=== PATIENT | female | born 1940 | race Caucasian/White ===

== ENCOUNTER 2017-02-22 09:14 | Emergency (ER) | payer BC ==
[~2017-02-22] VITALS: Ht 165.1 cm; Wt 79.2 kg
[~2017-02-22 09:14] MED LIST: CALC600T9 PO; DOXY40CA PO; METO25TA3 PO; NPR500 PO
[2017-02-22 09:16] VITALS: BP 153/75; PULSE 79; TEMP 36.8; O2SAT 96; Ht 165.1 cm; Wt 79.2 kg
[2017-02-22] MEDS ORDERED: DIPHTHERIA/TETANUS/PERTUSSIS 0.5 ML SYR/VIAL IM. ONE (09:45)
[2017-02-22] MEDS ORDERED: FURO-85 PO (09:49)
[2017-02-22] MEDS ORDERED: ASPI81TA28 PO (09:49)
[2017-02-22] MEDS ORDERED: HYDR1AER23 PR (09:49)
[2017-02-22] MEDS ORDERED: ACET-1256 PO (09:49)
[2017-02-22] MEDS ORDERED: DOCU-94 PO (09:49)
[2017-02-22] MEDS ORDERED: LISI40TA PO (09:49)
[2017-02-22] MEDS ORDERED: SPIR25TA PO (09:49)
[2017-02-22] MEDS ORDERED: ATOR-24 PO (09:49)
[2017-02-22] MEDS ORDERED: NTRGSL/4 UT (09:49)
--- NOTE | 2017-02-22 10:19 | DIAGNOSTIC IMAGING REPORT ---
CT HEAD WITHOUT CONTRAST (CT) CLINICAL HISTORY: Head trauma. Head pain. COMPARISON STUDY: No previous studies for comparison. TECHNIQUE: Axial CT of the brain is performed from the vertex to the skull base. IV contrast was not administered for this examination. CT DOSE: 537.48 mGy.cm FINDINGS: No intra or extra-axial mass lesions are visualized. There is no CT evidence of acute cortical infarction. There is no evidence of midline shift. There is no acute hemorrhage. No calvarial fractures are visualized. There are patchy white matter hypodensities likely on a small vessel basis. There is no evidence of pathologic ventricular dilatation. There is no evidence of acute sinusitis IMPRESSION: No acute intracranial findings Electronically signed by: Manuel Conn M.D. 02/22/2017 10:18 AM Dictated Date/Time: 02/22/2017 10:17 AM
--- NOTE | 2017-02-22 17:11 | EMERGENCY ROOM VISIT NOTE ---
History Report prepared by Vadim: Fransisco Thakkar Under the Supervision of: Dr. Cuong Baron M.D. First contact with patient: 09:28 Chief Complaint: FALL Stated Complaint: FELL AND HIT HER HEAD History of Present Illness The patient is a 76 year old female who presents to the Emergency Room with complaints of constant forehead pain s/p fall occurring 30 minutes ago. She states that she fell down a step while at [employer], and hit her forehead on the ground. She denies any headache-like pain, or loss of consciousness. She states that her pain is fairly mild, but that she feels "very nervous". The patient notes that she felt a little dizzy following the fall, but did not feel dizzy prior to the fall. She currently denies any numbness, weakness, nausea, chest pain, neck pain, or abdominal pain. She notes that she has a small cut from her glasses on her face and some minor "soreness" in her knees. The patient has a history of CAD, and has a cardiac stent in place. She denies any fevers, cough, or cold-like symptoms. She cannot remember when her most recent tetanus shot was. Source of History: patient Onset: 30 minutes ago Position: head (forehead) Symptom Intensity: minimal Quality: other (sore) Timing: constant Associated Symptoms: No LOC, No abdominal pain, No chest pain, No cough, No fevers, No headache (headache-like pain), No nausea, No neck pain, No numbness, No weakness Note: The patient also complains of slight dizziness following her fall. Review of Systems See HPI for pertinent positives & negatives. A total of 10 systems reviewed and were otherwise negative. Past Medical & Surgical Medical Problems: (1) Coronary artery disease Surgical Problems: (1) H/O heart artery stent Family History No pertinent family history stated. Social History Smoking Status: Never Smoker Marital Status: Current/Historical Medications Scheduled Aspirin (Aspirin Ec), 81 MG PO DAILY Atorvastatin (Lipitor), 40 MG PO DAILY Calcium Carbonate-Vitamin D (Calcium + D), 1 TAB PO QAM Docusate Sodium (Colace), 1 CAP PO BID Doxycycline (Rosacea) (Oracea), 40 MG PO QAM Hydrocortisone/Pramoxine (Proctofoam Hc), 1 APPL [place] TID Lisinopril (Zestril), 40 MG PO QAM Metoprolol Succinate (Toprol Xl), 25 MG PO HS Nitroglycerin (Nitrostat), 0.4 MG UT PRN Spironolactone (Aldactone), 25 MG PO BID Scheduled PRN Acetaminophen (Tylenol), 500 MG PO Q4 PRN for Headache Furosemide (Lasix), 20 MG PO DAILY PRN for SWELLING/WT GAIN Allergies Coded Allergies: Penicillins (Verified Allergy, Unknown, ., 02/22/17) Sulfa Antibiotics (Verified Adverse Reaction, Unknown, GI SYMPTOMS, 02/22/17 ) Physical Exam Vital Signs Date Time Temp Pulse Resp B/P Pulse Ox O2 Delivery O2 Flow Rate FiO2 02/22/17 09:16 36.8 79 16 153/75 96 Room Air Physical Exam Constitutional: Vital signs reviewed. Eyes: Pupils are equal round reactive to light. Conjunctiva are noninjected. ENT: Pharynx is clear without erythema or exudate. Mucous membranes are moist. Neck supple without meningeal signs. No midline tenderness to the cervical spine. No mid facial tenderness. Skin avulsion and abrasion to the upper bridge of the nose. Soft tissue swelling to the forehead with tenderness. Respiratory: Clear to auscultation bilaterally. Breath sounds are equal bilaterally. Cardiovascular: Regular rate and rhythm. No rubs or gallops. GI: Soft, nondistended and nontender. Bowel sounds are present. Musculoskeletal: No peripheral edema. No significant bony tenderness to the extremities. No midline tenderness to the thoracic or lumbosacral spine. Integumentary: As above. Neurological: The patient is awake and alert. Cranial nerves II-XII are intact. Motor is 5 out of 5 all extremities. Sensation is intact to light touch all extremities. Normal speech. No pronator drift. GCS 15 Psychiatric: Slightly anxious. Medical Decision & Procedures ER Provider Diagnostic Interpretation: CT results as stated below per my review and radiologist interpretation. CT HEAD WITHOUT CONTRAST (CT) FINDINGS: No intra or extra-axial mass lesions are visualized. There is no CT evidence of acute cortical infarction. There is no evidence of midline shift. There is no acute hemorrhage. No calvarial fractures are visualized. There are patchy white matter hypodensities likely on a small vessel basis. There is no evidence of pathologic ventricular dilatation. There is no evidence of acute sinusitis IMPRESSION: No acute intracranial findings Electronically signed by: Manuel Conn M.D. Medications Administered Medications (Trade) Dose Ordered Sig/Cydney Route Start Time Stop Time Status Last Admin Dose Admin Diphtheria/ Pertussis/Tetanus Vacc (Adacel Inj) 0.5 ml ONCE ONCE IM. 02/22/17 09:45 02/22/17 09:46 DC 02/22/17 10:06 0.5 ML ED Course 0930: The patient was evaluated in room B9. A complete history and physical exam was performed. 0945: Ordered Adacel Inj 0.5 ml IM. 1025: Upon reevaluation, the patient appeared to have improvement of her symptoms. I discussed tonight's findings with the patient. She verbalized agreement of the treatment plan. She was discharged home. Medical Decision This is a 76-year-old female presents status post head injury. Differential diagnosis includes contusion, concussion, skull fracture, facial fracture, intracranial hemorrhage. I did perform a limited focused review of portions of the patient's old chart on the electronic medical record. The patient has had no recent pertinent visits to this hospital. I did evaluate the patient as noted above. The patient is presenting after a mechanical fall with a head injury. She is neurologically intact. GCS is 15. I did order a CT of the head . I did review the images myself as well as the radiology report as described above. There is no evidence of intracranial hemorrhage. I did give the patient an Adacel IM injection and she does not know when her last tetanus shot was. She preferred to get the injection rather than to call her doctor tomorrow. I did discuss the test results with the patient and her . She was given head injury precautions and discharged in good condition. Impression Primary Impression: Acute head injury Additional Impression: Fall Scribe Attestation The scribe's documentation has been prepared under my direct and personally reviewed by me in its entirety. I confirm that the note above accurately reflects all work, treatment, procedures, and medical decision making performed by me. Departure Information Dispostion Home / Self-Care Referrals Kevon Cloby M.D. (PCP) Forms HOME CARE DOCUMENTATION FORM, IMPORTANT VISIT INFORMATION Patient Instructions ED Head Injury Closed, My [facility] Additional Instructions You have been examined and treated today on an emergency basis only. This is not a substitute for, or an effort to provide, complete comprehensive medical care. It is impossible to recognize and treat all injuries or illnesses in a single emergency department visit. It is therefore important that you follow up closely with your physician. Call as soon as possible for an appointment. Return for worsening symptoms or if you develop headache, numbness or weakness on one side of your body, difficulties with your speech or walking, or any other concerning symptoms. Problem Qualifiers Primary Impression: Acute head injury Encounter type: initial encounter Qualified Codes: S09.90XA - Unspecified injury of head, initial encounter Additional Impression: Fall Encounter type: initial encounter Qualified Codes: W19.XXXA - Unspecified fall, initial encounter
[2017-03-26] MEDS ORDERED: HYDR-4716 PO (08:43)
== END 2017-02-22 10:43 | disposition home or self-care (01) ==
LOC: C.EDB 09:15
DX: S09.90XA Unspecified injury of head, initial encounter (principal); W10.9XXA Fall (on) (from) unspecified stairs and steps, initial encounter; Y92.22 Religious institution as the place of occurrence of the external cause; S00.31XA Abrasion of nose, initial encounter; I25.10 Atherosclerotic heart disease of native coronary artery without angina pectoris; Z95.5 Presence of coronary angioplasty implant and graft; Z79.82 Long term (current) use of aspirin; Z23 Encounter for immunization

== ENCOUNTER → 2017-04-08 | Day surgery (SDC) | payer BC ==
[2017-03-26 08:43] VITALS: Ht 165.1 cm; Wt 77.3 kg
[~2017-04-08] VITALS: Ht 165.1 cm; Wt 77.3 kg
[~2017-04-08] MED LIST changes: +500ML BSS 0.3ML EPI 1:1000PF IRRIG ONE; +ACETAMINOPHEN 325 MG TAB PO PRN; +AMVISC PLUS 0.8ML SYRINGE INT OCU ONE; +ASPI81TA28 PO; +ATOR-24 PO; +ATROPINE SULFATE 0.1 MG/ML 5ML SYR IV PRN; +AcetaZOLAMIDE 250 MG TAB PO SCH; +BETAXOLOL HCL 0.25% OP SUSP PER DROP CHARGE OPL SCH; +BRIMONIDINE TART 0.2% OP SOLN PER DROP CHARGE ONE; +BSS FLUSH ONE; +ENDOCOAT 0.85ML SYRINGE INT OCU ONE; +EpHEDrine SULFATE INJ 50 MG/ML AMP IV PRN; +EpINEphrine INJ 1MG/ML AMP 1 MG/ML AMP ONE; +FURO-85 PO; +HYDR-4716 PO; +LACTATED RINGER'S 1000ML 500 ML IV SCH; +LIDOCAINE 4% OP SOLN DROP CHARGE ONE; +LIDOCAINE 4% OP SOLN DROP CHARGE OPL SCH; +LIDOCAINE HCL 1% MPF 2 ML VIAL ONE; +LISI40TA PO; +MIDAZOLAM HCL 1 MG/ML 2ML VIAL ONE; +MIX: 4ML BSS 1ML EPI 1:1000 PF INSTIL ONE; +MOXIFLOXACIN OPH SOLN PER DROP CHARGE ONE; -NPR500 PO; +NTRGSL/4 UT; +OCUCOAT 1 ML SOLN IO ONE; +POVIDONE-IODINE OP SOLN 30 ML BTL ONE; +PROPARACAINE 0.5% OP SOLN PER DROP CHARGE OPL SCH; +SPIR25TA PO; +TOBRAMYCIN/DEXAMETHASONE OPH OINT PER APPLN CHARGE ONE
[2017-04-08] MEDS: PHENYLEPHRINE HCL 2.5% OP SOLN PER DROP CHARGE OPL SCH ×2 (06:38→06:43)
[2017-04-08] MEDS: TROPICAMIDE 1% OP SOLN PER DROP CHARGE OPL SCH ×2 (06:39→06:44)
[2017-04-08] MEDS: CYCLOPENTOLATE HCL 1% OP SOLN PER DROP CHARGE OPL SCH ×2 (06:40→06:45)
[2017-04-08] MEDS: MOXIFLOXACIN OPH SOLN PER DROP CHARGE OPL SCH ×2 (06:41→06:56)
--- NOTE | 2017-04-08 06:41 | History & Physical Bridge - SC ---
H&P Re-Evaluation Bridge Note: I have examined the patient, reviewed the History & Physical and in the interval since the performance of the History & Physical I have noted the following changes of clinical significance: No changes noted
--- NOTE | 2017-04-08 07:36 | Discharge Instructions-SurgCtr ---
Discharge Instructions Date of Service Apr 08, 2017. Visit Reason for Visit: Cataract Left Eye Discharge Discharge Diagnosis / Problem: lens implant left eye Discharge Goals Goal(s): Improve function Activity Recommendations Activity Limitations: resume your previous activity Lifting Limitations: no more than 10 pounds Exercise/Sports Limitations: gradually increase as tolerated May Resume Sexual Activity: when tolerated Shower/Bathe: tomorrow Driving or Machine Use: resume 1 day after discharge Anesthesia . Post Anesthesia Instructions: If you have had General Anesthesia or IV Sedation: * Do not drive today. * Resume driving when surgeon permits. * Do not make important decisions or sign legal documents today. * Call surgeon for: 1. Temperature elevations greater than 101 degrees F. 2. Uncontrollable pain. 3. Excessive bleeding. 4. Persistent nausea and vomiting. 5. Medication intolerance (nausea, vomiting or rash). * For nausea and vomiting use only clear liquids such as: tea, soda, bouillon until nausea subsides, then gradually increase diet as tolerated. * If you have any concerns or questions, call your surgeon's office. If physician is unavailable and it is an emergency, call 911 or go to the nearest emergency room. . Instructions / Follow-Up Instructions / Follow-Up ACTIVITY RECOMMENDATIONS: * Light activities. * Mild irritation and blurred vision are common for the first few days. * You may walk outside, read, watch television. * Redness around the white part of the eye is common. MEDICATIONS: Resume previous medications unless instructed otherwise by your surgeon. * Take white Diamox (Acetazolamide) tablet at 1 pm today. Start all eye drops at 1 pm today: * Eye drops (today and tomorrow): Prednisone - one drop in operative eye every 3 hours while awake Ofloxacin - one drop in operative eye every 3 hours while awake SPECIAL CARE INSTRUCTIONS: * Tape plastic shield over eye to sleep at night. Call your doctor at with any concerns or problems. FOLLOW UP VISIT: Follow-up with Dr Mixon at [place] office as scheduled. Diet Recommendations Home Diet: no limitations Procedures Procedures Performed: cataract extraction with lens implant Pending Studies Studies pending at discharge: no Medical Emergencies . Who to Call and When: Medical Emergencies: If at any time you feel your situation is an emergency, please call 911 immediately. . Non-Emergent Contact Non-Emergency issues call your: Deputy Director Of Nursing Call Non-Emergent contact if: your pain is not controlled [phone] . . "Provider Documentation" section prepared by Kevon Mixon. .
--- NOTE | 2017-04-08 07:38 | [facility] Operative Report ---
Operative Report Date of Service Apr 08, 2017. Operative Report 1. PREOPERATIVE DIAGNOSIS: Senile nuclear cataract, left eye. 2. POSTOPERATIVE DIAGNOSIS: Senile nuclear cataract, left eye. 3. PROCEDURE: Phacoemulsification of left cataract with posterior chamber lens implant, type [employer]ch [employer], model MI60L, power +20.5 diopters. ANESTHESIA: Local standby. SURGEON: Dr. Mixon. COMPLICATIONS: None. OPERATING TIME: 10 minutes. 4. OPERATION AND FINDINGS: DESCRIPTION OF PROCEDURE: The left pupil was dilated. The anesthetic was administered using a topical technique. The left eye was prepped and draped. A speculum was placed. A clear corneal incision was formed. The chamber was filled with Amvisc Plus and Endocoat. Epinephrine solution was used. A paracentesis was placed. A capsulorrhexis was performed. The nucleus was hydrodissected. The lens was removed with phacoemulsification. Time was 4.58 seconds. The aspiration unit was used to remove the cortex. The capsule was filled with Amvisc Plus. The lens implant was folded and placed into the capsule. The incision was hydrated. The Amvisc was aspirated. The wound was secure. The chamber was deep. The pupil was round. Brimonidine, TobraDex ointment and Vigamox solution were placed. The speculum was removed. The patient was returned to the Recovery Room in stable condition. I attest to the content of the Intraoperative Record and any orders documented therein. Any exceptions are noted below. The scribe's documentation has been prepared in my presence, under my direction and personally reviewed by me in its entirety. I confirm that the note above accurately reflects all work, treatment, procedures, and medical decision making performed by me. I personally scribed for Kevon Mixon M.D. ([email or web address]) on 04/08/17 at 07:38. Electronically submitted by Nuria Squires ([email or web address]).
[2017-04-08 07:41] VITALS: TEMP 36.4
[2017-04-08 08:05] VITALS: BP 114/57; PULSE 59; O2SAT 100
--- NOTE | 2017-04-08 08:18 | Anesthesia Progress Nt - [facility] ---
Anesthesia Post Op Note Date & Time Apr 08, 2017 at 08:18 Vital Signs Pain Intensity: 0 Vital Signs Past 12 Hours Date Time Temp Pulse Resp B/P (MAP) Pulse Ox O2 Delivery O2 Flow Rate FiO2 04/08/17 08:05 59 18 114/57 (76) 100 Room Air 04/08/17 07:41 36.4 56 20 107/68 (81) 99 Room Air 04/08/17 06:27 36.7 63 20 152/76 (101) 98 Room Air Notes Mental Status: alert / awake / arousable, participated in evaluation Pt Amnestic to Procedure: Yes Nausea / Vomiting: adequately controlled Pain: adequately controlled Airway Patency, RR, SpO2: stable & adequate BP & HR: stable & adequate Hydration State: stable & adequate Anesthetic Complications: no major complications apparent
== END | disposition home or self-care (01) ==
LOC: X.SURG 06:06
PROVIDERS: ATTEND Specialist
DX: H25.12 Age-related nuclear cataract, left eye (principal)

== ENCOUNTER → 2017-04-16 | Outpatient (CLI) | payer BC ==
[~2017-04-16] MED LIST changes: -500ML BSS 0.3ML EPI 1:1000PF IRRIG ONE; -ACETAMINOPHEN 325 MG TAB PO PRN; -AMVISC PLUS 0.8ML SYRINGE INT OCU ONE; +APR/25 PO; -ATROPINE SULFATE 0.1 MG/ML 5ML SYR IV PRN; -AcetaZOLAMIDE 250 MG TAB PO SCH; -BETAXOLOL HCL 0.25% OP SUSP PER DROP CHARGE OPL SCH; -BRIMONIDINE TART 0.2% OP SOLN PER DROP CHARGE ONE; -BSS FLUSH ONE; -ENDOCOAT 0.85ML SYRINGE INT OCU ONE; -EpHEDrine SULFATE INJ 50 MG/ML AMP IV PRN; -EpINEphrine INJ 1MG/ML AMP 1 MG/ML AMP ONE; -HYDR-4716 PO; -LACTATED RINGER'S 1000ML 500 ML IV SCH; -LIDOCAINE 4% OP SOLN DROP CHARGE ONE; -LIDOCAINE 4% OP SOLN DROP CHARGE OPL SCH; -LIDOCAINE HCL 1% MPF 2 ML VIAL ONE; -MIDAZOLAM HCL 1 MG/ML 2ML VIAL ONE; -MIX: 4ML BSS 1ML EPI 1:1000 PF INSTIL ONE; -MOXIFLOXACIN OPH SOLN PER DROP CHARGE ONE; -OCUCOAT 1 ML SOLN IO ONE; -POVIDONE-IODINE OP SOLN 30 ML BTL ONE; -PROPARACAINE 0.5% OP SOLN PER DROP CHARGE OPL SCH; -TOBRAMYCIN/DEXAMETHASONE OPH OINT PER APPLN CHARGE ONE
--- NOTE | 2017-04-16 14:35 | MAMMOGRAPHY REPORT ---
BILATERAL DIGITAL SCREENING MAMMOGRAM WITH CAD: 04/16/2017 CLINICAL HISTORY: Routine screening. Patient has no complaints. TECHNIQUE: Current study was also evaluated with a Computer Aided Detection (CAD) system. Bilateral CC and MLO views were obtained. COMPARISON: Comparison is made to exams dated: 04/15/2016 mammogram, 04/04/2015 mammogram, 03/29/2014 m ammogram, 03/24/2013 mammogram, 03/19/2012 mammogram, and 03/18/2011 mammogram - [facility] ter. BREAST COMPOSITION: The tissue of both breasts is heterogeneously dense, which may obscure small mas ses. FINDINGS: No suspicious masses, calcifications, or areas of architectural distortion are noted in ei ther breast. There has been no significant interval change compared to prior exams. Scattered bilater al benign-appearing calcifications are not significantly changed. IMPRESSION: ACR BI-RADS CATEGORY 2: BENIGN There is no mammographic evidence of malignancy. A 1 year screening mammogram is recommended. The pa tient will receive written notification of the results. Approximately 10% of breast cancers are not detected with mammography. A negative mammographic report should not delay biopsy if a clinically suggestive mass is present. Salma Rhodes M.D. /:04/16/2017 07:54:17 Director [employer]actor Projects: Latasha ARGUETA(Veronica)(M), [facility] letter sent: Normal 1/2 BI-RADS Code: ACR BI-RADS Category 2: Benign
== END | disposition home or self-care (01) ==
LOC: C.MAMM 07:24
PROVIDERS: ATTEND Obstetrics & Gynecology
DX: Z12.31 Encounter for screening mammogram for malignant neoplasm of breast (principal)

== ENCOUNTER → 2018-05-10 | Outpatient (CLI) | payer BC ==
[~2018-05-10] MED LIST changes: -APR/25 PO; +HYDR-4716 PO; -METO25TA3 PO; +METO25TA4 PO
== END | disposition home or self-care (01) ==
LOC: C.MAMM 07:55
PROVIDERS: ATTEND Obstetrics & Gynecology
DX: M85.88 Other specified disorders of bone density and structure, other site (principal); M85.851 Other specified disorders of bone density and structure, right thigh; M85.852 Other specified disorders of bone density and structure, left thigh

== ENCOUNTER 2023-01-05 16:12 | Inpatient (IN) ==
--- NOTE | 2023-01-05 16:22 | ED Triage Note ---
Date of Service January 05, 2023 History of Present Illness This patient was briefly evaluated while in triage. An abbreviated physical exam was performed. This patient is a 82-year-old Female who presents to the ED for evaluation of dizziness over the past few weeks. She was referred to the ED by cardiology for new onset atrial fibrillation. She feels short of breath at times, denies any chest pain. No leg pain or leg swelling, fevers, or chills. No bleeding or clotting disorder. No history of cancer. Physical Exam CONSTITUTIONAL: in no acute pain or distress, resting comfortably SKIN: pink, warm, dry CARDIAC: tachycardic rate and regular rhythm RESPIRATORY: in no respiratory distress, lungs clear to auscultation Initial orders for labs and / or imaging were placed and patient was placed in the waiting area until a bed is available. Please see further documentation for the full ED course.
--- NOTE | 2023-01-05 16:57 | XRay Report ---
XR chest 1V portable HISTORY: 82 years-old Female Dysrhythmia COMPARISON: None TECHNIQUE: AP view of the chest FINDINGS: Cardiac mediastinal and hilar silhouettes are within normal limits. Punctate calcified granuloma of t he left upper lung. No pneumothorax, pleural effusion, airspace consolidation or pulmonary edema. Bon es appear grossly intact. IMPRESSION: No acute process. ACT 112: Negative or not required by law. The above report was generated using voice recognition software. It may contain grammatical, syntax o r spelling errors. Electronically signed by: Carlos Hernandes M.D. 01/05/2023 4:55 PM
[2023-01-05 17:07] LABS: Albumin Globulin Ratio 1.4 (0.9-2); Albumin Level 4.3 gm/dl (3.4-5.0); BUN Creatinine Ratio 25.6 (10-20); Basophils # (auto) 0.05 K/uL (0-0.2); Basophils % (auto) 0.6 %; Bilirubin,Total 0.9 mg/dl (0.2-1.0); Calcium 10.2 mg/dl (8.5-10.1); Creatinine Clr Calc Pharmacy 21.4 ml/min; Eosinophils % (auto) 2.4 %; Est GFR (African American) 30.2 ml/min; Est GFR (Non-African American) 26.1 ml/min; Hematocrit (blood only) 35.3 % (37.0-47.0); Hemoglobin 11.8 g/dl (12.0-16.0); Immature Granulocytes # (auto) 0.04 K/uL (0.01-0.20); Immature Granulocytes % (auto) 0.5 %; Lymphocytes # (auto) 1.83 K/uL (1.2-3.4); Lymphocytes % (auto) 21.9 %; Mean Corpuscular Hemoglobin 29.3 pg (25.0-34.0); Mean Corpuscular Hgb Conc 33.4 g/dL (32.0-36.0); Mean Corpuscular Volume 87.6 fL (80.0-100.0); Mean Platelet Volume 10.3 fL (9.4-12.4); Monocytes # (auto) 0.74 K/uL (0.11-0.59); Monocytes % (auto) 8.9 %; Neutrophils # (auto) 5.49 K/uL (1.40-6.50); Neutrophils % (auto) 65.7 %; Platelet Count 285 K/uL (130-400); Potassium 4.6 mmol/L (3.5-5.1); RDW Coefficient of Variation 13.5 % (11.5-14.5); RDW Standard Deviation 43.8 fL (36.4-46.3); Red Blood Count 4.03 M/uL (4.20-5.40); Total Protein 7.3 gm/dl (6.0-8.3); White Blood Count 8.35 K/ul (4.8-10.8)
[2023-01-05 17:12] LABS: Troponin I High Sensitivity 15.3 pg/ml (0-14)
[2023-01-05] MEDS ORDERED: METOPROLOL TARTRATE 1 MG/ML VIAL IV STA (17:36)
--- NOTE | 2023-01-05 17:49 | History & Physical Report ---
Date of Service January 05, 2023 Assessment & Plan (1) Atrial flutter: Plan: Benita is an 82-year-old female with a past medical history of CAD with history of PCI who presented to the ER after she was seen by cardiology and was found to be in new onset A-f,utter with shortness of breath but no chest pain. New onset atrial flutter EKG: Atrial flutter versus atrial fibrillation, rate 130. 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 N.p.o. pending KELLY and cardioversion in the morning per cardiology Cardiology consulted Heparinized Lopressor 2.5 mg every 5 minutes x3 doses on-call as needed, electrical cardioversion if hemodynamically unstable; atrial thrombus has not yet been ruled out. Patient aware of the risk of stroke of emergency cardioversion if required Patient is clinically euvolemic on admission, and reports no recent infectious symptoms/cold/illnesses (2) Coronary artery disease: Plan: CAD with PCI following abnormal stress test in 2014 Continue aspirin 81 mg daily Continue statin Continue isosorbide Continue lisinopril Continue metoprolol daily Continue spironolactone 12.5 mg daily Lasix 20 mg daily Clinically euvolemic on assessing exam (3) H/O heart artery stent: Plan Diet: N.p.o. Disposition: PCU CODE STATUS: Full code DVT prophylaxis: Anticoagulated History of Present Illness Primary Care Provider: Latasha Indio Joy is an 82-year-old female with a past medical history of CAD with history of PCI who presented to the ER after she was seen by cardiology and was found to be in new onset A-f,utter with shortness of breath but no chest pain. Mrs. Saunders is seen at the bedside with her present. She reports that she is felt weak for the last week, and recently got a smart watch which did not detect heart rate which noted her heart rate was sometimes as high as the 130s. She presented to her trademark affixer Dr. Singh for evaluation. She was found to be in atrial flutter and was referred to the ER for KELLY and cardioversion. She reports that she is generally felt well until last week when she was weak, with minimal lightheadedness. She has not had any chest pain at any point. She does not sense palpitations or heart racing. She has had some exertional shortness of breath, no diaphoresis. She has had no nausea or vomiting. Does have some constipation at baseline, no abdominal pain. She has not had any focal weakness or strokelike symptoms. No history of strokes. She does have a history of PCI in 2014, she had some exertional shortness of breath for which a stress test was performed showing ischemic change and underwent successful PCI at [facility] [place]. She reports she has had no problems, no chest pain, no angina since that time. She does take aspirin daily, is not on anticoagulants or DAPT currently. No history of blood clots. She does not use tobacco products, and has rare social alcohol use. At bedside assessment she reports she feels well, she notes that when her heart was racing she did drop into the 80s and felt lightheaded, but since her blood pressure is improved she feels well. Medical History: Reviewed Medications: Reviewed Surgical History: Reviewed Family history: Reviewed Allergies: Reviewed Social History: Reviewed, no tobacco use Code Status: Full code Allergies Allergy/AdvReac Type Severity Reaction Status Date / Time Penicillins Allergy Unknown HIVES Verified 01/05/23 18:08 Sulfa (Sulfonamide AdvReac Unknown GI SYMPTOMS Verified 01/05/23 18:08 Antibiotics) Home Medications Medication Instructions Recorded Confirmed Type atorvastatin 40 mg tablet 40 mg PO HS 07/29/19 01/05/23 History furosemide 20 mg tablet 20 mg PO 3XWK #90 tabs 07/29/19 01/05/23 History lisinopril 40 mg tablet 40 mg PO DAILY 07/29/19 01/05/23 History metoprolol succinate 25 mg 25 mg PO DAILY 07/29/19 01/05/23 History tablet,extended release 24 hr nitroglycerin 0.4 mg sublingual 0.4 mg sublingual UD PRN chest 07/29/19 01/05/23 History tablet pain isosorbide mononitrate 30 mg 30 mg PO DAILY 07/09/20 01/05/23 History tablet,extended release 24 hr aspirin 81 mg tablet,delayed 81 mg PO DAILY 01/05/23 01/05/23 History release hydralazine 25 mg tablet 25 mg PO TID 01/05/23 01/05/23 History oxybutynin chloride 10 mg 10 mg PO DAILY 01/05/23 01/05/23 History tablet,extended release 24 hr spironolactone 25 mg tablet 12.5 mg PO DAILY 01/05/23 01/05/23 History Past Med/Surg History Medical History Hx of hemorrhoids Surgical History S/P appendectomy Family History Aunt Breast cancer Father Coronary heart disease Parkinson disease Mother Heart disease Social History Smoking Status: Never smoker Hx Alcohol Use: Yes marital status: Feels Safe at Home: Yes Review of Systems Review of Systems: All systems reviewed & are unremarkable except as noted in HPI & below Physical Exam Physical Exam: General: A&Ox3. NAD. Cooperative. HEENT: Atraumatic, normocephalic. Vision/hearing intact. Pulm: CTAB A&P. -wheezes, -rales, -rhonchi. Symmetrical chest rise. No increased work of breathing. No respiratory distress. Cardiac: Irregular, tachycardic, -mrg. Radial pulses intact and symmetrical. Abdominal: Nontender, nondistended, soft. BS present. Extremities: Warm, dry. Sensation intact to soft touch in hands and feet bilaterally without asymmetry. Moves all extremities equally Results & Data Results & Data Vital Signs (Past 12 Hours) Vital Signs Temp Pulse Resp BP Pulse Ox O2 Del Method 01/05/23 16:55 117 H 01/05/23 16:12 37.1 C 126 H 20 134/79 96 Room Air PG Care Time/CCT Total # of Minutes Spent Total Time Spent with Patient: Total time spent is greater than 50% in coordination of care (as documented) at patient's floor/unit and/or counseling patient: Coding Level of Care Code 19787 INT INP/OBS CARE 3/75MIN Diagnoses Atrial flutter I48.92 Coronary artery disease I25.10 H/O heart artery stent Z95.5
[2023-01-05] MEDS ORDERED: METOPROLOL TARTRATE 1 MG/ML VIAL IV PRN (18:17)
[2023-01-05] MEDS ORDERED: Heparin IV Adult Wt-Based Low-Dose WITH Bolus Protocol IV STA (18:17)
[2023-01-05] MEDS ORDERED: HEPARIN SOD (PORCINE) 1000 UNIT/ML IV ONE (18:45)
[2023-01-05] MEDS: HEPARIN SODIUM/DEXTROSE 25,000 UNITS/500 ML BAG IV SCH (19:33)
--- NOTE | 2023-01-05 19:47 | Emergency Department Note ---
Impression & Plan New onset atrial flutter, Elevated troponin ED Provider Note INFORMANT: Patient ED PROVIDER(S): Jacky Carrillo MD CHIEF COMPLAINT: Tachycardia PLAN: Disposition: Admitted Condition: Good Outpatient prescription management: none Referral: None MEDICAL DECISION MAKING: Patient presented because of tachycardia. Cardiology was concerned about new onset a flutter. ECG here did reveal atrial flutter at [address] changes. Patient was asymptomatic on evaluation. Blood work revealed an unremarkable CBC and chemistry panel. The patient's cardiac troponin was borderline elevated. She was given IV Lopressor for rate control. Patient will need further management in the hospital. Consultation was made with the [facility] service. Discussed the case with Dr. Chacon. We did discuss possible anticoagulation and no initial recommendations were given from cardiology. He did ask for cardiology to be notified. I did discuss the case with Dr. Gimenez cardiology. He recommended anticoagulation. This recommendation was given to the admitting team and they did order heparin. After review of the information above and other included data, I feel the patient requires admission. Triage Nursing notes reviewed and agree them. Vital Signs: reviewed and remarkable for tachycardia Prior /Outside records reviewed: none Differential diagnosis: Premature contractions, electrolyte abnormality, cardiac dysrhythmia, thyroid dysfunction, pulmonary embolism, infection, gastrointestinal, as well as other pathologies. Diagnostics, as interpreted by me: ECG: Twelve-lead ECG reveals a atrial flutter at [address] elevation. Cardiac Monitoring: Cardiac monitoring ordered by me: The patient was placed on continuous cardiac monitoring and observed. It revealed a a flutter/fib at 123 beats per minute without ectopy or evidence of dysrhythmia. Medical decision rules: None Imaging studies: Chest x-ray. Findings: A chest x-ray was performed and revealed no pneumothorax, effusion, infiltrate, pulmonary edema, free air under the diaphragm, or wide mediastinum. Impression: No acute disease. HPI: The patient is a 82year old female who presents to the Emergency Room with complaints of tachycardia. Patient was seen by Dr. Singh and diagnosed with new onset a flutter. This this was found today however the patient is noted some tachycardia issues for a month. Cardiology wanted her to be admitted to the hospital, have a KELLY, and possible cardioversion. The patient also notes the following associated symptoms, palpitations.. The patient has taken no medication for relieving factors. Current pain is rated as 0/10. Pt denies LOC, headache, fevers, chills, diaphoresis, visual changes, neck pain, chest pain, breathing difficulties, nausea, vomiting, abdominal pain, back pain, melena, hematochezia, urinary symptoms, numbness, weakness, lymphadenopathy, rash, or other complaints. PAST MEDICAL HISTORY: See Below, CAD PAST SURGICAL HISTORY: See Below, stented coronary artery SOCIAL HISTORY: See Below, HOME MEDICATIONS: See Below ALLERGIES: See Below VITALS: See Below PHYSICAL EXAMINATION: GENERAL: Awake, alert, well-appearing, in no distress HENT: Normocephalic, atraumatic. Oropharynx unremarkable. EYES: Normal conjunctiva. Sclera non-icteric. NECK: Inspection normal. Non-tender. Supple. No nuchal rigidity. FROM. No masses. RESPIRATORY: Clear to auscultation. No wheezes. No rales. Normal respiratory effort. CARDIAC: Tachycardic rate. Irregular rhythm. No murmurs. No rubs. Extremities warm and well perfused. Pulses equal. No JVD. GI: Soft, non-distended. No tenderness to palpation. No rebound or guarding. No masses. RECTAL: Deferred. MUSCULOSKELETAL: Atraumatic. Chest examination reveals no tenderness. The back is symmetrical on inspection without obvious abnormality. There is no CVA tenderness to palpation. No joint edema. LOWER EXTREMITIES: Calves are equal size bilaterally and non-tender. No edema. No discoloration. NEURO: Normal sensorium. No sensory or motor deficits noted. SKIN: No rash or jaundice noted. Past Med/Surg History Medical History Hx of hemorrhoids Surgical History S/P appendectomy Family History Aunt Breast cancer Father Coronary heart disease Parkinson disease Mother Heart disease Social History Smoking Status: Never smoker Hx Alcohol Use: Yes marital status: Feels Safe at Home: Yes Allergies Allergies Allergy/AdvReac Type Severity Reaction Status Date / Time Penicillins Allergy Unknown HIVES Verified 01/05/23 18:08 Sulfa (Sulfonamide AdvReac Unknown GI SYMPTOMS Verified 01/05/23 18:08 Antibiotics) Home Meds Home Medications Medication Instructions Recorded Confirmed atorvastatin 40 mg tablet 40 mg PO HS 07/29/19 01/05/23 furosemide 20 mg tablet 20 mg PO 3XWK #90 tabs 07/29/19 01/05/23 lisinopril 40 mg tablet 40 mg PO DAILY 07/29/19 01/05/23 metoprolol succinate 25 mg 25 mg PO DAILY 07/29/19 01/05/23 tablet,extended release 24 hr nitroglycerin 0.4 mg sublingual 0.4 mg sublingual UD PRN chest 07/29/19 01/05/23 tablet pain isosorbide mononitrate 30 mg 30 mg PO DAILY 07/09/20 01/05/23 tablet,extended release 24 hr aspirin 81 mg tablet,delayed 81 mg PO DAILY 01/05/23 01/05/23 release hydralazine 25 mg tablet 25 mg PO TID 01/05/23 01/05/23 oxybutynin chloride 10 mg 10 mg PO DAILY 01/05/23 01/05/23 tablet,extended release 24 hr spironolactone 25 mg tablet 12.5 mg PO DAILY 01/05/23 01/05/23 Results & Data (ED) Vital Signs Vital Signs - 24 hr 01/05/23 16:12 01/05/23 16:55 01/05/23 18:06 Temperature 37.1 C Temperature Source Temporal Artery Scan Pulse Rate 126 H 117 H Pulse Rate [Apical] 109 H Pulse Rate from SpO2 Sensor Pulse Rhythm [Apical] Regular Pulse Strength [Apical] Normal Respiratory Rate 20 20 Respiratory Effort / Characteristics Non-Labored Spontaneous Non-Labored Spontaneous Respiratory Depth Normal Normal Respiratory Pattern Regular Blood Pressure 134/79 Blood Pressure [Right Arm] 143/90 H Blood Pressure Mean 97 Blood Pressure Mean [Right Arm] 107 Blood Pressure Position [Right Arm] Sitting Pulse Oximetry 96 98 Oxygen Delivery Method Room Air Room Air Sepsis Recent Fever Within 48 Hours No Sepsis New/Unexplained Change in Mental Status No Sepsis Action Taken by Nursing No Action Required 01/05/23 17:58 01/05/23 16:53 01/05/23 17:00 Temperature Temperature Source Pulse Rate 115 H 110 H 110 H Pulse Rate [Apical] Pulse Rate from SpO2 Sensor 111 H 110 H Pulse Rhythm [Apical] Pulse Strength [Apical] Respiratory Rate 15 18 Respiratory Effort / Characteristics Respiratory Depth Respiratory Pattern Blood Pressure 121/77 Blood Pressure [Right Arm] Blood Pressure Mean Blood Pressure Mean [Right Arm] Blood Pressure Position [Right Arm] Pulse Oximetry 98 98 Oxygen Delivery Method Sepsis Recent Fever Within 48 Hours Sepsis New/Unexplained Change in Mental Status Sepsis Action Taken by Nursing 01/05/23 17:04 01/05/23 17:04 01/05/23 17:10 Temperature Temperature Source Pulse Rate 109 H 109 H Pulse Rate [Apical] Pulse Rate from SpO2 Sensor 110 H Pulse Rhythm [Apical] Pulse Strength [Apical] Respiratory Rate 14 16 Respiratory Effort / Characteristics Respiratory Depth Respiratory Pattern Blood Pressure 129/85 Blood Pressure [Right Arm] Blood Pressure Mean 99 Blood Pressure Mean [Right Arm] Blood Pressure Position [Right Arm] Pulse Oximetry 99 Oxygen Delivery Method Sepsis Recent Fever Within 48 Hours Sepsis New/Unexplained Change in Mental Status Sepsis Action Taken by Nursing 01/05/23 17:20 01/05/23 17:30 01/05/23 17:30 Temperature Temperature Source Pulse Rate 113 H 114 H Pulse Rate [Apical] Pulse Rate from SpO2 Sensor Pulse Rhythm [Apical] Pulse Strength [Apical] Respiratory Rate 19 10 L Respiratory Effort / Characteristics Respiratory Depth Respiratory Pattern Blood Pressure 121/77 Blood Pressure [Right Arm] Blood Pressure Mean 91 Blood Pressure Mean [Right Arm] Blood Pressure Position [Right Arm] Pulse Oximetry Oxygen Delivery Method Sepsis Recent Fever Within 48 Hours Sepsis New/Unexplained Change in Mental Status Sepsis Action Taken by Nursing 01/05/23 17:40 01/05/23 17:50 01/05/23 18:00 Temperature Temperature Source Pulse Rate 108 H 115 H Pulse Rate [Apical] Pulse Rate from SpO2 Sensor Pulse Rhythm [Apical] Pulse Strength [Apical] Respiratory Rate 7 L 7 L Respiratory Effort / Characteristics Respiratory Depth Respiratory Pattern Blood Pressure 143/90 H Blood Pressure [Right Arm] Blood Pressure Mean 107 Blood Pressure Mean [Right Arm] Blood Pressure Position [Right Arm] Pulse Oximetry Oxygen Delivery Method Sepsis Recent Fever Within 48 Hours Sepsis New/Unexplained Change in Mental Status Sepsis Action Taken by Nursing 01/05/23 18:00 01/05/23 18:10 01/05/23 19:24 Temperature Temperature Source Pulse Rate 108 H 110 H Pulse Rate [Apical] 114 H Pulse Rate from SpO2 Sensor Pulse Rhythm [Apical] Regular Pulse Strength [Apical] Normal Respiratory Rate 17 10 L 20 Respiratory Effort / Characteristics Non-Labored Respiratory Depth Normal Respiratory Pattern Regular Blood Pressure Blood Pressure [Right Arm] 133/80 Blood Pressure Mean Blood Pressure Mean [Right Arm] 97 Blood Pressure Position [Right Arm] Pulse Oximetry 97 Oxygen Delivery Method Room Air Sepsis Recent Fever Within 48 Hours Sepsis New/Unexplained Change in Mental Status Sepsis Action Taken by Nursing Laboratory Data 01/05/23 16:25 01/05/23 16:25 Lab Results 01/05/23 01/05/23 01/05/23 Range/Units 16:25 16:25 16:25 WBC 8.35 (4.8-10.8) K/ul RBC 4.03 L (4.20-5.40) M/uL Hgb 11.8 L (12.0-16.0) g/dl Hct 35.3 L (37.0-47.0) % MCV 87.6 (80.0-100.0) fL MCH 29.3 (25.0-34.0) pg MCHC 33.4 (32.0-36.0) g/dL RDW Std Deviation 43.8 (36.4-46.3) fL RDW Coeff of Erik 13.5 (11.5-14.5) % Plt Count 285 (130-400) K/uL MPV 10.3 (9.4-12.4) fL Immature Gran % (Auto) 0.5 % Neut % (Auto) 65.7 % Lymph % (Auto) 21.9 % [place] % (Auto) 8.9 % Eos % (Auto) 2.4 % Baso % (Auto) 0.6 % Neut # (Auto) 5.49 (1.40-6.50) K/uL Lymph # (Auto) 1.83 (1.2-3.4) K/uL [place] # (Auto) 0.74 H (0.11-0.59) K/uL Eos # (Auto) 0.20 (0-0.50) K/uL Baso # (Auto) 0.05 (0-0.2) K/uL Immature Gran # (Auto) 0.04 (0.01-0.20) K/uL Sodium 137 (136-145) mmol/L Potassium 4.6 (3.5-5.1) mmol/L Chloride 104 (98-107) mmol/L Carbon Dioxide 23 (21-32) mmol/L Anion Gap 10 (3-11) BUN 45 H (6-23) mg/dl Creatinine 1.76 H (0.6-1.2) mg/dl Est Cr Clr Drug Dosing 21.4 ml/min Est GFR ( Amer) 30.2 ml/min Est GFR (Non-Af Amer) 26.1 ml/min BUN/Creatinine Ratio 25.6 H (10-20) Glucose 90 (70-99(Fasting)) mg/dl Calcium 10.2 H (8.5-10.1) mg/dl Magnesium 2.0 (1.7-2.4) mg/dl Total Bilirubin 0.9 (0.2-1.0) mg/dl AST 22 (13-39) U/L ALT 15 (7-52) U/L Alkaline Phosphatase 66 (34-104) U/L Troponin I High Sens 15.3 H (0-14) pg/ml Total Protein 7.3 (6.0-8.3) gm/dl Albumin 4.3 (3.4-5.0) gm/dl Globulin 3.0 (2.5-4.0) gm/dl Albumin/Globulin Ratio 1.4 (0.9-2) TSH 1.136 (0.300-4.500) uIu/ml Administered Medications Heparin Sodium/Dextrose (Heparin Sodium/Dextrose) 25,000 units in 500 mls @ 14 mls/hr IV .Q24H [facility]; Protocol Stop: 02/04/23 18:44 Last Admin: 01/05/23 19:33 Dose: 700 units/hr, 14 mls/hr Documented By: VINICIUS Co-signed By: KERLINE Discontinued Medications Heparin Sodium (Porcine) (Heparin Sod (Porcine) 1000 Unit/Ml) 3,000 units IV NOW ONE Stop: 01/05/23 18:46 Last Admin: 01/05/23 19:30 Dose: 3,000 units Documented By: VINICIUS Co-signed By: KERLINE Metoprolol Tartrate (Metoprolol Tartrate 1 Mg/Ml Vial) 2.5 mg IV NOW STA Stop: 01/05/23 17:37 Last Admin: 01/05/23 17:58 Dose: 2.5 mg Documented By: JOSE Imaging Data Radiologist's Impression: Chest X-Ray 01/05/23 16:16 XR chest 1V portable HISTORY: 82 years-old Female Dysrhythmia COMPARISON: None TECHNIQUE: AP view of the chest FINDINGS: Cardiac mediastinal and hilar silhouettes are within normal limits. Punctate calcified granuloma of the left upper lung. No pneumothorax, pleural effusion, airspace consolidation or pulmonary edema. Bones appear grossly intact. IMPRESSION: No acute process. ACT 112: Negative or not required by law. The above report was generated using voice recognition software. It may contain grammatical, syntax or spelling errors. Electronically signed by: Carlos Hernandes M.D. 01/05/2023 4:55 PM Discharge Plan Visit Data Chief Complaint: Cardiac Assessment Stated Complaint: REF BY DOC, Latricia FIB,DIZZY, ED Provider: Jacky Carrillo Discharge Problem: New onset atrial flutter, Elevated troponin Forms Stand Alone Forms: My [facility] [employer] Prescriptions Prescriptions: No Action atorvastatin 40 mg tablet 40 mg PO HS furosemide 20 mg tablet 20 mg PO 3XWK Qty: 90 Rx Instructions: daily on thursday,thursday,thursday nitroglycerin 0.4 mg tablet, sublingual 0.4 mg SL UD PRN (Reason: chest pain) lisinopril 40 mg tablet 40 mg PO DAILY metoprolol succinate 25 mg tablet extended release 24 hr 25 mg PO DAILY isosorbide mononitrate 30 mg tablet extended release 24 hr 30 mg PO DAILY oxybutynin chloride 10 mg tablet extended release 24hr 10 mg PO DAILY hydralazine 25 mg tablet 25 mg PO TID spironolactone 25 mg tablet 12.5 mg PO DAILY aspirin [Aspirin Low-Strength] 81 mg Tablet,Delayed Release (Dr/Ec) 81 mg PO DAILY Referrals Referrals: Latasha Borjas CRNP [Primary Care Provider] -
[2023-01-05] MEDS ORDERED: ACETAMINOPHEN 325 MG TAB PO PRN (22:28)
[2023-01-05] MEDS ORDERED: NITROGLYCERIN SL 0.4 MG/TAB TAB SL PRN (22:28)
[2023-01-05] MEDS: LACTATED RINGER'S 1,000 ML IV SCH (23:52)
[2023-01-05] MEDS: ATORVASTATIN 40 MG TAB PO SCH (23:52)
[2023-01-05] MEDS: hydrALAZINE HCL 25 MG TAB PO SCH (23:52)
[2023-01-06 01:51] LABS: Basophils # (auto) 0.05 K/uL (0-0.2); Basophils % (auto) 0.9 %; Eosinophils # (auto) 0.24 K/uL (0-0.50); Eosinophils % (auto) 4.3 %; Hematocrit (blood only) 34.1 % (37.0-47.0); Hemoglobin 11.3 g/dl (12.0-16.0); Immature Granulocytes # (auto) 0.01 K/uL (0.01-0.20); Immature Granulocytes % (auto) 0.2 %; Lymphocytes # (auto) 1.72 K/uL (1.2-3.4); Lymphocytes % (auto) 30.9 %; Mean Corpuscular Hemoglobin 29.9 pg (25.0-34.0); Mean Corpuscular Hgb Conc 33.1 g/dL (32.0-36.0); Mean Corpuscular Volume 90.2 fL (80.0-100.0); Mean Platelet Volume 9.9 fL (9.4-12.4); Monocytes # (auto) 0.59 K/uL (0.11-0.59); Monocytes % (auto) 10.6 %; Neutrophils # (auto) 2.95 K/uL (1.40-6.50); Neutrophils % (auto) 53.1 %; Platelet Count 236 K/uL (130-400); RDW Coefficient of Variation 13.3 % (11.5-14.5); RDW Standard Deviation 43.8 fL (36.4-46.3); Red Blood Count 3.78 M/uL (4.20-5.40); White Blood Count 5.56 K/ul (4.8-10.8)
[2023-01-06 02:01] LABS: BUN Creatinine Ratio 26.9 (10-20); Calcium 9.4 mg/dl (8.5-10.1); Creatinine Clr Calc Pharmacy 23.6 ml/min; Est GFR (African American) 33.9 ml/min; Est GFR (Non-African American) 29.3 ml/min; Potassium 4.3 mmol/L (3.5-5.1)
[2023-01-06 02:41] LABS: Partial Thromboplastin Ratio 2.1
[2023-01-06 02:46] LABS: Partial Thromboplastin Time 57.7 Seconds (21.0-31.0)
--- NOTE | 2023-01-06 07:23 | Anesthesiology Consultation ---
Date of Service January 06, 2023 Assessment & Plan Chart Review Chart Review: Acceptable Risk for Surgery and Patient NOT seen in Pre Admission Testing Consults Requested none ASA ASA4 Proposed Anesthesia Anesthesia Type: MAC History Surgery Operation Date: 01/06/23 07:30 Proposed Procedures p Transesophageal Echo w/Anesthesia - Giorgi Becerra MD Height/Weight Height: 5 ft 5 in Weight: 56.7 kg Allergies Allergy/AdvReac Type Severity Reaction Status Date / Time Penicillins Allergy Unknown HIVES Verified 01/05/23 18:08 Sulfa (Sulfonamide AdvReac Unknown GI SYMPTOMS Verified 01/05/23 18:08 Antibiotics) Medications Home Medications Medication Instructions Recorded Confirmed Last Taken atorvastatin 40 mg tablet 40 mg PO HS 07/29/19 01/05/23 01/04/23 furosemide 20 mg tablet 20 mg PO 3XWK #90 tabs 07/29/19 01/05/23 01/05/23 lisinopril 40 mg tablet 40 mg PO DAILY 07/29/19 01/05/23 01/05/23 metoprolol succinate 25 mg 25 mg PO DAILY 07/29/19 01/05/23 01/05/23 tablet,extended release 24 hr nitroglycerin 0.4 mg sublingual 0.4 mg sublingual UD PRN chest 07/29/19 01/05/23 Unknown tablet pain isosorbide mononitrate 30 mg 30 mg PO DAILY 07/09/20 01/05/23 01/05/23 tablet,extended release 24 hr aspirin 81 mg tablet,delayed 81 mg PO DAILY 01/05/23 01/05/23 01/05/23 release hydralazine 25 mg tablet 25 mg PO TID 01/05/23 01/05/23 01/05/23 oxybutynin chloride 10 mg 10 mg PO DAILY 01/05/23 01/05/23 01/05/23 tablet,extended release 24 hr spironolactone 25 mg tablet 12.5 mg PO DAILY 01/05/23 01/05/23 01/05/23 Active Medications Generic Name Dose Route Start Last Admin Trade Name Freq PRN Reason Stop Dose Admin Atorvastatin Calcium 40 mg 01/05/23 22:28 01/05/23 23:52 Atorvastatin 40 Mg Tab PO 02/04/23 22:27 40 mg HS KEKE Administration Hydralazine HCl 25 mg 01/05/23 22:28 01/05/23 23:52 Hydralazine Hcl 25 Mg Tab PO 02/04/23 22:27 25 mg TID KEKE Administration Heparin Sodium/Dextrose 25,000 units in 500 mls @ 14 mls/hr 01/05/23 18:45 01/05/23 19:33 Heparin Sodium/Dextrose IV 02/04/23 18:44 700 units/hr .Q24H KEKE 14 mls/hr Administration Protocol 700 UNITS/HR Lactated Ringer's 1,000 mls @ 80 mls/hr 01/05/23 18:30 01/05/23 23:52 Lr IV 01/06/23 19:29 80 mls/hr .[id number] KEKE Administration Past Medical History Medical History Hx of hemorrhoids Exercise / Class Metabolic Activity III < 4 Walking/Shop/Light housework Past Family History Family History Aunt Breast cancer Father Coronary heart disease Parkinson disease Mother Heart disease Past Surgical History Surgical History S/P appendectomy Past Anesthesia History No Hx of Anesthesia Complications and No Family Hx of Anesthesia Complications History of PONV No Hx of PONV and No Hx of Motion Sickness Social History Smoking Status: Never smoker Hx Alcohol Use: No Hx Substance Use: No substance use type: does not use Physical Exam Vital Signs Last Vital Signs Temp 36.5 C 01/05/23 22:15 Pulse 113 H 01/06/23 07:20 Resp 16 01/06/23 07:20 BP 126/87 01/06/23 07:20 Pulse Ox 99 01/06/23 07:20 O2 Del Method Room Air 01/06/23 03:37 Testing Laboratory Results 01/06/23 01:28 01/06/23 01:28 APTT 57.7 Seconds (21.0-31.0) H* 01/06/23 01:28 Electrocardiogram Date: 01/05/23 Findings: + NSST changes and + pertinent finding (A Flutter @ 130) Chest X-Ray Date: 01/05/23 Findings: + NAD
[2023-01-06] MEDS ORDERED: BENZOCAINE/TETRACAIN/BUTAM 50 APPLN/5 GM CAN EXT ONE (07:24)
[2023-01-06] MEDS: OXYBUTYNIN CHLORIDE XL 5 MG TABCR PO SCH (08:41)
[2023-01-06] MEDS: LACTATED RINGER'S 1,000 ML IV SCH (08:41)
[2023-01-06] MEDS: hydrALAZINE HCL 25 MG TAB PO SCH ×2 (08:42→14:02)
[2023-01-06] MEDS: METOPROLOL SUCC 25MG EXT REL TAB PO SCH (08:42)
[2023-01-06] MEDS: ASPIRIN 81 MG ECTAB PO SCH (08:42)
[2023-01-06] MEDS ORDERED: lisinopril 40 MG TAB PO SCH (09:00)
[2023-01-06] MEDS ORDERED: SPIRONOLACTONE 12.5 MG TAB PO SCH (09:00)
[2023-01-06] MEDS ORDERED: ISOSORBIDE MONO EXTENDED REL 30 MG TABCR PO SCH (09:00)
--- NOTE | 2023-01-06 10:50 | Electrocardiogram Report ---
Test Reason : Blood Pressure : / mmHG Vent. Rate : 130 BPM Atrial Rate : 047 BPM P-R Int : 000 ms QRS Dur : 074 ms QT Int : 308 ms P-R-T Axes : 000 044 -13 degrees QTc Int : 453 ms Poor data quality, interpretation may be adversely affected atrial flutter Nonspecific ST and T wave abnormality Abnormal ECG No previous ECGs available Confirmed by Giorgi Becerra ([id number]) on 01/06/2023 10:50:31 AM Referred By: REFERRED SELF Confirmed By:Pablito Becerra
--- NOTE | 2023-01-06 11:53 | Cardiology Progress Note ---
Date of Service January 06, 2023 Assessment & Plan (1) New onset atrial flutter: Plan: Impression: 1. 2:1 atrial flutter 2. Hypotension 3. Coronary disease status post angioplasty and stenting of a 75% mid right coronary artery lesion (02/2015). 4 Cardiac catheterization 02/05/21 with mild elevation in her PVR and LVEDP without significant epicardial coronary artery disease.5 5. Residual 30% distal left main into the proximal circumflex with a 40% lesion in the ostial circ negative by FFR 02/2015. 6. Transesophageal echocardiogram 01/2021 with an EF of 65% and normal RV size and function with mild mitral regurgitation and moderate tricuspid regurgitation. 7. Hypertension with a markedly hypertensive response to exercise. Ms. Saunders had an KELLY showing normal LVF with EF of 65%, enlarged bilateral atria, no thrombus. She was cardioverted successfully. Unfortunately, she is having quite a bit of ectopy post cardioversion per Dr. Becerra. Will start her on amiodarone bolus and drip as which should overlap with po amiodarone for 24 hours. Hopefully, we can keep her from converting back into flutter but she is high risk to do so. Her troponin was marginally elevated likely due to demand ischemia form her RVR. Her blood pressure is a little lower post cardioversion, likely due to anesthesia, hopefully will resolve back to normal when it wears off and now that she is in a normal rhythm. Antihypertensives held for now. She is maintained on a heparin drip. She can be converted to po Eliquis this afternoon. I discussed that bleeding is a risk with Eliquis and that she should let us know if she is having tarry stools or big bruises. She would need to be seen in the ED if she hit her head. She should use Tylenol for pain control and avoid NSAIDs and aspirin. She should maintain her daily 81 mg ASA given her history of CAD. Plan This visit was conducted over the phone as patient was not in her room this morning. She was in her hospital room, I was in my office with my door closed. Her name and date of were confirmed and she consented to a phone visit. Visit lasted 14 minutes Admission and Anticipated Discharge Date Admission Date: January 05, 2023 Subjective Ms. Saunders was seen in the office yesterday afternoon for complaints of tachycardia and lightheadedness going on for 2 weeks or more. Her lightheadedness was orthostatic in nature. She had an EKG performed in the office which showed 2:1 atrial flutter. Her systolic blood pressures had been running in the 80s and 90s. She was given fluids since admission and it improved her blood pressure and dizziness. She has no complaints today. Review of Systems Review of Systems: All systems reviewed & are unremarkable except as noted in HPI & below Physical Exam 2 Physical Exam: defferred for phone visit Results & Data Vital Signs (Past 12 Hours) Vital Signs Temp Pulse Pulse Resp BP BP Pulse Ox 01/06/23 11:21 36.6 C 113 H 18 111/74 98 01/06/23 08:38 36.6 C 111 H 16 126/83 99 01/06/23 07:22 113 H 01/06/23 07:20 113 H 16 126/87 99 01/06/23 05:45 108 H 01/06/23 03:37 132 H 19 120/76 97 O2 Del Method 01/06/23 11:21 Room Air 01/06/23 08:38 Room Air 01/06/23 07:22 01/06/23 07:20 01/06/23 05:45 01/06/23 03:37 Room Air
[2023-01-06] MEDS ORDERED: PROPOFOL IV EMULSION 10 MG/ML 20 ML VIAL IV ONE ×2 (12:48→13:30)
[2023-01-06] MEDS ORDERED: KETAMINE 50 MG/5 ML SYRINGE ONE (12:48)
--- NOTE | 2023-01-06 13:17 | Cardioversion ---
Date of Service January 06, 2023 PG Electrical Cardioversion Rp Electrical Cardioversion Report Procedure performed: Cardioversion Indication: Atrial flutter Staff brick kiln worker: Giorgi Becerra MD Procedure in detail: The patient was informed of the risks benefits and alternatives to the intended procedure. He understood such which proceed. He was taken to the cardiac catheterization suite holding area. A general anesthetic was administered by the Anesthesiology Service. Once appropriately anesthetized, the patient was cardioverted using 30 joules delivered in a biphasic fashion. This returned the patient to sinus rhythm. The patient tolerated procedure well, there were no immediate complications. Patient was neurologically intact subsequent to the procedure. Impression: Successful cardioversion from atrial flutter to normal sinus rhythm Coding Level of Care Code 76040 CARDIOVERSION, ELECTIVE Additional Codes Electrical Cardioversion Report ([id number])
[2023-01-06] MEDS ORDERED: ePHEDrine sulfate 50 MG/ML SYR ONE (13:29)
[2023-01-06] MEDS ORDERED: PHENYLEPHRINE HCL 10 MG/ML VIAL ONE (13:29)
--- NOTE | 2023-01-06 13:48 | Hospitalist Progress Note ---
Date of Service January 06, 2023 Assessment & Plan (1) Atrial flutter: Plan: New onset Patient is not anticoagulated Admitted to PCU. N.p.o. pending KELLY and cardioversion in the morning per cardiology Cardiology consulted Heparin gtt initiated per protocol Lopressor 2.5 mg every 5 minutes x3 doses on-call as needed, electrical cardioversion if hemodynamically unstable; atrial thrombus has not yet been ruled out. Patient aware of the risk of stroke of emergency cardioversion if required (2) Elevated troponin: Plan: - Mildly elevated hs troponin 15.7, peaked at 18.8, and back down to 15.4 - Suspect minimal elevation is secondary to myocardial demand ischemia in setting of new onset aflutter/fib - Already on Heparin gtt - No need to trend further (3) Coronary artery disease: Plan: CAD with PCI following abnormal stress test in 2014 Continue aspirin 81 mg daily, Atorvastatin, isosorbide Continue lisinopril, metoprolol, spironolactone 12.5 mg and Lasix Clinically euvolemic on assessing exam (4) Renal insufficiency: Plan: - BMP reviewed, creatinine 1.60 this AM (1.76 on labs) - Uncertain her baseline and if this is acute or chronic, suspect the latter Plan For cardioversion today with Dr. Becerra. Anticipate likely home tomorrow. Will d/w Dr. Akers. Admission and Anticipated Discharge Date Admission Date: January 05, 2023 Subjective Patient seen on daily rounds this morning. She reports no complaints, denies cp, dyspnea, palpitations/fluttering. No n/v. She is for KELLY and cardioversion today with Dr. Becerra. Physical Exam Physical Exam: GENERAL: 82 yo Well-developed, well-nourished WF. NAD. LUNGS: Clear to auscultation bilaterally. No W/R/R. CARDIOVASCULAR: Irregular rate and rhythm Results & Data Results & Data Vital Signs (Past 12 Hours) Vital Signs Temp Pulse Pulse Resp BP BP Pulse Ox 01/06/23 13:27 60 16 96/53 L 98 01/06/23 12:30 115 H 16 127/82 99 01/06/23 11:21 36.6 C 113 H 18 111/74 98 01/06/23 08:38 36.6 C 111 H 16 126/83 99 01/06/23 07:22 113 H 01/06/23 07:20 113 H 16 126/87 99 01/06/23 05:45 108 H 01/06/23 03:37 132 H 19 120/76 97 O2 Del Method 01/06/23 13:27 Room Air 01/06/23 12:30 Room Air 01/06/23 11:21 Room Air 01/06/23 08:38 Room Air 01/06/23 07:22 01/06/23 07:20 01/06/23 05:45 01/06/23 03:37 Room Air Laboratory Results 01/06/23 01:28 01/06/23 01:28 PG Care Time/CCT Total # of Minutes Spent Total Time Spent with Patient: Total time spent is greater than 50% in coordination of care (as documented) at patient's floor/unit and/or counseling patient: Coding Level of Care Code 84056 SUB INP/OBS CARE 2/35MIN Diagnoses Atrial flutter I48.92 Elevated troponin R77.8 Coronary artery disease I25.10 Renal insufficiency N28.9
--- NOTE | 2023-01-06 14:12 | XCELERA ---
[id number] \\[id number]
[2023-01-06] MEDS ORDERED: STAT IV Infusion **Titration per Protocol STA (14:38)
[2023-01-06] MEDS ORDERED: AMIODARONE IV BOLUS & DRIP IV STA (14:38)
[2023-01-06] MEDS ORDERED: AMIODARONE / D5W 150 MG/100 ML BAG IV STA (14:38)
[2023-01-06] MEDS ORDERED: 0.2 MICRON FILTER SET 1 EACH IV STA (14:38)
[2023-01-06] MEDS ORDERED: AMIODARONE / D5W 360 MG/200 ML BAG IV ONE (14:49)
[2023-01-06] MEDS: AMIODARONE 200 MG TAB PO SCH (17:48)
[2023-01-06] MEDS: HEPARIN SODIUM/DEXTROSE 25,000 UNITS/500 ML BAG IV SCH (20:33)
[2023-01-06] MEDS: ATORVASTATIN 40 MG TAB PO SCH (20:36)
[2023-01-06] MEDS: APIXABAN 2.5 MG TAB PO SCH (20:36)
[2023-01-06] MEDS ORDERED: COUGH DROP (SUGAR FREE) LOZ 24 LOZ/1 BOX BUCCAL PRN (20:37)
[2023-01-06] MEDS: AMIODARONE / D5W 360 MG/200 ML BAG IV SCH (21:44)
[2023-01-07 07:16] LABS: Partial Thromboplastin Ratio 1.2; Partial Thromboplastin Time 32.5 Seconds (21.0-31.0)
--- NOTE | 2023-01-07 07:35 | Cardioversion ---
Date of Service January 07, 2023 Electrical Cardioversion Rpt Electrical Cardioversion Report Patient has been brought to the cardiac catheterization laboratory. He has been compliant with his anticoagulation since his last attempted cardioversion and has been loaded with Multaq. Anesthesia was provided by the anesthesia department with propofol. Once he was adequately sedated he was cardioverted initially with 200 J in a biphasic, sync mode with brief mu-ism of sinus rhythm for about 30 seconds. He then returned to what appeared to be a 2-1 atrial flutter at a rate of 100 bpm. He was further sedated and shocked again with 200 J with mu-ism of sinus rhythm for about 3 minutes with again recurrence of a 2-1 atrial flutter at 100 bpm. The decision was made to not perform a third cardioversion but rather consider ablation therapy which has been discussed with the EP service given his prior ablation. At the end of the procedure he was answering questions and moving all extremities appropriately his medications will remain unchanged.
--- NOTE | 2023-01-07 08:17 | Cardiology Progress Note ---
Date of Service January 07, 2023 Assessment & Plan Admission and Anticipated Discharge Date Admission Date: January 05, 2023 Results & Data Vital Signs (Past 12 Hours) Vital Signs Temp Pulse Pulse Resp BP Pulse Ox O2 Del Method 01/07/23 07:51 36.6 C 76 20 118/68 98 Room Air 01/07/23 07:56 53 L 01/07/23 03:35 36.7 C 75 19 101/60 99 Room Air 01/06/23 22:02 65 01/07/23 00:32 96/54 L 01/06/23 23:00 36.5 C 65 19 91/51 L 99 Room Air She is awake alert and oriented x3. She notes she feels better this morning. The scratchiness in her throat has improved. He denies any chest pain or chest pressure. She is unaware of any palpitations or fluttering. She is aware her blood pressures are better and wonders if this is why she is feeling better. Exam: HEENT 2+ carotid upstrokes nodes or carotid bruits Lungs: Clear to auscultation bilaterally no rales rhonchi or wheezing Heart: Regular rate and rhythm no appreciable murmurs rubs or gallops Abdomen: Soft nontender nondistended positive bowel sounds Extremities: No clubbing cyanosis or edema Psychiatric: Affect appeared appropriate Neuro: She is awake alert and oriented x3 Impression: 1. 2:1 atrial flutter 2. Hypotension 3. Coronary disease status post angioplasty and stenting of a 75% mid right coronary artery lesion (02/2015). 4 Cardiac catheterization 02/05/21 with mild elevation in her PVR and LVEDP without significant epicardial coronary artery disease.5 5. Residual 30% distal left main into the proximal circumflex with a 40% lesion in the ostial circ negative by FFR 02/2015. 6. Transesophageal echocardiogram 01/2021 with an EF of 65% and normal RV size and function with mild mitral regurgitation and moderate tricuspid regurgitation. 7. Hypertension with a markedly hypertensive response to exercise. Maintaining sinus rhythm overnight. With that her blood pressures have improved. it is strange for a woman that required significant antihypertensive therapy that her blood pressure remains low. This may just be related to the loss of her atrial kick From her atrial flutter which has been ongoing at least since October based on outpatient vitals. I would continue her IV amiodarone until 3:00 this afternoon which will give her 24 hours of IV amiodarone. She can be discharged on 400 mg of amiodarone twice daily for 4 more days and then drop to 200 mg twice daily for a month then 200 mg daily. I would ambulate her in the hallway and make sure she is not lightheaded or dizzy or feeling weak prior to discharge. We discussed the reasoning behind Eliquis to reduce her risk of cardioembolic events. I also discussed with her she noticed any bleeding or bruising dark stools or black stools she needs to let us know. additionally we discussed the need to be careful in avoiding falls while on anticoagulation. As far as her blood pressure medicines I would hold them all for now and we can see her in the office early next week and depending on her blood pressures we can reinitiate her antihypertensive therapy. There is no evidence of heart failure on her chest x-ray. She has chronic kidney disease. I will check a TSH and a cortisol level just given her low pressures. She did have COVID late fall 2021 which may have been a trigger for her atrial arrhythmias. As I discussed with her her atria are severely dilated with normal biventricular function. This puts her at high risk for recurrent atrial arrhythmias and the need to remain on amiodarone and anticoagulation long-term.
[2023-01-07] MEDS: AMIODARONE / D5W 360 MG/200 ML BAG IV SCH (08:52)
[2023-01-07] MEDS: ASPIRIN 81 MG ECTAB PO SCH (08:54)
[2023-01-07] MEDS: OXYBUTYNIN CHLORIDE XL 5 MG TABCR PO SCH (08:54)
[2023-01-07] MEDS: METOPROLOL SUCC 25MG EXT REL TAB PO SCH (08:55)
[2023-01-07] MEDS: AMIODARONE 200 MG TAB PO SCH (08:56)
[2023-01-07] MEDS ORDERED: FUROSEMIDE 20 MG TAB PO SCH (09:00)
[2023-01-07] MEDS: APIXABAN 2.5 MG TAB PO SCH (09:53)
--- NOTE | 2023-01-07 11:30 | Discharge Summary ---
Date of Service January 07, 2023 Admission HPI Per Admitting Provider Benita is an 82-year-old female with a past medical history of CAD with history of PCI who presented to the ER after she was seen by cardiology and was found to be in new onset A-f,utter with shortness of breath but no chest pain. Mrs. Saunders is seen at the bedside with her present. She reports that she is felt weak for the last week, and recently got a smart watch which did not detect heart rate which noted her heart rate was sometimes as high as the 130s. 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 Singh for evaluation. She was found to be in atrial flutter and was referred to the ER for KELLY and cardioversion. She reports that she is generally felt well until last week when she was weak, with minimal lightheadedness. She has not had any chest pain at any point. She does not sense palpitations or heart racing. She has had some exertional shortness of breath, no diaphoresis. She has had no nausea or vomiting. Does have some constipation at baseline, no abdominal pain. She has not had any focal weakness or strokelike symptoms. No history of strokes. She does have a history of PCI in 2015, she had some exertional shortness of breath for which a stress test was performed showing ischemic change and underwent successful PCI at [facility] [place]. She reports she has had no problems, no chest pain, no angina since that time. She does take aspirin daily, is not on anticoagulants or DAPT currently. No history of blood clots. She does not use tobacco products, and has rare social alcohol use. At bedside assessment she reports she feels well, she notes that when her heart was racing she did drop into the 80s and felt lightheaded, but since her blood pressure is improved she feels well. Medical History: Reviewed Medications: Reviewed Surgical History: Reviewed Family history: Reviewed Allergies: Reviewed Social History: Reviewed, no tobacco use Code Status: Full code Principal Diagnosis New onset aflutter s/p cardioversion Discharge Exam GENERAL: 82 yo Well-developed, well-nourished WF. NAD. LUNGS: Clear to auscultation bilaterally. No W/R/R. CARDIOVASCULAR: RRR w/o m/g/r EXT: No edema/cyanosis/clubbing Discharge Data Allergies Allergy/AdvReac Type Severity Reaction Status Date / Time Penicillins Allergy Unknown HIVES Verified 01/05/23 18:08 Sulfa (Sulfonamide AdvReac Unknown GI SYMPTOMS Verified 01/05/23 18:08 Antibiotics) Consultations 01/05/23 18:17 Consult Cardiology Routine 01/06/23 05:21 Consult Anesthesiology Routine Consult Anesthesiology Routine Procedures Performed Operation Date: 01/06/23 07:30 Actual Procedures p Echo Transesophageal - Giorgi Becerra MD s Cardioversion - Giorgi Becerra MD s Echo Color Flow - Giorgi Becerra MD s Echo Doppler Complete - Giorgi Becerra MD Ordered Studies Chest X-Ray 01/05/23 16:16 XR chest 1V portable HISTORY: 82 years-old Female Dysrhythmia COMPARISON: None TECHNIQUE: AP view of the chest FINDINGS: Cardiac mediastinal and hilar silhouettes are within normal limits. Punctate calcified granuloma of the left upper lung. No pneumothorax, pleural effusion, airspace consolidation or pulmonary edema. Bones appear grossly intact. IMPRESSION: No acute process. ACT 112: Negative or not required by law. The above report was generated using voice recognition software. It may contain grammatical, syntax or spelling errors. Electronically signed by: Carlos Hernandes M.D. 01/05/2023 4:55 PM Hospital Course (1) Atrial flutter: New onset 2:1 Admitted to PCU. - Kep NPO for planned KELLY/cardioversion Cardiology consulted Heparin gtt initiated per protocol Patient underwent successful cardioversion on 01/[address] Becerra - Is on IV Amiodarone and started on oral this morning - Continue IV Amiodarone until 1500 per cardiology for total of 24 hours - Remains in NSR this AM - Started on Eliquis 2.5mg BID which she will need to remain on indefinitely - Was given Toprol XL 25mg this AM and HR now in the 40s while in bed - will stop BB therapy upon d/c - Pt will be discharged home on Amiodarone 400mg BID x 4 more days and then reduce to 200mg BID - Cardiology will follow up with patient in the office in 1 week (2) Elevated troponin: - Mildly elevated hs troponin 15.7, peaked at 18.8, and back down to 15.4 - Suspect minimal elevation is secondary to myocardial demand ischemia in setting of new onset aflutter - Treated with heparin gtt as outlined above (3) Coronary artery disease: CAD with PCI following abnormal stress test in 2015 Continue aspirin 81 mg daily, Atorvastatin, isosorbide Continue lisinopril, metoprolol, spironolactone 12.5 mg and Lasix (4) Renal insufficiency: - BMP from 01/06 reviewed, creatinine 1.60 (1.76 on 01/05 labs) - Uncertain her baseline and if this is acute or chronic, suspect the latter Plan Patient is medically and hemodynamically stable for discharge home this afternoon after she completes the full 24 hours of IV Amiodarone. She will have close follow up with cardiology. Advised pcp follow up within 1 week or sooner if needed. Above plan of care has been d/w Dr. Akers. Total Time Total Time Spent Total Time Spent (In Minutes): >30 minutes Discharge Plan Discharge Items Patient Disposition: Home - Self-Care Reason For Visit: NEW AFLUTTER RVR Discharge Diagnosis: Atrial flutter Activity: Resume your previous activity Driving/Machine Use: Resume 1 day after discharge Non-emergency contact: Primary Care Provider and Director Of Safety And Security Call non-emergency contact if: you have any medication questions and your symptoms worsen Follow-up/Referrals: Latasha Borjas CRNP [Primary Care Provider] - Diet: Regular Addtl Attending Provider Instructions: You were hospitalized due to an irregular rhythm and required a procedure to reset your heart into a normal rhythm. You are now being prescribed a medication to help keep you in that normal rhythm called Amiodarone. You will take Amiodarone 400mg twice a day (once in the morning and once in the evening with meals) for the next 4 days. After that, you will begin taking Amiodarone 200mg, one tablet twice a day with meals. This medication has been faxed to [facility] per your request. You are also being prescribed a blood thinner to help reduce the risk of a stroke that COULD occur if you should go back into that irregular heart rhythm. The blood thinner (Eliquis) has been sent to the [facility] pharmacy as requested. Dr. Singh's office will contact you to schedule a follow up appointment. If you do not hear from them in the next 24 hours, please call the office. You should follow up with your family doctor within 1 week of discharge from the hospital. We asked that you do not drive for 24 hours nor make important decisions nor use power tools. If you have any questions or concerns after you leave the hospital, please call the nonemergency number listed on your discharge paperwork. In the event of a medical emergency, call 911. Pending Studies at Discharge: No Stand-Alone Forms: My [facility], Smoking Cessation Medications and DC Order Prescriptions: New Eliquis 2.5 mg Tablet 2.5 mg PO BID Qty: 60 0RF amiodarone 200 mg tablet 200 mg PO BID Qty: 70 0RF Rx Instructions: Take 2 tabs (400mg) by mouth BID x 4 more days and then reduce to 200mg PO BID thereafter Continued atorvastatin 40 mg tablet 40 mg PO HS furosemide 20 mg tablet 20 mg PO 3XWK Qty: 90 Rx Instructions: daily on thursday,thursday,thursday nitroglycerin 0.4 mg tablet, sublingual 0.4 mg SL UD PRN (Reason: chest pain) lisinopril 40 mg tablet 40 mg PO DAILY isosorbide mononitrate 30 mg tablet extended release 24 hr 30 mg PO DAILY oxybutynin chloride 10 mg tablet extended release 24hr 10 mg PO DAILY hydralazine 25 mg tablet 25 mg PO TID spironolactone 25 mg tablet 12.5 mg PO DAILY aspirin 81 mg Tablet,Delayed Release (Dr/Ec) 81 mg PO DAILY Discontinued metoprolol succinate 25 mg tablet extended release 24 hr 25 mg PO DAILY Discharge Orders: Discharge Order (Routine); Ordered 01/07/23 Ordered By: Asa Singh Admission Data Admit Date/Time: 01/05/23 18:16 Attending Provider: Cuong Akers Admit Provider: Scout Chacon Primary Care Provider: Latasha Borjas Other Providers: Asa Singh ; Ismael Raphael Coding Level of Care Code 58712 INP/OBS DISCH >30 MIN Diagnoses Atrial flutter I48.92 Elevated troponin R77.8 Coronary artery disease I25.10 Renal insufficiency N28.9
--- NOTE | 2023-01-07 11:54 | Electrocardiogram Report ---
Test Reason : Blood Pressure : / mmHG Vent. Rate : 116 BPM Atrial Rate : 116 BPM P-R Int : 152 ms QRS Dur : 080 ms QT Int : 336 ms P-R-T Axes : 000 052 017 degrees QTc Int : 467 ms Atrial flutter Low voltage QRS Borderline ECG Confirmed by Giorgi Becerra ([id number]) on 01/07/2023 11:53:31 AM Referred By: REFERRED SELF Confirmed By:Pablito Becerra
--- NOTE | 2023-01-07 11:58 | Electrocardiogram Report ---
Test Reason : Blood Pressure : / mmHG Vent. Rate : 078 BPM Atrial Rate : 078 BPM P-R Int : 136 ms QRS Dur : 080 ms QT Int : 392 ms P-R-T Axes : 110 061 074 degrees QTc Int : 446 ms Sinus rhythm with Premature atrial complexes with Aberrant conduction Low voltage QRS Borderline ECG When compared with ECG of 06-JAN-2023 11:24, (unconfirmed) Fusion complexes are no longer Present Sinus rhythm has replaced atrial flutter Premature ventricular complexes are no longer Present Vent. rate has decreased BY 38 BPM Confirmed by Giorgi Becerra ([id number]) on 01/07/2023 11:58:26 AM Referred By: REFERRED SELF Confirmed By:Pablito Becerra
--- NOTE | 2023-01-08 20:53 | Anesthesiology Progress Note ---
Date of Service January 08, 2023 Anesthesia Post Procedure Transfer of Care Handoff Completed per policy Notes Mental Status: alert / awake / arousable Patient Amnestic to Procedure: Yes Nausea / Vomiting: adequately controlled Pain: adequately controlled Airway Patency, RR, SpO2: stable & adequate BP & HR: stable & adequate Hydration State: stable & adequate Anesthetic Complications: no major complications apparent
== END 2023-01-07 15:42 | disposition home or self-care (01) | DRG 309 ==
LOC: ED 16:12 → 2S 18:16 → SUATTDRO 18:16 → 2S 21:33

== ENCOUNTER 2023-01-17 00:56 | Inpatient (IN) ==
[2023-01-17 01:33] LABS: Basophils # (auto) 0.04 K/uL (0-0.2); Basophils % (auto) 0.3 %; Eosinophils # (auto) 0.05 K/uL (0-0.50); Eosinophils % (auto) 0.3 %; Hematocrit (blood only) 29.1 % (37.0-47.0); Immature Granulocytes # (auto) 0.17 K/uL (0.01-0.20); Immature Granulocytes % (auto) 1.1 %; Lymphocytes % (auto) 7.4 %; Mean Corpuscular Hemoglobin 30.1 pg (25.0-34.0); Mean Corpuscular Hgb Conc 34.4 g/dL (32.0-36.0); Mean Corpuscular Volume 87.7 fL (80.0-100.0); Mean Platelet Volume 10.5 fL (9.4-12.4); Monocytes # (auto) 0.76 K/uL (0.11-0.59); Monocytes % (auto) 5.1 %; Neutrophils # (auto) 12.76 K/uL (1.40-6.50); Neutrophils % (auto) 85.8 %; Platelet Count 268 K/uL (130-400); RDW Coefficient of Variation 13.5 % (11.5-14.5); RDW Standard Deviation 43.3 fL (36.4-46.3); Red Blood Count 3.32 M/uL (4.20-5.40); White Blood Count 14.88 K/ul (4.8-10.8)
[2023-01-17 01:45] LABS: Albumin Globulin Ratio 1.4 (0.9-2); Albumin Level 3.9 gm/dl (3.4-5.0); BUN Creatinine Ratio 20.2 (10-20); Bilirubin,Total 1.1 mg/dl (0.2-1.0); Calcium 8.8 mg/dl (8.6-10.3); Creatinine Clr Calc Pharmacy 24.3 ml/min; Est GFR (African American) 30.9 ml/min; Est GFR (Non-African American) 26.6 ml/min; Globulin 2.8 gm/dl (2.5-4.0); Potassium 5.3 mmol/L (3.5-5.1); Total Protein 6.7 gm/dl (6.0-8.3)
--- NOTE | 2023-01-17 02:04 | Emergency Department Note ---
History of Present Illness General Chief complaint: Fall Stated complaint: fall, left hip pain Time Seen by Provider: 01/17/23 01:05 History of Present Illness Maximum Pain Intensity: 7 82-year-old female presents emergency department reportedly was coming back from a trip from the [facility] this weekend and she was going to step into her house and had a syncopal episode landing on her left hip. Patient may have hit her head. Patient recently was diagnosed last week with atrial fibrillation is currently on Eliquis. Patient was also taking amiodarone and metoprolol. Patient's had a low heart rate since taking amiodarone and was also told to restart her metoprolol this week until she felt that her heart rate was low and was told again to stop. Patient denies any loss of consciousness. Patient denies chest pain abdominal pain nausea vomiting. Patient complains of left hip and left groin pain. There are no other mitigating or alleviating factors Home Medications Medication Instructions Recorded Confirmed Type atorvastatin 40 mg tablet 40 mg PO HS 07/29/19 01/17/23 History furosemide 20 mg tablet 20 mg PO 3XWK #90 tabs 07/29/19 01/17/23 History lisinopril 40 mg tablet 40 mg PO DAILY 07/29/19 01/17/23 History nitroglycerin 0.4 mg sublingual 0.4 mg sublingual UD PRN chest 07/29/19 01/17/23 History tablet pain isosorbide mononitrate 30 mg 30 mg PO DAILY 07/09/20 01/17/23 History tablet,extended release 24 hr aspirin 81 mg tablet,delayed 81 mg PO DAILY 01/05/23 01/17/23 History release hydralazine 25 mg tablet 25 mg PO TID 01/05/23 01/17/23 History oxybutynin chloride 10 mg 10 mg PO DAILY 01/05/23 01/17/23 History tablet,extended release 24 hr spironolactone 25 mg tablet 12.5 mg PO DAILY 01/05/23 01/17/23 History amiodarone 200 mg tablet 200 mg PO BID #70 tabs 01/07/23 01/17/23 Rx apixaban 2.5 mg tablet (Eliquis) 2.5 mg PO BID #60 tabs 01/07/23 01/17/23 Rx calcium carbonate 600 mg-vitamin 1 tab PO DAILY 01/17/23 01/17/23 History D3 5 mcg (200 unit) tablet Allergies Allergy/AdvReac Type Severity Reaction Status Date / Time Penicillins Allergy Unknown HIVES Verified 01/17/23 02:44 Sulfa (Sulfonamide AdvReac Unknown GI SYMPTOMS Verified 01/17/23 02:44 Antibiotics) Past Med/Surg History Medical History Hx of hemorrhoids Surgical History S/P appendectomy Family History Aunt Breast cancer Father Coronary heart disease Parkinson disease Mother Heart disease Social History Smoking Status: Never smoker Second Hand Exposure: No; Hx Alcohol Use: No Hx Substance Use: No Preferred Language: Malawian Communication Ability: Effective Cartographic Aide Required: No Beliefs That Will Affect Care: None marital status: Current Living Situation: Spouse Feels Safe at Home: Yes Assistive Devices: None Immunizations: PMH - Atrial fibrillation Review of Systems A total of 10 systems reviewed and were otherwise negative Musculoskeletal: + joint pain Physical Exam Vital Signs Vital Signs - 24 hr 01/17/23 01:02 01/17/23 01:13 01/17/23 01:10 Temperature 36.5 C Temperature Source Oral Pulse Rate 54 L 50 L Pulse Rate [Apical] 49 L Pulse Rate from SpO2 Sensor Respiratory Rate 18 20 Respiratory Effort / Characteristics Non-Labored Spontaneous Respiratory Depth Normal Blood Pressure 149/54 H Blood Pressure [Left Arm] 151/66 H Blood Pressure Mean 85 Blood Pressure Mean [Left Arm] 94 Pulse Oximetry 92 94 Oxygen Delivery Method Room Air Room Air Sepsis Recent Fever Within 48 Hours No Sepsis New/Unexplained Change in Mental Status No Sepsis Action Taken by Nursing No Action Required 01/17/23 03:00 Temperature Temperature Source Pulse Rate 55 L Pulse Rate [Apical] Pulse Rate from SpO2 Sensor 55 L Respiratory Rate 12 Respiratory Effort / Characteristics Respiratory Depth Blood Pressure 136/51 L Blood Pressure [Left Arm] Blood Pressure Mean 79 Blood Pressure Mean [Left Arm] Pulse Oximetry 93 Oxygen Delivery Method Room Air Sepsis Recent Fever Within 48 Hours Sepsis New/Unexplained Change in Mental Status Sepsis Action Taken by Nursing GENERAL: Patient is awake alert in no acute distress patient is resting comfortably and showing no signs of anxiety EYES: The conjunctivae are clear. The pupils are round and reactive. EARS, NOSE, MOUTH AND THROAT: The nose is without any evidence of any deformity. Mucous membranes are moist. Tongue is midline. Head exam normocephalic atraumatic NECK: The neck is nontender and supple. Full range of motion nontender midline RESPIRATORY: Normal respiratory effort is noted there is no evidence of wheezing rhonchi or rales CARDIOVASCULAR: Bradycardic rate and rhythm noted there no murmurs rubs or gallops normal S1 normal S2. GASTROINTESTINAL: The abdomen is soft. Abdomen is nontender. PELVIS: The Pelvis is stable. Patient has tenderness to the left groin no tenderness laterally she has full range of motion of both hips she is neurovascularly intact distally BACK: No midline tenderness or or step-off noted range of motion in flexion extension as well as rotation no signs of muscle spasm noted MUSCULOSKELETAL/EXTREMITIES: There is no evidence of gross deformity full range of motion is noted in the hips and shoulders. Tenderness to the left hip and left groin SKIN: There is no obvious evidence of any rash. There are no petechiae, pallor or cyanosis noted. NEUROLOGIC: Patient is awake alert and oriented x3 strength is symmetric ; GCS 15 Course Reevaluation(s) Reevaluation #1: Repeat examination patient states some left hip pain. I discussed the evaluation with the patient. The patient is currently being admitted by the hospitalist team. Time: 03:49 Consultations Consultation #1: Case was discussed with the [facility] Time: 02:30 Critical Care Time Critical Care Time: Yes Total Critical Care Time: 45 I have personally spent greater than 45 minutes of critical care time in the direct management of this patient. This includes bedside care, interpretation of diagnostic studies, and testing, discussion with consultants, patient, and family members, and other required patient management activities. These minutes are in excess of all separately billable procedures. Medical Decision Making Medical Records Attestation: I reviewed the patient's medical records. Home Medications Current Medication List: was personally reviewed by me Laboratory Data Attestation: I reviewed the patient's lab results. Patient has hyponatremia, elevated white blood cell count elevated creatinine 01/17/23 01:11 01/17/23 01:11 Lab Results 01/17/23 01/17/23 01/17/23 Range/Units 01:11 01:11 01:11 WBC 14.88 H (4.8-10.8) K/ul RBC 3.32 L (4.20-5.40) M/uL Hgb 10.0 L (12.0-16.0) g/dl Hct 29.1 L (37.0-47.0) % MCV 87.7 (80.0-100.0) fL MCH 30.1 (25.0-34.0) pg MCHC 34.4 (32.0-36.0) g/dL RDW Std Deviation 43.3 (36.4-46.3) fL RDW Coeff of Erik 13.5 (11.5-14.5) % Plt Count 268 (130-400) K/uL MPV 10.5 (9.4-12.4) fL Immature Gran % (Auto) 1.1 % Neut % (Auto) 85.8 % Lymph % (Auto) 7.4 % Montague % (Auto) 5.1 % Eos % (Auto) 0.3 % Baso % (Auto) 0.3 % Neut # (Auto) 12.76 H (1.40-6.50) K/uL Lymph # (Auto) 1.10 L (1.2-3.4) K/uL Montague # (Auto) 0.76 H (0.11-0.59) K/uL Eos # (Auto) 0.05 (0-0.50) K/uL Baso # (Auto) 0.04 (0-0.2) K/uL Immature Gran # (Auto) 0.17 (0.01-0.20) K/uL PT 11.7 (9.0-12.0) Seconds INR 1.1 (0.9-1.1) APTT 30.5 (21.0-31.0) Seconds PTT Ratio 1.1 Sodium 121 L (136-145) mmol/L Potassium 5.3 H (3.5-5.1) mmol/L Chloride 93 L (98-107) mmol/L Carbon Dioxide 18 L (21-32) mmol/L Anion Gap 10 (3-11) BUN 35 H (6-23) mg/dl Creatinine 1.73 H (0.6-1.2) mg/dl Est Cr Clr Drug Dosing 24.3 ml/min Est GFR ( Amer) 30.9 ml/min Est GFR (Non-Af Amer) 26.6 ml/min BUN/Creatinine Ratio 20.2 H (10-20) Glucose 121 H (70-99(Fasting)) mg/dl Osmolality (280-300) mOsm/kg Calcium 8.8 (8.6-10.3) mg/dl Total Bilirubin 1.1 H (0.2-1.0) mg/dl AST 47 H (13-39) U/L ALT 41 (7-52) U/L Alkaline Phosphatase 69 (34-104) U/L Troponin I High Sens 21.6 H (0-14) pg/ml Total Protein 6.7 (6.0-8.3) gm/dl Albumin 3.9 (3.4-5.0) gm/dl Globulin 2.8 (2.5-4.0) gm/dl Albumin/Globulin Ratio 1.4 (0.9-2) Urine Color Urine Appearance (Clear) Urine pH (4.5-7.5) Ur Specific Herrick (1.000-1.030) Urine Protein (Negative) Urine Glucose (UA) (Negative) Urine Ketones (Negative) Urine Blood (Negative) Urine Nitrite (Negative) Urine Bilirubin (Negative) Urine Urobilinogen (Negative) Ur Leukocyte Esterase (Negative) Urine WBC (Auto) (0-5) /hpf Urine RBC (Auto) (0-4) /hpf U Hyaline Cast (Auto) (0-5) /lpf U Epithel Cells (Auto) (0-5) /lpf Urine Bacteria (Auto) (Negative) SARS-CoV-2, RNA, NAAT (NEGATIVE) 01/17/23 01/17/23 01/17/23 Range/Units 01:11 02:15 02:15 WBC (4.8-10.8) K/ul RBC (4.20-5.40) M/uL Hgb (12.0-16.0) g/dl Hct (37.0-47.0) % MCV (80.0-100.0) fL MCH (25.0-34.0) pg MCHC (32.0-36.0) g/dL RDW Std Deviation (36.4-46.3) fL RDW Coeff of Erik (11.5-14.5) % Plt Count (130-400) K/uL MPV (9.4-12.4) fL Immature Gran % (Auto) % Neut % (Auto) % Lymph % (Auto) % Montague % (Auto) % Eos % (Auto) % Baso % (Auto) % Neut # (Auto) (1.40-6.50) K/uL Lymph # (Auto) (1.2-3.4) K/uL Montague # (Auto) (0.11-0.59) K/uL Eos # (Auto) (0-0.50) K/uL Baso # (Auto) (0-0.2) K/uL Immature Gran # (Auto) (0.01-0.20) K/uL PT (9.0-12.0) Seconds INR (0.9-1.1) APTT (21.0-31.0) Seconds PTT Ratio Sodium (136-145) mmol/L Potassium (3.5-5.1) mmol/L Chloride (98-107) mmol/L Carbon Dioxide (21-32) mmol/L Anion Gap (3-11) BUN (6-23) mg/dl Creatinine (0.6-1.2) mg/dl Est Cr Clr Drug Dosing ml/min Est GFR ( Amer) ml/min Est GFR (Non-Af Amer) ml/min BUN/Creatinine Ratio (10-20) Glucose (70-99(Fasting)) mg/dl Osmolality 266 L (280-300) mOsm/kg Calcium (8.6-10.3) mg/dl Total Bilirubin (0.2-1.0) mg/dl AST (13-39) U/L ALT (7-52) U/L Alkaline Phosphatase (34-104) U/L Troponin I High Sens (0-14) pg/ml Total Protein (6.0-8.3) gm/dl Albumin (3.4-5.0) gm/dl Globulin (2.5-4.0) gm/dl Albumin/Globulin Ratio (0.9-2) Urine Color Yellow Urine Appearance Cloudy A (Clear) Urine pH 5.5 (4.5-7.5) Ur Specific Herrick 1.014 (1.000-1.030) Urine Protein Trace H (Negative) Urine Glucose (UA) Negative (Negative) Urine Ketones Trace H (Negative) Urine Blood Negative (Negative) Urine Nitrite Negative (Negative) Urine Bilirubin Negative (Negative) Urine Urobilinogen Negative (Negative) Ur Leukocyte Esterase 1+ H (Negative) Urine WBC (Auto) 10-30 H (0-5) /hpf Urine RBC (Auto) 0-4 (0-4) /hpf U Hyaline Cast (Auto) 1-5 (0-5) /lpf U Epithel Cells (Auto) 5-10 H (0-5) /lpf Urine Bacteria (Auto) 2+ H (Negative) SARS-CoV-2, RNA, NAAT NEGATIVE (NEGATIVE) Imaging Data Attestation: I personally reviewed and interpreted this imaging study as follows: My Impression: Left hip x-rays interpreted by me positive for pubic rami fractures on the left CT of the brain was interpreted by me as negative intracranial hemorrhage, appreciate CAT scan reports by radiology Radiologist's Impression: Cervical Spine CT 01/17/23 01:31 Exam(s): CT C SPINE EXAM: CT Cervical Spine Without Intravenous Contrast CLINICAL HISTORY: Reason for exam: fall. TECHNIQUE: Axial computed tomography images of the cervical spine without intravenous contrast. CTDI is 37.41 mGy and DLP is 1010.98 mGy-cm. Automated exposure control was utilized for the study. A dose lowering technique was utilized adhering to the principles of ALARA. COMPARISON: No relevant prior studies available. FINDINGS: Vertebrae: Unremarkable. No acute fracture. Discs/spinal canal/neural foramina: There are multilevel degenerative changes. No spinal canal stenosis. Soft tissues: Unremarkable. Vasculature: Dense calcification of the right carotid bulb is noted. IMPRESSION: No acute findings in the cervical spine. Electronically signed by: Orestes Kent MD 01/17/23 02:[address] 01/17/23 01:31 Exam(s): CT HEAD Without Contrast EXAM: CT Head Without Intravenous Contrast CLINICAL HISTORY: Reason for exam: fall. TECHNIQUE: Axial computed tomography images of the head/brain without intravenous contrast. CTDI is 37.41 mGy and DLP is 1010.98 mGy-cm. Automated exposure control was utilized for the study. A dose lowering technique was utilized adhering to the principles of ALARA. COMPARISON: No relevant prior studies available. FINDINGS: Brain: Areas of decreased attenuation in the deep cerebral white matter are consistent with small vessel ischemic/degenerative changes. The cerebral and cerebellar sulci are prominent consistent with brain atrophy. No hemorrhage. Ventricles: Unremarkable. No ventriculomegaly. Bones/joints: Unremarkable. No acute fracture. Soft tissues: Unremarkable. Vasculature: Atherosclerotic disease. Sinuses: Unremarkable as visualized. No acute sinusitis. Mastoid air cells: Unremarkable as visualized. No mastoid effusion. IMPRESSION: 1. Small vessel ischemic/degenerative changes. 2. Cerebral and cerebellar atrophy. Electronically signed by: Orestes Kent MD 01/17/23 02:25 AM ECG Data Attestation: I personally reviewed and interpreted this ECG as follows: Additional Comments: EKG interpreted by me junctional rhythm [address] segment elevation or depression normal axis questionable first-degree AV block Telemetry ordered by me, interpreted as bradycardia at 51 MDM Narrative Medical decision making differential diagnosis closed head injury cervical spine sprain, bradycardia, syncope, metabolic derangement, dehydration, hip fracture, pubic rami fracture Plan is to check labs, CT, x-ray External medical records were reviewed by me Patient will be admitted for syncope bradycardia and pubic rami fractures with electrolyte disturbances Case was discussed with the hospitalist for admission Impression & Plan Syncope, Closed fracture of pubic ramus, Acute hyponatremia, Bradycardia, Acute dehydration Discharge Plan Visit Data Chief Complaint: Fall Stated Complaint: fall, left hip pain ED Provider: Alistair Hinson Discharge Problem: Syncope, Closed fracture of pubic ramus, Acute hyponatremia, Bradycardia, Acute dehydration Patient Disposition: Admitted As Inpatient Forms Stand Alone Forms: My [facility] Prescriptions Prescriptions: No Action atorvastatin 40 mg tablet 40 mg PO HS furosemide 20 mg tablet 20 mg PO 3XWK Qty: 90 Rx Instructions: daily on thursday,thursday,thursday nitroglycerin 0.4 mg tablet, sublingual 0.4 mg SL UD PRN (Reason: chest pain) lisinopril 40 mg tablet 40 mg PO DAILY isosorbide mononitrate 30 mg tablet extended release 24 hr 30 mg PO DAILY oxybutynin chloride 10 mg tablet extended release 24hr 10 mg PO DAILY hydralazine 25 mg tablet 25 mg PO TID spironolactone 25 mg tablet 12.5 mg PO DAILY aspirin 81 mg Tablet,Delayed Release (Dr/Ec) 81 mg PO DAILY amiodarone 200 mg tablet 200 mg PO BID Qty: 70 0RF Rx Instructions: Take 2 tabs (400mg) by mouth BID x 4 more days and then reduce to 200mg PO BID thereafter Eliquis 2.5 mg tablet 2.5 mg PO BID Qty: 60 0RF calcium carbonate-vitamin D3 [Calcium + D] 600 mg-5 mcg (200 unit) Tablet 1 tab PO DAILY Referrals Referrals: Latasha Borjas CRNP [Primary Care Provider] -
[2023-01-17 02:05] LABS: INR 1.1 (0.9-1.1); Partial Thromboplastin Ratio 1.1; Partial Thromboplastin Time 30.5 Seconds (21.0-31.0); Prothrombin Time 11.7 Seconds (9.0-12.0)
--- NOTE | 2023-01-17 02:26 | CT Scan Report ---
Exam(s): CT C SPINE EXAM: CT Cervical Spine Without Intravenous Contrast CLINICAL HISTORY: Reason for exam: fall. TECHNIQUE: Axial computed tomography images of the cervical spine without intravenous contrast. CTDI is 37.41 mGy and DLP is 1010.98 mGy-cm. Automated exposure control was utilized for the study. A dose lowering technique was utilized adhering to the principles of ALARA. COMPARISON: No relevant prior studies available. FINDINGS: Vertebrae: Unremarkable. No acute fracture. Discs/spinal canal/neural foramina: There are multilevel degenerative changes. No spinal canal stenosis. Soft tissues: Unremarkable. Vasculature: Dense calcification of the right carotid bulb is noted. IMPRESSION: No acute findings in the cervical spine. Electronically signed by: Orestes Kent MD 01/17/23 02:24 AM
--- NOTE | 2023-01-17 02:26 | CT Scan Report ---
Exam(s): CT HEAD Without Contrast EXAM: CT Head Without Intravenous Contrast CLINICAL HISTORY: Reason for exam: fall. TECHNIQUE: Axial computed tomography images of the head/brain without intravenous contrast. CTDI is 37.41 mGy and DLP is 1010.98 mGy-cm. Automated exposure control was utilized for the study. A dose lowering technique was utilized adhering to the principles of ALARA. COMPARISON: No relevant prior studies available. FINDINGS: Brain: Areas of decreased attenuation in the deep cerebral white matter are consistent with small vessel ischemic/degenerative changes. The cerebral and cerebellar sulci are prominent consistent with brain atrophy. No hemorrhage. Ventricles: Unremarkable. No ventriculomegaly. Bones/joints: Unremarkable. No acute fracture. Soft tissues: Unremarkable. Vasculature: Atherosclerotic disease. Sinuses: Unremarkable as visualized. No acute sinusitis. Mastoid air cells: Unremarkable as visualized. No mastoid effusion. IMPRESSION: 1. Small vessel ischemic/degenerative changes. 2. Cerebral and cerebellar atrophy. Electronically signed by: Orestes Kent MD 01/17/23 02:25 AM
--- NOTE | 2023-01-17 02:40 | History & Physical Report ---
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 twice daily and metoprolol unknown dose as outpatient Continue apixaban 2.5 mg p.o. twice daily, aspirin 81 mg daily, isosorbide mononitrate 30 mg daily and hydralazine 25 mg p.o. 3 times daily Hold lisinopril, furosemide and spironolactone for now due to CHERYL on CKD Troponin 21.6 on admission, may be secondary to heart rate change, type II supply demand mismatch versus ischemia The patient will be admitted to telemetry for serial cardiac enzymes, serial EKG's, cardiac rhythm monitoring Consult cardiology regarding need for adjustment of medications and/or pacer as a backup for bradycardia while controlling atrial flutter with medication CHERYL on CKD- Creatinine 1.73 on admission, with range 1.60-1.76 Hold lisinopril, furosemide and spironolactone for now and recheck laboratories in a.m. Hyponatremia- Sodium 121 upon admission- Serum osmolality added, was 266. Urine osmolality added and still pending Further management as far as fluid balance etc. pending results of urine osmolality Bladder spasm- Continue oxybutynin. Could be considered as a contributing factor to increased heart rate Hyperlipidemia- Continue atorvastatin History of Present Illness Chief Complaint: The patient had a syncopal episode as she was walking into her house today, landing on her left hip, with inability to support weight, after returning from a trip to the [facility] this weekend. Primary Care Provider: Latasha Borjas The patient is a an 82-year-old female with a past medical history including CKD, atrial flutter, atrial fibrillation, rosacea, osteoporosis, CAD, history of coronary artery stent and history of acute head injury. Patient was most recently admitted to [facility] from 01/05-01/07/2023 for treatment of atrial fibrillation/flutter. She has been on amiodarone since that time, and reports that she took a single dose of metoprolol yesterday evening, after calling her outpatient rod mill operator due to an elevated heart rate. He reports that today this afternoon, the heart rate had dropped into the 50s, and he was told that time to no longer take the metoprolol. Due to her fall and significant left hip and pelvis pain, after her fall, she was brought to the ED for further assessment. X-rays of pelvis and hip: Significant for closed left pubic ramus fracture Significant laboratories: WBC 14.88 hemoglobin 10.0 hematocrit 29.1, sodium is 121, potassium 5.3, glucose 121, creatinine 1.73, bicarb 18, troponin 21.6, BUN 35, total bilirubin 1.1 and AST 47. Serum osmolality is 266, urine osmolality is pending Allergies Allergy/AdvReac Type Severity Reaction Status Date / Time Penicillins Allergy Unknown HIVES Verified 01/17/23 02:44 Sulfa (Sulfonamide AdvReac Unknown GI SYMPTOMS Verified 01/17/23 02:44 Antibiotics) Home Medications Medication Instructions Recorded Confirmed Type atorvastatin 40 mg tablet 40 mg PO HS 07/29/19 01/17/23 History furosemide 20 mg tablet 20 mg PO 3XWK #90 tabs 07/29/19 01/17/23 History lisinopril 40 mg tablet 40 mg PO DAILY 07/29/19 01/17/23 History nitroglycerin 0.4 mg sublingual 0.4 mg sublingual UD PRN chest 07/29/19 01/17/23 History tablet pain isosorbide mononitrate 30 mg 30 mg PO DAILY 07/09/20 01/17/23 History tablet,extended release 24 hr aspirin 81 mg tablet,delayed 81 mg PO DAILY 01/05/23 01/17/23 History release hydralazine 25 mg tablet 25 mg PO TID 01/05/23 01/17/23 History oxybutynin chloride 10 mg 10 mg PO DAILY 01/05/23 01/17/23 History tablet,extended release 24 hr spironolactone 25 mg tablet 12.5 mg PO DAILY 01/05/23 01/17/23 History amiodarone 200 mg tablet 200 mg PO BID #70 tabs 01/07/23 01/17/23 Rx apixaban 2.5 mg tablet (Eliquis) 2.5 mg PO BID #60 tabs 01/07/23 01/17/23 Rx calcium carbonate 600 mg-vitamin 1 tab PO DAILY 01/17/23 01/17/23 History D3 5 mcg (200 unit) tablet Past Med/Surg History Medical History Hx of hemorrhoids Surgical History S/P appendectomy Family History Aunt Breast cancer Father Coronary heart disease Parkinson disease Mother Heart disease Social History Smoking Status: Never smoker Second Hand Exposure: No; Hx Alcohol Use: No Hx Substance Use: No Preferred Language: Lao Communication Ability: Effective Manager Front Required: No Beliefs That Will Affect Care: None marital status: Current Living Situation: Spouse Feels Safe at Home: Yes Assistive Devices: None Review of Systems Review of Systems: The patient denies chest pain, palpitations, shortness of breath, dyspnea on exertion, cough, lower extremity swelling, sore throat, fevers, chills, sweats, nausea, vomiting, diarrhea , constipation, abdominal pain, pelvic pain, blood in urine or stool, dysuria, urinary frequency or urgency, lightheadedness, dizziness, headache, memory loss, loss of consciousness, rash, abnormal bruising or bleeding, focal or generalized weakness, numbness or tingling in arms , generalized arthralgias or myalgias, back or neck pain, or night sweats. The review of systems is otherwise negative other than for that already noted above, and at least 10 systems have been reviewed. Physical Exam Physical Exam: The patient is awake, alert and oriented 3, well developed and well nourished, normocephalic and atraumatic, lying in bed and in no acute distress. HEENT--PERRL, EOMI, mucous membranes and oropharynx dry. Neck--supple. No JVD. No bruits. Thyroid normal, trachea midline, no adenopathy. Heart--normal S1 and S2. No murmurs, rubs or gallops. Lungs--clear bilaterally, no respiratory distress, no accessory muscle use. Abdomen--normal bowel sounds and soft. Nontender. Nondistended, no hernias or masses, no organomegaly. Extremities--no cyanosis or clubbing. No edema. Dermatologic--normal skin turgor, normal color, no abnormal lymph nodes, no rash. Neurologic--cranial nerves II through XII grossly intact. Rheumatologic--limited range of motion lower extremities due to pain Psychiatric--normal affect. Results & Data Results & Data Vital Signs (Past 12 Hours) Vital Signs Temp Pulse Pulse Resp BP BP Pulse Ox 01/17/23 01:10 50 L 01/17/23 01:13 49 L 20 151/66 H 94 01/17/23 01:02 36.5 C 54 L 18 149/54 H 92 O2 Del Method 01/17/23 01:10 01/17/23 01:13 Room Air 01/17/23 01:02 Room Air Laboratory Results Laboratory Results WBC 14.88 K/ul (4.8-10.8) H 01/17/23 01:11 RBC 3.32 M/uL (4.20-5.40) L 01/17/23 01:11 Hgb 10.0 g/dl (12.0-16.0) L 01/17/23 01:11 Hct 29.1 % (37.0-47.0) L 01/17/23 01:11 MCV 87.7 fL (80.0-100.0) 01/17/23 01:11 MCH 30.1 pg (25.0-34.0) 01/17/23 01:11 MCHC 34.4 g/dL (32.0-36.0) 01/17/23 01:11 RDW Std Deviation 43.3 fL (36.4-46.3) 01/17/23 01:11 RDW Coeff of Erik 13.5 % (11.5-14.5) 01/17/23 01:11 Plt Count 268 K/uL (130-400) 01/17/23 01:11 MPV 10.5 fL (9.4-12.4) 01/17/23 01:11 Immature Gran % (Auto) 1.1 % 01/17/23 01:11 Neut % (Auto) 85.8 % 01/17/23 01:11 Lymph % (Auto) 7.4 % 01/17/23 01:11 Early % (Auto) 5.1 % 01/17/23 01:11 Eos % (Auto) 0.3 % 01/17/23 01:11 Baso % (Auto) 0.3 % 01/17/23 01:11 Neut # (Auto) 12.76 K/uL (1.40-6.50) H 01/17/23 01:11 Lymph # (Auto) 1.10 K/uL (1.2-3.4) L 01/17/23 01:11 Early # (Auto) 0.76 K/uL (0.11-0.59) H 01/17/23 01:11 Eos # (Auto) 0.05 K/uL (0-0.50) 01/17/23 01:11 Baso # (Auto) 0.04 K/uL (0-0.2) 01/17/23 01:11 Immature Gran # (Auto) 0.17 K/uL (0.01-0.20) 01/17/23 01:11 PT 11.7 Seconds (9.0-12.0) 01/17/23 01:11 INR 1.1 (0.9-1.1) 01/17/23 01:11 APTT 30.5 Seconds (21.0-31.0) 01/17/23 01:11 PTT Ratio 1.1 01/17/23 01:11 Sodium 121 mmol/L (136-145) L 01/17/23 01:11 Potassium 5.3 mmol/L (3.5-5.1) H 01/17/23 01:11 Chloride 93 mmol/L (98-107) L 01/17/23 01:11 Carbon Dioxide 18 mmol/L (21-32) L 01/17/23 01:11 Anion Gap 10 (3-11) 01/17/23 01:11 BUN 35 mg/dl (6-23) H 01/17/23 01:11 Creatinine 1.73 mg/dl (0.6-1.2) H 01/17/23 01:11 Est Cr Clr Drug Dosing 24.3 ml/min 01/17/23 01:11 Est GFR ( Amer) 30.9 ml/min 01/17/23 01:11 Est GFR (Non-Af Amer) 26.6 ml/min 01/17/23 01:11 BUN/Creatinine Ratio 20.2 (10-20) H 01/17/23 01:11 Glucose 121 mg/dl (70-99(Fasting)) H 01/17/23 01:11 Osmolality 266 mOsm/kg (280-300) L 01/17/23 01:11 Calcium 8.8 mg/dl (8.6-10.3) 01/17/23 01:11 Total Bilirubin 1.1 mg/dl (0.2-1.0) H 01/17/23 01:11 AST 47 U/L (13-39) H 01/17/23 01:11 ALT 41 U/L (7-52) 01/17/23 01:11 Alkaline Phosphatase 69 U/L (34-104) 01/17/23 01:11 Troponin I High Sens 21.6 pg/ml (0-14) H 01/17/23 01:11 Total Protein 6.7 gm/dl (6.0-8.3) 01/17/23 01:11 Albumin 3.9 gm/dl (3.4-5.0) 01/17/23 01:11 Globulin 2.8 gm/dl (2.5-4.0) 01/17/23 01:11 Albumin/Globulin Ratio 1.4 (0.9-2) 01/17/23 01:11 Urine Color Yellow 01/17/23 02:15 Urine Appearance Cloudy (Clear) A 01/17/23 02:15 Urine pH 5.5 (4.5-7.5) 01/17/23 02:15 Ur Specific [place] 1.014 (1.000-1.030) 01/17/23 02:15 Urine Protein Trace (Negative) H 01/17/23 02:15 Urine Glucose (UA) Negative (Negative) 01/17/23 02:15 Urine Ketones Trace (Negative) H 01/17/23 02:15 Urine Blood Negative (Negative) 01/17/23 02:15 Urine Nitrite Negative (Negative) 01/17/23 02:15 Urine Bilirubin Negative (Negative) 01/17/23 02:15 Urine Urobilinogen Negative (Negative) 01/17/23 02:15 Ur Leukocyte Esterase 1+ (Negative) H 01/17/23 02:15 Urine WBC (Auto) 10-30 /hpf (0-5) H 01/17/23 02:15 Urine RBC (Auto) 0-4 /hpf (0-4) 01/17/23 02:15 U Hyaline Cast (Auto) 1-5 /lpf (0-5) 01/17/23 02:15 U Epithel Cells (Auto) 5-10 /lpf (0-5) H 01/17/23 02:15 Urine Bacteria (Auto) 2+ (Negative) H 01/17/23 02:15 SARS-CoV-2, RNA, NAAT NEGATIVE (NEGATIVE) 01/17/23 02:[address] 01/17/23 01:31 Exam(s): CT C SPINE EXAM: CT Cervical Spine Without Intravenous Contrast CLINICAL HISTORY: Reason for exam: fall. TECHNIQUE: Axial computed tomography images of the cervical spine without intravenous contrast. CTDI is 37.41 mGy and DLP is 1010.98 mGy-cm. Automated exposure control was utilized for the study. A dose lowering technique was utilized adhering to the principles of ALARA. COMPARISON: No relevant prior studies available. FINDINGS: Vertebrae: Unremarkable. No acute fracture. Discs/spinal canal/neural foramina: There are multilevel degenerative changes. No spinal canal stenosis. Soft tissues: Unremarkable. Vasculature: Dense calcification of the right carotid bulb is noted. IMPRESSION: No acute findings in the cervical spine. Electronically signed by: Orestes Kent MD 01/17/23 02:[address] 01/17/23 01:31 Exam(s): CT HEAD Without Contrast EXAM: CT Head Without Intravenous Contrast CLINICAL HISTORY: Reason for exam: fall. TECHNIQUE: Axial computed tomography images of the head/brain without intravenous contrast. CTDI is 37.41 mGy and DLP is 1010.98 mGy-cm. Automated exposure control was utilized for the study. A dose lowering technique was utilized adhering to the principles of ALARA. COMPARISON: No relevant prior studies available. FINDINGS: Brain: Areas of decreased attenuation in the deep cerebral white matter are consistent with small vessel ischemic/degenerative changes. The cerebral and cerebellar sulci are prominent consistent with brain atrophy. No hemorrhage. Ventricles: Unremarkable. No ventriculomegaly. Bones/joints: Unremarkable. No acute fracture. Soft tissues: Unremarkable. Vasculature: Atherosclerotic disease. Sinuses: Unremarkable as visualized. No acute sinusitis. Mastoid air cells: Unremarkable as visualized. No mastoid effusion. IMPRESSION: 1. Small vessel ischemic/degenerative changes. 2. Cerebral and cerebellar atrophy. Electronically signed by: Orestes Kent MD 01/17/23 02:25 AM Code Status & VTE Plan Code Status Full code VTE Prophylaxis Plan VTE Prophylaxis will be ordered: Yes PG Care Time/CCT Total # of Minutes Spent Total Time Spent with Patient: Total time spent is greater than 50% in coordination of care (as documented) at patient's floor/unit and/or counseling patient: Coding Level of Care Code 59211 INT INP/OBS CARE 3/75MIN Diagnoses Closed fracture of pubic ramus S32.599A Syncope R55 Bradycardia R00.1 Acute dehydration E86.0 Renal insufficiency N28.9 Hypo-osmolality and hyponatremia E87.1 Elevated troponin R77.8 Atrial flutter I48.92 Osteoporosis M81.0 Rosacea L71.9 Coronary artery disease I25.10 H/O heart artery stent Z95.5 Fall W19.XXXA Tachy-georegs syndrome I49.5
[2023-01-17 02:42] LABS: Appearance Urine Cloudy (Clear); Bacteria Urine Automated 2+ (Negative); Bilirubin Urine Negative (Negative); Blood Urine Negative (Negative); Color Urine Yellow; Glucose Urine UA Negative (Negative); Ketones Urine Trace (Negative); Leukocyte Esterase Urine 1+ (Negative); Nitrite Urine Negative (Negative); Protein Urine Trace (Negative); RBC Urine Automated 0-4 /hpf (0-4); Specific Gravity Urine 1.014 (1.000-1.030); Urobilinogen Urine Negative (Negative); pH Urine 5.5 (4.5-7.5)
[2023-01-17 03:01] LABS: Troponin I High Sensitivity 21.6 pg/ml (0-14)
[2023-01-17] MEDS ORDERED: fentaNYL citrate PF 100 MCG/2 ML VIAL IV STA (03:48)
[2023-01-17] MEDS ORDERED: NITROGLYCERIN SL 0.4 MG/TAB TAB SL PRN (05:09)
--- NOTE | 2023-01-17 08:49 | Electrocardiogram Report ---
Test Reason : Blood Pressure : / mmHG Vent. Rate : 051 BPM Atrial Rate : 050 BPM P-R Int : 000 ms QRS Dur : 082 ms QT Int : 464 ms P-R-T Axes : 000 084 063 degrees QTc Int : 427 ms Poor data quality, interpretation may be adversely affected Sinus bradycardia Abnormal ECG When compared with ECG of 06-JAN-2023 15:11, Vent. rate has decreased BY 27 BPM T wave amplitude has increased in Anterior leads Confirmed by Dima Larry ([id number]) on 01/17/2023 8:48:38 AM Referred By: REFERRED SELF Confirmed By:Dima Larry
[2023-01-17] MEDS ORDERED: ASPIRIN 81 MG ECTAB PO SCH (09:00)
[2023-01-17] MEDS ORDERED: APIXABAN 2.5 MG TAB PO SCH (09:00)
[2023-01-17] MEDS ORDERED: hydrALAZINE HCL 25 MG TAB PO SCH (09:00)
--- NOTE | 2023-01-17 09:19 | XRay Report ---
XR hip LT min 2V CLINICAL HISTORY: hip pain TECHNIQUE: 2 views of the left hip and single frontal view of the pelvis were obtained. Comparison: Comparison is made to hip radiograph 09/16/2013 FINDINGS: There is no evidence of an acute fracture. Degenerative changes are seen in the hip joint. No soft ti ssue abnormality is seen. IMPRESSION: No evidence of acute osseous injury. ACT 112: Negative or not required by law. Electronically signed by: Bola Horton M.D. 01/17/2023 9:17 AM
[2023-01-17] MEDS: ACETAMINOPHEN 325 MG TAB PO PRN ×2 (09:20→13:54)
--- NOTE | 2023-01-17 09:23 | XRay Report ---
XR chest 1V portable CLINICAL HISTORY: hip pain TECHNIQUE: Single frontal radiograph of the chest was obtained. Comparison: Comparison is made to chest radiograph 01/05/2023 FINDINGS: No lines and tubes are seen. Cardiomegaly is noted. The lungs are clear. No evidence of pleural effus ion or pneumothorax. IMPRESSION: No acute chest disease. ACT 112: Negative or not required by law. Electronically signed by: Bola Horton M.D. 01/17/2023 9:21 AM
[2023-01-17] MEDS: ISOSORBIDE MONO EXTENDED REL 30 MG TABCR PO SCH (10:21)
[2023-01-17] MEDS: OXYBUTYNIN CHLORIDE XL 5 MG TABCR PO SCH (10:21)
[2023-01-17] MEDS ORDERED: SODIUM CHLORIDE 0.9% 1000ML 1,000 ML IV ONE ×2 (11:59→15:27)
[2023-01-17] MEDS ORDERED: cefTRIAXone SODIUM 1,000 MG in DEXTROSE 5% AD-VAN 50 ML IV STA (12:44)
--- NOTE | 2023-01-17 12:47 | Cardiology Consultation ---
Date of Consultation January 17, 2023 Assessment & Plan (1) Fall: (2) Sinus bradycardia: (3) Hypotension: (4) Closed fracture of pubic ramus: (5) H/O atrial flutter: (6) Coronary artery disease: (7) H/O heart artery stent: Plan 82-year-old woman with CAD (remote PCI), recent onset atrial flutter, admitted after what sounds like a mechanical fall during which she sustained a pubic ramus fracture, now with sinus bradycardia and borderline hypotension. Although she did not have clear syncope, she does have an inappropriate sinus bradycardia which likely contributed to her fatigue and perhaps her nausea (although this could have been due to amiodarone as well, since she was taking this on an empty stomach at times). Given current borderline hypotension, would discontinue hydralazine, hold isosorbide mononitrate for systolic blood pressure less than 95 mmHg. Agree with with holding amiodarone for now, once her bradycardia resolves this could be restarted at perhaps a lower dose (200 mg daily), did emphasize to her that she should take this with food. Given pubic ramus fracture, would hold aspirin and apixaban for 24 to 48 hours, since her PCI was remote and she is in sinus rhythm currently, her risk of thrombotic event is exceeded by possibility of exacerbating any hemorrhage at her fracture site (hemoglobin down 1.3 g from recent baseline). If her pelvic pain does not increase and her hemoglobin is stable, could resume low-dose apixaban after 24 to 48 hours (reduced dose due to age greater than 80 and creatinine greater than 1.5). Not clear that she needs to resume aspirin given remoteness of her PCI, this could be held for a longer period of time and restarted as an outpatient if necessary. Will continue to follow along, expect hemodynamics to improve off negative chronotropic medication. History of Present Illness Reason for Consultation: syncope, tachy-georges syndrome, atrial flutter Requesting Physician: Mike Steen MD Attending Physician: Mike Steen MD History of Present Illness 79-year-old woman with history of CAD (PCI 2014), recent hospitalization for new onset atrial flutter for which she was cardioverted and placed on amiodarone and apixaban, who was admitted late last evening after a fall resulting in a pubic ramus fracture. After her electrical cardioversion on 01/06 she was loaded orally with amiodarone as an outpatient and had tapered her dose to 200 mg twice daily. Due to transient tachypalpitations, she apparently also took a dose of metoprolol. She notes that she felt poorly all day yesterday, with significant nausea and fatigue, but no other symptoms. Upon returning from a 3-hour car trip, while walking into her house she feels that she stumbled on a step and fell, fracturing her pubic ramus. She told me that she did not lose consciousness. No prior or subsequent chest discomfort, subjective palpitations, dyspnea, or other symptoms. Aside from pelvic pain with any movement, she was comfortable lying quietly at rest. She still has very mild nausea, much improved from yesterday. She is followed from a cardiology standpoint by Dr. Asa Singh as an outpatient. Allergies Allergy/AdvReac Type Severity Reaction Status Date / Time Penicillins Allergy Unknown HIVES Verified 01/17/23 02:44 Sulfa (Sulfonamide AdvReac Unknown GI SYMPTOMS Verified 01/17/23 02:44 Antibiotics) Home Medications Medication Instructions Recorded Confirmed Type atorvastatin 40 mg tablet 40 mg PO HS 07/29/19 01/17/23 History furosemide 20 mg tablet 20 mg PO 3XWK #90 tabs 07/29/19 01/17/23 History lisinopril 40 mg tablet 40 mg PO DAILY 07/29/19 01/17/23 History nitroglycerin 0.4 mg sublingual 0.4 mg sublingual UD PRN chest 07/29/19 01/17/23 History tablet pain isosorbide mononitrate 30 mg 30 mg PO DAILY 07/09/20 01/17/23 History tablet,extended release 24 hr aspirin 81 mg tablet,delayed 81 mg PO DAILY 01/05/23 01/17/23 History release hydralazine 25 mg tablet 25 mg PO TID 01/05/23 01/17/23 History oxybutynin chloride 10 mg 10 mg PO DAILY 01/05/23 01/17/23 History tablet,extended release 24 hr spironolactone 25 mg tablet 12.5 mg PO DAILY 01/05/23 01/17/23 History amiodarone 200 mg tablet 200 mg PO BID #70 tabs 01/07/23 01/17/23 Rx apixaban 2.5 mg tablet (Eliquis) 2.5 mg PO BID #60 tabs 01/07/23 01/17/23 Rx calcium carbonate 600 mg-vitamin 1 tab PO DAILY 01/17/23 01/17/23 History D3 5 mcg (200 unit) tablet Patient History Medical History Hx of hemorrhoids Surgical History S/P appendectomy Family History Aunt Breast cancer Father Coronary heart disease Parkinson disease Mother Heart disease Social History Smoking Status: Never smoker Second Hand Exposure: No; Do You Dip or Chew Tobacco: No; Tobacco Cessation Education Requested by Patient: No Hx Alcohol Use: Yes Alcohol type: wine Hx Substance Use: No Preferred Language: Nauruan Communication Ability: Effective Grounds Caretaker Required: No Beliefs That Will Affect Care: None marital status: Current Living Situation: Spouse Other Information That Helps Us Care for You: No Feels Safe at Home: Yes Safety Concerns: Feels Safe At This Time Assistive Devices: None Physical Exam Physical Exam: No acute distress at rest. Current BP 87/32 mmHg. Pulse 51 bpm and regular. Skin: no ecchymoses or generalized lesions. HEENT: unremarkable. Neck: Jugular venous pulse not elevated, no carotid bruits. Lungs: clear bilaterally. Cardiac: Bradycardic but regular rhythm, 2/6 apical holosystolic murmur rating to the axilla, no diastolic murmur or gallop. Abdomen: benign. Pelvis: Pain with any movement. Extremities: no edema, pulses intact. Neurologic: normal affect and conversation, nonfocal. Results & Data Diagnostic Findings ECG showed sinus bradycardia at 51 bpm, isoelectric ST segments. Compared with 01/06/2023 study, ventricular rate decreased by 27 bpm. Chest x-ray unremarkable. White count 14.8, hemoglobin 10.0, platelet count 268,000. Sodium 121, potassium 5.3, chloride 93, CO2 18, BUN 35, creatinine 1.73. AST 47, ALT 41. Troponin 21.6. PG Care Time/CCT Total # of Minutes Spent Total Time Spent with Patient: Total time spent is greater than 50% in coordination of care (as documented) at patient's floor/unit and/or counseling patient: Coding Level of Care Code 15625 INT INP/OBS CARE 3/75MIN Diagnoses Fall W19.XXXA Sinus bradycardia R00.1 Hypotension I95.9 Closed fracture of pubic ramus S32.599A H/O atrial flutter Z86.79 Coronary artery disease I25.10 H/O heart artery stent Z95.5
[2023-01-17 14:48] LABS: Albumin Globulin Ratio 1.5 (0.9-2); Albumin Level 3.1 gm/dl (3.4-5.0); BUN Creatinine Ratio 19.3 (10-20); Bilirubin,Total 1.3 mg/dl (0.2-1.0); Calcium 7.8 mg/dl (8.6-10.3); Creatinine Clr Calc Pharmacy 19.5 ml/min; Est GFR (African American) 23.4 ml/min; Est GFR (Non-African American) 20.1 ml/min; Globulin 2.1 gm/dl (2.5-4.0); Potassium 5.6 mmol/L (3.5-5.1); Total Protein 5.2 gm/dl (6.0-8.3)
[2023-01-17 15:51] LABS: Hemoglobin 7.1 g/dl (12.0-16.0); Mean Corpuscular Volume 88.2 fL (80.0-100.0); Platelet Count 198 K/uL (130-400); RDW Coefficient of Variation 13.7 % (11.5-14.5); RDW Standard Deviation 43.5 fL (36.4-46.3); Red Blood Count 2.37 M/uL (4.20-5.40); White Blood Count 11.57 K/ul (4.8-10.8)
[2023-01-17 15:52] LABS: Basophils # (auto) 0.05 K/uL (0-0.2); Basophils % (auto) 0.4 %; Eosinophils # (auto) 0.03 K/uL (0-0.50); Eosinophils % (auto) 0.3 %; Immature Granulocytes # (auto) 0.09 K/uL (0.01-0.20); Immature Granulocytes % (auto) 0.8 %; Lymphocytes # (auto) 0.83 K/uL (1.2-3.4); Lymphocytes % (auto) 7.2 %; Mean Platelet Volume 9.9 fL (9.4-12.4); Monocytes # (auto) 0.64 K/uL (0.11-0.59); Monocytes % (auto) 5.5 %; Neutrophils # (auto) 9.93 K/uL (1.40-6.50); Neutrophils % (auto) 85.8 %
[2023-01-17 15:53] LABS: Echinocytes 1+; Polychromasia 1+
[2023-01-17] MEDS: POLYETHYLENE (MIRALAX) 17 GM PACK PO PRN (16:03)
[2023-01-17 16:04] LABS: Hematocrit (blood only) 20.9 % (37.0-47.0)
--- NOTE | 2023-01-17 17:22 | CT Scan Report ---
CT abd pelvis wo con CLINICAL HISTORY: abdominal pain, dropping hgb, rising cr TECHNIQUE: Helical axial images of the abdomen and pelvis were obtained. Automated dose lowering tech niques and/or adjustment according to patient size were utilized for this exam. This exam was perfor med without intravenous contrast. CT DOSE: 375.79 mGy.cm COMPARISON: None available at the time of this dictation. FINDINGS: Lower chest: No acute abnormality. Liver: Unremarkable. No focal lesions are seen. Gallbladder and biliary tree: No calcified gallstones. Normal caliber wall. No intra- or extrahepatic biliary ductal dilation. Pancreas: Fatty replacement of the pancreas is seen. Spleen: Calcifications are noted in the spleen compatible with prior granulomatous disease. Adrenals: Unremarkable. Kidneys and ureters: Perinephric stranding is noted bilaterally. Bladder: Hernandez catheter is seen. Reproductive organs: Phleboliths are seen in the pelvis. The uterus appears mildly atrophic, compatib le with age. Bowel: Patient is status post appendectomy. A hiatal hernia is seen. A duodenal diverticulum is seen. Prominent small bowel loops without evidence of malia dilation. Lymph nodes Retroperitoneal: Unremarkable. Pelvic: Prominent subcentimeter inguinal nodes are noted. Mesenteric: Subcentimeter lymph nodes are noted. Peritoneum: There is a hyperdensity in the left pelvis measuring 10.6 x 5.1 cm compatible with hemorr zachery. Diffuse hyperdense stranding is seen in the pelvis and left retrocolic gutter. Vessels: Atherosclerotic calcifications are seen. Abdominal wall: Unremarkable. Bones: There is a comminuted fracture of the left inferior and superior pubic rami. IMPRESSION: Comminuted fractures of the left superior-inferior pubic rami with hematoma in the left lower pelvis extending into the left paracolic gutter. ACT 112: Negative or not required by law. Electronically signed by: Bola Horton M.D. 01/17/2023 5:19 PM
[2023-01-17] MEDS ORDERED: CALCIUM GLUCONATE 10% 1,000 MG in SODIUM CHLORIDE 0.9% 50 ML IV ONE (17:47)
[2023-01-17] MEDS ORDERED: STAT IV STA (17:47)
--- NOTE | 2023-01-17 17:56 | Hospitalist Progress Note ---
Date of Service January 17, 2023 Assessment & Plan (1) Fall: Plan: Mrs. Saunders is an 82 yo F who was brought to the hospital early this morning after falling on her way into her home. Status post fall - etiology uncertain: mechanical vs. syncopal episode - patient did report a prodrome of dizziness which would favor syncopal. - Cardiology consulted and felt as though event did not represent a true syncopal episode although she did have inappropriate bradycardia. - Additional contributing factors include but not limited to hyponatremia and dehydration - WBC was elevated on arrival to 14. It has trended down to 11. UA possibility concerning for infection -- follow urine culture. Patient denies urinary symptoms, thus abx not initiated Closed pubic ramus fracture - sustained from fall - abdominal CT scan showing nearby hematoma formation, likley source of pa john's abdominal pain and Hgb drop - tylenol prn - consult PT/OT once hypotension resolves Hypotension - patient has been running systolics 80s-110s all day - Home metoprolol dose on hold due to low HR and BP. Imdur on hold for systolic BP< 95 - amiodarone dose on old for now - The above regimen was previously used for her Afib/Aflutter control - If she is hypotensive overnight, order 1 liter NSS bolus and reassess History of Afib/Aflutter - hold ASA and Eliquis for now given acute hematoma formation - hold metoprolol given low HR and BP - Hold Amio per cards --> may restart at lower dose Anemia - noted on labs - likely due to internal hematoma formation as above - H+H ordered for 10 pm tonight and then AM labs - transfuse if Hgb < 7 - patient has been consented for blood products CHERYL on CKD- - Creatinine 1.73 on admission, with range 1.60-1.76. Trended up to 2.18 today - patient given 2 L of NSS today, BUN was elevated, suggestive of pre-renal source - Hold lisinopril, furosemide and spironolactone - BMP ordered with am labs Hyperkalemia - K at 5.6 - holding K sparing agents - could be due to CHERYL - however given concurrent hypotension (without history of volume loss and antihypertensive being held), along with hyponatremia, I do have some concern for adrenal insufficiency. I did order am cortisol level Hyponatremia- - Sodium 121 upon admission--> improved to 122 - Serum osmolality 266. - Urine osmolality 391 - urine sodium 17 - Hypotonic, hypovolemic hyponatremia --> use isotonic saline for volume replacement - Trend BMP Bladder spasm- Continue oxybutynin. Hyperlipidemia- Continue atorvastatin DVT: on hold due to hematoma Diet: heart healthy Dispo: Tele Code: Full Admission and Anticipated Discharge Date Admission Date: January 17, 2023 Subjective When discussing her fall, she reports a prodrome sensation before going down. Review of Systems Review of Systems: She feels constipated, reports abdominal pain Physical Exam Physical Exam: General Appearance: well-developed, well-nourished adult woman in no acute distress HEENT: NC/AT. Sclera anicteric. CV: RRR. S1 and S2 appreciated. No murmurs, clicks, gallops or rubs. Lungs: CTA in all lung radford bilaterally with equal air movement. No wheezes, rales, rhonchi or crackles. Abdomen: Normoactive BS in all 4 quadrants. + tender and firm in suprapubic region : Hernandez in place Skin: warm, dry, and intact Neuro: AAO x 3. No focal deficits. Psych: Appropriate mood and affect. Results & Data Results & Data Vital Signs (Past 12 Hours) Vital Signs Temp Pulse Pulse Resp BP BP BP 01/17/23 16:45 94/48 L 01/17/23 15:52 93/44 L 01/17/23 15:38 36.6 C 54 L 18 86/43 L 01/17/23 15:26 59 L 01/17/23 14:55 88/46 L 01/17/23 13:50 95/50 L 01/17/23 08:10 58 L 01/17/23 13:26 90/44 L 01/17/23 13:06 94/41 L 01/17/23 12:53 99/45 L 01/17/23 12:40 90/40 L 01/17/23 12:25 87/32 L 01/17/23 12:00 90/42 L 01/17/23 11:51 93/46 L 01/17/23 11:37 36.6 C 51 L 19 90/38 L 01/17/23 09:45 01/17/23 09:31 01/17/23 08:49 37.0 C 52 L 18 105/58 L 01/17/23 07:11 52 L 01/17/23 06:40 53 L 14 01/17/23 06:30 52 L 16 01/17/23 06:20 53 L 15 01/17/23 06:10 52 L 15 01/17/23 06:00 52 L 16 01/17/23 06:00 119/50 L Pulse Ox Pulse Ox O2 Del Method O2 Del Method 01/17/23 16:45 01/17/23 15:52 01/17/23 15:38 97 Room Air 01/17/23 15:26 01/17/23 14:55 01/17/23 13:50 01/17/23 08:10 01/17/23 13:26 01/17/23 13:06 01/17/23 12:53 01/17/23 12:40 01/17/23 12:25 01/17/23 12:00 01/17/23 11:51 01/17/23 11:37 97 Room Air 01/17/23 09:45 96 Room Air 01/17/23 09:31 Room Air 01/17/23 08:49 96 Room Air 01/17/23 07:11 01/17/23 06:40 01/17/23 06:30 01/17/23 06:20 01/17/23 06:10 01/17/23 06:00 01/17/23 06:00 PG Care Time/CCT Total # of Minutes Spent Total Time Spent with Patient: Total time spent is greater than 50% in coordination of care (as documented) at patient's floor/unit and/or counseling patient: Coding [place] [address] SUB INP/OBS CARE 3/50MIN Patient Type Established Diagnoses Fall W19.XXXA
[2023-01-17] MEDS: ATORVASTATIN 40 MG TAB PO SCH (21:05)
[2023-01-17 23:38] LABS: Hematocrit (blood only) 18.8 % (37.0-47.0); Hemoglobin 6.4 g/dl (12.0-16.0)
[2023-01-17] MEDS ORDERED: SODIUM CHLORIDE 0.9% 250 ML IV PRN ×2 (23:46→23:49)
--- NOTE | 2023-01-17 23:52 | Communication Note ---
Date of Service: January 17, [id number] Hgb 6.4. Gave 1 unit PRBC. Recheck hgb am labs. Resident Activity Tracking Resident Involvement: Resident Care Provided Care Provided: Adult Hospital Medicine
[2023-01-18] MEDS: ACETAMINOPHEN 325 MG TAB PO PRN (04:06)
[2023-01-18 07:38] LABS: Albumin Globulin Ratio 1.5 (0.9-2); Albumin Level 2.9 gm/dl (3.4-5.0); Bilirubin,Total 1.7 mg/dl (0.2-1.0); Calcium 7.4 mg/dl (8.6-10.3); Creatinine Clr Calc Pharmacy 19.6 ml/min; Est GFR (African American) 23.2 ml/min; Magnesium 1.7 mg/dl (1.7-2.4); Potassium 5.3 mmol/L (3.5-5.1); Total Protein 4.9 gm/dl (6.0-8.3)
[2023-01-18 07:46] LABS: Hematocrit (blood only) 20.9 % (37.0-47.0); Hemoglobin 7.2 g/dl (12.0-16.0); Mean Corpuscular Hemoglobin 30.5 pg (25.0-34.0); Mean Corpuscular Hgb Conc 34.4 g/dL (32.0-36.0); Mean Corpuscular Volume 88.6 fL (80.0-100.0); Mean Platelet Volume 10.1 fL (9.4-12.4); Platelet Count 156 K/uL (130-400); RDW Coefficient of Variation 13.6 % (11.5-14.5); RDW Standard Deviation 43.7 fL (36.4-46.3); Red Blood Count 2.36 M/uL (4.20-5.40); White Blood Count 10.64 K/ul (4.8-10.8)
[2023-01-18 08:24] LABS: Acanthocytes 2+; Basophils # (auto) 0.05 K/uL (0-0.2); Basophils % (auto) 0.5 %; Eosinophils # (auto) 0.11 K/uL (0-0.50); Immature Granulocytes # (auto) 0.06 K/uL (0.01-0.20); Immature Granulocytes % (auto) 0.6 %; Lymphocytes # (auto) 0.98 K/uL (1.2-3.4); Lymphocytes % (auto) 9.2 %; Monocytes % (auto) 5.6 %; Neutrophils # (auto) 8.84 K/uL (1.40-6.50); Neutrophils % (auto) 83.1 %; Polychromasia 1+
[2023-01-18] MEDS: OXYBUTYNIN CHLORIDE XL 5 MG TABCR PO SCH (08:25)
[2023-01-18] MEDS: ISOSORBIDE MONO EXTENDED REL 30 MG TABCR PO SCH (08:25)
--- NOTE | 2023-01-18 08:53 | Hospitalist Progress Note ---
Date of Service January 18, 2023 Assessment & Plan (1) Fall: Plan: acute mechanical fall, high risk complicated by acute blood loss anemia from pubic fracture on chronic anticoagulation Fall influenced by severe hyponatremia and bradycardia - UA possibility concerning for infection -- follow urine culture. Closed pubic ramus fracture acute high risk - abdominal CT scan showing nearby hematoma formation, on apixiban for afib acute blood loss anemia with 1 U prbc pain control with scheduled tylenol and prn parenteral opiates - consult PT/OT once hypotension resolves Chronic now unstable Afib/Aflutter moderate risk - hold ASA and Eliquis given acute blood loss anemia - hold metoprolol with low blood pressure - Hold Amio with bradyucardia--> may restart at lower dose CHERYL on CKD4 - pre-renal source with volume loss from bleeding - Hold lisinopril, furosemide and spironolactone Hyponatremia- acute severe - Hypotonic, hypovolemic hyponatremia - Sodium 121 upon admission--> improved to 122, initially with low urine random sodium, but with no real improvement will recheck - may need hypertonic saline, will ask nephrology to weigh in DVT: on hold due to hematoma Diet: heart healthy Code: Full Plan (1) Fall: Plan: acute mechanical fall, high risk complicated by acute blood loss anemia from pubic fracture on chronic anticoagulation Fall influenced by severe hyponatremia and bradycardia - UA possibility concerning for infection -- follow urine culture. Closed pubic ramus fracture acute high risk - abdominal CT scan showing nearby hematoma formation, on apixiban for afib acute blood loss anemia with 1 U prbc pain control with scheduled tylenol and prn parenteral opiates - consult PT/OT once hypotension resolves Chronic now unstable Afib/Aflutter moderate risk - hold ASA and Eliquis given acute blood loss anemia - hold metoprolol with low blood pressure - Hold Amio with bradyucardia--> may restart at lower dose CHERYL on CKD4 - pre-renal source with volume loss from bleeding - Hold lisinopril, furosemide and spironolactone Hyponatremia- acute severe - Hypotonic, hypovolemic hyponatremia - Sodium 121 upon admission--> improved to 122, initially with low urine random sodium, but with no real improvement will recheck - may need hypertonic saline, will ask nephrology to weigh in DVT: on hold due to hematoma Diet: heart healthy Code: Full Admission and Anticipated Discharge Date Admission Date: January 17, 2023 Subjective Patient pain is controlled with rest but is worse with movement. She feels improved after transfusion but still weak and tired. Repeat hemoglobin in the afternoon shows this to be stable at this time Physical Exam Physical Exam: Despite persistently low sodium patient is awake alert appropriate without complaints other than pain in her pubic area specially her back Cardiac exam is regular with previous cardioversion of atrial flutter Lungs are clear Results & Data Results & Data Vital Signs (Past 12 Hours) Vital Signs Temp Pulse Pulse Resp BP BP BP 01/18/23 07:54 97.5 F L 70 20 142/67 H 01/18/23 04:38 98.1 F 64 18 133/70 01/18/23 04:25 97.9 F 71 18 149/70 H 01/18/23 04:25 97.9 F 71 18 149/70 H 01/18/23 04:25 98.1 F 64 18 133/71 01/18/23 03:25 98.4 F 68 18 136/69 01/18/23 02:55 98.1 F 65 18 117/65 01/18/23 02:40 97.9 F 70 18 152/68 H 01/18/23 02:22 98.6 F 79 18 135/69 01/18/23 01:19 57 L 01/17/23 23:20 98.1 F 66 18 119/55 L Pulse Ox O2 Del Method O2 Flow Rate 01/18/23 07:54 96 Room Air 01/18/23 04:38 96 0 01/18/23 04:25 95 0 01/18/23 04:25 95 0 01/18/23 04:25 96 0 01/18/23 03:25 94 0 01/18/23 02:55 94 0 01/18/23 02:40 94 0 01/18/23 02:22 94 0 01/18/23 01:19 01/17/23 23:20 97 Room Air Laboratory Results Repeat hemoglobin is reviewed Morning CBC reviewed Morning PRP reviewed PG Care Time/CCT Total # of Minutes Spent Total Time Spent with Patient: Total time spent is greater than 50% in coordination of care (as documented) at patient's floor/unit and/or counseling patient: Coding Level of Care Code 46206 SUB INP/OBS CARE 3/50MIN Diagnoses Fall W19.XXXA
[2023-01-18] MEDS ORDERED: SODIUM CHLORIDE 3 % 100 ML IV ONE ×2 (09:45→13:30)
[2023-01-18] MEDS ORDERED: STAT IV STA ×3 (09:45→18:21)
--- NOTE | 2023-01-18 09:55 | Nephrology Consultation ---
Date of Consultation January 18, 2023 Assessment & Plan (1) Hyponatremia: Moderate to severe. Chronic with symptoms including imbalance, fall, and nausea on admission. Attributed to intravascular volume depletion and decreased EAV on admission. BP improved. Serum sodium has not significantly improved with istonic IVF and PRBC transfusion. Uosm >300 yesterday. Repeat urine osmolality, Marija and UK now. Document strict I/O's. 3% NaCl x 100 ml now. Repeat serum sodium with follow up Hgb ordered. Diuretics held. (2) CHERYL (acute kidney injury): Non-oliguric. Clinical presentation suggestive of intravascular volume depletion, decreased EAV, and suspected ATN. 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 Urine demonstrating possible cystitis and noted hyaline casts. CT demonstrating no obstruction. Document strict I/Os. Repeat serum metabolic profile tomorrow AM. Suspected some underlying component of CKD but baseline creatinine not known. Creatinine 1.6 mg/dL early this month. Medications appropriately dosed for kidney function. Spironolactone, furosemide, and lisinopril held. (3) Hyperkalemia: Spironolactone and lisinopril held. Low potassium diet. IV saline provided to encourage urine output. Hypertonic fluids ordered. (4) Closed fracture of pubic ramus: s/p mechanical fall. Documented history of osteoporosis. Low serum calcium and suspected CKD. Check 25OH D and iPTH with AM labs. (5) Atrial flutter: s/p KELLY/cardioversion 01/06. (6) Bradycardia: (7) Acute blood loss anemia: s/p 1 u PRBC transfusion support 01/17. Repeat hemoglobin scheduled for 11:00. CT demonstrating hematoma in lwer lower pelvis. Eliquis and aspirin held. History of Present Illness Reason for Consultation: Hyponatremia Requesting Physician: Cuong Akers MD Attending Physician: Cuong Akers MD History of Present Illness Benita Saunders is an 82 year-old female with chronic kidney disease, coronary artery disease, hypertension, and osteoporosis who was recently hospitalized at [facility] from January 05- with new atrial flutter. Benita underwent KELLY/cardioversion and was discharged on amiodarone and Eliquis. She was discharged with sinus bradycardia. 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 She took a single dose of metoprolol for the symptoms. Benita then experienced notable fatigue and some persistent nausea. She returned home after a 3 [address] ride and fell passing through a doorway resulting in a fracture of her pubic ramus. She presented to the ER at [facility] on January 17 s/p fall. Benita does not believe that she lost consciousness but she is not sure. She was hypotension with sinus bradycardia on admission. Benita was found to be clinically volume depleted. Hydralazine, Imdur, furosemide, and spironolactone have been held. NSS provided for intravascular volume expansion. Eliquis and aspirin were also held due to bleeding risk. Laboratory studies on admission notable for hyponatremia, hyperkalemia, elevated serum creatinine, hypocalcemia, and anemia. Bilirubin slightly elevated and trending upward. Troponin also slightly elevated. Hemoglobin dropped following admission and 1 u PRBC transfusion support was provided overnight. CT scan of the abdomen and pelvis demonstrated pubic fracture with surrounding hematoma. The kidneys are unobstructed. Urine analysis demonstrating trace protein and +LE. Microscopy notable for 10-30 WBCs and hyaline casts. No RBCs. Urine culture growing GNR. AM cortisol 18. Benita is non-oliguric. She is normotensive this AM. She remains bradycardic. I discussed the patient this AM with Dr. Akers. Allergies Allergy/AdvReac Type Severity Reaction Status Date / Time Penicillins Allergy Unknown HIVES Verified 01/17/23 02:44 Sulfa (Sulfonamide AdvReac Unknown GI SYMPTOMS Verified 01/17/23 02:44 Antibiotics) Home Medications Medication Instructions Recorded Confirmed Type atorvastatin 40 mg tablet 40 mg PO HS 07/29/19 01/17/23 History furosemide 20 mg tablet 20 mg PO 3XWK #90 tabs 07/29/19 01/17/23 History lisinopril 40 mg tablet 40 mg PO DAILY 07/29/19 01/17/23 History nitroglycerin 0.4 mg sublingual 0.4 mg sublingual UD PRN chest 07/29/19 01/17/23 History tablet pain isosorbide mononitrate 30 mg 30 mg PO DAILY 07/09/20 01/17/23 History tablet,extended release 24 hr aspirin 81 mg tablet,delayed 81 mg PO DAILY 01/05/23 01/17/23 History release hydralazine 25 mg tablet 25 mg PO TID 01/05/23 01/17/23 History oxybutynin chloride 10 mg 10 mg PO DAILY 01/05/23 01/17/23 History tablet,extended release 24 hr spironolactone 25 mg tablet 12.5 mg PO DAILY 01/05/23 01/17/23 History amiodarone 200 mg tablet 200 mg PO BID #70 tabs 01/07/23 01/17/23 Rx apixaban 2.5 mg tablet (Eliquis) 2.5 mg PO BID #60 tabs 01/07/23 01/17/23 Rx calcium carbonate 600 mg-vitamin 1 tab PO DAILY 01/17/23 01/17/23 History D3 5 mcg (200 unit) tablet Patient History Medical History (Updated 01/18/23 @ 10:11 by Allen Kenney DO) Closed fracture of pubic ramus Coronary artery disease H/O atrial flutter Hx of hemorrhoids Rosacea Tachy-georges syndrome Surgical History (Updated 01/18/23 @ 09:53 by Allen Kenney DO) H/O heart artery stent S/P appendectomy Family History Aunt Breast cancer Father Coronary heart disease Parkinson disease Mother Heart disease Social History Smoking Status: Never smoker Second Hand Exposure: No; Do You Dip or Chew Tobacco: No; Tobacco Cessation Education Requested by Patient: No Hx Alcohol Use: Yes Alcohol type: wine Hx Substance Use: No Preferred Language: Cymraes Communication Ability: Effective Websphere Portal Architect Required: No Beliefs That Will Affect Care: None marital status: Current Living Situation: Spouse Other Information That Helps Us Care for You: No Feels Safe at Home: Yes Safety Concerns: Feels Safe At This Time Assistive Devices: None Review of Systems Review of Systems: All systems reviewed & are unremarkable except as noted in HPI & below Constitutional: no anorexia and no weight loss Cardiovascular: no chest pain, no palpitations, no lightheadedness and no edema Gastrointestinal: no abdominal pain, no nausea, no vomiting and no diarrhea/loose stools Physical Exam Constitutional: well developed; no acute distress Eyes: + anicteric sclerae ENMT: Mouth: no oral mucosal abnormality and oral mucous membranes not dry Neck: normal visual inspection and trachea midline Respiratory: normal respiratory effort Auscultation: lungs clear to auscultation bilaterally Cardiovascular: Rate/Rhythm: + bradycardic Heart Sounds: normal S1 and normal S2 Extremities: + varicosities; no edema Musculoskeletal: Extremities: no cyanosis and no clubbing Skin: + turgor decreased and + ecchymosis Neurologic: Motor/Sensory: no tremor and no asterixis Psychiatric: Orientation: alert and oriented x 3 Results & Data Vital Signs (Past 12 Hours) Vital Signs Temp Pulse Pulse Resp BP BP BP 01/18/23 07:54 36.4 C L 70 20 142/67 H 01/18/23 04:38 36.7 C 64 18 133/70 01/18/23 04:25 36.6 C 71 18 149/70 H 01/18/23 04:25 36.6 C 71 18 149/70 H 01/18/23 04:25 36.7 C 64 18 133/71 01/18/23 03:25 36.9 C 68 18 136/69 01/18/23 02:55 36.7 C 65 18 117/65 01/18/23 02:40 36.6 C 70 18 152/68 H 01/18/23 02:22 37.0 C 79 18 135/69 01/18/23 01:19 57 L 01/17/23 23:20 36.7 C 66 18 119/55 L Pulse Ox O2 Del Method O2 Flow Rate 01/18/23 07:54 96 Room Air 01/18/23 04:38 96 0 01/18/23 04:25 95 0 01/18/23 04:25 95 0 01/18/23 04:25 96 0 01/18/23 03:25 94 0 01/18/23 02:55 94 0 01/18/23 02:40 94 0 01/18/23 02:22 94 0 01/18/23 01:19 01/17/23 23:20 97 Room Air Laboratory Results Laboratory Results - last 24 hr 01/17/23 01/17/23 01/17/23 12:46 14:14 14:14 WBC 11.57 H RBC 2.37 L Hgb 7.1 L D Hct 20.9 L* MCV 88.2 MCH 30.0 MCHC 34.0 RDW Std Deviation 43.5 RDW Coeff of Erik 13.7 Plt Count 198 MPV 9.9 Immature Gran % (Auto) 0.8 Neut % (Auto) 85.8 Lymph % (Auto) 7.2 Rankin % (Auto) 5.5 Eos % (Auto) 0.3 Baso % (Auto) 0.4 Neut # (Auto) 9.93 H Lymph # (Auto) 0.83 L Rankin # (Auto) 0.64 H Eos # (Auto) 0.03 Baso # (Auto) 0.05 Immature Gran # (Auto) 0.09 Polychromasia 1+ Echinocytes 1+ Acanthocytes (Spur) Sodium 122 L Potassium 5.6 H Chloride 96 L Carbon Dioxide 19 L Anion Gap 7 BUN 42 H Creatinine 2.18 H D Est Cr Clr Drug Dosing 19.5 Est GFR ( Amer) 23.4 Est GFR (Non-Af Amer) 20.1 BUN/Creatinine Ratio 19.3 Glucose 90 Calcium 7.8 L Ionized Calcium Magnesium Total Bilirubin 1.3 H AST 42 H ALT 32 Alkaline Phosphatase 50 Troponin I High Sens 25.4 H Total Protein 5.2 L D Albumin 3.1 L Globulin 2.1 L Albumin/Globulin Ratio 1.5 Cortisol AM Sample Urine Osmolality Ur Random Sodium Blood Type Blood Type Recheck Antibody Screen Crossmatch 01/17/23 01/17/23 01/17/23 14:14 16:05 16:25 WBC RBC Hgb Hct MCV MCH MCHC RDW Std Deviation RDW Coeff of Erik Plt Count MPV Immature Gran % (Auto) Neut % (Auto) Lymph % (Auto) Rankin % (Auto) Eos % (Auto) Baso % (Auto) Neut # (Auto) Lymph # (Auto) Rankin # (Auto) Eos # (Auto) Baso # (Auto) Immature Gran # (Auto) Polychromasia Echinocytes Acanthocytes (Spur) Sodium Potassium Chloride Carbon Dioxide Anion Gap BUN Creatinine Est Cr Clr Drug Dosing Est GFR ( Amer) Est GFR (Non-Af Amer) BUN/Creatinine Ratio Glucose Calcium Ionized Calcium 1.06 L Magnesium Total Bilirubin AST ALT Alkaline Phosphatase Troponin I High Sens Total Protein Albumin Globulin Albumin/Globulin Ratio Cortisol AM Sample Urine Osmolality 391 L Ur Random Sodium Blood Type Blood Type Recheck B Positive Antibody Screen Crossmatch 01/17/23 01/17/23 01/18/23 16:25 22:35 00:07 WBC RBC Hgb 6.4 L* Hct 18.8 L* MCV MCH MCHC RDW Std Deviation RDW Coeff of Erik Plt Count MPV Immature Gran % (Auto) Neut % (Auto) Lymph % (Auto) Rankin % (Auto) Eos % (Auto) Baso % (Auto) Neut # (Auto) Lymph # (Auto) Rankin # (Auto) Eos # (Auto) Baso # (Auto) Immature Gran # (Auto) Polychromasia Echinocytes Acanthocytes (Spur) Sodium Potassium Chloride Carbon Dioxide Anion Gap BUN Creatinine Est Cr Clr Drug Dosing Est GFR ( Amer) Est GFR (Non-Af Amer) BUN/Creatinine Ratio Glucose Calcium Ionized Calcium Magnesium Total Bilirubin AST ALT Alkaline Phosphatase Troponin I High Sens Total Protein Albumin Globulin Albumin/Globulin Ratio Cortisol AM Sample Urine Osmolality Ur Random Sodium 17 Blood Type B Positive Blood Type Recheck Antibody Screen NEGATIVE Crossmatch See Detail 01/18/23 01/18/23 01/18/23 07:03 07:03 07:03 WBC 10.64 RBC 2.36 L Hgb 7.2 L Hct 20.9 L* MCV 88.6 MCH 30.5 MCHC 34.4 RDW Std Deviation 43.7 RDW Coeff of Erik 13.6 Plt Count 156 MPV 10.1 Immature Gran % (Auto) 0.6 Neut % (Auto) 83.1 Lymph % (Auto) 9.2 Rankin % (Auto) 5.6 Eos % (Auto) 1.0 Baso % (Auto) 0.5 Neut # (Auto) 8.84 H Lymph # (Auto) 0.98 L Rankin # (Auto) 0.60 H Eos # (Auto) 0.11 Baso # (Auto) 0.05 Immature Gran # (Auto) 0.06 Polychromasia 1+ Echinocytes Acanthocytes (Spur) 2+ Sodium 120 L Potassium 5.3 H Chloride 96 L Carbon Dioxide 16 L Anion Gap 8 BUN 46 H Creatinine 2.19 H Est Cr Clr Drug Dosing 19.6 Est GFR ( Amer) 23.2 Est GFR (Non-Af Amer) 20.0 BUN/Creatinine Ratio 21.0 H Glucose 82 Calcium 7.4 L Ionized Calcium Magnesium 1.7 Total Bilirubin 1.7 H AST 32 ALT 26 Alkaline Phosphatase 43 Troponin I High Sens Total Protein 4.9 L Albumin 2.9 L Globulin 2.0 L Albumin/Globulin Ratio 1.5 Cortisol AM Sample 18.51 Urine Osmolality Ur Random Sodium Blood Type Blood Type Recheck Antibody Screen Crossmatch Diagnostic Findings CT abd pelvis wo con Liver: Unremarkable. No focal lesions are seen. Gallbladder and biliary tree: No calcified gallstones. Normal caliber wall. No intra- or extrahepatic biliary ductal dilation. Pancreas: Fatty replacement of the pancreas is seen. Spleen: Calcifications are noted in the spleen compatible with prior granulomatous disease. Adrenals: Unremarkable. Kidneys and ureters: Perinephric stranding is noted bilaterally. Bladder: Hernandez catheter is seen. Reproductive organs: Phleboliths are seen in the pelvis. The uterus appears mildly atrophic, compatible with age. Bowel: Patient is status post appendectomy. A hiatal hernia is seen. A duodenal diverticulum is seen. Prominent small bowel loops without evidence of malia dilation. Lymph nodes Retroperitoneal: Unremarkable. Pelvic: Prominent subcentimeter inguinal nodes are noted. Mesenteric: Subcentimeter lymph nodes are noted. Peritoneum: There is a hyperdensity in the left pelvis measuring 10.6 x 5.1 cm compatible with hemorrhage. Diffuse hyperdense stranding is seen in the pelvis and left retrocolic gutter. Vessels: Atherosclerotic calcifications are seen. Abdominal wall: Unremarkable. Bones: There is a comminuted fracture of the left inferior and superior pubic rami. IMPRESSION: Comminuted fractures of the left superior-inferior pubic rami with hematoma in the left lower pelvis extending into the left paracolic gutter. PG Care Time/CCT Total # of Minutes Spent Total Time Spent with Patient: Total time spent is greater than 50% in coordination of care (as documented) at patient's floor/unit and/or counseling patient: Coding Level of Care Code 94106 IN/OBS CONSULT LVL 4,60M Diagnoses Hyponatremia E87.1 CHERYL (acute kidney injury) N17.9 Hyperkalemia E87.5 Closed fracture of pubic ramus S32.599A Atrial flutter I48.92 Bradycardia R00.1 Acute blood loss anemia D62
--- NOTE | 2023-01-18 10:28 | Cardiology Progress Note ---
Date of Service January 18, 2023 Assessment & Plan (1) Closed fracture of pubic ramus: (2) H/O atrial flutter: (3) Coronary artery disease: (4) Acute blood loss anemia: Plan As noted, she developed a pelvic hematoma overnight with anemia and some degree of acute on chronic renal insufficiency. Given transfusion requiring bleed, continue to hold apixaban and aspirin, low- dose apixaban can be restarted prior to or upon discharge, there is no urgency as she remains in sinus rhythm. She could remain off aspirin for now, this could be restarted as an outpatient if it is felt warranted. Given her borderline bradycardia and some hypotension overnight, continue to hold amiodarone but would likely restart this tomorrow at lower dose than she was on (could start 200 mg amiodarone daily in the morning if BP and heart rate are favorable). Despite her bleed, she was hemodynamically stable and fairly comfortable at the time of my evaluation. Admission and Anticipated Discharge Date Admission Date: January 17, 2023 Subjective She developed a hematoma adjacent to her pubic ramus fracture and her hemoglobin dropped from 10.0-6.4, after transfusion this morning hemoglobin is 7.2. She had some abdominal discomfort yesterday but this has resolved. No pain when lying still. No chest pain, dyspnea, or subjective palpitations. Rhythm remains sinus on telemetry. Physical Exam Physical Exam: No acute distress at rest. BP mildly hypertensive. Pulse 60 bpm and regular. Skin: no ecchymoses or generalized lesions. HEENT: unremarkable. Neck: Jugular venous pulse not elevated, no carotid bruits. Lungs: clear bilaterally. Cardiac: Bradycardic but regular rhythm, 2/6 apical holosystolic murmur rating to the axilla, no diastolic murmur or gallop. Abdomen: benign. Pelvis: Pain with any movement. Extremities: no edema, pulses intact. Neurologic: normal affect and conversation, nonfocal. Results & Data Laboratory Results Hemoglobin as noted. Sodium 120, chloride 96, potassium 5.3, BUN 46, creatinine 2.19. Troponins yesterday 21.6 and 25.4. PG Care Time/CCT Total # of Minutes Spent Total Time Spent with Patient: Total time spent is greater than 50% in coordination of care (as documented) at patient's floor/unit and/or counseling patient: Coding Level of Care Code 84191 SUB INP/OBS CARE 350MIN Diagnoses Closed fracture of pubic ramus S32.599A H/O atrial flutter Z86.79 Coronary artery disease I25.10 Acute blood loss anemia D62
[2023-01-18 11:25] LABS: Potassium Random Urine 15.9 mmol/L
[2023-01-18] MEDS: MoRPHine SULFATE 2 MG/ML CARP IV PRN (11:38)
[2023-01-18] MEDS: POLYETHYLENE (MIRALAX) 17 GM PACK PO PRN (12:58)
[2023-01-18] MEDS: ACETAMINOPHEN 500 MG TAB PO SCH ×2 (13:49→21:10)
[2023-01-18] MEDS: SODIUM BICARBONATE 650 MG TAB PO SCH ×2 (14:28→21:11)
[2023-01-18 17:15] LABS: Albumin Level 3.1 gm/dl (3.4-5.0); BUN Creatinine Ratio 21.3 (10-20); Calcium 7.7 mg/dl (8.6-10.3); Creatinine Clr Calc Pharmacy 21.3 ml/min; Est GFR (African American) 25.6 ml/min; Est GFR (Non-African American) 22.1 ml/min; Phosphorus 3.3 mg/dl (2.5-4.9); Potassium 4.8 mmol/L (3.5-5.1)
[2023-01-18] MEDS ORDERED: SODIUM CHLORIDE 3 % 150 ML IV ONE (18:21)
[2023-01-18] MEDS: ATORVASTATIN 40 MG TAB PO SCH (21:11)
[2023-01-19 07:45] LABS: Hematocrit (blood only) 20.2 % (37.0-47.0); Hemoglobin 6.9 g/dl (12.0-16.0); Mean Corpuscular Hemoglobin 30.3 pg (25.0-34.0); Mean Corpuscular Hgb Conc 34.2 g/dL (32.0-36.0); Mean Corpuscular Volume 88.6 fL (80.0-100.0); Platelet Count 152 K/uL (130-400); RDW Coefficient of Variation 13.9 % (11.5-14.5); RDW Standard Deviation 44.8 fL (36.4-46.3); Red Blood Count 2.28 M/uL (4.20-5.40)
[2023-01-19 08:03] LABS: Acanthocytes 1+; Basophils # (auto) 0.03 K/uL (0-0.2); Basophils % (auto) 0.4 %; Echinocytes 1+; Eosinophils # (auto) 0.43 K/uL (0-0.50); Eosinophils % (auto) 5.7 %; Immature Granulocytes # (auto) 0.03 K/uL (0.01-0.20); Immature Granulocytes % (auto) 0.4 %; Lymphocytes # (auto) 0.56 K/uL (1.2-3.4); Lymphocytes % (auto) 7.5 %; Monocytes # (auto) 0.66 K/uL (0.11-0.59); Monocytes % (auto) 8.8 %; Neutrophils # (auto) 5.79 K/uL (1.40-6.50); Neutrophils % (auto) 77.2 %; Polychromasia 1+
[2023-01-19] MEDS ORDERED: SODIUM CHLORIDE 0.9% 250 ML IV PRN (08:17)
--- NOTE | 2023-01-19 08:17 | Electrocardiogram Report ---
Test Reason : Blood Pressure : / mmHG Vent. Rate : 063 BPM Atrial Rate : 063 BPM P-R Int : 162 ms QRS Dur : 082 ms QT Int : 422 ms P-R-T Axes : 062 028 050 degrees QTc Int : 431 ms Normal sinus rhythm Normal ECG When compared with ECG of 17-JAN-2023 01:08, No significant change Confirmed by Dima Larry ([id number]) on 01/19/2023 8:17:18 AM Referred By: REFERRED SELF Confirmed By:Dima Larry
[2023-01-19] MEDS: OXYBUTYNIN CHLORIDE XL 5 MG TABCR PO SCH (08:42)
[2023-01-19] MEDS: ACETAMINOPHEN 500 MG TAB PO SCH ×3 (08:42→20:11)
[2023-01-19] MEDS: SODIUM BICARBONATE 650 MG TAB PO SCH ×2 (08:42→20:12)
[2023-01-19] MEDS: ISOSORBIDE MONO EXTENDED REL 30 MG TABCR PO SCH (08:42)
--- NOTE | 2023-01-19 08:47 | Cardiology Progress Note ---
Date of Service January 19, 2023 Assessment & Plan (1) Closed fracture of pubic ramus: Plan Impression: 1. Mechanical fall 2. Acute blood loss anemia 3. 2:1 atrial flutter s/p cardioversion 01/06/2023 4. Coronary disease status post angioplasty and stenting of a 75% mid right coronary artery lesion (02/2015). 5. Cardiac catheterization 02/05/21 with mild elevation in her PVR and LVEDP without significant epicardial coronary artery disease.5 6. Residual 30% distal left main into the proximal circumflex with a 40% lesion in the ostial circ negative by FFR 02/2015. 7. Transesophageal echocardiogram 01/2021 with an EF of 65% and normal RV size and function with mild mitral regurgitation and moderate tricuspid regurgitation. 8. Hypertension with a markedly hypertensive response to exercise. 9. Mild hyperkalemia in the setting of CHERYL Admission and Anticipated Discharge Date Admission Date: January 17, 2023 Ms. Saunders continues to be anemic. She is to receive 2 units PRBCs again today. Fortunately, she is maintaining SR. I will restart her amiodarone at a reduced dose of 200 mg daily given the improvement in her blood pressure and heart rate. Her apixaban and aspirin are held and should remain so until her bleeding is controlled. Her blood pressure has been stable over the last 24 hours. Continue to hold antihypertensives for now. She does have her isosorbide ordered which can continue. She has not had any anginal symptoms. She was mildly hyperkalemic on admission in the setting of mild CHERYL on top of her chronic kidney disease. Her spironolactone is being held. BMP is pending for this morning. Subjective Ms. Saunders is comfortable while laying in bed. No dizziness, chest pain, sob, palpitations although she notes she has not been out of bed. She is in a NSR on the monitor. Review of Systems Review of Systems: All systems reviewed & are unremarkable except as noted in HPI & below Physical Exam Constitutional: WD/WN, vitals as above Respiratory: normal respiratory effort, lungs clear to auscultation Cardiovascular: RRR, no murmur, no edema Skin: no rashes, warm and dry Neurologic: moves all extremities and awake Psychiatric: A+Ox3, euthymic affect Results & Data Vital Signs (Past 12 Hours) Vital Signs Temp Pulse Pulse Resp BP Pulse Ox O2 Del Method 01/19/23 08:07 36.7 C 69 16 125/62 97 Room Air 01/19/23 03:57 66 20 114/67 97 Room Air 01/18/23 23:34 72 20 124/61 95 Room Air 01/18/23 23:14 66
[2023-01-19 09:11] LABS: Albumin Level 2.8 gm/dl (3.4-5.0); Calcium 7.7 mg/dl (8.6-10.3); Magnesium 1.9 mg/dl (1.7-2.4); Potassium 5.4 mmol/L (3.5-5.1)
[2023-01-19 09:17] LABS: BUN Creatinine Ratio 20.9 (10-20); Creatinine Clr Calc Pharmacy 25.2 ml/min; Est GFR (African American) 31.1 ml/min; Est GFR (Non-African American) 26.8 ml/min; Phosphorus 2.6 mg/dl (2.5-4.9)
[2023-01-19] MEDS: NYSTATIN 500,000 UNIT TAB PO SCH ×2 (09:45→13:52)
[2023-01-19] MEDS: AMIODARONE 200 MG TAB PO SCH (09:45)
--- NOTE | 2023-01-19 10:02 | Nephrology Progress Note ---
Date of Service January 19, 2023 Assessment & Plan (1) Hyponatremia: Plan: Sodium has improved at an acceptable rate in past 24 hours with hypertonic saline. Serum sodium 126 mmol/L this AM. Attributed to intravascular volume depletion and decreased EAV. Urine osmolality yesterday had improved from >300 to 200 with supportive care. Follow up urine studies this AM pending. PRBC transfusion support ordered this AM. BP acceptable. Diuretics held. Repeat metabolic profile this afternoon. (2) CHERYL (acute kidney injury): Plan: Non-oliguric. Clinical presentation suggestive of intravascular volume depletion and decreased EAV. Urine demonstrating possible cystitis and noted hyaline casts. CT demonstrating no obstruction. Document strict I/Os. Repeat serum metabolic profile tomorrow AM. Suspected underlying CKD but baseline creatinine not known. Creatinine 1.6 mg/dL earlier this month. Medications appropriately dosed for kidney function. (3) Hyperkalemia: Plan: Spironolactone and lisinopril held. Low potassium diet. (4) Closed fracture of pubic ramus: Plan: s/p mechanical fall. Documented history of osteoporosis. Low serum calcium and suspected CKD. Check 25OH D pending. No sPTH. (5) Atrial flutter: Plan: s/p KELLY/cardioversion 01/06. Remains in SR. (6) Bradycardia: (7) Acute blood loss anemia: Plan: s/p 1 u PRBC transfusion support 01/17. Eliquis and aspirin held. Additional 2 units ordered this AM. Admission and Anticipated Discharge Date Admission Date: January 17, 2023 Subjective No acute events overnight. Denies melena or hematochezia. No chest pain or palpi tations. Denies dyspnea. No lightheadedness or dizziness. Reports persistent change in taste following COVID infection months ago. For the past couple of weeks Benita has felt a coating or film in her mouth which is especially appreciable when drinking contact for intended CT scan this AM. Review of Systems Review of Systems: All systems reviewed & are unremarkable except as noted in HPI & below Physical Exam Constitutional: well developed; no acute distress Eyes: + anicteric sclerae ENMT: Mouth: no oral mucosal abnormality and oral mucous membranes not dry Neck: normal visual inspection and trachea midline Respiratory: normal respiratory effort Auscultation: lungs clear to auscultation bilaterally Cardiovascular: Rate/Rhythm: regular rhythm Heart Sounds: normal S1 and normal S2 Extremities: + varicosities; no edema Musculoskeletal: Extremities: no cyanosis and no clubbing Skin: + turgor decreased and + ecchymosis Neurologic: Motor/Sensory: no tremor and no asterixis Psychiatric: Orientation: alert and oriented x 3 Results & Data Vital Signs (Past 12 Hours) Vital Signs Temp Pulse Pulse Resp BP Pulse Ox O2 Del Method 01/19/23 08:07 36.7 C 69 16 125/62 97 Room Air 01/19/23 03:57 66 20 114/67 97 Room Air 01/18/23 23:34 72 20 124/61 95 Room Air 01/18/23 23:14 66 Laboratory Results Laboratory Results - last 24 hr 01/18/23 01/18/23 01/18/23 00:07 11:08 11:08 WBC RBC Hgb Hct MCV MCH MCHC RDW Std Deviation RDW Coeff of Erik Plt Count MPV Immature Gran % (Auto) Neut % (Auto) Lymph % (Auto) Amador % (Auto) Eos % (Auto) Baso % (Auto) Neut # (Auto) Lymph # (Auto) Amador # (Auto) Eos # (Auto) Baso # (Auto) Immature Gran # (Auto) Polychromasia Echinocytes Acanthocytes (Spur) Sodium Potassium Chloride Carbon Dioxide Anion Gap BUN Creatinine Est Cr Clr Drug Dosing Est GFR ( Amer) Est GFR (Non-Af Amer) BUN/Creatinine Ratio Glucose Calcium Phosphorus Magnesium Albumin 25-OH Vitamin D Total PTH Intact Urine Osmolality 208 L Ur Random Sodium 29 Ur Random Potassium 15.9 Blood Type B Positive Antibody Screen NEGATIVE Crossmatch See Detail 01/18/23 01/18/23 01/18/23 11:30 11:30 16:40 WBC RBC Hgb 7.7 L Hct MCV MCH MCHC RDW Std Deviation RDW Coeff of Erik Plt Count MPV Immature Gran % (Auto) Neut % (Auto) Lymph % (Auto) Amador % (Auto) Eos % (Auto) Baso % (Auto) Neut # (Auto) Lymph # (Auto) Amador # (Auto) Eos # (Auto) Baso # (Auto) Immature Gran # (Auto) Polychromasia Echinocytes Acanthocytes (Spur) Sodium 121 L 121 L Potassium 4.8 Chloride 96 L Carbon Dioxide 19 L Anion Gap 6 BUN 43 H Creatinine 2.02 H Est Cr Clr Drug Dosing 21.3 Est GFR ( Amer) 25.6 Est GFR (Non-Af Amer) 22.1 BUN/Creatinine Ratio 21.3 H Glucose 120 H Calcium 7.7 L Phosphorus 3.3 Magnesium Albumin 3.1 L 25-OH Vitamin D Total PTH Intact Urine Osmolality Ur Random Sodium Ur Random Potassium Blood Type Antibody Screen Crossmatch 01/18/23 01/19/23 01/19/23 22:55 06:57 06:57 WBC 7.50 RBC 2.28 L Hgb 6.9 L* Hct 20.2 L* MCV 88.6 MCH 30.3 MCHC 34.2 RDW Std Deviation 44.8 RDW Coeff of Erik 13.9 Plt Count 152 MPV 10.0 Immature Gran % (Auto) 0.4 Neut % (Auto) 77.2 Lymph % (Auto) 7.5 Amador % (Auto) 8.8 Eos % (Auto) 5.7 Baso % (Auto) 0.4 Neut # (Auto) 5.79 Lymph # (Auto) 0.56 L Amador # (Auto) 0.66 H Eos # (Auto) 0.43 Baso # (Auto) 0.03 Immature Gran # (Auto) 0.03 Polychromasia 1+ Echinocytes 1+ Acanthocytes (Spur) 1+ Sodium 122 L 126 L Potassium 5.4 H Chloride 102 Carbon Dioxide 19 L Anion Gap 5 BUN 36 H Creatinine 1.72 H D Est Cr Clr Drug Dosing 25.2 Est GFR ( Amer) 31.1 Est GFR (Non-Af Amer) 26.8 BUN/Creatinine Ratio 20.9 H Glucose 88 Calcium 7.7 L Phosphorus 2.6 Magnesium 1.9 Albumin 2.8 L 25-OH Vitamin D Total PTH Intact Urine Osmolality Ur Random Sodium Ur Random Potassium Blood Type Antibody Screen Crossmatch 01/19/23 01/19/23 06:57 06:57 WBC RBC Hgb Hct MCV MCH MCHC RDW Std Deviation RDW Coeff of Erik Plt Count MPV Immature Gran % (Auto) Neut % (Auto) Lymph % (Auto) Amador % (Auto) Eos % (Auto) Baso % (Auto) Neut # (Auto) Lymph # (Auto) Amador # (Auto) Eos # (Auto) Baso # (Auto) Immature Gran # (Auto) Polychromasia Echinocytes Acanthocytes (Spur) Sodium Potassium Chloride Carbon Dioxide Anion Gap BUN Creatinine Est Cr Clr Drug Dosing Est GFR ( Amer) Est GFR (Non-Af Amer) BUN/Creatinine Ratio Glucose Calcium Phosphorus Magnesium Albumin 25-OH Vitamin D Total 66.2 PTH Intact 87.1 Urine Osmolality Ur Random Sodium Ur Random Potassium Blood Type Antibody Screen Crossmatch PG Care Time/CCT Total # of Minutes Spent Total Time Spent with Patient: Total time spent is greater than 50% in coordination of care (as documented) at patient's floor/unit and/or counseling patient: Coding Level of Care Code 99690 SUB INP/OBS CARE 3/50MIN Diagnoses Hyponatremia E87.1 CHERYL (acute kidney injury) N17.9 Hyperkalemia E87.5 Closed fracture of pubic ramus S32.599A Atrial flutter I48.92 Bradycardia R00.1 Acute blood loss anemia D62
--- NOTE | 2023-01-19 12:56 | CT Scan Report ---
CT OF THE ABDOMEN AND PELVIS WITH ORAL CONTRAST CLINICAL HISTORY: Evaluate for retroperitoneal bleed. COMPARISON STUDY: CT of the abdomen and pelvis January 17, 2023. TECHNIQUE: Axial images of the abdomen and pelvis were obtained without IV contrast. Oral contrast wa s administered. Automated exposure control was utilized for the study. A dose lowering technique was utilized adhering to the principles of ALARA. FINDINGS: Evaluation of the abdomen and pelvis is suboptimal on this unenhanced exam patient. No pneu matosis, free air or portal venous gas is present. Calcifications within the spleen are noted. Unenha nced images of the liver, adrenal glands, kidneys and pancreas are unremarkable. Is no biliary or rivers creatic ductal dilatation. No evidence for a bowel obstruction. A Hernandez balloon within the bladder is noted. The bladder is collapsed. There is mass effect upon the left aspect of the bladder due to the previously described acute left anterior pelvic hematoma which measures 9.6 x 5.9 cm. This is simila r in size to CT of January 17, 2023. Adjacent extraperitoneal hemorrhage has decreased. Presacral hemorr zachery is unchanged. A small amount of hemorrhage within the left obturator internus muscle has no sign ificantly changed. Suspected small amount of hemorrhage within the left adductor muscles is also unch anged. Acute left pubic ring fractures are unchanged since prior CT. No acute hip or lumbar spine fra cture is present. There is an acute mildly displaced left sacral ala fracture. Healing right 11th rib fracture is incidentally noted. There is no lymphadenopathy. Body wall edema is present. IMPRESSION: 1. No change in a 9.6 x 5.9 cm left anterior pelvic hematoma and associated left pubic ring fractures since CT of January 17, 2023. Adjacent extraperitoneal hemorrhage has mildly decreased since prior CT. No new sites of hemorrhage. Stable presacral hemorrhage. No change in a small amount of hemorrhage wi thin the left obturator internus and adductor musculature. 2. Acute mildly displaced left sacral ala fracture. ACT 112: Negative or not required by law. Electronically signed by: Archie Suazo M.D. 01/19/2023 12:54 PM
--- NOTE | 2023-01-19 13:20 | Electrocardiogram Report ---
Test Reason : Blood Pressure : / mmHG Vent. Rate : 067 BPM Atrial Rate : 067 BPM P-R Int : 160 ms QRS Dur : 084 ms QT Int : 420 ms P-R-T Axes : -07 057 047 degrees QTc Int : 443 ms Normal sinus rhythm Normal ECG When compared with ECG of 18-JAN-2023 12:50, No significant change was found Confirmed by Dima Larry ([id number]) on 01/19/2023 1:20:06 PM Referred By: REFERRED SELF Confirmed By:Dima Larry
--- NOTE | 2023-01-19 15:33 | Hospitalist Progress Note ---
Date of Service January 19, 2023 Assessment & Plan (1) Fall: Plan: acute mechanical fall, high risk complicated by acute blood loss anemia from pubic fracture on chronic anticoagulation Fall influenced by severe hyponatremia and bradycardia - UA shows pansensitive E coli UTI, start keflex as is sensitive Closed pubic ramus fracture acute high risk - abdominal CT scan showing nearby hematoma formation, pre admission was on apixiban for afib repeat CT 01/19/23 no acute worsening some improvement acute blood loss anemia with 3 U prbc pain control with scheduled tylenol and prn parenteral opiates - PT/OT Chronic now stable Afib/Aflutter moderate risk - hold ASA and Eliquis given acute blood loss anemia - hold metoprolol with low blood pressure - cardiology is restarting amiodarone CHERYL on CKD4 - pre-renal source with volume loss from bleeding - Hold lisinopril, furosemide and spironolactone Hyponatremia- acute improving now moderate risk - nephrology has given hypertonic saline possible esophageal thrush, start nystatin DVT: on hold due to hematoma Diet: heart healthy Code: Full Plan (1) Fall: Plan: acute mechanical fall, high risk complicated by acute blood loss anemia from pubic fracture on chronic anticoagulation Fall influenced by severe hyponatremia and bradycardia - UA possibility concerning for infection -- follow urine culture. Closed pubic ramus fracture acute high risk - abdominal CT scan showing nearby hematoma formation, on apixiban for afib acute blood loss anemia with 1 U prbc pain control with scheduled tylenol and prn parenteral opiates - consult PT/OT once hypotension resolves Chronic now unstable Afib/Aflutter moderate risk - hold ASA and Eliquis given acute blood loss anemia - hold metoprolol with low blood pressure - Hold Amio with bradyucardia--> may restart at lower dose CHERYL on CKD4 - pre-renal source with volume loss from bleeding - Hold lisinopril, furosemide and spironolactone Hyponatremia- acute severe - Hypotonic, hypovolemic hyponatremia - Sodium 121 upon admission--> improved to 122, initially with low urine random sodium, but with no real improvement will recheck - may need hypertonic saline, will ask nephrology to weigh in DVT: on hold due to hematoma Diet: heart healthy Code: Full Admission and Anticipated Discharge Date Admission Date: January 17, 2023 Subjective No acute events overnight. Denies melena or hematochezia. No chest pain or palpitations. Denies dyspnea. No lightheadedness or dizziness. systatin started for thrush CT ordered and no increase in hematoma, acute blood loss anemia maybe from dilution, will follow and if drops futher need to consider hemolysis Physical Exam Physical Exam: Despite persistently low sodium patient is awake alert appropriate without complaints other than pain in her pubic area specially her back Cardiac exam is regular with previous cardioversion of atrial flutter Lungs are clear Results & Data Results & Data Vital Signs (Past 12 Hours) Vital Signs Temp Pulse Pulse Resp BP BP BP 01/19/23 15:17 97.9 F 74 18 162/75 H 01/19/23 14:04 97.7 F 60 16 135/55 L 01/19/23 10:19 97.7 F 71 153/73 H 01/19/23 08:07 98.1 F 69 16 125/62 01/19/23 03:57 66 20 114/67 Pulse Ox O2 Del Method O2 Flow Rate 01/19/23 15:17 95 Room Air 01/19/23 14:04 96 0 01/19/23 10:19 96 01/19/23 08:07 97 Room Air 01/19/23 03:57 97 Room Air Laboratory Results Review of CBC Reviewed PRP PG Care Time/CCT Total # of Minutes Spent Total Time Spent with Patient: Total time spent is greater than 50% in coordination of care (as documented) at patient's floor/unit and/or counseling patient: Coding Level of Care Code 73083 SUB INP/OBS CARE 3/50MIN Diagnoses Fall W19.XXXA
[2023-01-19] MEDS: cephALEXin 250 MG CAP PO SCH ×2 (16:52→23:20)
[2023-01-19 18:19] LABS: Hematocrit (blood only) 27.7 % (37.0-47.0)
[2023-01-19 18:28] LABS: BUN Creatinine Ratio 20.6 (10-20); Calcium 7.5 mg/dl (8.6-10.3); Creatinine Clr Calc Pharmacy 31.9 ml/min; Est GFR (African American) 41.3 ml/min; Est GFR (Non-African American) 35.6 ml/min; Potassium 4.8 mmol/L (3.5-5.1)
[2023-01-19] MEDS: NYSTATIN SUSP 500,000 U/5 ML UDC PO SCH (20:12)
[2023-01-19] MEDS: ATORVASTATIN 40 MG TAB PO SCH (20:12)
[2023-01-19] MEDS ORDERED: SODIUM CHLORIDE 3 % 100 ML IV ONE (22:37)
[2023-01-19] MEDS ORDERED: STAT IV STA (22:37)
[2023-01-20] MEDS: cephALEXin 250 MG CAP PO SCH ×4 (07:38→21:00)
[2023-01-20] MEDS: AMIODARONE 200 MG TAB PO SCH (07:39)
[2023-01-20] MEDS: SODIUM BICARBONATE 650 MG TAB PO SCH ×2 (07:39→20:59)
[2023-01-20] MEDS: ACETAMINOPHEN 500 MG TAB PO SCH ×3 (07:39→20:58)
[2023-01-20] MEDS: ISOSORBIDE MONO EXTENDED REL 30 MG TABCR PO SCH (07:39)
[2023-01-20] MEDS: NYSTATIN SUSP 500,000 U/5 ML UDC PO SCH ×3 (07:40→20:58)
[2023-01-20] MEDS: OXYBUTYNIN CHLORIDE XL 5 MG TABCR PO SCH (07:40)
[2023-01-20 07:49] LABS: Basophils # (auto) 0.04 K/uL (0-0.2); Basophils % (auto) 0.6 %; Eosinophils # (auto) 0.34 K/uL (0-0.50); Eosinophils % (auto) 5.5 %; Hematocrit (blood only) 27.9 % (37.0-47.0); Hemoglobin 9.9 g/dl (12.0-16.0); Immature Granulocytes # (auto) 0.03 K/uL (0.01-0.20); Immature Granulocytes % (auto) 0.5 %; Lymphocytes # (auto) 0.65 K/uL (1.2-3.4); Lymphocytes % (auto) 10.5 %; Mean Corpuscular Hgb Conc 35.5 g/dL (32.0-36.0); Mean Corpuscular Volume 84.5 fL (80.0-100.0); Mean Platelet Volume 9.9 fL (9.4-12.4); Monocytes # (auto) 0.61 K/uL (0.11-0.59); Monocytes % (auto) 9.9 %; Neutrophils # (auto) 4.51 K/uL (1.40-6.50); Platelet Count 150 K/uL (130-400); RDW Coefficient of Variation 14.2 % (11.5-14.5); RDW Standard Deviation 43.7 fL (36.4-46.3); White Blood Count 6.18 K/ul (4.8-10.8)
[2023-01-20 08:09] LABS: BUN Creatinine Ratio 19.8 (10-20); Calcium 7.6 mg/dl (8.6-10.3); Creatinine Clr Calc Pharmacy 34.3 ml/min; Est GFR (African American) 45.3 ml/min; Est GFR (Non-African American) 39.1 ml/min; Phosphorus 2.1 mg/dl (2.5-4.9); Potassium 5.3 mmol/L (3.5-5.1)
--- NOTE | 2023-01-20 09:13 | Cardiology Progress Note ---
Date of Service January 20, 2023 Assessment & Plan (1) Closed fracture of pubic ramus: Plan Impression: 1. Mechanical fall 2. Acute blood loss anemia 3. 2:1 atrial flutter s/p cardioversion 01/06/2023 4. Coronary disease status post angioplasty and stenting of a 75% mid right coronary artery lesion (02/2015). 5. Cardiac catheterization 02/05/21 with mild elevation in her PVR and LVEDP without significant epicardial coronary artery disease.5 6. Residual 30% distal left main into the proximal circumflex with a 40% lesion in the ostial circ negative by FFR 02/2015. 7. Transesophageal echocardiogram 01/2021 with an EF of 65% and normal RV size and function with mild mitral regurgitation and moderate tricuspid regurgitation. 8. Hypertension with a markedly hypertensive response to exercise. 9. Mild hyperkalemia in the setting of CHERYL Ms. Saunders's blood count is better today following receiving 2 units yesterday. She remains in sinus, though she is a little more bradycardic today. Fortunately, she is maintaining SR. Her amiodarone was restarted yesterday at a reduced dose of 200 mg daily. I will decrease again to 100 mg daily given her bradycardia. Her apixaban and aspirin are held and should remain so until her bleeding is controlled. Her blood pressure was mildly hypertensive last evening but is better this morning. Continue to hold antihypertensives for now. She does have her isosorbide ordered which can continue. She has not had any anginal symptoms. She is mildly hyperkalemic. Her spironolactone is being held. Her sodium has improved. Admission and Anticipated Discharge Date Admission Date: January 17, 2023 Subjective Ms. Saunders feels well although she has still not been out of bed. Her heart rate is more bradycardic today and was as low as 40s overnight in sinus with PACs. No lightheadedness. No chest pain. No palpitations Review of Systems Review of Systems: All systems reviewed & are unremarkable except as noted in HPI & below Physical Exam Constitutional: WD/WN, vitals as above Respiratory: normal respiratory effort, lungs clear to auscultation Cardiovascular: RRR, no murmur, no edema Skin: no rashes, warm and dry Neurologic: moves all extremities and awake Psychiatric: A+Ox3, euthymic affect Results & Data Vital Signs (Past 12 Hours) Vital Signs Temp Pulse Pulse Resp BP Pulse Ox O2 Del Method 01/20/23 07:35 36.6 C 52 L 16 131/75 99 Room Air 01/20/23 03:30 36.6 C 53 L 19 112/67 100 Room Air 01/20/23 00:13 54 L 01/19/23 23:21 36.8 C 57 L 18 127/54 L 96 Room Air
--- NOTE | 2023-01-20 09:40 | Hospitalist Progress Note ---
Date of Service January 20, 2023 Assessment & Plan (1) Fall: Plan: acute mechanical fall, high risk complicated by acute blood loss anemia from pubic fracture on chronic anticoagulation Fall influenced by severe hyponatremia and bradycardia - UA shows pansensitive E coli UTI, start keflex as is sensitive Closed pubic ramus fracture acute high risk - abdominal CT scan showing nearby hematoma formation, pre admission was on apixiban for afib repeat CT 01/19/23 no acute worsening some improvement acute blood loss anemia with 3 U prbc pain control with scheduled tylenol and prn parenteral opiates, start ultram prn starting senna/colace for constipation - PT/OT Chronic now stable Afib/Aflutter moderate risk - hold ASA and Eliquis given acute blood loss anemia, if hgb stable 01/21 start aspirin - hold metoprolol with low blood pressure - cardiology is restarting amiodarone CHERYL on CKD4 - pre-renal source with volume loss from bleeding - Hold lisinopril, furosemide and spironolactone Hyponatremia- acute improving now moderate risk - nephrology has given hypertonic saline possible esophageal thrush, start nystatin DVT: eliquis on hold due to hematoma Diet: heart healthy Code: Full Admission and Anticipated Discharge Date Admission Date: January 17, 2023 Subjective Patient still with significant discomfort worse with moving about complaints of constipation pain control is suboptimal Physical Exam Physical Exam: Cardiac exam is regular Lungs are clear Abdomen NABS soft extremities are without edema Results & Data Results & Data Vital Signs (Past 12 Hours) Vital Signs Temp Pulse Pulse Resp BP Pulse Ox O2 Del Method 01/20/23 07:35 97.9 F 52 L 16 131/75 99 Room Air 01/20/23 03:30 97.9 F 53 L 19 112/67 100 Room Air 01/20/23 00:13 54 L 01/19/23 23:21 98.2 F 57 L 18 127/54 L 96 Room Air Laboratory Results Reviewed CBC Reviewed PRP PG Care Time/CCT Total # of Minutes Spent Total Time Spent with Patient: Total time spent is greater than 50% in coordination of care (as documented) at patient's floor/unit and/or counseling patient: Coding Level of Care Code 66002 SUB INP/OBS CARE 2/35MIN Diagnoses Fall W19.XXXA
[2023-01-20] MEDS ORDERED: STAT IV STA (09:42)
[2023-01-20] MEDS ORDERED: SODIUM CHLORIDE 3 % 100 ML IV ONE (10:00)
--- NOTE | 2023-01-20 10:18 | Nephrology Progress Note ---
Date of Service January 20, 2023 Assessment & Plan (1) Hyponatremia: Plan: Serum sodium improving. Attributed to intravascular volume depletion and decreased EAV. Urine osmolality had improved from >300 to 200 with supportive care. Unfortunately, follow up urine was not sent yesterday. Thankfully, Benita does continue to demonstrate improvement. Repeat Uosm this AM. Additional 100 ml 3% saline provided. BP acceptable. Diuretics held. Repeat metabolic profile this evening. (2) CHERYL (acute kidney injury): Plan: Non-oliguric. Clinical presentation suggestive of intravascular volume depletion and decreased EAV. Urine demonstrating possible cystitis and noted hyaline casts. CT demonstrating no obstruction. Document strict I/Os. Repeat serum metabolic profile tomorrow AM. Medications appropriately dosed for kidney function. (3) Hyperkalemia: Plan: Spironolactone and lisinopril held. Low potassium diet. (4) Closed fracture of pubic ramus: Plan: s/p mechanical fall. Documented history of osteoporosis. 25OH D normal. No sPTH. From a nephrology standpoint, Hernandez may be removed. (5) Atrial flutter: Plan: s/p KELLY/cardioversion 01/06. Remains in SR. (6) Bradycardia: (7) Acute blood loss anemia: Plan: s/p 1 u PRBC transfusion support 01/17. Additional 2 units PRBC transfusion support provided yesterday. Eliquis and aspirin held. Follow up CT completed yesterday demonstrating stable pelvic hematoma. Admission and Anticipated Discharge Date Admission Date: January 17, 2023 Subjective No acute events overnight. Denies fluid retention or edema. Breathing comfortably. No chest pain or palpitations. No shortness of breath. Benita has not been out of bed. Review of Systems Review of Systems: All systems reviewed & are unremarkable except as noted in HPI & below Physical Exam Constitutional: well developed; no acute distress Eyes: + anicteric sclerae ENMT: Mouth: no oral mucosal abnormality and oral mucous membranes not dry Neck: normal visual inspection and trachea midline Respiratory: normal respiratory effort Auscultation: lungs clear to auscultation bilaterally Cardiovascular: Rate/Rhythm: regular rhythm and + bradycardic Heart Sounds: normal S1 and normal S2 Extremities: + varicosities; no edema Musculoskeletal: Extremities: no cyanosis and no clubbing Skin: + turgor decreased and + ecchymosis Neurologic: Motor/Sensory: no tremor and no asterixis Psychiatric: Orientation: alert and oriented x 3 Results & Data Vital Signs (Past 12 Hours) Vital Signs Temp Pulse Pulse Resp BP Pulse Ox O2 Del Method 01/20/23 07:35 36.6 C 52 L 16 131/75 99 Room Air 01/20/23 03:30 36.6 C 53 L 19 112/67 100 Room Air 01/20/23 00:13 54 L 01/19/23 23:21 36.8 C 57 L 18 127/54 L 96 Room Air Laboratory Results Laboratory Results - last 24 hr 01/18/23 01/19/23 01/19/23 00:07 17:57 17:57 WBC RBC Hgb 10.0 L D Hct 27.7 L MCV MCH MCHC RDW Std Deviation RDW Coeff of Erik Plt Count MPV Immature Gran % (Auto) Neut % (Auto) Lymph % (Auto) [place] % (Auto) Eos % (Auto) Baso % (Auto) Neut # (Auto) Lymph # (Auto) [place] # (Auto) Eos # (Auto) Baso # (Auto) Immature Gran # (Auto) Sodium 125 L Potassium 4.8 Chloride 99 Carbon Dioxide 20 L Anion Gap 6 BUN 28 H Creatinine 1.36 H D Est Cr Clr Drug Dosing 31.9 Est GFR ( Amer) 41.3 Est GFR (Non-Af Amer) 35.6 BUN/Creatinine Ratio 20.6 H Glucose 114 H Calcium 7.5 L Phosphorus Magnesium Albumin Urine Osmolality Blood Type B Positive Antibody Screen NEGATIVE Crossmatch See Detail 01/20/23 01/20/23 01/20/23 07:06 07:06 10:10 WBC 6.18 RBC 3.30 L Hgb 9.9 L Hct 27.9 L MCV 84.5 MCH 30.0 MCHC 35.5 RDW Std Deviation 43.7 RDW Coeff of Erik 14.2 Plt Count 150 MPV 9.9 Immature Gran % (Auto) 0.5 Neut % (Auto) 73.0 Lymph % (Auto) 10.5 [place] % (Auto) 9.9 Eos % (Auto) 5.5 Baso % (Auto) 0.6 Neut # (Auto) 4.51 Lymph # (Auto) 0.65 L [place] # (Auto) 0.61 H Eos # (Auto) 0.34 Baso # (Auto) 0.04 Immature Gran # (Auto) 0.03 Sodium 128 L Potassium 5.3 H Chloride 103 Carbon Dioxide 22 Anion Gap 3 BUN 25 H Creatinine 1.26 H Est Cr Clr Drug Dosing 34.3 Est GFR ( Amer) 45.3 Est GFR (Non-Af Amer) 39.1 BUN/Creatinine Ratio 19.8 Glucose 96 Calcium 7.6 L Phosphorus 2.1 L Magnesium 2.0 Albumin 3.0 L Urine Osmolality Pending Blood Type Antibody Screen Crossmatch PG Care Time/CCT Total # of Minutes Spent Total Time Spent with Patient: Total time spent is greater than 50% in coordination of care (as documented) at patient's floor/unit and/or counseling patient: Coding Level of Care Code 25354 SUB INP/OBS CARE 3/50MIN Diagnoses Hyponatremia E87.1 CHERYL (acute kidney injury) N17.9 Hyperkalemia E87.5 Closed fracture of pubic ramus S32.599A Atrial flutter I48.92 Bradycardia R00.1 Acute blood loss anemia D62
[2023-01-20] MEDS: MoRPHine SULFATE 2 MG/ML CARP IV PRN (12:09)
[2023-01-20] MEDS: traMADol HCL 50 MG TABLET PO PRN (18:38)
[2023-01-20] MEDS: ATORVASTATIN 40 MG TAB PO SCH (20:58)
[2023-01-20] MEDS: DOCUSATE SODIUM/SENNA 50/8.6MG TAB PO SCH (20:59)
[2023-01-21] MEDS: traMADol HCL 50 MG TABLET PO PRN ×3 (06:18→17:43)
[2023-01-21 08:09] LABS: Magnesium 2.1 mg/dl (1.7-2.4)
[2023-01-21] MEDS: ISOSORBIDE MONO EXTENDED REL 30 MG TABCR PO SCH (08:59)
[2023-01-21] MEDS: cephALEXin 250 MG CAP PO SCH ×4 (08:59→21:20)
[2023-01-21] MEDS: SODIUM BICARBONATE 650 MG TAB PO SCH ×2 (08:59→21:20)
[2023-01-21] MEDS: ACETAMINOPHEN 500 MG TAB PO SCH ×3 (08:59→21:23)
[2023-01-21] MEDS: NYSTATIN SUSP 500,000 U/5 ML UDC PO SCH ×3 (09:00→21:20)
[2023-01-21] MEDS: OXYBUTYNIN CHLORIDE XL 5 MG TABCR PO SCH (09:00)
--- NOTE | 2023-01-21 09:03 | Cardiology Progress Note ---
Date of Service January 21, 2023 Assessment & Plan Admission and Anticipated Discharge Date Admission Date: January 17, 2023 Subjective She still has pelvic pain. She is also dealing with issues of thrush. This is really limiting her ability to eat. She denies any chest pain or chest pressure. She denies any palpitations lightheadedness or dizziness. She has no lower extremity edema. She is hoping to walk with physical therapy today. Results & Data Vital Signs (Past 12 Hours) Vital Signs Temp Pulse Resp BP Pulse Ox O2 Del Method 01/21/23 07:44 36.6 C 73 18 152/87 H 96 Room Air 01/20/23 22:55 36.6 C 63 18 111/69 96 Room Air Plan Impression: 1. Mechanical fall 2. Acute blood loss anemia 3. 2:1 atrial flutter s/p cardioversion 01/06/2023 4. Coronary disease status post angioplasty and stenting of a 75% mid right coronary artery lesion (02/2015). 5. Cardiac catheterization 02/05/21 with mild elevation in her PVR and LVEDP without significant epicardial coronary artery disease.5 6. Residual 30% distal left main into the proximal circumflex with a 40% lesion in the ostial circ negative by FFR 02/2015. 7. Transesophageal echocardiogram 01/2021 with an EF of 65% and normal RV size and function with mild mitral regurgitation and moderate tricuspid regurgitat ion. 8. Hypertension with a markedly hypertensive response to exercise. 9. Mild hyperkalemia in the setting of CHERYL From my standpoint she is stable. I would continue with only the 100 mg dose of amiodarone which will hopefully allow us to maintain sinus rhythm without causing excessive bradycardia. There are rare case reports of amiodarone causing hyponatremia secondary to an SIADH phenomenon. You look at her laboratory studies and her urine sodium it would suggest at this point at least that amiodarone is not the cause. If nephrology were to have a concern that amiodarone is the cause for her hyponatremia, her options would be limited given her other comorbidities with regards to antiarrhythmics. I would allow her blood pressure to be in the 130-140 range without adding additional antihypertensives. Unfortunately when she was discharged 10 days ago he was placed back on her home antihypertensives which likely contributed to her low perfusion pressure and readmission. We did discuss pain medication prior to physical therapy to allow her to do more. I tried to give her a pep talk and discussed how important it is for her to start getting up out of bed and walking around. The other challenge is her anticoagulation given her bleeding and the need for transfusions to support her hemoglobin. There is an increased risk of stroke in the first 30 days post cardioversion off anticoagulation. Given the current circumstances I do not see how we can restart her anticoagulation for now. Physical Exam Constitutional:H Tearful, NAD Respiratory: normal respiratory effort, lungs clear to auscultation Cardiovascular: RRR, no murmur, no edema, 2+ carotids Neurologic: moves all extremities and awake Psychiatric: A+Ox3,
[2023-01-21] MEDS ORDERED: UREA (UREA-NA) 15 GM PACK PO SCH (10:00)
[2023-01-21 10:13] LABS: Hematocrit (blood only) 32.5 % (37.0-47.0); Hemoglobin 11.3 g/dl (12.0-16.0); Mean Corpuscular Hemoglobin 30.4 pg (25.0-34.0); Mean Corpuscular Hgb Conc 34.8 g/dL (32.0-36.0); Mean Corpuscular Volume 87.4 fL (80.0-100.0); Mean Platelet Volume 9.6 fL (9.4-12.4); Platelet Count 204 K/uL (130-400); RDW Coefficient of Variation 14.9 % (11.5-14.5); RDW Standard Deviation 46.8 fL (36.4-46.3); Red Blood Count 3.72 M/uL (4.20-5.40); White Blood Count 7.51 K/ul (4.8-10.8)
[2023-01-21] MEDS: ONDANSETRON INJ 2 MG/ML 2 ML VIAL IV PRN ×2 (10:14→15:30)
--- NOTE | 2023-01-21 10:32 | Nephrology Progress Note ---
Date of Service January 21, 2023 Assessment & Plan (1) Hyponatremia: Plan: In the setting of intravascular volume depletion and decreased EAV. 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 Urine osmolality had improved from >300 to 200 with supportive care. Uosm yesterday 244 with slight drop in sodium throughout the day. Metabolic profile and follow up urine studies pending this morning. Daily fluid restriction 1.5 L and Urea 15 gm BID added. If no notable improvement on labs this morning, I suspect Benita will require additional solute replacement. Remains on oral NaHCO3 650 BID. BP acceptable. Diuretics held. Monitor metabolic profile twice daily. (2) CHERYL (acute kidney injury): Plan: Non-oliguric. Clinical presentation suggestive of intravascular volume depletion and decreased EAV. Creatinine improved. Document strict I/Os. Medications appropriately dosed for kidney function. (3) Hyperkalemia: Plan: Spironolactone and lisinopril held. Low potassium diet. AM labs pending. (4) Closed fracture of pubic ramus: Plan: s/p mechanical fall. Documented history of osteoporosis. 25OH D normal. No sPTH. Hernandez remains intact. PT evaluation pending. (5) Atrial flutter: Plan: s/p KELLY/cardioversion 01/06. Remains in SR. (6) Bradycardia: (7) Acute blood loss anemia: Plan: s/p 1 u PRBC transfusion support 01/17. Additional 2 units PRBC transfusion support provided yesterday. Eliquis and aspirin held. Follow up CT completed yesterday demonstrating stable pelvic hematoma. Admission and Anticipated Discharge Date Admission Date: January 17, 2023 Subjective No acute events overnight. Appetite poor. Thrush is limiting Benita's ability to eat. She denies chest pain or palpitations. She denies dyspnea. No fluid retention. Some pain in her pelvis reported. Also reports feeling slightly cons tipated. No nausea or abdominal pain. Review of Systems Review of Systems: All systems reviewed & are unremarkable except as noted in HPI & below Physical Exam Constitutional: well developed; no acute distress Eyes: + anicteric sclerae ENMT: Mouth: no oral mucosal abnormality and oral mucous membranes not dry Neck: normal visual inspection and trachea midline Respiratory: normal respiratory effort Auscultation: lungs clear to auscultation bilaterally Cardiovascular: Rate/Rhythm: regular rhythm and + bradycardic Heart Sounds: normal S1 and normal S2 Extremities: + varicosities; no edema Musculoskeletal: Extremities: no cyanosis and no clubbing Skin: + turgor decreased and + ecchymosis Neurologic: Motor/Sensory: no tremor and no asterixis Psychiatric: Orientation: alert and oriented x 3 Results & Data Vital Signs (Past 12 Hours) Vital Signs Temp Pulse Resp BP Pulse Ox O2 Del Method 01/21/23 07:44 36.6 C 73 18 152/87 H 96 Room Air 01/20/23 22:55 36.6 C 63 18 111/69 96 Room Air Laboratory Results Laboratory Results - last 24 hr 01/20/23 01/20/23 01/21/23 10:10 16:35 06:31 WBC RBC Hgb Hct MCV MCH MCHC RDW Std Deviation RDW Coeff of Erik Plt Count MPV Sodium 126 L Pending Potassium Pending Chloride Pending Carbon Dioxide Pending Anion Gap Pending BUN Pending Creatinine Pending Est Cr Clr Drug Dosing Pending Est GFR ( Amer) Pending Est GFR (Non-Af Amer) Pending BUN/Creatinine Ratio Pending Glucose Pending Calcium Pending Phosphorus Pending Magnesium 2.1 Albumin Pending Urine Osmolality 224 L 01/21/23 09:21 WBC 7.51 RBC 3.72 L Hgb 11.3 L Hct 32.5 L MCV 87.4 MCH 30.4 MCHC 34.8 RDW Std Deviation 46.8 H RDW Coeff of Erik 14.9 H Plt Count 204 MPV 9.6 Sodium Potassium Chloride Carbon Dioxide Anion Gap BUN Creatinine Est Cr Clr Drug Dosing Est GFR ( Amer) Est GFR (Non-Af Amer) BUN/Creatinine Ratio Glucose Calcium Phosphorus Magnesium Albumin Urine Osmolality PG Care Time/CCT Total # of Minutes Spent Total Time Spent with Patient: Total time spent is greater than 50% in coordination of care (as documented) at patient's floor/unit and/or counseling patient: Coding Level of Care Code 90899 SUB INP/OBS CARE 3/50MIN Diagnoses Hyponatremia E87.1 CHERYL (acute kidney injury) N17.9 Hyperkalemia E87.5 Closed fracture of pubic ramus S32.599A Atrial flutter I48.92 Bradycardia R00.1 Acute blood loss anemia D62
[2023-01-21] MEDS: AMIODARONE 200 MG TAB PO SCH (10:39)
[2023-01-21 10:47] LABS: Albumin Level 3.1 gm/dl (3.4-5.0); BUN Creatinine Ratio 20.4 (10-20); Calcium 7.9 mg/dl (8.6-10.3); Est GFR (African American) 51.7 ml/min; Est GFR (Non-African American) 44.6 ml/min; Phosphorus 2.5 mg/dl (2.5-4.9); Potassium 5.1 mmol/L (3.5-5.1)
[2023-01-21] MEDS ORDERED: DOCUSATE SODIUM/SENNA 50/8.6MG TAB PO ONE (17:44)
--- NOTE | 2023-01-21 17:46 | Hospitalist Progress Note ---
Date of Service January 21, 2023 Assessment & Plan (1) Fall: Plan: acute mechanical fall, high risk complicated by acute blood loss anemia from pubic fracture on chronic anticoagulation Fall influenced by severe hyponatremia and bradycardia - UA shows pansensitive E coli UTI, start keflex as is sensitive Closed pubic ramus fracture acute high risk - abdominal CT scan showing nearby hematoma formation, pre admission was on apixiban for afib repeat CT 01/19/23 no acute worsening some improvement acute blood loss anemia with 3 U prbc pain control with scheduled tylenol and prn parenteral opiates, start ultram prn starting senna/colace for constipation - PT/OT likely will need rehabilitation at some point time Chronic now stable Afib/Aflutter moderate risk - hold ASA and Eliquis given acute blood loss anemia, if hgb stable 01/21 start aspirin - hold metoprolol with low blood pressure - cardiology is restarting amiodarone CHERYL on CKD4 - pre-renal source with volume loss from bleeding - Hold lisinopril, furosemide and spironolactone Hyponatremia- acute improving now moderate risk - nephrology has given hypertonic saline possible esophageal thrush, start nystatin DVT: eliquis on hold due to hematoma Diet: heart healthy Code: Full Admission and Anticipated Discharge Date Admission Date: January 17, 2023 Subjective Patient feels better swallowing is better she is constipated pain is still significant when she moves. She is however able to move enough to get her Hernandez catheter out still looking for rehab Physical Exam Physical Exam: Cardiac exam is regular Lungs are clear Abdomen NABS soft extremities are without edema Results & Data Results & Data Vital Signs (Past 12 Hours) Vital Signs Temp Pulse Resp BP Pulse Ox O2 Del Method 01/21/23 14:43 97.3 F L 72 16 130/79 97 Room Air 01/21/23 07:44 97.9 F 73 18 152/87 H 96 Room Air PG Care Time/CCT Total # of Minutes Spent Total Time Spent with Patient: Total time spent is greater than 50% in coordination of care (as documented) at patient's floor/unit and/or counseling patient: Coding Level of Care Code 71259 SUB INP/OBS CARE 2/35MIN Diagnoses Fall W19.XXXA
[2023-01-21] MEDS: ATORVASTATIN 40 MG TAB PO SCH (21:20)
[2023-01-21] MEDS: DOCUSATE SODIUM/SENNA 50/8.6MG TAB PO SCH (21:23)
[2023-01-22] MEDS: traMADol HCL 50 MG TABLET PO PRN ×2 (05:14→20:13)
[2023-01-22] MEDS: SODIUM BICARBONATE 650 MG TAB PO SCH ×2 (09:16→20:10)
[2023-01-22] MEDS: cephALEXin 250 MG CAP PO SCH ×4 (09:16→20:10)
[2023-01-22] MEDS: DOCUSATE SODIUM/SENNA 50/8.6MG TAB PO SCH ×2 (09:16→20:13)
[2023-01-22] MEDS: OXYBUTYNIN CHLORIDE XL 5 MG TABCR PO SCH (09:16)
[2023-01-22] MEDS: AMIODARONE 200 MG TAB PO SCH (09:16)
[2023-01-22] MEDS: NYSTATIN SUSP 500,000 U/5 ML UDC PO SCH ×2 (09:17→14:00)
[2023-01-22] MEDS: ISOSORBIDE MONO EXTENDED REL 30 MG TABCR PO SCH (09:17)
[2023-01-22] MEDS: ACETAMINOPHEN 500 MG TAB PO SCH ×3 (09:19→20:12)
[2023-01-22 11:07] LABS: Albumin Level 3.6 gm/dl (3.4-5.0); BUN Creatinine Ratio 27.1 (10-20); Calcium 8.2 mg/dl (8.6-10.3); Creatinine Clr Calc Pharmacy 36.6 ml/min; Est GFR (Non-African American) 42.3 ml/min; Phosphorus 2.3 mg/dl (2.5-4.9); Potassium 4.4 mmol/L (3.5-5.1)
[2023-01-22] MEDS ORDERED: SODIUM CHLORIDE 1 GM TABLET PO STA (12:01)
--- NOTE | 2023-01-22 12:06 | Nephrology Progress Note ---
Date of Service January 22, 2023 Assessment & Plan (1) Hyponatremia: Plan: In the setting of intravascular volume depletion and decreased EAV. 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 Urine osmolality >500 yesterday with slight drop in sodium noted overnight. Metabolic profile otherwise acceptable. Daily fluid restriction 1.5 L and Urea 15 gm BID today. Oral NaCl added to encourage solute. Remains on oral NaHCO3 650 BID. Repeat metabolic profile this afternoon. BP acceptable. Diuretics held. Monitor metabolic profile twice daily. (2) CHERYL (acute kidney injury): Plan: Non-oliguric. Clinical presentation suggestive of intravascular volume depletion and decreased EAV. Creatinine improved. Document strict I/Os. Medications appropriately dosed for kidney function. (3) Hyperkalemia: Plan: Spironolactone and lisinopril held. Low potassium diet. Reasonable to restart AMRIK in next 24 hours if kidney function stable. (4) Closed fracture of pubic ramus: Plan: s/p mechanical fall. Awaiting rehab placement. (5) Atrial flutter: Plan: s/p KELLY/cardioversion 01/06. Remains in SR. (6) Bradycardia: (7) Acute blood loss anemia: Plan: s/p 1 u PRBC transfusion support 01/17. Additional 2 units PRBC transfusion support provided yesterday. Eliquis and aspirin held. Follow up CT completed yesterday demonstrating stable pelvic hematoma. Admission and Anticipated Discharge Date Admission Date: January 17, 2023 Subjective No acute events overnight. Thrush is improving. Tolerating more by mouth. No chest pain or palpitations. No shortness of breath. Review of Systems Review of Systems: All systems reviewed & are unremarkable except as noted in HPI & below Physical Exam 2 Constitutional: well developed; no acute distress Eyes: + anicteric sclerae ENMT: Mouth: no oral mucosal abnormality and oral mucous membranes not dry Neck: normal visual inspection and trachea midline Respiratory: normal respiratory effort Auscultation: lungs clear to auscultation bilaterally Cardiovascular: Rate/Rhythm: regular rhythm and + bradycardic Heart Sounds: normal S1 and normal S2 Extremities: + varicosities; no edema Musculoskeletal: Extremities: no cyanosis and no clubbing Skin: + turgor decreased and + ecchymosis Neurologic: Motor/Sensory: no tremor and no asterixis Psychiatric: Orientation: alert and oriented x 3 Results & Data Vital Signs (Past 12 Hours) Vital Signs Temp Pulse Resp BP BP Pulse Ox O2 Del Method 01/22/23 11:17 36.7 C 64 18 118/69 98 Room Air 01/22/23 09:15 67 117/70 01/22/23 08:25 36.6 C 60 16 123/67 99 Room Air Laboratory Results Laboratory Results - last 24 hr 01/22/23 10:16 Sodium 128 L Potassium 4.4 Chloride 101 Carbon Dioxide 20 L Anion Gap 7 BUN 32 H Creatinine 1.18 Est Cr Clr Drug Dosing 36.6 Est GFR ( Amer) 49.0 Est GFR (Non-Af Amer) 42.3 BUN/Creatinine Ratio 27.1 H Glucose 120 H Calcium 8.2 L Phosphorus 2.3 L Albumin 3.6 PG Care Time/CCT Total # of Minutes Spent Total Time Spent with Patient: Total time spent is greater than 50% in coordination of care (as documented) at patient's floor/unit and/or counseling patient: Coding Level of Care Code 45143 SUB INP/OBS CARE 3/50MIN Diagnoses Hyponatremia E87.1 CHERYL (acute kidney injury) N17.9 Hyperkalemia E87.5 Closed fracture of pubic ramus S32.599A Atrial flutter I48.92 Bradycardia R00.1 Acute blood loss anemia D62
[2023-01-22] MEDS: POLYETHYLENE (MIRALAX) 17 GM PACK PO PRN (12:29)
[2023-01-22] MEDS: UREA (UREA-NA) 15 GM PACK PO SCH ×2 (12:40→20:13)
[2023-01-22] MEDS ORDERED: SODIUM CHLORIDE 1 GM TABLET PO ONE (18:30)
[2023-01-22] MEDS: FLUCONAZOLE 200 MG/100 ML BAG IV SCH (18:33)
[2023-01-22] MEDS: ATORVASTATIN 40 MG TAB PO SCH (20:11)
--- NOTE | 2023-01-22 22:26 | Hospitalist Progress Note ---
Date of Service January 22, 2023 Assessment & Plan (1) Fall: Plan: acute mechanical fall, high risk complicated by acute blood loss anemia from pubic fracture on chronic anticoagulation Fall influenced by severe hyponatremia and bradycardia - UA shows pansensitive E coli UTI, start keflex as is sensitive Closed pubic ramus fracture acute high risk - abdominal CT scan showing nearby hematoma formation, pre admission was on apixiban for afib repeat CT 01/19/23 no acute worsening some improvement acute blood loss anemia with 3 U prbc pain control with scheduled tylenol and prn parenteral opiates, start ultram prn starting senna/colace for constipation - PT/OT likely will need rehabilitation at some point time Chronic now stable Afib/Aflutter moderate risk - hold ASA and Eliquis given acute blood loss anemia, if hgb stable 01/21 start aspirin - hold metoprolol with low blood pressure - cardiology is restarting amiodarone CHERYL on CKD4 - pre-renal source with volume loss from bleeding - Hold lisinopril, furosemide and spironolactone Hyponatremia- acute improving now moderate risk - nephrology has given hypertonic saline possible esophageal thrush, stop nystatin, placed on fluconazole. DVT: eliquis on hold due to hematoma Diet: heart healthy Code: Full Admission and Anticipated Discharge Date Admission Date: January 17, 2023 Subjective Patient continues to have sukhjinder when she swallows and pain in her mouth. Review of Systems Review of Systems: All systems reviewed & are unremarkable except as noted in HPI & below Physical Exam Physical Exam: Cardiac exam is regular Lungs are clear Abdomen NABS soft extremities are without edema Results & Data Results & Data Vital Signs (Past 12 Hours) Vital Signs Temp Pulse Resp BP BP Pulse Ox O2 Del Method 01/22/23 21:03 36.7 C 87 18 159/94 H 97 Room Air 01/22/23 14:33 37.1 C 64 16 126/71 96 Room Air 01/22/23 11:17 36.7 C 64 18 118/69 98 Room Air PG Care Time/CCT Total # of Minutes Spent Total Time Spent with Patient: Total time spent is greater than 50% in coordination of care (as documented) at patient's floor/unit and/or counseling patient: Coding Level of Care Code 38283 SUB INP/OBS CARE 2/35MIN Diagnoses Fall W19.XXXA
[2023-01-23 07:45] LABS: Hematocrit (blood only) 31.2 % (37.0-47.0); Hemoglobin 10.8 g/dl (12.0-16.0)
[2023-01-23 08:08] LABS: Albumin Level 3.2 gm/dl (3.4-5.0); BUN Creatinine Ratio 38.1 (10-20); Calcium 8.4 mg/dl (8.6-10.3); Creatinine Clr Calc Pharmacy 41.2 ml/min; Est GFR (African American) 56.5 ml/min; Est GFR (Non-African American) 48.7 ml/min; Phosphorus 2.5 mg/dl (2.5-4.9); Potassium 4.6 mmol/L (3.5-5.1)
[2023-01-23] MEDS: UREA (UREA-NA) 15 GM PACK PO SCH ×2 (09:20→21:10)
[2023-01-23] MEDS: cephALEXin 250 MG CAP PO SCH ×4 (09:20→21:06)
[2023-01-23] MEDS: ISOSORBIDE MONO EXTENDED REL 30 MG TABCR PO SCH (09:21)
[2023-01-23] MEDS: AMIODARONE 200 MG TAB PO SCH (09:21)
[2023-01-23] MEDS: OXYBUTYNIN CHLORIDE XL 5 MG TABCR PO SCH (09:21)
[2023-01-23] MEDS: DOCUSATE SODIUM/SENNA 50/8.6MG TAB PO SCH ×2 (09:21→21:05)
[2023-01-23] MEDS: SODIUM BICARBONATE 650 MG TAB PO SCH ×2 (09:22→21:11)
[2023-01-23] MEDS: ACETAMINOPHEN 500 MG TAB PO SCH ×3 (09:26→21:09)
--- NOTE | 2023-01-23 10:10 | Nephrology Progress Note ---
Date of Service January 23, 2023 Assessment & Plan (1) Hyponatremia: Plan: In the setting of intravascular volume depletion and decreased EAV. 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 Metabolic profile otherwise acceptable. Continue daily fluid restriction 1.5 L and Urea 15 gm BID today. Oral NaCl to encourage solute. Remains on oral NaHCO3 650 BID. Additional NaCl 1 gram PO provided this AM. Repeat metabolic profile this afternoon. Diuretics held. Monitor metabolic profile twice daily. (2) CHERYL (acute kidney injury): Plan: Attributed to intravascular volume depletion and decreased EAV. Creatinine n ormalized. Medications appropriately dosed for kidney function. Restart ACEi. (3) Hypertension: Plan: Restart lisinopril 40 mg daily. Restart hydralazine as tolerated. Monitor orthostatic vitals. (4) Closed fracture of pubic ramus: Plan: Awaiting rehab placement. (5) Atrial flutter: Plan: s/p KELLY/cardioversion 01/06. Remains in SR. (6) Bradycardia: Plan: Improved after discontinuation of beta-gayle. Tolerating amiodarone. (7) Acute blood loss anemia: Plan: s/p 1 u PRBC transfusion support 01/17. Additional 2 units PRBC transfusion support provided 01/19. Eliquis and aspirin held. Follow up CT completed yesterday demonstrating stable pelvic hematoma. Admission and Anticipated Discharge Date Admission Date: January 17, 2023 Subjective No acute events overnight. Working with PT this morning. Arrangements for rehab pending. Some difficulty swallowing persists but improving. Tolerating sodium tablets reasonably well. No diarrhea or nausea. Denies fluid retention or edema. Review of Systems Review of Systems: All systems reviewed & are unremarkable except as noted in HPI & below Physical Exam Constitutional: well developed; no acute distress Eyes: + anicteric sclerae ENMT: Mouth: no oral mucosal abnormality and oral mucous membranes not dry Neck: normal visual inspection and trachea midline Respiratory: normal respiratory effort Auscultation: lungs clear to auscultation bilaterally Cardiovascular: Rate/Rhythm: regular rhythm and + bradycardic Heart Sounds: normal S1 and normal S2 Extremities: + varicosities; no edema Musculoskeletal: Extremities: no cyanosis and no clubbing Skin: + turgor decreased and + ecchymosis Neurologic: Motor/Sensory: no tremor and no asterixis Psychiatric: Orientation: alert and oriented x 3 Results & Data Vital Signs (Past 12 Hours) Vital Signs Temp Pulse Resp BP Pulse Ox O2 Del Method 01/23/23 09:15 94 H 174/95 H 01/23/23 07:45 37.1 C 83 18 94/59 L 96 Room Air 01/23/23 07:35 36.5 C 94 H 18 170/96 H 96 Room Air Laboratory Results Laboratory Results - last 24 hr 01/22/23 01/22/23 01/23/23 10:16 16:54 07:28 Hgb 10.8 L Hct 31.2 L Sodium 128 L 129 L Potassium 4.4 Chloride 101 Carbon Dioxide 20 L Anion Gap 7 BUN 32 H Creatinine 1.18 Est Cr Clr Drug Dosing 36.6 Est GFR ( Amer) 49.0 Est GFR (Non-Af Amer) 42.3 BUN/Creatinine Ratio 27.1 H Glucose 120 H Calcium 8.2 L Phosphorus 2.3 L Albumin 3.6 01/23/23 07:28 Hgb Hct Sodium 130 L Potassium 4.6 Chloride 103 Carbon Dioxide 20 L Anion Gap 7 BUN 40 H Creatinine 1.05 Est Cr Clr Drug Dosing 41.2 Est GFR ( Amer) 56.5 Est GFR (Non-Af Amer) 48.7 BUN/Creatinine Ratio 38.1 H Glucose 111 H Calcium 8.4 L Phosphorus 2.5 Albumin 3.2 L PG Care Time/CCT Total # of Minutes Spent Total Time Spent with Patient: Total time spent is greater than 50% in coordination of care (as documented) at patient's floor/unit and/or counseling patient: Coding Level of Care Code 10850 SUB INP/OBS CARE 3/50MIN Diagnoses Hyponatremia E87.1 CHERYL (acute kidney injury) N17.9 Hypertension I10 Closed fracture of pubic ramus S32.599A Atrial flutter I48.92 Bradycardia R00.1 Acute blood loss anemia D62
[2023-01-23] MEDS: traMADol HCL 50 MG TABLET PO PRN ×2 (10:13→21:05)
[2023-01-23] MEDS ORDERED: SODIUM CHLORIDE 1 GM TABLET PO ONE ×2 (10:30→17:30)
[2023-01-23] MEDS: FLUCONAZOLE 200 MG/100 ML BAG IV SCH (17:34)
[2023-01-23] MEDS: ATORVASTATIN 40 MG TAB PO SCH (21:06)
--- NOTE | 2023-01-23 22:33 | Hospitalist Progress Note ---
Date of Service January 23, 2023 Assessment & Plan (1) Fall: Plan: acute mechanical fall, high risk complicated by acute blood loss anemia from pubic fracture on chronic anticoagulation Fall influenced by severe hyponatremia and bradycardia - UA shows pansensitive E coli UTI, start keflex as is sensitive -vitals appear to be stable, BP slightly elevated on 01/23, will monitor Closed pubic ramus fracture acute high risk - abdominal CT scan showing nearby hematoma formation, pre admission was on apixiban for afib repeat CT 01/19/23 no acute worsening some improvement acute blood loss anemia with 3 U prbc pain control with scheduled tylenol and prn parenteral opiates, start ultram prn starting senna/colace for constipation - PT/OT likely will need rehabilitation at some point time Chronic now stable Afib/Aflutter moderate risk - hold ASA and Eliquis given acute blood loss anemia, if hgb stable 01/21 start aspirin - hold metoprolol with low blood pressure - cardiology is restarting amiodarone CHERYL on CKD4 - pre-renal source with volume loss from bleeding - Hold lisinopril, furosemide and spironolactone Hyponatremia- acute improving now moderate risk - nephrology has given hypertonic saline possible esophageal thrush, stop nystatin, placed on fluconazole. DVT: eliquis on hold due to hematoma Diet: heart healthy Code: Full Admission and Anticipated Discharge Date Admission Date: January 17, 2023 Subjective Patient reports no new symptoms. Review of Systems Review of Systems: All systems reviewed & are unremarkable except as noted in HPI & below Physical Exam Physical Exam: Cardiac exam is regular Lungs are clear Abdomen NABS soft extremities are without edema Results & Data Results & Data Vital Signs (Past 12 Hours) Vital Signs Temp Pulse Resp BP Pulse Ox O2 Del Method 01/23/23 21:15 36.6 C 78 16 128/74 97 Room Air 01/23/23 15:32 36.7 C 85 19 141/81 H 97 Room Air 01/23/23 10:43 36.8 C 83 18 146/78 H 98 Room Air PG Care Time/CCT Total # of Minutes Spent Total Time Spent with Patient: Total time spent is greater than 50% in coordination of care (as documented) at patient's floor/unit and/or counseling patient: Coding Level of Care Code 51063 SUB INP/OBS CARE 2/35MIN Diagnoses Fall W19.XXXA
[2023-01-24] MEDS: traMADol HCL 50 MG TABLET PO PRN ×2 (05:46→20:40)
[2023-01-24 07:11] LABS: Albumin Level 3.2 gm/dl (3.4-5.0); BUN Creatinine Ratio 52.8 (10-20); Calcium 8.5 mg/dl (8.6-10.3); Est GFR (African American) 54.6 ml/min; Est GFR (Non-African American) 47.1 ml/min; Phosphorus 2.9 mg/dl (2.5-4.9); Potassium 4.7 mmol/L (3.5-5.1)
[2023-01-24] MEDS: SODIUM BICARBONATE 650 MG TAB PO SCH ×2 (08:16→20:42)
[2023-01-24] MEDS: AMIODARONE 200 MG TAB PO SCH (08:16)
[2023-01-24] MEDS: ISOSORBIDE MONO EXTENDED REL 30 MG TABCR PO SCH (08:16)
[2023-01-24] MEDS: DOCUSATE SODIUM/SENNA 50/8.6MG TAB PO SCH ×2 (08:17→20:44)
[2023-01-24] MEDS: cephALEXin 250 MG CAP PO SCH (08:17)
[2023-01-24] MEDS: OXYBUTYNIN CHLORIDE XL 5 MG TABCR PO SCH (08:17)
[2023-01-24] MEDS: UREA (UREA-NA) 15 GM PACK PO SCH ×2 (08:17→20:40)
[2023-01-24] MEDS: ACETAMINOPHEN 500 MG TAB PO SCH ×3 (08:17→20:44)
--- NOTE | 2023-01-24 08:44 | Nephrology Progress Note ---
Date of Service January 24, 2023 Assessment & Plan (1) Hyponatremia: Plan: * Possible SIADH * Responding to urea and NaCl therapy * Serum Na 131 mmol/L this am * Continue 1.5 L/day oral fluid restriction * Continue Urea 15 gm BID, NaHCO3 650 BID * Will administer 1 g NaCl this afternoon * Continue to hold diuretics * PRP in am (2) CHERYL (acute kidney injury): Plan: * Resolved (3) Hypertension: Plan: * Continue Lisinopril 40 mg daily. * Restart Hydralazine for SBP > 140 mm Hg (4) Closed fracture of pubic ramus: Plan: * Awaiting rehab placement (5) Atrial flutter: Plan: * s/p KELLY/cardioversion 01/06/23. Remains on Amiodarone therapy (6) Acute blood loss anemia: Plan: * Transfused 1 u PRBC 01/17, 2 units PRBC 01/19 * Eliquis and aspirin held * CT 01/19/23 demonstrated stable pelvic hematoma Admission and Anticipated Discharge Date Admission Date: January 17, 2023 Subjective Mrs. Saunders was evaluated in her hospital room this morning. She is tolerating Urea and salt therapy without GI upset. She voices no new medical concerns. Review of Systems Constitutional: no fever Eyes: no problem reported Ear, Nose, Mouth, Throat: no problem reported Respiratory: no cough and no dyspnea Cardiovascular: no chest pain and no palpitations Gastrointestinal: no abdominal pain, no vomiting and no diarrhea/loose stools Genitourinary: no dysuria and no hematuria Neurologic: no confusion Physical Exam Constitutional: not in distress Eyes: PERRL, conjunctivae normal, anicteric sclerae ENMT: external ear and nose normal, oropharynx normal Neck: trachea midline, no thyromegaly Respiratory: normal respiratory effort, lungs clear to auscultation Cardiovascular: RRR, no murmur, no edema Gastrointestinal (Abdomen): normal bowel sounds, soft, nontender, no hepatosplenomegaly Neurologic: Speech / Cognition: normal speech and normal cognition Results & Data Vital Signs (Past 12 Hours) Vital Signs Temp Pulse Resp BP Pulse Ox O2 Del Method 01/24/23 07:21 36.6 C 79 16 132/78 98 Room Air 01/23/23 21:15 36.6 C 78 16 128/74 97 Room Air Laboratory Results Laboratory Tests 01/24/23 06:20 Sodium 131 L Potassium 4.7 Chloride 102 Carbon Dioxide 21 BUN 57 H Creatinine 1.08 Calcium 8.5 L Phosphorus 2.9 Albumin 3.2 L PG Care Time/CCT Total # of Minutes Spent Total Time Spent with Patient: Total time spent is greater than 50% in coordination of care (as documented) at patient's floor/unit and/or counseling patient: Coding Level of Care Code 47108 SUB INP/OBS CARE 3/50MIN Diagnoses Hyponatremia E87.1 CHERYL (acute kidney injury) N17.9 Hypertension I10 Closed fracture of pubic ramus S32.599A Atrial flutter I48.92 Acute blood loss anemia D62
--- NOTE | 2023-01-24 09:29 | Hospitalist Progress Note ---
Date of Service January 24, 2023 Assessment & Plan (1) Fall: Plan: acute mechanical fall, high risk complicated by acute blood loss anemia from pubic fracture on chronic anticoagulation Fall influenced by severe hyponatremia and bradycardia - UA shows pansensitive E coli UTI, start keflex as is sensitive -vitals appear to be stable, BP slightly elevated on 01/23, will monitor Closed pubic ramus fracture acute high risk - abdominal CT scan showing nearby hematoma formation, pre admission was on apixiban for afib repeat CT 01/19/23 no acute worsening some improvement acute blood loss anemia with 3 U prbc pain control with scheduled tylenol and prn parenteral opiates, start ultram prn continue senna/colace for constipation - continue miralax. will obtain KUB: no bowel obstruction patient would like to try a suppository first, if no improvement will then consider an enema Glycerin suppository is ordered. PT/OT likely will need rehabilitation at some point time Chronic now stable Afib/Aflutter moderate risk - hold ASA and Eliquis given acute blood loss anemia, if hgb stable 01/21 start aspirin - hold metoprolol with low blood pressure - cardiology is restarting amiodarone CHERYL on CKD4 - pre-renal source with volume loss from bleeding - Hold lisinopril, furosemide and spironolactone Hyponatremia- acute improving now moderate risk - nephrology has given hypertonic saline possible esophageal thrush, stop nystatin, placed on fluconazole. DVT: eliquis on hold due to hematoma Diet: heart healthy Code: Full Admission and Anticipated Discharge Date Admission Date: January 17, 2023 Subjective Patient reports feeling nauseaous today. She states she has not had a BM. She has her miralax on her table but has not drank it yuet. HOwever, she states she will. She is passing gas but states it is minimal and has not improved from earlier. Review of Systems Review of Systems: All systems reviewed & are unremarkable except as noted in HPI & below Physical Exam Physical Exam: Cardiac exam is regular Lungs are clear Abdomen NABS, nontender, soft extremities are without edema Results & Data Results & Data Vital Signs (Past 12 Hours) Vital Signs Temp Pulse Resp BP Pulse Ox O2 Del Method 01/24/23 07:21 36.6 C 79 16 132/78 98 Room Air PG Care Time/CCT Total # of Minutes Spent Total Time Spent with Patient: Total time spent is greater than 50% in coordination of care (as documented) at patient's floor/unit and/or counseling patient: Coding Level of Care Code 27971 SUB INP/OBS CARE MIN Diagnoses Fall W19.XXXA
--- NOTE | 2023-01-24 09:58 | XRay Report ---
KUB CLINICAL HISTORY: Constipation and nausea. COMPARISON STUDY: CT of the abdomen and pelvis January 19, 2023. FINDINGS: Oral contrast from prior CT is noted within the colon and rectum. There is mild distention of the colon without convincing evidence for a bowel obstruction. Moderate amount of stool within the colon and rectum is present. Displaced left pubic ring fractures are again noted. IMPRESSION: 1. Mild colonic dilatation without convincing evidence for a bowel obstruction. 2. Moderate amount of stool within the colon and rectum. 3. Redemonstration of left ischiopubic ring fractures. ACT 112: Negative or not required by law. Electronically signed by: Archie Suazo M.D. 01/24/2023 9:57 AM
[2023-01-24] MEDS ORDERED: GLYCERIN ADULT 12 SUPP/BOX SUPP PR ONE (11:26)
[2023-01-24] MEDS ORDERED: SODIUM CHLORIDE 1 GM TABLET PO ONE (12:00)
[2023-01-24] MEDS: FLUCONAZOLE 200 MG/100 ML BAG IV SCH (18:33)
[2023-01-24] MEDS: ATORVASTATIN 40 MG TAB PO SCH (20:42)
[2023-01-25 06:34] LABS: Hemoglobin 9.6 g/dl (12.0-16.0); Mean Corpuscular Hemoglobin 30.2 pg (25.0-34.0); Mean Corpuscular Hgb Conc 33.1 g/dL (32.0-36.0); Mean Corpuscular Volume 91.2 fL (80.0-100.0); Mean Platelet Volume 9.3 fL (9.4-12.4); Platelet Count 259 K/uL (130-400); RDW Coefficient of Variation 15.2 % (11.5-14.5); RDW Standard Deviation 49.3 fL (36.4-46.3); Red Blood Count 3.18 M/uL (4.20-5.40); White Blood Count 7.08 K/ul (4.8-10.8)
[2023-01-25 06:55] LABS: BUN Creatinine Ratio 59.6 (10-20); Calcium 8.7 mg/dl (8.6-10.3); Creatinine Clr Calc Pharmacy 39.7 ml/min; Est GFR (Non-African American) 46.6 ml/min
[2023-01-25] MEDS: AMIODARONE 200 MG TAB PO SCH (08:16)
[2023-01-25] MEDS: UREA (UREA-NA) 15 GM PACK PO SCH ×2 (08:17→20:06)
[2023-01-25] MEDS: SODIUM BICARBONATE 650 MG TAB PO SCH (08:17)
[2023-01-25] MEDS: ISOSORBIDE MONO EXTENDED REL 30 MG TABCR PO SCH (08:17)
[2023-01-25] MEDS: DOCUSATE SODIUM/SENNA 50/8.6MG TAB PO SCH ×2 (08:17→20:04)
[2023-01-25] MEDS: OXYBUTYNIN CHLORIDE XL 5 MG TABCR PO SCH (08:17)
[2023-01-25] MEDS: ACETAMINOPHEN 500 MG TAB PO SCH ×3 (08:19→20:02)
--- NOTE | 2023-01-25 08:52 | Nephrology Progress Note ---
Date of Service January 25, 2023 Assessment & Plan (1) Hyponatremia: Plan: * Possible SIADH * Responding to urea and NaHCO3 therapy * Serum Na 133 mmol/L this am * Continue 1.5 L/day oral fluid restriction * Continue Urea 15 gm BID * Stop NaHCO3 (HCO3 24 this am) * Start NaCl 2g po BID * Will provide one dose Furosemide 20 mg po x1 this am * PRP in am (2) CHERYL (acute kidney injury): Plan: * Resolved (3) Hypertension: Plan: * Continue Lisinopril 40 mg daily. * Restart Hydralazine for sustained SBP > 140 mm Hg (4) Closed fracture of pubic ramus: Plan: * Awaiting rehab placement (5) Atrial flutter: Plan: * s/p KELLY/cardioversion 01/06/23. Remains on Amiodarone therapy (6) Acute blood loss anemia: Plan: * Transfused 1 u PRBC 01/17, 2 units PRBC 01/19 * Eliquis and aspirin held * CT 01/19/23 demonstrated stable pelvic hematoma Admission and Anticipated Discharge Date Admission Date: January 17, 2023 Subjective Mrs. Saunders was evaluated in her hospital room this morning. She is tolerating Urea and salt therapy without GI upset. Mrs. Saunders got up to use the BR this am. She still has significant discomfort ambulating due to pelvic fracture Review of Systems Constitutional: no fever Eyes: no problem reported Ear, Nose, Mouth, Throat: no problem reported Respiratory: no cough and no dyspnea Cardiovascular: no chest pain and no palpitations Gastrointestinal: no abdominal pain, no vomiting and no diarrhea/loose stools Genitourinary: no dysuria and no hematuria Neurologic: no confusion Physical Exam Constitutional: not in distress Eyes: PERRL, conjunctivae normal, anicteric sclerae ENMT: external ear and nose normal, oropharynx normal Neck: trachea midline, no thyromegaly Respiratory: normal respiratory effort, lungs clear to auscultation Cardiovascular: RRR, no murmur, no edema Gastrointestinal (Abdomen): normal bowel sounds, soft, nontender, no hepatosplenomegaly Neurologic: Speech / Cognition: normal speech and normal cognition Results & Data Vital Signs (Past 12 Hours) Vital Signs Temp Pulse Resp BP Pulse Ox O2 Del Method 01/25/23 07:06 36.7 C 92 H 16 164/96 H 96 Room Air 01/24/23 21:04 36.7 C 80 16 124/73 98 Room Air Laboratory Results Laboratory Tests 01/25/23 01/25/23 06:05 06:05 WBC 7.08 Hgb 9.6 L Hct 29.0 L Plt Count 259 Sodium 132 L Potassium 5.0 Chloride 102 Carbon Dioxide 24 BUN 65 H Creatinine 1.09 Glucose 99 PG Care Time/CCT Total # of Minutes Spent Total Time Spent with Patient: Total time spent is greater than 50% in coordination of care (as documented) at patient's floor/unit and/or counseling patient: Coding Level of Care Code 60296 SUB INP/OBS CARE 3/50MIN Diagnoses Hyponatremia E87.1 CHERYL (acute kidney injury) N17.9 Hypertension I10 Closed fracture of pubic ramus S32.599A Atrial flutter I48.92 Acute blood loss anemia D62
[2023-01-25] MEDS ORDERED: FUROSEMIDE 20 MG TAB PO ONE (08:56)
[2023-01-25] MEDS: SODIUM CHLORIDE 1 GM TABLET PO SCH ×2 (09:53→20:03)
[2023-01-25] MEDS ORDERED: MINERAL OIL ENEMA 133 ML BTL PR ONE (11:15)
--- NOTE | 2023-01-25 14:03 | XRay Report ---
KUB CLINICAL HISTORY: Constipation. COMPARISON STUDY: CT of the abdomen and pelvis January 19, 2023 KUB January 24, 2023. FINDINGS: Left pubic fractures are again noted. Contrast within the colon and rectum is from prior co ntrast enhanced CT. A moderate amount of stool within the colon and rectum is noted. There is no evid ence for a bowel obstruction. IMPRESSION: 1. No evidence for a bowel obstruction. 2. Moderate amount of stool within the colon and rectum. ACT 112: Negative or not required by law. Electronically signed by: Archie Suazo M.D. 01/25/2023 2:02 PM
[2023-01-25] MEDS: POLYETHYLENE (MIRALAX) 17 GM PACK PO SCH ×2 (14:57→20:06)
[2023-01-25] MEDS: FLUCONAZOLE 200 MG/100 ML BAG IV SCH (18:40)
[2023-01-25] MEDS: ATORVASTATIN 40 MG TAB PO SCH (20:04)
--- NOTE | 2023-01-25 22:50 | Hospitalist Progress Note ---
Date of Service January 25, 2023 Assessment & Plan (1) Fall: Plan: acute mechanical fall, high risk complicated by acute blood loss anemia from pubic fracture on chronic anticoagulation Fall influenced by severe hyponatremia and bradycardia - UA shows pansensitive E coli UTI, start keflex as is sensitive -vitals appear to be stable, BP slightly elevated on 01/23, will monitor Closed pubic ramus fracture acute high risk - abdominal CT scan showing nearby hematoma formation, pre admission was on apixiban for afib repeat CT 01/19/23 no acute worsening some improvement acute blood loss anemia with 3 U prbc pain control with scheduled tylenol and prn parenteral opiates, start ultram prn continue senna/colace for constipation - continue miralax. will obtain KUB: no bowel obstruction Patient did not have a BM with a suppository or a fleet enema. will increase miralax to TID. PT/OT likely will need rehabilitation at some point time Chronic now stable Afib/Aflutter moderate risk - hold ASA and Eliquis given acute blood loss anemia, if hgb stable 01/21 start aspirin - hold metoprolol with low blood pressure - cardiology is restarting amiodarone CHERYL on CKD4 - pre-renal source with volume loss from bleeding - Hold lisinopril, furosemide and spironolactone Hyponatremia- acute improving now moderate risk - nephrology has given hypertonic saline possible esophageal thrush, stop nystatin, placed on fluconazole. DVT: eliquis on hold due to hematoma Diet: heart healthy Code: Full Admission and Anticipated Discharge Date Admission Date: January 17, 2023 Subjective Patient reports no new symptoms Review of Systems Review of Systems: All systems reviewed & are unremarkable except as noted in HPI & below Physical Exam Physical Exam: Cardiac exam is regular Lungs are clear Abdomen NABS, nontender, soft extremities are without edema Results & Data Results & Data Vital Signs (Past 12 Hours) Vital Signs Temp Pulse Resp BP Pulse Ox O2 Del Method 01/25/23 21:08 37.0 C 77 16 122/69 98 Room Air 01/25/23 15:31 36.5 C 74 16 157/80 H 97 Room Air PG Care Time/CCT Total # of Minutes Spent Total Time Spent with Patient: Total time spent is greater than 50% in coordination of care (as documented) at patient's floor/unit and/or counseling patient: Coding Level of Care Code 90874 SUB INP/OBS CARE MIN Diagnoses Fall W19.XXXA
[2023-01-26 06:22] LABS: Hematocrit (blood only) 30.2 % (37.0-47.0); Hemoglobin 10.1 g/dl (12.0-16.0); Mean Corpuscular Hemoglobin 30.4 pg (25.0-34.0); Mean Corpuscular Hgb Conc 33.4 g/dL (32.0-36.0); Mean Platelet Volume 9.3 fL (9.4-12.4); Platelet Count 312 K/uL (130-400); RDW Coefficient of Variation 15.3 % (11.5-14.5); RDW Standard Deviation 49.1 fL (36.4-46.3); Red Blood Count 3.32 M/uL (4.20-5.40); White Blood Count 6.12 K/ul (4.8-10.8)
[2023-01-26 06:55] LABS: Calcium 9.1 mg/dl (8.6-10.3); Creatinine Clr Calc Pharmacy 43.2 ml/min; Est GFR (African American) 59.9 ml/min; Est GFR (Non-African American) 51.7 ml/min; Potassium 4.4 mmol/L (3.5-5.1)
[2023-01-26 07:14] LABS: Ferritin 232.3 ng/ml (8-388)
[2023-01-26] MEDS: OXYBUTYNIN CHLORIDE XL 5 MG TABCR PO SCH (08:00)
[2023-01-26] MEDS: SODIUM CHLORIDE 1 GM TABLET PO SCH ×2 (08:00→20:00)
[2023-01-26] MEDS: AMIODARONE 200 MG TAB PO SCH (08:01)
[2023-01-26] MEDS: UREA (UREA-NA) 15 GM PACK PO SCH (08:01)
[2023-01-26] MEDS: ISOSORBIDE MONO EXTENDED REL 30 MG TABCR PO SCH (08:01)
[2023-01-26] MEDS: DOCUSATE SODIUM/SENNA 50/8.6MG TAB PO SCH ×2 (08:01→19:58)
[2023-01-26] MEDS: POLYETHYLENE (MIRALAX) 17 GM PACK PO SCH ×3 (08:01→19:58)
[2023-01-26] MEDS: ACETAMINOPHEN 500 MG TAB PO SCH ×3 (08:02→19:59)
--- NOTE | 2023-01-26 08:45 | Nephrology Progress Note ---
Date of Service January 26, 2023 Assessment & Plan (1) Hyponatremia: Plan: * Possible SIADH * Responding to urea and NaHCO3 therapy * Serum Na 134 mmol/L this am * Continue 1.5 L/day oral fluid restriction * Stop Urea supplement * Continue NaCl 2g po BID x 24 hours, then stop * Will provide one dose Furosemide 20 mg po x1 this am * PRP in am * If discharge is anticipated, please continue NaCl today, then stop. Patient may follow up w/ PCP after discharge for monitoring of Na, kidney function (2) CHERYL (acute kidney injury): Plan: * Resolved (3) Hypertension: Plan: * Continue Lisinopril 40 mg daily. * Restart Hydralazine for sustained SBP > 140 mm Hg (4) Closed fracture of pubic ramus: Plan: * Awaiting rehab placement (5) Atrial flutter: Plan: * s/p KELLY/cardioversion 01/06/23. Remains on Amiodarone therapy (6) Acute blood loss anemia: Plan: * Transfused 1 u PRBC 01/17, 2 units PRBC 01/19 * Eliquis and aspirin held * CT 01/19/23 demonstrated stable pelvic hematoma Admission and Anticipated Discharge Date Admission Date: January 17, 2023 Subjective Mrs. Saunders was evaluated in her hospital room this morning. She voices no new medical concerns. She hopes to transfer to inpatient rehabilitation for ongoing PT Review of Systems Constitutional: no fever Eyes: no problem reported Ear, Nose, Mouth, Throat: no problem reported Respiratory: no cough and no dyspnea Cardiovascular: no chest pain and no palpitations Gastrointestinal: no abdominal pain, no vomiting and no diarrhea/loose stools Genitourinary: no dysuria and no hematuria Neurologic: no confusion Physical Exam Constitutional: not in distress Eyes: PERRL, conjunctivae normal, anicteric sclerae ENMT: external ear and nose normal, oropharynx normal Neck: trachea midline, no thyromegaly Respiratory: normal respiratory effort, lungs clear to auscultation Cardiovascular: RRR, no murmur, no edema Gastrointestinal (Abdomen): normal bowel sounds, soft, nontender, no hepatosplenomegaly Neurologic: Speech / Cognition: normal speech and normal cognition Results & Data Vital Signs (Past 12 Hours) Vital Signs Temp Pulse Resp BP BP Pulse Ox O2 Del Method 01/26/23 07:29 36.5 C 84 16 151/80 H 98 Room Air 01/25/23 21:08 37.0 C 77 16 122/69 98 Room Air Laboratory Results Laboratory Tests 01/24/23 01/26/23 01/26/23 06:20 05:30 05:30 WBC 6.12 Hgb 10.1 L Hct 30.2 L Plt Count 312 Sodium 134 L Potassium 4.4 Chloride 102 Carbon Dioxide 22 BUN 71 H Creatinine 1.00 Transferrin % Sat 20 Ferritin 232.3 Albumin 3.2 L PG Care Time/CCT Total # of Minutes Spent Total Time Spent with Patient: Total time spent is greater than 50% in coordination of care (as documented) at patient's floor/unit and/or counseling patient: Coding Level of Care Code 52157 SUB INP/OBS CARE 3/50MIN Diagnoses Hyponatremia E87.1 CHERYL (acute kidney injury) N17.9 Hypertension I10 Closed fracture of pubic ramus S32.599A Atrial flutter I48.92 Acute blood loss anemia D62
[2023-01-26] MEDS ORDERED: FUROSEMIDE 20 MG TAB PO STA (09:36)
[2023-01-26] MEDS: FLUCONAZOLE 200 MG/100 ML BAG IV SCH (17:41)
[2023-01-26] MEDS: ATORVASTATIN 40 MG TAB PO SCH (20:00)
--- NOTE | 2023-01-26 22:10 | Hospitalist Progress Note ---
Date of Service January 26, 2023 Assessment & Plan (1) Fall: Plan: acute mechanical fall, high risk complicated by acute blood loss anemia from pubic fracture on chronic anticoagulation Fall influenced by severe hyponatremia and bradycardia - UA shows pansensitive E coli UTI, start keflex as is sensitive -vitals appear to be stable, BP slightly elevated on 01/23, will monitor Closed pubic ramus fracture acute high risk - abdominal CT scan showing nearby hematoma formation, pre admission was on apixiban for afib repeat CT 01/19/23 no acute worsening some improvement acute blood loss anemia with 3 U prbc pain control with scheduled tylenol and prn parenteral opiates, start ultram prn continue senna/colace for constipation - continue miralax. Had large BM on 01/26 will continue miralax to TID. PT/OT likely will need rehabilitation at some point time Chronic now stable Afib/Aflutter moderate risk - hold ASA and Eliquis given acute blood loss anemia, if hgb stable 01/21 start aspirin - hold metoprolol with low blood pressure - cardiology is restarting amiodarone CHERYL on CKD4 - pre-renal source with volume loss from bleeding - Hold lisinopril, furosemide and spironolactone Hyponatremia- acute improving now moderate risk - nephrology has given hypertonic saline possible esophageal thrush, stop nystatin, placed on fluconazole. DVT: eliquis on hold due to hematoma Diet: heart healthy Code: Full Admission and Anticipated Discharge Date Admission Date: January 17, 2023 Subjective 82 yo female reports feeling well. She still does not have an appetite. She did however have a large BM. Review of Systems Review of Systems: All systems reviewed & are unremarkable except as noted in HPI & below Physical Exam Physical Exam: Cardiac exam is regular Lungs are clear Abdomen NABS, nontender, soft extremities are without edema Results & Data Results & Data Vital Signs (Past 12 Hours) Vital Signs Temp Pulse Resp BP Pulse Ox O2 Del Method 01/26/23 21:31 36.7 C 70 16 129/77 97 Room Air 01/26/23 15:06 36.9 C 68 16 145/82 H 97 Room Air PG Care Time/CCT Total # of Minutes Spent Total Time Spent with Patient: Total time spent is greater than 50% in coordination of care (as documented) at patient's floor/unit and/or counseling patient: Coding Level of Care Code 59519 SUB INP/OBS CARE MIN Diagnoses Fall W19.XXXA
[2023-01-27 07:44] LABS: Hematocrit (blood only) 29.9 % (37.0-47.0); Hemoglobin 10.2 g/dl (12.0-16.0); Mean Corpuscular Hemoglobin 30.5 pg (25.0-34.0); Mean Corpuscular Hgb Conc 34.1 g/dL (32.0-36.0); Mean Corpuscular Volume 89.5 fL (80.0-100.0); Mean Platelet Volume 9.3 fL (9.4-12.4); Platelet Count 328 K/uL (130-400); RDW Coefficient of Variation 15.5 % (11.5-14.5); RDW Standard Deviation 49.1 fL (36.4-46.3); Red Blood Count 3.34 M/uL (4.20-5.40); White Blood Count 5.78 K/ul (4.8-10.8)
[2023-01-27 07:59] LABS: BUN Creatinine Ratio 51.7 (10-20); Calcium 8.9 mg/dl (8.6-10.3); Creatinine Clr Calc Pharmacy 37.3 ml/min; Est GFR (African American) 50.1 ml/min; Est GFR (Non-African American) 43.2 ml/min; Potassium 4.6 mmol/L (3.5-5.1)
[2023-01-27] MEDS: ISOSORBIDE MONO EXTENDED REL 30 MG TABCR PO SCH (08:44)
[2023-01-27] MEDS: OXYBUTYNIN CHLORIDE XL 5 MG TABCR PO SCH (08:44)
[2023-01-27] MEDS: AMIODARONE 200 MG TAB PO SCH (08:45)
[2023-01-27] MEDS: POLYETHYLENE (MIRALAX) 17 GM PACK PO SCH (08:45)
[2023-01-27] MEDS: DOCUSATE SODIUM/SENNA 50/8.6MG TAB PO SCH (08:45)
[2023-01-27] MEDS: ACETAMINOPHEN 500 MG TAB PO SCH (08:47)
--- NOTE | 2023-01-27 09:06 | Nephrology Progress Note ---
Date of Service January 27, 2023 Assessment & Plan (1) Hyponatremia: Plan: * Probable appropriate ADH release in response to pelvic fracture/pain * Serum Na 137 mmol/L this am * OK to remove free water restriction * Stop NaCl supplement * Na has corrected. Will sign off. Patient may follow up w/ PCP after discharge for monitoring of Na, kidney function (2) CHERYL (acute kidney injury): Plan: * Resolved (3) Hypertension: Plan: * Continue Lisinopril 40 mg daily. * Restart Hydralazine for sustained SBP > 140 mm Hg (4) Closed fracture of pubic ramus: Plan: * Awaiting rehab placement (5) Atrial flutter: Plan: * s/p KELLY/cardioversion 01/06/23. Remains on Amiodarone therapy (6) Acute blood loss anemia: Plan: * Transfused 1 u PRBC 01/17, 2 units PRBC 01/19 * Eliquis and aspirin held * CT 01/19/23 demonstrated stable pelvic hematoma Admission and Anticipated Discharge Date Admission Date: January 17, 2023 Subjective Mrs. Saunders was evaluated in her hospital room this morning. She voices no new medical concerns. She hopes to transfer to [facility] today for ongoing PT Review of Systems Constitutional: no fever Eyes: no problem reported Ear, Nose, Mouth, Throat: no problem reported Respiratory: no cough and no dyspnea Cardiovascular: no chest pain and no palpitations Gastrointestinal: no abdominal pain, no vomiting and no diarrhea/loose stools Genitourinary: no dysuria and no hematuria Neurologic: no confusion Physical Exam Constitutional: not in distress Eyes: PERRL, conjunctivae normal, anicteric sclerae ENMT: external ear and nose normal, oropharynx normal Neck: trachea midline, no thyromegaly Respiratory: normal respiratory effort, lungs clear to auscultation Cardiovascular: RRR, no murmur, no edema Gastrointestinal (Abdomen): normal bowel sounds, soft, nontender, no hepatosplenomegaly Neurologic: Speech / Cognition: normal speech and normal cognition Results & Data Vital Signs (Past 12 Hours) Vital Signs Temp Pulse Resp BP Pulse Ox O2 Del Method 01/27/23 08:09 37 C 75 16 145/76 H 96 Room Air 01/26/23 21:31 36.7 C 70 16 129/77 97 Room Air Laboratory Results Laboratory Tests 0401/27/23 01/27/23 05:30 06:55 06:55 WBC 5.78 Hgb 10.2 L Hct 29.9 L Plt Count 328 Sodium 137 Potassium 4.6 Chloride 104 Carbon Dioxide 24 BUN 60 H Creatinine 1.16 Calcium 8.9 Transferrin % Sat 20 Ferritin 232.3 PG Care Time/CCT Total # of Minutes Spent Total Time Spent with Patient: Total time spent is greater than 50% in coordination of care (as documented) at patient's floor/unit and/or counseling patient: Coding Level of Care Code 26546 SUB INP/OBS CARE 3/50MIN Diagnoses Hyponatremia E87.1 CHERYL (acute kidney injury) N17.9 Hypertension I10 Closed fracture of pubic ramus S32.599A Atrial flutter I48.92 Acute blood loss anemia D62
--- NOTE | 2023-01-27 12:10 | Discharge Summary ---
Date of Service January 27, 2023 Admission HPI Per Admitting Provider The patient is a an 82-year-old female with a past medical history including CKD, atrial flutter, atrial fibrillation, rosacea, osteoporosis, CAD, history of coronary artery stent and history of acute head injury. Patient was most recently admitted to [facility] from 01/05-01/07/2023 for treatment of atrial fibrillation/flutter. She has been on amiodarone since that time, and reports that she took a single dose of metoprolol yesterday evening, after calling her outpatient internet database specialist due to an elevated heart rate. He reports that today this afternoon, the heart rate had dropped into the 50s, and he was told that time to no longer take the metoprolol. Due to her fall and significant left hip and pelvis pain, after her fall, she was brought to the ED for further assessment. X-rays of pelvis and hip: Significant for closed left pubic ramus fracture Significant laboratories: WBC 14.88 hemoglobin 10.0 hematocrit 29.1, sodium is 121, potassium 5.3, glucose 121, creatinine 1.73, bicarb 18, troponin 21.6, BUN 35, total bilirubin 1.1 and AST 47. Serum osmolality is 266, urine osmolality is pending Principal Diagnosis problem 1 Discharge Exam Cardiac exam is regular Lungs are clear Abdomen NABS, nontender, soft extremities are without edema Discharge Data Allergies Allergy/AdvReac Type Severity Reaction Status Date / Time Penicillins Allergy Unknown HIVES Verified 01/17/23 02:44 Sulfa (Sulfonamide AdvReac Unknown GI SYMPTOMS Verified 01/17/23 02:44 Antibiotics) Consultations 01/17/23 02:08 ED Decision to Admit Stat 01/17/23 06:12 Consult Cardiology Routine 01/18/23 08:57 Consult Nephrology Routine Ordered Studies 01/17/23 01:31 CT cervical spine wo con Stat CT head/brain wo con Stat 01/17/23 15:40 CT abd pelvis wo con Stat 01/19/23 08:44 CT Abd and Pelvis [CT abd pelvis oral con only] Routine Hospital Course (1) Fall: acute mechanical fall, high risk complicated by acute blood loss anemia from pubic fracture on chronic anticoagulation Fall influenced by severe hyponatremia and bradycardia - UA shows pansensitive E coli UTI, start keflex as is sensitive -vitals appear to be stable, BP slightly elevated on 4/7, will monitor Closed pubic ramus fracture acute high risk - abdominal CT scan showing nearby hematoma formation, pre admission was on apixiban for afib repeat CT 01/19/23 no acute worsening some improvement acute blood loss anemia with 3 U prbc pain control with scheduled tylenol and prn parenteral opiates, start ultram prn continue senna/colace for constipation - cimproved with miralax. Had large BM on 01/26 will be discharged to SNF Chronic now stable Afib/Aflutter moderate risk - hold ASA and Eliquis given acute blood loss anemia, as hemoglobin stable will resume eliquis. - hold metoprolol with low blood pressure - cardiology is restarting amiodarone CHERYL on CKD4 - pre-renal source with volume loss from bleeding - Hold lisinopril, furosemide and spironolactone Hyponatremia- acute improved now moderate risk - nephrology has given hypertonic saline possible esophageal thrush, stop nystatin, placed on fluconazole. will complete course after discharge. DVT: eliquis will be resumed at discharge, discussed risk and benefits/ cardio in agreement to resume. Diet: heart healthy Code: Full Total Time Total Time Spent Total Time Spent (In Minutes): 32 Discharge Plan Discharge Items Patient Disposition: Transfer [facility] Reason For Visit: SYNCOPE, LEFT PUBIC RAMUS FRACTURE Discharge Diagnosis: syncope Activity: Resume your previous activity Non-emergency contact: Primary Care Provider Call non-emergency contact if: you have any medication questions Follow-up/Referrals: Latasha Borjas CRNP [Primary Care Provider] - Diet: Regular Addtl Attending Provider Instructions: Continue Fluconazole for 10 more days. If symptoms of dysphagia do not improve, will recommend followup with GI. Recommend followup with PCP in 1-2 weeks. Recommend rechecking your blood work in 2 days to make sure your hemoglobin is stable. Pending Studies at Discharge: No Stand-Alone Forms: My [facility] Skilled Items Patient informed of condition?: No DNR: No Discharge Level of Care: Skilled Communicable Disease: No Discharge Prognosis: Stable Lines: None Urinary Catheter: No Medications and DC Order Prescriptions: New amiodarone 200 mg Tablet 100 mg PO QAM Qty: 30 0RF lisinopril 5 mg tablet 5 mg PO DAILY Qty: 30 0RF fluconazole 200 mg tablet 200 mg PO DAILY Qty: 10 0RF Continued atorvastatin 40 mg tablet 40 mg PO HS furosemide 20 mg tablet 20 mg PO 3XWK Qty: 90 Rx Instructions: daily on thursday,thursday,thursday nitroglycerin 0.4 mg tablet, sublingual 0.4 mg SL UD PRN (Reason: chest pain) isosorbide mononitrate 30 mg tablet extended release 24 hr 30 mg PO DAILY oxybutynin chloride 10 mg tablet extended release 24hr 10 mg PO DAILY hydralazine 25 mg tablet 25 mg PO TID spironolactone 25 mg tablet 12.5 mg PO DAILY Eliquis 2.5 mg tablet 2.5 mg PO BID Qty: 60 0RF calcium carbonate-vitamin D3 600 mg-5 mcg (200 unit) Tablet 1 tab PO DAILY Discontinued lisinopril 40 mg tablet 40 mg PO DAILY aspirin 81 mg Tablet,Delayed Release (Dr/Ec) 81 mg PO DAILY amiodarone 200 mg tablet 200 mg PO BID Qty: 70 0RF Rx Instructions: Take 2 tabs (400mg) by mouth BID x 4 more days and then reduce to 200mg PO BID thereafter Discharge Orders: Discharge Order (Routine); Ordered 01/27/23 Ordered By: Fei Cabrales Admission Data Admit Date/Time: 01/17/23 02:40 Attending Provider: Fei Cabrales Admit Provider: Mike Steen Primary Care Provider: Latasha Borjas Other Providers: [facility] ; Mike Steen ; Dima Larry ; Allen Kenney ; [facility] ; [facility] Other Interventions: Discharge Summary Assessment (RN) Last Done: 01/27/23 12:13 Coding Level of Care Code 92570 INP/OBS DISCH >30 MIN Diagnoses Fall W19.XXXA
== END 2023-01-27 13:12 | DRG 536 ==
LOC: ED 00:56 → EDINP 02:40 → SUATTDRO 02:40 → 2S 05:09 → 3N 01-20 18:20
DX: Z88.2 Allergy status to sulfonamides; S32.502A Unspecified fracture of left pubis, initial encounter for closed fracture; Z95.5 Presence of coronary angioplasty implant and graft; M81.0 Age-related osteoporosis without current pathological fracture; Z79.01 Long term (current) use of anticoagulants; W19.XXXA Unspecified fall, initial encounter; B96.20 Unspecified Escherichia coli [E. coli] as the cause of diseases classified elsewhere; Z79.899 Other long term (current) drug therapy; Z88.0 Allergy status to penicillin; K59.00 Constipation, unspecified; E78.5 Hyperlipidemia, unspecified; N39.0 Urinary tract infection, site not specified; Z20.822 Contact with and (suspected) exposure to COVID-19; B37.81 Candidal esophagitis; N32.89 Other specified disorders of bladder; R00.1 Bradycardia, unspecified; N17.9 Acute kidney failure, unspecified; E87.1 Hypo-osmolality and hyponatremia; I08.1 Rheumatic disorders of both mitral and tricuspid valves; I95.9 Hypotension, unspecified; N18.4 Chronic kidney disease, stage 4 (severe); I48.92 Unspecified atrial flutter; E86.0 Dehydration; I48.91 Unspecified atrial fibrillation; I25.10 Atherosclerotic heart disease of native coronary artery without angina pectoris; L71.9 Rosacea, unspecified; E86.9 Volume depletion, unspecified; E87.5 Hyperkalemia; R77.8 Other specified abnormalities of plasma proteins; R55 Syncope and collapse; I12.9 Hypertensive chronic kidney disease with stage 1 through stage 4 chronic kidney disease, or unspecified chronic kidney disease; I49.5 Sick sinus syndrome; D62 Acute posthemorrhagic anemia

== ENCOUNTER 2025-06-26 10:21 | Inpatient (IN) ==
[2025-06-26] MEDS: SODIUM CHLORIDE 0.9% 500 ML IV STA (10:47)
[2025-06-26] MEDS: MAGNESIUM SULFATE / D5W 1 GM/100 ML BAG IV STA (10:47)
--- NOTE | 2025-06-26 10:57 | Emergency Department Note ---
Impression & Plan Atrial fibrillation with rapid ventricular response, Heart palpitations, Elevated troponin I level ED Provider Note NAME: SHAHRZAD CHANG AGE: 84 SEX: F : 1940 ARRIVES VIA: Walk-In INFORMANT: Patient, ED PROVIDER(S): Kevon Pate DO CHIEF COMPLAINT: Palpitations HPI: The patient is an 84-year-old female who presented to the emergency department from her primary care physician's office for an evaluation of palpitations. The patient states that she was going for a routine visit. She was sent to the emergency department because she was felt to be in atrial fibrillation with RVR. The patient is a history of atrial fibrillation in the past. The patient does take oral anticoagulants. The patient states that she has been compliant with her outpatient medication otherwise. Patient denies having any chest pain. She denies having any difficulty breathing. She has had some generalized weakness. ROS: See above HPI for pertinent positives & negatives. A total of 10 systems reviewed and were otherwise negative. PAST MEDICAL HISTORY: See Below PAST SURGICAL HISTORY: See Below FAMILY HISTORY: See Below SOCIAL HISTORY: See Below HOME MEDICATIONS: See Below ALLERGIES: See Below VITALS: See Below PHYSICAL EXAMINATION: GENERAL: Patient is awake alert in no acute distress patient is resting comfortably and showing no signs of anxiety EYES: The conjunctivae are clear. The pupils are round and reactive. EARS, NOSE, MOUTH AND THROAT: The nose is without any evidence of any deformity. NECK: The neck is nontender and supple. RESPIRATORY: Normal respiratory effort is noted there is no evidence of wheezing rhonchi or rales CARDIOVASCULAR: Tachycardic and irregular heart sounds were noted to auscultation. There is no definite murmur. GASTROINTESTINAL: The abdomen is soft. Abdomen is nontender. MUSCULOSKELETAL/EXTREMITIES: There is no evidence of gross deformity full range of motion is noted in the hips and shoulders. SKIN: There is no obvious evidence of any rash. There are no petechiae, pallor or cyanosis noted. NEUROLOGIC: Patient is awake alert and oriented x3 MEDICAL DECISION MAKING: The patient is an 84-year-old female who presented to the emergency department for an evaluation of palpitations. The patient was found to be in rapid atrial fibrillation. She was treated in usual fashion in the emergency department with IV fluids IV magnesium and IV Cardizem. She was reevaluated multiple times. On reevaluation her heart rate had improved. I discussed her condition with the primary care physician who sent her to the emergency department. They had spoken with cardiology and the recommendation was to stop the patient's Multaq and start the patient on amiodarone. She was given a dose in the emergency department. [facility] have agreed to evaluate the patient in the emergency department for further management and disposition. Triage Nursing notes reviewed. Prior medical records reviewed Vital Signs: reviewed and remarkable for atrial fibrillation with tachycardia. Differential diagnosis: Premature contractions, electrolyte abnormality, cardiac dysrhythmia, thyroid dysfunction, pulmonary embolism, infection, gastrointestinal, as well as other pathologies. ER treatment provided: See below Diagnostics interpreted by me: ECG: EKG was obtained in the emergency department. My interpretation is narrow complex tachycardia at [address] depressions were noted. There is no PVCs noted. This was compared to tracing from November 17, 2024. Sinus rhythm has been replaced with narrow complex tachycardia. A second EKG was obtained in the emergency department after administration of medications. My interpretation is atrial fibrillation at 123 bpm. There is no ectopy. Improvement of the previously noted ST segment abnormalities was also appreciated. Cardiac Monitoring: An order was placed for continuous cardiac monitoring. The monitor shows a rate of 120 bpm with atrial fibrillation RVR. Laboratory studies: As stated above and show below. Imaging studies: See below. Radiographic imaging was reviewed by myself Consultation(s): I discussed this case with Dr. Patel who sent the patient to the emergency department. She did discuss the case with cardiology. They recommend holding the patient's Multaq and starting the patient on amiodarone. I discussed this case with Dr. Farooq who [facility] ED COURSE: Procedures: none Critical Care: I have personally spent greater than 45 minutes of critical care time in the direct management of this patient. This includes bedside care, interpretation of diagnostic studies, and testing, discussion with consultants, patient, and family members, and other required patient management activities. This 45 minutes is in excess of all separately billable procedures. 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) Hypertensive chronic kidney disease with stage 1 through stage 4 chronic kidney disease, or unspecified chronic kidney disease Glossodynia KIAN (generalized anxiety disorder) Dry mouth not due to sicca syndrome Diastolic CHF, chronic Constipation, unspecified Chronic kidney disease, stage 3 Burning sensation of mouth BRBPR (bright red blood per rectum) Arthritis of hip Sleep apnea Anemia 3-vessel CAD Glossodynia exfoliativa Low zinc level Parageusia dysgeusia Multiple rib fractures (Acute) Acute hyponatremia (Acute) Dysphagia Acute blood loss anemia CHERYL (acute kidney injury) Rosacea (Chronic) Coronary artery disease (Chronic) Hyponatremia Closed fracture of pubic ramus (Acute) Tachy-georges syndrome Sinus bradycardia Syncope (Acute) Bradycardia (Acute) Acute dehydration (Acute) New onset atrial flutter (Acute) Elevated troponin (Acute) Atrial flutter Vitiligo (Acute) Medical History Rectal bleeding Pain and swelling of right wrist Osteoporosis Heel pain Foreign body of foot or toe, superficial, infected Cellulitis of foot Hypertension H/O atrial flutter Hx of hemorrhoids Surgical History H/O cystoscopy History of cataract surgery History of cardiac catheterization S/P appendectomy H/O heart artery stent Family History Aunt Breast cancer Father Coronary heart disease Parkinson disease Heart disease Mother Heart disease Atrial fibrillation Grandmother Hypertension Stroke Other No family history of adverse response to anesthesia No family history of bleeding disorder Denies family history of Crohn's disease Colorectal cancer Ulcerative colitis Social History Smoking Status: Never smoker Second Hand Exposure: No; Do You Dip or Chew Tobacco: No; Tobacco Cessation Education Requested by Patient: No Hx Alcohol Use: No Hx Substance Use: No Preferred Language: Fijian Communication Ability: Effective Hearing Ability: Normal Outdoor Adventure Instructor Required: No Beliefs That Will Affect Care: None marital status: Current Living Situation: Spouse current occupational status: retired Other Information That Helps Us Care for You: No Feels Safe at Home: Yes Safety Concerns: Feels Safe At This Time Physical Activity Frequency: 1-2 Times per Week Assistive Devices: CPAP and Glasses Assistive Devices Comment: cpap at home have not used in years Allergies Allergies Allergy/AdvReac Type Severity Reaction Status Date / Time Penicillins AdvReac Intermediate HIVES Verified 06/26/25 13:02 Sulfa (Sulfonamide AdvReac Intermediate GI SYMPTOMS Verified 06/26/25 13:02 Antibiotics) amlodipine AdvReac Unknown Verified 06/26/25 13:02 Home Meds Home Medications Medication Instructions Recorded Confirmed atorvastatin 40 mg tablet 40 mg PO HS 07/29/19 06/26/25 isosorbide mononitrate 30 mg 30 mg PO DAILY 07/09/20 06/26/25 tablet,extended release 24 hr alendronate 70 mg tablet (Fosamax) 70 mg PO WK 07/07/23 06/26/25 apixaban 2.5 mg tablet (Eliquis) 2.5 mg PO BID 05/12/25 06/26/25 calcium 600 mg (as 1 tab PO DAILY 05/12/25 06/26/25 carbonate)-vitamin D3 5 mcg (200 unit) tablet cholecalciferol (vitamin D3) 10 10 mcg PO DAILY 05/12/25 06/26/25 mcg (400 unit) capsule (Vitamin D3) dronedarone 400 mg tablet (Multaq) 400 mg PO BID 05/12/25 06/26/25 gabapentin 100 mg capsule 100 mg PO TID 05/12/25 06/26/25 hydralazine 25 mg tablet 25 mg PO TID 05/12/25 06/26/25 mirabegron 50 mg tablet,extended 50 mg PO DAILY 05/12/25 06/26/25 release 24 hr nitroglycerin 0.4 mg sublingual 0.4 mg sublingual Q5M PRN chest 05/12/25 06/26/25 tablet pain polyethylene glycol 3350 17 17 g PO DAILY PRN Constipation 05/30/25 06/26/25 gram/dose oral powder (Miralax) esomeprazole magnesium 40 mg 40 mg PO DAILY 06/26/25 06/26/25 capsule,delayed release famotidine 40 mg tablet 40 mg PO DAILY 06/26/25 06/26/25 Results & Data (ED) Vital Signs Vital Signs - 24 hr 06/26/25 10:33 06/26/25 10:38 06/26/25 11:21 Temperature 36.7 C Temperature Source Oral Pulse Rate 153 H 152 H 119 H Pulse Rate from SpO2 Sensor 121 H Respiratory Rate 17 15 Blood Pressure 176/123 H 125/79 Blood Pressure Mean 140 94 Pulse Oximetry 98 98 Oxygen Delivery Method Room Air Sepsis Recent Fever Within 48 Hours No Sepsis New/Unexplained Change in Mental Status N/A Sepsis Action Taken by Nursing No Action Required 06/26/25 12:00 06/26/25 12:33 Temperature Temperature Source Pulse Rate 120 H 127 H Pulse Rate from SpO2 Sensor 119 H Respiratory Rate 10 L 15 Blood Pressure 100/76 138/84 Blood Pressure Mean 84 102 Pulse Oximetry 97 97 Oxygen Delivery Method Room Air Room Air Sepsis Recent Fever Within 48 Hours Sepsis New/Unexplained Change in Mental Status Sepsis Action Taken by [facility] Medications Current Medication List: was personally reviewed by me Laboratory Data Attestation: I reviewed the patient's lab results. 06/26/25 10:45 06/26/25 10:45 Lab Results 06/26/25 Range/Units 10:45 WBC 6.55 (4.8-10.8) K/ul RBC 3.76 L (4.20-5.40) M/uL Hgb 11.3 L (12.0-16.0) g/dl Hct 33.9 L (37.0-47.0) % MCV 90.2 (80.0-100.0) fL MCH 30.1 (25.0-34.0) pg MCHC 33.3 (32.0-36.0) g/dL RDW Std Deviation 46.2 (36.4-46.3) fL RDW Coeff of Erik 13.8 (11.5-14.5) % Plt Count 301 (130-400) K/uL MPV 9.2 L (9.4-12.4) fL Immature Gran % (Auto) 0.3 % Neut % (Auto) 70.1 % Lymph % (Auto) 16.5 % [place] % (Auto) 8.2 % Eos % (Auto) 4.1 % Baso % (Auto) 0.8 % Neut # (Auto) 4.59 (1.40-6.50) K/uL Lymph # (Auto) 1.08 L (1.20-3.40) K/uL [place] # (Auto) 0.54 (0.11-0.59) K/uL Eos # (Auto) 0.27 (0.00-0.50) K/uL Baso # (Auto) 0.05 (0.00-0.20) K/uL Immature Gran # (Auto) 0.02 (0.01-0.20) K/uL PT 10.4 (9.0-12.0) Seconds INR 1.0 (0.9-1.1) APTT 31 (21-31) Seconds PTT Ratio 1.2 Sodium 136 (136-145) mmol/L Potassium 4.8 (3.5-5.1) mmol/L Chloride 102 (98-107) mmol/L Carbon Dioxide 28 (21-32) mmol/L Anion Gap 6 (3-11) BUN 20 (6-23) mg/dl Creatinine 1.25 H (0.6-1.2) mg/dl Est Cr Clr Drug Dosing 30.7 ml/min eGFR 41.98 BUN/Creatinine Ratio 16.0 (10-20) Glucose 101 H (70-99(Fasting)) mg/dl Calcium 9.2 (8.6-10.3) mg/dl Magnesium 1.9 (1.7-2.4) mg/dl Total Bilirubin 1.1 H (0.2-1.0) mg/dl AST 17 (13-39) U/L ALT 12 (7-52) U/L Alkaline Phosphatase 64 (34-104) U/L Troponin I High Sens 14.4 H (0-14) pg/ml Total Protein 7.0 (6.0-8.3) gm/dl Albumin 3.8 (3.4-5.0) gm/dl Globulin 3.2 (2.5-4.0) gm/dl Albumin/Globulin Ratio 1.2 (0.9-2) TSH 1.143 (0.300-4.500) uIu/ml Administered Medications Amiodarone HCl (Amiodarone 200 Mg Tab) 200 mg PO BIDM KEKE Stop: 07/26/25 16:59 Last Admin: 06/26/25 16:59 Dose: 200 mg Documented By: MARGARITO Famotidine (Famotidine 40 Mg Tablet) 40 mg PO DAILY KEKE Stop: 07/26/25 14:59 Last Admin: 06/26/25 15:25 Dose: 40 mg Documented By: MARGARITO Amiodarone HCl/Dextrose (Nexterone / D5w) 360 mg in 200 mls @ 33.333 mls/hr IV ONE ONE; Protocol Stop: 06/26/25 18:30 Last Admin: 06/26/25 12:47 Dose: 1 mg/min, 33.3 mls/hr Documented By: JULIANA Co-signed By: FEDERICA Isosorbide Mononitrate (Isosorbide [place] Extended Rel 30 Mg Tabcr) 30 mg PO DAILY KEKE Stop: 07/26/25 14:59 Last Admin: 06/26/25 15:26 Dose: 30 mg Documented By: MARGARITO Pantoprazole Sodium (Pantoprazole 40 Mg Tab) 40 mg PO DAILY KEKE Stop: 07/26/25 14:59 Last Admin: 06/26/25 15:26 Dose: 40 mg Documented By: MARGARITO Discontinued Medications Apixaban (Apixaban 5 Mg Tablet) 5 mg PO ONE STA Stop: 06/26/25 12:48 Last Admin: 06/26/25 14:57 Dose: 5 mg Documented By: MARGARITO Diltiazem HCl (Diltiazem Hcl 5 Mg/Ml 5 Ml Vial) 20 mg IV NOW STA Stop: 06/26/25 10:39 Last Admin: 06/26/25 10:47 Dose: 20 mg Documented By: KARISHMA Co-signed By: JULIANA Furosemide (Furosemide Inj 20 Mg/2 Ml Vial) 20 mg IV ONE STA Stop: 06/26/25 12:33 Last Admin: 06/26/25 12:47 Dose: 20 mg Documented By: JULIANA Furosemide (Furosemide Inj 20 Mg/2 Ml Vial) 20 mg IV ONE ONE Stop: 06/26/25 17:01 Last Admin: 06/26/25 16:59 Dose: 20 mg Documented By: MARGARITO Sodium Chloride (Nss) 500 mls @ 999 mls/hr IV .Q31M STA Stop: 06/26/25 11:03 Last Infusion: 06/26/25 12:14 Dose: Infused Documented By: Admin: 06/26/25 10:47 Dose: 999 mls/hr Documented By: KARISHMA Magnesium Sulfate/Dextrose (Magnesium Sulfate / D5w) 1 gm in 100 mls @ 100 mls/hr IV NOW STA Stop: 06/26/25 11:33 Last Infusion: 06/26/25 12:14 Dose: Infused Documented By: Admin: 06/26/25 10:47 Dose: 100 mls/hr Documented By: KARISHMA Amiodarone HCl/Dextrose (Nexterone / D5w) 150 mg in 100 mls @ 600 mls/hr IV NOW STA Stop: 06/26/25 12:04 Last Admin: 06/26/25 12:03 Dose: 600 mls/hr Documented By: JULIANA Co-signed By: MELVI Imaging Data Attestation: I personally reviewed and interpreted this imaging study as follows: My Impression: 1 view chest x-ray was obtained in the emergency department. My interpretation is cardiomegaly with volume overload, final report below. Radiologist's Impression: Chest X-Ray 06/26/25 10:33 XR chest 1V portable CLINICAL HISTORY: Dysrhythmia COMPARISON STUDY: 06/30/2023 FINDINGS: There is moderate cardiomegaly with mild pulmonary vascular congestion. No consolidation or pleural effusion. No pneumothorax. IMPRESSION: CHF. ACT 112: Negative or not required by law. Electronically signed by: Alistair Nguyen M.D. 06/26/2025 11:21 AM Discharge Plan Visit Data Chief Complaint: Referred by Doctor Stated Complaint: AFIB, DOC REF ED Provider: Kevon Pate Discharge Problem: Atrial fibrillation with rapid ventricular response, Heart palpitations, Elevated troponin I level Patient Disposition: Admitted As Inpatient Condition: Fair Discharge Instructions Interventions: ED Discharge Assessment Last Done: 06/26/25 13:43
[2025-06-26 11:00] LABS: Hematocrit (blood only) 33.9 % (37.0-47.0); Hemoglobin 11.3 g/dl (12.0-16.0); Immature Granulocytes # (auto) 0.02 K/uL (0.01-0.20); Immature Granulocytes % (auto) 0.3 %; Mean Corpuscular Hemoglobin 30.1 pg (25.0-34.0); Mean Corpuscular Volume 90.2 fL (80.0-100.0); Platelet Count 301 K/uL (130-400); RDW Standard Deviation 46.2 fL (36.4-46.3); Red Blood Count 3.76 M/uL (4.20-5.40); White Blood Count 6.55 K/ul (4.8-10.8)
[2025-06-26 11:19] LABS: Alanine Aminotransferase 12.0 U/L (7-52); Albumin Globulin Ratio 1.2 (0.9-2); Alkaline Phosphatase 64.0 U/L (34-104); Anion Gap 6.0 (3-11); Bilirubin,Total 1.1 mg/dl (0.2-1.0); Blood Urea Nitrogen 20.0 mg/dl (6-23); Calcium 9.2 mg/dl (8.6-10.3); Carbon Dioxide 28.0 mmol/L (21-32); Chloride 102.0 mmol/L (98-107); Creatinine Clr Calc Pharmacy 30.7 ml/min; Globulin 3.2 gm/dl (2.5-4.0); Glucose 101.0 mg/dl (70-99(Fasting)); Magnesium 1.9 mg/dl (1.7-2.4); Potassium 4.8 mmol/L (3.5-5.1); Sodium 136.0 mmol/L (136-145); Total Protein 7.0 gm/dl (6.0-8.3)
--- NOTE | 2025-06-26 11:22 | XRay Report ---
XR chest 1V portable CLINICAL HISTORY: Dysrhythmia COMPARISON STUDY: 06/30/2023 FINDINGS: There is moderate cardiomegaly with mild pulmonary vascular congestion. No consolidation or pleural effusion. No pneumothorax. IMPRESSION: CHF. ACT 112: Negative or not required by law. Electronically signed by: Alistair Nguyen M.D. 06/26/2025 11:21 AM
[2025-06-26 11:34] LABS: INR 1.0 (0.9-1.1); Partial Thromboplastin Time 31 Seconds (21-31); Prothrombin Time 10.4 Seconds (9.0-12.0); Thyroid Stimulating Hormone 1.143 uIu/ml (0.300-4.500)
[2025-06-26] MEDS ORDERED: 0.2 MICRON FILTER SET 1 EACH IV ONE ×3 (11:55→20:47)
[2025-06-26] MEDS: AMIODARONE / D5W 150 MG/100 ML BAG IV STA ×2 (12:03→20:54)
--- NOTE | 2025-06-26 12:27 | History & Physical Report ---
Date of Service June 26, 2025 Assessment & Plan (1) Atrial flutter with rapid ventricular response: (2) Acute heart failure with normal ejection fraction: Plan 84 year old female with known history of atrial flutter status post cardioversion December 2022 maintained on Multaq presents to the ER in atrial flutter with rapid ventricular rate Atrial flutter with RVR Discussed with Dr Singh and plan for amiodarone bolus and drip with 200mg PO BID, NPO Thursday night and plan for cardioversion on Thursday Discussed TTE with Dr Singh and will hold off currently, may reconsider after conversion to NSR Continue anticoagulation with Eliquis (will increase to 5mg BID as Cr now improved to < 1.5) Acute heart failure with preserved ejection fraction Secondary to elevated heart rate Lasix 20mg IV Strict I&Os Daily standing weights Coronary artery disease status post angioplasty and stenting of a 75% mid right coronary artery lesion (02/2015) Continue Eliquis, atorvastatin, ISMN Hypertension Continue ISMN Hold hydralazine to allow for Lasix dosing Osteoporosis Continue alendronate GERD Continue esomeprazole or hospital formulary equivalent and famotidine VTE Prophylaxis - Eliquis Disposition - admit to PCU Admission and Anticipated Discharge Date Admission Date: June 26, 2025 History of Present Illness Chief Complaint: Shortness of breath Primary Care Provider: DO Claudine Bass Chip is an 84 year old female who presents to the ER from her PCP office due to elevated heart rate. She felt her normal self yesterday. On her way to a routine visit to her primary care office today she reports having palpitations but didn't realize her heart rate was elevated. In the office she was noted to have an elevated rate and thought to be in atrial fibrillation therefore sent to the ER for further evaluation and treatment. She denies any chest pain. She reports shortness of breath on exertion but none at rest and she puts this down to feeling worried. Some leg swelling but no worse than usual. She reports not taking her usual medications today. Last took Multaq yesterday afternoon around 5-6pm. She is has been taking Eliquis without missing doses for at least the last month. No other respiratory, gastrointestinal or urinary symptoms. No fever or chills. Allergies Allergy/AdvReac Type Severity Reaction Status Date / Time Penicillins AdvReac Intermediate HIVES Verified 06/26/25 13:02 Sulfa (Sulfonamide AdvReac Intermediate GI SYMPTOMS Verified 06/26/25 13:02 Antibiotics) amlodipine AdvReac Unknown Verified 06/26/25 13:02 Home Medications Medication Instructions Recorded Confirmed Type atorvastatin 40 mg tablet 40 mg PO HS 07/29/19 06/26/25 History isosorbide mononitrate 30 mg 30 mg PO DAILY 07/09/20 06/26/25 History tablet,extended release 24 hr alendronate 70 mg tablet (Fosamax) 70 mg PO WK 07/07/23 06/26/25 History apixaban 2.5 mg tablet (Eliquis) 2.5 mg PO BID 05/12/25 06/26/25 History calcium 600 mg (as 1 tab PO DAILY 05/12/25 06/26/25 History carbonate)-vitamin D3 5 mcg (200 unit) tablet cholecalciferol (vitamin D3) 10 10 mcg PO DAILY 05/12/25 06/26/25 History mcg (400 unit) capsule (Vitamin D3) dronedarone 400 mg tablet (Multaq) 400 mg PO BID 05/12/25 06/26/25 History gabapentin 100 mg capsule 100 mg PO TID 05/12/25 06/26/25 History hydralazine 25 mg tablet 25 mg PO TID 05/12/25 06/26/25 History mirabegron 50 mg tablet,extended 50 mg PO DAILY 05/12/25 06/26/25 History release 24 hr nitroglycerin 0.4 mg sublingual 0.4 mg sublingual Q5M PRN chest 05/12/25 06/26/25 History tablet pain polyethylene glycol 3350 17 17 g PO DAILY PRN Constipation 05/30/25 06/26/25 History gram/dose oral powder (Miralax) esomeprazole magnesium 40 mg 40 mg PO DAILY 06/26/25 06/26/25 History capsule,delayed release famotidine 40 mg tablet 40 mg PO DAILY 06/26/25 06/26/25 History Past Med/Surg History Problem List (Updated 06/26/25 @ 22:35 by Jay Farooq MD) Acute heart failure with normal ejection fraction Atrial flutter with rapid ventricular response Elevated troponin I level (Acute) Heart palpitations (Acute) Atrial fibrillation with rapid ventricular response (Acute) Zinc deficiency Pupil asymmetry Pulmonary hypertension PAF (paroxysmal atrial fibrillation) Other specified abnormal findings of blood chemistry OAB (overactive bladder) Mixed incontinence urge and stress Mitral regurgitation 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) Hypertensive chronic kidney disease with stage 1 through stage 4 chronic kidney disease, or unspecified chronic kidney disease Glossodynia KIAN (generalized anxiety disorder) Dry mouth not due to sicca syndrome Diastolic CHF, chronic Constipation, unspecified Chronic kidney disease, stage 3 Burning sensation of mouth BRBPR (bright red blood per rectum) Arthritis of hip Sleep apnea Anemia 3-vessel CAD Glossodynia exfoliativa Low zinc level Parageusia dysgeusia Multiple rib fractures (Acute) Acute hyponatremia (Acute) Dysphagia Acute blood loss anemia CHERYL (acute kidney injury) Rosacea (Chronic) Coronary artery disease (Chronic) Hyponatremia Closed fracture of pubic ramus (Acute) Tachy-georges syndrome Sinus bradycardia Syncope (Acute) Bradycardia (Acute) Acute dehydration (Acute) New onset atrial flutter (Acute) Elevated troponin (Acute) Atrial flutter Vitiligo (Acute) Medical History Rectal bleeding Pain and swelling of right wrist Osteoporosis Heel pain Foreign body of foot or toe, superficial, infected Cellulitis of foot Hypertension H/O atrial flutter Hx of hemorrhoids Surgical History H/O cystoscopy History of cataract surgery History of cardiac catheterization S/P appendectomy H/O heart artery stent Family History Aunt Breast cancer Father Coronary heart disease Parkinson disease Heart disease Mother Heart disease Atrial fibrillation Grandmother Hypertension Stroke Other No family history of adverse response to anesthesia No family history of bleeding disorder Denies family history of Crohn's disease Colorectal cancer Ulcerative colitis Social History Smoking Status: Never smoker Second Hand Exposure: No; Do You Dip or Chew Tobacco: No; Tobacco Cessation Education Requested by Patient: No Hx Alcohol Use: No Hx Substance Use: No Preferred Language: Bengali Communication Ability: Effective Hearing Ability: Normal 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 Beliefs That Will Affect Care: None marital status: Current Living Situation: Spouse current occupational status: retired Other Information That Helps Us Care for You: No Feels Safe at Home: Yes Safety Concerns: Feels Safe At This Time Physical Activity Frequency: 1-2 Times per Week Assistive Devices: CPAP and Glasses Assistive Devices Comment: cpap at home have not used in years Review of Systems Review of Systems: All systems reviewed & are unremarkable except as noted in HPI & below Physical Exam Constitutional: WD/WN, vitals as above ENMT: external ear and nose normal, oropharynx normal Respiratory: normal respiratory effort; no respiratory distress Auscultation: + crackles (bibasal); breath sounds present, no diminished lung sounds and no wheezes Cardiovascular: Rate/Rhythm: regular rhythm and + tachycardic Heart Sounds: no murmur Extremities: + pedal edema (trace b/l equal) Gastrointestinal (Abdomen): normal bowel sounds, soft, nontender, no hepatosplenomegaly Skin: no rashes, warm and dry Neurologic: moves all extremities and awake; not confused Psychiatric: A+Ox3, euthymic affect Results & Data Results & Data Vital Signs (Past 12 Hours) Vital Signs Temp Pulse Resp BP Pulse Ox O2 Del Method 06/26/25 12:00 120 H 10 L 100/76 97 Room Air 06/26/25 11:21 119 H 15 125/79 98 06/26/25 10:38 152 H 06/26/25 10:33 36.7 C 153 H 17 176/123 H 98 Room Air Laboratory Results Abnormal lab results 06/26/25 Range/Units 10:45 RBC 3.76 L (4.20-5.40) M/uL Hgb 11.3 L (12.0-16.0) g/dl Hct 33.9 L (37.0-47.0) % MPV 9.2 L (9.4-12.4) fL Lymph # (Auto) 1.08 L (1.20-3.40) K/uL Creatinine 1.25 H (0.6-1.2) mg/dl Glucose 101 H (70-99(Fasting)) mg/dl Total Bilirubin 1.1 H (0.2-1.0) mg/dl Troponin I High Sens 14.4 H (0-14) pg/ml Diagnostic Findings XR chest 1V portable CLINICAL HISTORY: Dysrhythmia COMPARISON STUDY: 06/30/2023 FINDINGS: There is moderate cardiomegaly with mild pulmonary vascular congestion. No consolidation or pleural effusion. No pneumothorax. IMPRESSION: CHF Medications Administered ER Medications Given: Normal saline 500ml bolus Magnesium sulfate 1g IV Diltiazem 20mg IV Amiodarone 150ml bolus ECG Rate (beats per minute): 153 Rhythm: other (supraventricular tachycardia (subsequent EKG shows a. flutter)) Findings: no acute ischemic change Comparison ECG Date: from (Nov 17, 2024) Change: the following changes noted (supraventricular tachycardia is new) Code Status & VTE Plan Code Status Full VTE Prophylaxis Plan VTE Prophylaxis will be ordered: Yes PG Care Time/CCT Total # of Minutes Spent Total Time Spent with Patient: Total time spent is greater than 50% in coordination of care (as documented) at patient's floor/unit and/or counseling patient: Coding Level of Care Code 03776 INT INP/OBS CARE 3/75MIN Diagnoses Atrial flutter with rapid ventricular response I48.92 Acute heart failure with normal ejection fraction I50.31
[2025-06-26] MEDS: FUROSEMIDE INJ 20 MG/2 ML VIAL IV STA (12:47)
[2025-06-26] MEDS: AMIODARONE / D5W 360 MG/200 ML BAG IV ONE (12:47)
--- NOTE | 2025-06-26 12:49 | Electrocardiogram Report ---
Test Reason : Blood Pressure : */* mmHG Vent. Rate : 153 BPM Atrial Rate : * BPM P-R Int : * ms QRS Dur : 88 ms QT Int : 314 ms P-R-T Axes : * -17 96 degrees QTcB Int : 501 ms Supraventricular tachycardia Nonspecific ST and T wave abnormality Abnormal ECG When compared with ECG of 17-Nov-2024 07:55, Significant changes have occurred Confirmed by Kevon Conrad ([id number]) on 06/26/2025 12:49:17 PM Referred By: Confirmed By: Kevon Conrad
--- NOTE | 2025-06-26 12:55 | Electrocardiogram Report ---
Test Reason : Blood Pressure : */* mmHG Vent. Rate : 123 BPM Atrial Rate : 150 BPM P-R Int : * ms QRS Dur : 84 ms QT Int : 342 ms P-R-T Axes : 108 56 70 degrees QTcB Int : 489 ms Sinus tachycardia with 2nd degree A-V block (Mobitz I) Low voltage QRS Poor R wave progression, consider anterior ME vs. lead placement vs. LVH Abnormal ECG When compared with ECG of 26-Jun-2025 10:41, (unconfirmed) Sinus rhythm is now with 2nd degree A-V block (Mobitz I) Questionable change in QRS axis ST no longer depressed in Lateral leads Confirmed by Kevon Conrad ([id number]) on 06/26/2025 12:55:06 PM Referred By: Confirmed By: Kevon Conrad
[2025-06-26] MEDS ORDERED: POLYETHYLENE (MIRALAX) 17 GM PACK PO PRN (14:45)
[2025-06-26] MEDS: APIXABAN 5 MG TABLET PO STA (14:57)
[2025-06-26] MEDS: FAMOTIDINE 40 MG TABLET PO SCH (15:25)
[2025-06-26] MEDS: ISOSORBIDE MONO EXTENDED REL 30 MG TABCR PO SCH (15:26)
[2025-06-26] MEDS: FUROSEMIDE INJ 20 MG/2 ML VIAL IV ONE (16:59)
[2025-06-26] MEDS: AMIODARONE 200 MG TAB PO SCH (16:59)
[2025-06-26] MEDS: AMIODARONE / D5W 360 MG/200 ML BAG IV SCH (18:34)
[2025-06-26] MEDS: APIXABAN 2.5 MG TAB PO STA (19:13)
[2025-06-26] MEDS: DIGOXIN 250 MCG in SYRINGE 9 ML IV STA (20:03)
[2025-06-26] MEDS: FUROSEMIDE 40 MG/4 ML VIAL IV STA (20:03)
[2025-06-26] MEDS: ATORVASTATIN 40 MG TAB PO SCH (20:11)
--- NOTE | 2025-06-26 20:11 | Communication Note ---
Date of Service: June 26, 2025 Contacted by RN as patient feeling increased shortness of breath and feels like something is in her chest that she can't cough up. 92% on RA, BP 146/94, HR in 140s. RR 20. Only voided once since 1700 dose of lasix, missed hat, some on it, hat caught 150ml. The patient reports feeling subjectively short of breath. Currently on oxygen when seen but this was put on after she came back from the bathroom. No chest pain. POCUS with diffuse B lines anteriorly. Review of telemetry shows better rates earlier in the day around 4pm but she has been consistently at 150 bpm for a few hours now. Lasix 40mg IV given. Digoxin 250 mcg IV given to see if we can get her rates back down. If not I am concerned she will need cardioversion sooner therefore will make NPO now for possible emergent cardioversion during the night vs. with cardiology tomorrow. Handed over care to night resident and physician for ongoing care.
[2025-06-26] MEDS: GABAPENTIN 100 MG CAP PO SCH (20:12)
[2025-06-26] MEDS: AMIODARONE 150MG / 100ML D5W IV ONE (20:48)
--- NOTE | 2025-06-26 21:23 | XRay Report ---
Exam(s): XR CXR 1 VIEW EXAM: XR Chest, 1 View CLINICAL HISTORY: Reason for exam: SOB. TECHNIQUE: Frontal view of the chest. COMPARISON: No relevant prior studies available. FINDINGS: Lungs: [id number]-left interstitial and ground-glass opacities. Pleural space: Blunting of the costophrenic angles may represent trace effusions. No pneumothorax. Heart: No cardiomegaly or pulmonary vascular congestion. Bones/joints: No acute fracture. No dislocation. IMPRESSION: [id number]-left interstitial and ground-glass opacities. Correlate for pneumonia versus asymmetric pulmonary edema. Electronically signed by: Loly Arias M.D. 06/26/25 21:22 PM
--- NOTE | 2025-06-26 21:52 | Communication Note ---
Date of Service: June 26, 2025 Notified by RN of patient feeling short of breath and coughing a lot, and monitor showing a-fib with RVR with rates at 140s-150s. On arrival to bedside, patient sitting up in bed, afebrile, and appeared uncomfortable. Course breath sounds heard on auscultation of upper airways and b/l crackles in bases R>L. Patient had total of 80 mg of Lasix IV (2 separate doses of 20 mg and one of 40 mg, the latter being given at 20:03) with initial increased output noted in the first doses but not much output noted in afternoon-evening, per RN. Patient also states she did not note much improvement in SOB with lasix doses. No LE edema noted bilaterally. VS without fevers and most recent CBC not showing leukocytosis. A-fib/RVR: Continue digoxin 250 mcg x 1 20:03 rhythm with successful control of rates (still about [id number]) and experiencing shortness of breath. Patient on amiodarone drip and given 150 mg bolus at 20:48, after which rate improved to 11 [id number], and eventual improvement in shortness of breath as well though still feeling some degree. Will continue amiodarone and continue to monitor telemetry. SOB: Possibly related to elevated rates plus or minus possible aspiration. Started on antibiotics due to increased oxygen need despite Lasix administration as well as x-ray findings and possible aspiration event. Pro-Pillo negative and shortness of breath improved once rates lowered, though not fully resolved. Continue O2 as needed. Will continue to monitor. Resident Activity Tracking Resident Involvement: Resident Care Provided Care Provided: Adult Hospital Medicine
[2025-06-26] MEDS: PROCHLORPERAZINE 5 MG in SYRINGE 4 ML IV ONE (22:10)
[2025-06-26] MEDS: APIXABAN 5 MG TABLET PO SCH (22:10)
[2025-06-26] MEDS: CEFEPIME 2000MG 2,000 MG/20 ML SYR IV SCH (22:46)
[2025-06-27] MEDS ORDERED: DIGOXIN 125 MCG in SYRINGE 9.5 ML IV ONE (02:00)
[2025-06-27] MEDS ORDERED: 0.2 MICRON FILTER SET 1 EACH IV ONE (04:28)
[2025-06-27] MEDS: AMIODARONE / D5W 150 MG/100 ML BAG IV STA (04:45)
[2025-06-27] MEDS: ALENDRONATE SODIUM 70 MG TAB PO SCH (05:03)
[2025-06-27 06:02] LABS: Hematocrit (blood only) 31.0 % (37.0-47.0); Hemoglobin 10.2 g/dl (12.0-16.0); Immature Granulocytes # (auto) 0.05 K/uL (0.01-0.20); Immature Granulocytes % (auto) 0.6 %; Mean Corpuscular Hemoglobin 28.4 pg (25.0-34.0); Mean Corpuscular Volume 86.4 fL (80.0-100.0); Platelet Count 254 K/uL (130-400); RDW Standard Deviation 43.1 fL (36.4-46.3); Red Blood Count 3.59 M/uL (4.20-5.40); White Blood Count 8.74 K/ul (4.8-10.8)
[2025-06-27 06:27] LABS: Alanine Aminotransferase 11.0 U/L (7-52); Albumin Globulin Ratio 1.2 (0.9-2); Alkaline Phosphatase 58.0 U/L (34-104); Anion Gap 10.0 (3-11); Bilirubin,Total 0.6 mg/dl (0.2-1.0); Blood Urea Nitrogen 26.0 mg/dl (6-23); Calcium 8.3 mg/dl (8.6-10.3); Carbon Dioxide 23.0 mmol/L (21-32); Chloride 98.0 mmol/L (98-107); Creatinine Clr Calc Pharmacy 25.4 ml/min; Globulin 2.8 gm/dl (2.5-4.0); Glucose 135.0 mg/dl (70-99(Fasting)); Magnesium 1.9 mg/dl (1.7-2.4); Potassium 3.9 mmol/L (3.5-5.1); Sodium 131.0 mmol/L (136-145); Total Protein 6.2 gm/dl (6.0-8.3)
[2025-06-27] MEDS: CHOLECALCIFEROL 10 MCG (400 UNITS) TAB PO SCH (09:14)
[2025-06-27] MEDS: VIBEGRON 75 MG TAB PO SCH (09:14)
[2025-06-27] MEDS: CALCIUM 600MG + VIT D 400 IU TAB PO SCH (09:14)
--- NOTE | 2025-06-27 09:31 | Cardiology Consultation ---
Date of Consultation June 27, 2025 Assessment & Plan (1) Acute heart failure with normal ejection fraction: (2) Atrial flutter with rapid ventricular response: (3) Elevated troponin I level: Plan Ms. Saunders's heart rate has improved a bit with the addition of IV amiodarone and the doses of digoxin last evening. At this point however given her fast rates over the night and dyspnea as well as pulmonary edema over the evening requiring IV diuretic, she should be electrically cardioverted. We discussed risks and benefits including risk of stroke, hyper or hypotension, and high or low heart rate. She denies missing any doses of her Eliquis in the last 3 weeks. She has been NPO since [place]. I also discussed amiodarone treatment with her and that it requires a bit more monitoring than her previous Multaq to watch for thyroid disfunction, liver disfunction or lung toxicity. At this point however it's necessary to switch to amio to keep her in sinus rhythm after her cardioversion. Her blood pressure is stable. She had a mild bump in her trop in the setting of demand ischemia from her rapid rate. No concerning anginal symptoms. Supervising Physician Co-Signing Physician Notes Will attempt to do cardioversion today. Need to coordinate with manager cardiac cath and anesthesia. History of Present Illness Attending Physician: Jay Farooq MD History of Present Illness Ms. Saunders presented to the ED yesterday after a visit with her pcp and was found to be in a rapid rhythm. Over the night she had shortness of breath, heart rate in the 150s in atrial flutter RVR and pulmonary edema treated with IV furosemide. This morning her heart rates are closer to the 130s and she is feeling a little better. No chest discomfort. Her mild LE edema is improved today. Allergies Allergy/AdvReac Type Severity Reaction Status Date / Time Penicillins AdvReac Intermediate HIVES Verified 06/26/25 13:02 Sulfa (Sulfonamide AdvReac Intermediate GI SYMPTOMS Verified 06/26/25 13:02 Antibiotics) amlodipine AdvReac Unknown Verified 06/26/25 13:02 Home Medications Medication Instructions Recorded Confirmed Type atorvastatin 40 mg tablet 40 mg PO HS 07/29/19 06/26/25 History isosorbide mononitrate 30 mg 30 mg PO DAILY 07/09/20 06/26/25 History tablet,extended release 24 hr alendronate 70 mg tablet (Fosamax) 70 mg PO WK 07/07/23 06/26/25 History apixaban 2.5 mg tablet (Eliquis) 2.5 mg PO BID 05/12/25 06/26/25 History calcium 600 mg (as 1 tab PO DAILY 05/12/25 06/26/25 History carbonate)-vitamin D3 5 mcg (200 unit) tablet cholecalciferol (vitamin D3) 10 10 mcg PO DAILY 05/12/25 06/26/25 History mcg (400 unit) capsule (Vitamin D3) dronedarone 400 mg tablet (Multaq) 400 mg PO BID 05/12/25 06/26/25 History gabapentin 100 mg capsule 100 mg PO TID 05/12/25 06/26/25 History hydralazine 25 mg tablet 25 mg PO TID 05/12/25 06/26/25 History mirabegron 50 mg tablet,extended 50 mg PO DAILY 05/12/25 06/26/25 History release 24 hr nitroglycerin 0.4 mg sublingual 0.4 mg sublingual Q5M PRN chest 05/12/25 06/26/25 History tablet pain polyethylene glycol 3350 17 17 g PO DAILY PRN Constipation 05/30/25 06/26/25 History gram/dose oral powder (Miralax) esomeprazole magnesium 40 mg 40 mg PO DAILY 06/26/25 06/26/25 History capsule,delayed release famotidine 40 mg tablet 40 mg PO DAILY 06/26/25 06/26/25 History Patient History Medical History Rectal bleeding Pain and swelling of right wrist Osteoporosis Heel pain Foreign body of foot or toe, superficial, infected Cellulitis of foot Hypertension H/O atrial flutter Hx of hemorrhoids Surgical History H/O cystoscopy History of cataract surgery History of cardiac catheterization S/P appendectomy H/O heart artery stent Family History Aunt Breast cancer Father Coronary heart disease Parkinson disease Heart disease Mother Heart disease Atrial fibrillation Grandmother Hypertension Stroke Other No family history of adverse response to anesthesia No family history of bleeding disorder Denies family history of Crohn's disease Colorectal cancer Ulcerative colitis Social History Smoking Status: Never smoker Second Hand Exposure: No; Do You Dip or Chew Tobacco: No; Tobacco Cessation Education Requested by Patient: No Hx Alcohol Use: No Hx Substance Use: No Preferred Language: Monegasque Communication Ability: Effective Hearing Ability: Normal Translator And Interpreter Required: No Beliefs That Will Affect Care: None marital status: Current Living Situation: Spouse current occupational status: retired Other Information That Helps Us Care for You: No Feels Safe at Home: Yes Safety Concerns: Feels Safe At This Time Physical Activity Frequency: 1-2 Times per Week Assistive Devices: CPAP and Glasses Assistive Devices Comment: cpap at home have not used in years Review of Systems Review of Systems: All systems reviewed & are unremarkable except as noted in HPI & below Physical Exam Constitutional: WD/WN, vitals as above Respiratory: normal respiratory effort, lungs clear to auscultation Cardiovascular: Rate/Rhythm: + abnormal rate and + abnormal rhythm Heart Sounds: normal S1 and normal S2 Extremities: + edema (trace pitting lower extremities) Skin: no rashes, warm and dry Neurologic: moves all extremities and awake Psychiatric: A+Ox3, euthymic affect Results & Data Vital Signs (Past 12 Hours) Vital Signs Temp Pulse Pulse Resp BP Pulse Ox O2 Del Method 06/27/25 07:31 36.6 C 124 H 18 117/77 97 Room Air 06/27/25 06:04 117 H 18 96 Nasal Cannula 06/27/25 04:43 138 H 120/82 06/27/25 02:36 36.9 C 121 H 22 118/83 99 Nasal Cannula 06/26/25 23:41 Room Air 06/26/25 23:33 111 H 18 96 Nasal Cannula 06/26/25 22:43 114 H 94 Nasal Cannula 06/26/25 22:35 36.4 C L 113 H 25 H 122/77 97 Oxymask 06/26/25 21:53 113 H O2 Flow Rate 06/27/25 07:31 06/27/25 06:04 1 06/27/25 04:43 06/27/25 02:36 2 06/26/25 23:41 2 06/26/25 23:33 2 06/26/25 22:43 4 06/26/25 22:35 8 06/26/25 21:53
--- NOTE | 2025-06-27 09:48 | Electrocardiogram Report ---
Test Reason : Blood Pressure : */* mmHG Vent. Rate : 147 BPM Atrial Rate : * BPM P-R Int : * ms QRS Dur : 94 ms QT Int : 318 ms P-R-T Axes : * -52 122 degrees QTcB Int : 497 ms Supraventricular tachycardia Left axis deviation Low voltage QRS Anterolateral infarct (cited on or before 26-Jun-2025) Abnormal ECG When compared with ECG of 26-Jun-2025 11:27, Sinus rhythm is no longer with 2nd degree A-V block (Mobitz I) QRS axis Shifted left Serial changes of Anterior infarct Present Confirmed by Kevon Conrad ([id number]) on 06/27/2025 9:48:11 AM Referred By: REFERRED SELF Confirmed By: Kevon Conrad
--- NOTE | 2025-06-27 09:59 | Hospitalist Progress Note ---
Date of Service June 27, 2025 Assessment & Plan (1) Atrial flutter with rapid ventricular response: (2) Acute heart failure with normal ejection fraction: Plan 84 year old female with known history of atrial flutter status post cardioversion December 2022 maintained on Multaq presents to the ER in atrial flutter with rapid ventricular rate Atrial flutter with RVR Worsening pulmonary edema last night when rates were higher. Fortunately she remains on 2LPM O2 this morning with rates 110-120 after amiodarone boluses and digoxin given last night Continue anticoagulation with Eliquis (increased to 5mg BID as Cr improved to < 1.5, slightly above this today but that is more because of intravascular depletion with Lasix yesterday) Discussed with Tracey Chaudhry cardiology [employer] and planning for cardioversion today Acute heart failure with preserved ejection fraction / acute hypoxic respiratory failure Secondary to elevated heart rate Currently stable with intravascular depletion, main goal is for HR control therefore will defer further lasix as she should diurese once back in NSR Strict I&Os +ve 916ml recorded Daily standing weights Hypoxia due to pulmonary edema, I do not have a suspicion of pneumonia at this time with normal WBC/procalcitonin and history not suggestive of this. Will d/c antibiotics. Coronary artery disease status post angioplasty and stenting of a 75% mid right coronary artery lesion (02/2015) Continue Eliquis, atorvastatin, ISMN Hypertension Continue ISMN Continue to hold hydralazine to allow for rate/rhythm control and possibly more lasix as clinical course requires Osteoporosis Continue alendronate GERD Continue esomeprazole or hospital formulary equivalent and famotidine VTE Prophylaxis - Eliquis Disposition - continued admission to PCU Admission and Anticipated Discharge Date Admission Date: June 26, 2025 Subjective Improved from last night now rates around 120 instead of 150bpm from 4-7pm yesterday. After this increased rate she developed worsening pulmonary edema and was given digoxin and Lasix. She was then given amiodarone for better rate/rhythm control overnight and has mostly been in 110-120s. She reports feeling much improved from when I last saw her around 7pm last night. Nursing reports she went up to 8LPM but managed to wean to 2LPM O2 this morning. Review of Systems Review of Systems: All systems reviewed & are unremarkable except as noted in HPI & below Physical Exam Constitutional: WD/WN, vitals as above Respiratory: normal respiratory effort; no respiratory distress Auscultation: + crackles (bibasal); breath sounds present and no diminished lung sounds Cardiovascular: Rate/Rhythm: + tachycardic and + irregularly irregular Heart Sounds: no murmur Extremities: + pedal edema; no calf tenderness Gastrointestinal (Abdomen): normal bowel sounds, soft, nontender, no hepatosplenomegaly Results & Data Results & Data Vital Signs (Past 12 Hours) Vital Signs Temp Pulse Pulse Resp BP Pulse Ox O2 Del Method 06/27/25 07:31 36.6 C 124 H 18 117/77 97 Room Air 06/27/25 06:04 117 H 18 96 Nasal Cannula 06/27/25 04:43 138 H 120/82 06/27/25 02:36 36.9 C 121 H 22 118/83 99 Nasal Cannula 06/26/25 23:41 Room Air 06/26/25 23:33 111 H 18 96 Nasal Cannula 06/26/25 22:43 114 H 94 Nasal Cannula 06/26/25 22:35 36.4 C L 113 H 25 H 122/77 97 Oxymask 06/26/25 21:53 113 H O2 Flow Rate 06/27/25 07:31 06/27/25 06:04 1 06/27/25 04:43 06/27/25 02:36 2 06/26/25 23:41 2 06/26/25 23:33 2 06/26/25 22:43 4 06/26/25 22:35 8 06/26/25 21:53 PG Care Time/CCT Total # of Minutes Spent Total Time Spent with Patient: Total time spent is greater than 50% in coordination of care (as documented) at patient's floor/unit and/or counseling patient: Coding Level of Care Code 51904 SUB INP/OBS CARE 3/50MIN Diagnoses Atrial flutter with rapid ventricular response I48.92 Acute heart failure with normal ejection fraction I50.31
--- NOTE | 2025-06-27 10:00 | Anesthesiology Consultation ---
Date of Service June 27, 2025 Assessment & Plan (1) Encounter for pre-operative examination: Chart Review Chart Review: Acceptable Risk for Surgery History Height/Weight Height: 5 ft 4.5 in Weight: 68.5 kg Allergies Allergy/AdvReac Type Severity Reaction Status Date / Time Penicillins AdvReac Intermediate HIVES Verified 06/26/25 13:02 Sulfa (Sulfonamide AdvReac Intermediate GI SYMPTOMS Verified 06/26/25 13:02 Antibiotics) amlodipine AdvReac Unknown Verified 06/26/25 13:02 Medications Home Medications Medication Instructions Recorded Confirmed Last Taken atorvastatin 40 mg tablet 40 mg PO HS 07/29/19 06/26/25 11/16/24 isosorbide mononitrate 30 mg 30 mg PO DAILY 07/09/20 06/26/25 11/16/24 tablet,extended release 24 hr alendronate 70 mg tablet (Fosamax) 70 mg PO WK 07/07/23 06/26/25 11/16/24 apixaban 2.5 mg tablet (Eliquis) 2.5 mg PO BID 05/12/25 06/26/25 Unknown calcium 600 mg (as 1 tab PO DAILY 05/12/25 06/26/25 Unknown carbonate)-vitamin D3 5 mcg (200 unit) tablet cholecalciferol (vitamin D3) 10 10 mcg PO DAILY 05/12/25 06/26/25 Unknown mcg (400 unit) capsule (Vitamin D3) dronedarone 400 mg tablet (Multaq) 400 mg PO BID 05/12/25 06/26/25 Unknown gabapentin 100 mg capsule 100 mg PO TID 05/12/25 06/26/25 Unknown hydralazine 25 mg tablet 25 mg PO TID 05/12/25 06/26/25 Unknown mirabegron 50 mg tablet,extended 50 mg PO DAILY 05/12/25 06/26/25 Unknown release 24 hr nitroglycerin 0.4 mg sublingual 0.4 mg sublingual Q5M PRN chest 05/12/25 06/26/25 Unknown tablet pain polyethylene glycol 3350 17 17 g PO DAILY PRN Constipation 05/30/25 06/26/25 Unknown gram/dose oral powder (Miralax) esomeprazole magnesium 40 mg 40 mg PO DAILY 06/26/25 06/26/25 1 Day Ago capsule,delayed release ~06/25/25 famotidine 40 mg tablet 40 mg PO DAILY 06/26/25 06/26/25 Unknown Active Medications Generic Name Dose Route Start Last Admin Trade Name Caterina GOODRICH Reason Stop Dose Admin Alendronate Sodium 70 mg 06/27/25 06:00 06/27/25 05:03 Alendronate Sodium 70 Mg Tab PO 07/27/25 05:59 Not Given Tu@0600 KEKE Amiodarone HCl 200 mg 06/26/25 17:00 06/27/25 09:14 Amiodarone 200 Mg Tab PO 07/26/25 16:59 200 mg BIDM KEKE Administration Apixaban 5 mg 06/26/25 23:00 06/27/25 09:16 Apixaban 5 Mg Tablet PO 07/26/25 22:59 5 mg BID KEKE Administration Atorvastatin Calcium 40 mg 06/26/25 21:00 06/26/25 20:11 Atorvastatin 40 Mg Tab PO 07/26/25 20:59 40 mg HS KEKE Administration Calcium/Vitamin D 1 tab 06/27/25 09:00 06/27/25 09:14 Calcium 600mg + Vit D 400 Iu Tab PO 07/27/25 08:59 1 tab DAILY KEKE Administration Famotidine 40 mg 06/26/25 15:00 06/27/25 09:15 Famotidine 40 Mg Tablet PO 07/26/25 14:59 40 mg DAILY KEKE Administration Gabapentin 100 mg 06/26/25 21:00 06/27/25 09:14 Gabapentin 100 Mg Cap PO 07/26/25 20:59 100 mg TID KEKE Administration Amiodarone HCl/Dextrose 360 mg in 200 mls @ 16.667 mls/hr 06/26/25 18:30 06/27/25 04:58 Nexterone / D5w IV 07/26/25 18:29 0.5 mg/min .Q12H KEKE 16.7 mls/hr Administration 0.5 MG/MIN Isosorbide Mononitrate 30 mg 06/26/25 15:00 06/27/25 09:15 Isosorbide [place] Extended Rel 30 Mg Tabcr PO 07/26/25 14:59 30 mg DAILY KEKE Administration Pantoprazole Sodium 40 mg 06/26/25 15:00 06/27/25 09:15 Pantoprazole 40 Mg Tab PO 07/26/25 14:59 40 mg DAILY KEKE Administration Vibegron 75 mg 06/27/25 09:00 06/27/25 09:14 Vibegron 75 Mg Tab PO 07/27/25 08:59 75 mg DAILY KEKE Administration Vitamin D 10 mcg 06/27/25 09:00 06/27/25 09:14 Cholecalciferol 10 Mcg (400 Units) Tab PO 07/27/25 08:59 10 mcg DAILY KEKE Administration Past Medical History Medical History (Updated 06/27/25 @ 10:02 by Washington Berg MD) Chronic kidney disease, stage 3 Pulmonary hypertension Atrial fibrillation with rapid ventricular response Acute heart failure with normal ejection fraction Rectal bleeding Pain and swelling of right wrist Osteoporosis Heel pain Foreign body of foot or toe, superficial, infected Cellulitis of foot Hypertension H/O atrial flutter Hx of hemorrhoids Past Family History Family History Aunt Breast cancer Father Coronary heart disease Parkinson disease Heart disease Mother Heart disease Atrial fibrillation Grandmother Hypertension Stroke Other No family history of adverse response to anesthesia No family history of bleeding disorder Denies family history of Crohn's disease Colorectal cancer Ulcerative colitis Past Surgical History Surgical History H/O cystoscopy History of cataract surgery History of cardiac catheterization S/P appendectomy H/O heart artery stent Social History Smoking Status: Never smoker Do You Dip or Chew Tobacco: No Hx Alcohol Use: No Alcohol type: wine alcohol intake frequency: holidays/special occasions only Hx Substance Use: No substance use type: does not use Physical Exam Vital Signs Last Vital Signs Temp 36.6 C 06/27/25 07:31 Pulse 124 H 06/27/25 07:31 Resp 18 06/27/25 07:31 BP 117/77 06/27/25 07:31 Pulse Ox 97 06/27/25 07:31 O2 Del Method Room Air 06/27/25 07:31 O2 Flow Rate 1 06/27/25 06:04 Testing Laboratory Results 06/27/25 05:35 06/27/25 05:35 PT 10.4 Seconds (9.0-12.0) 06/26/25 10:45 INR 1.0 (0.9-1.1) 06/26/25 10:45 APTT 31 Seconds (21-31) 06/26/25 10:45 Echocardiogram Date: 01/06/23 EF: 65% LV Function: normal Other Findings: + atrial enlargement Valvular Disease: + no significant valvular disease
[2025-06-27] MEDS ORDERED: LIDOCAINE 2% 2 ML VIAL/AMP(20MG/ML) INFIL ONE (11:50)
[2025-06-27] MEDS ORDERED: PROPOFOL IV EMULSION 10 MG/ML 20 ML VIAL IV ONE (11:51)
[2025-06-27] MEDS ORDERED: ePHEDrine sulfate 50 MG/5 ML SYR ONE (12:47)
--- NOTE | 2025-06-27 12:48 | Cardioversion ---
Date of Service June 27, 2025 Electrical Cardioversion Rpt Electrical Cardioversion Report The procedure of DC cardioversion for Afib was performed in a fasting state with anesthesia for conscious sedation. Pt has been on her AC uninterrupted. Synchronous DC cardioversion performed successfully at 200 J x1. Sinus bradycardia achieved. HR 45-50 bpm. IV amiodarone DC. Plan to cont po amio load at 200mg bid x 2 weeks then 200mg daily. DC Multaq. Cont NOAC. Follow up with Dr. Singh or Tracey JOY in 1-2 weeks. Pt tolerated the procedure well. Attempted to call her , but he was unavailable by phone or here in the hospital.
--- NOTE | 2025-06-27 12:56 | Anesthesiology Progress Note ---
Date of Service June 27, 2025 Anesthesia Post Procedure Vital Signs Vital Signs: Temp Pulse Pulse Resp BP BP Pulse Ox 06/27/25 12:40 79 18 103/82 100 06/27/25 11:21 141 H 18 128/93 98 06/27/25 07:31 36.6 C 124 H 18 117/77 97 06/27/25 06:04 117 H 18 96 06/27/25 04:43 138 H 120/82 06/27/25 02:36 36.9 C 121 H 22 118/83 99 06/26/25 23:41 06/26/25 23:33 111 H 18 96 06/26/25 22:43 114 H 94 06/26/25 22:35 36.4 C L 113 H 25 H 122/77 97 06/26/25 21:53 113 H 06/26/25 20:03 148 H 06/26/25 19:50 36.6 C 149 H 24 160/101 H 93 06/26/25 18:51 140 H 20 148/94 H 92 06/26/25 15:37 126 H 18 122/88 06/26/25 15:01 36.4 C L 147 H 18 156/108 H 93 06/26/25 14:00 06/26/25 14:00 36.8 C 141 H 18 148/87 H 97 06/26/25 13:00 139 H 22 143/102 H 96 O2 Del Method O2 Flow Rate 06/27/25 12:40 Room Air 06/27/25 11:21 Nasal Cannula 06/27/25 07:31 Room Air 06/27/25 06:04 Nasal Cannula 1 06/27/25 04:43 06/27/25 02:36 Nasal Cannula 2 06/26/25 23:41 Room Air 2 06/26/25 23:33 Nasal Cannula 2 06/26/25 22:43 Nasal Cannula 4 06/26/25 22:35 Oxymask 8 06/26/25 21:53 06/26/25 20:03 06/26/25 19:50 Nasal Cannula 2 06/26/25 18:51 Room Air 06/26/25 15:37 06/26/25 15:01 Room Air 06/26/25 14:00 Room Air 06/26/25 14:00 Room Air 06/26/25 13:00 Room Air Transfer of Care Handoff Completed per policy Notes Mental Status: alert / awake / arousable Patient Amnestic to Procedure: Yes Nausea / Vomiting: adequately controlled Pain: adequately controlled Airway Patency, RR, SpO2: stable & adequate BP & HR: stable & adequate Hydration State: stable & adequate Anesthetic Complications: no major complications apparent
--- NOTE | 2025-06-27 14:50 | Electrocardiogram Report ---
Test Reason : Blood Pressure : */* mmHG Vent. Rate : 78 BPM Atrial Rate : 78 BPM P-R Int : 150 ms QRS Dur : 82 ms QT Int : 506 ms P-R-T Axes : 51 26 169 degrees QTcB Int : 576 ms Normal sinus rhythm Low voltage QRS Cannot rule out Anterior infarct (cited on or before 26-Jun-2025) T wave abnormality, consider inferolateral ischemia Prolonged QT Abnormal ECG When compared with ECG of 26-Jun-2025 20:01, Vent. rate has decreased by 69 bpm QRS axis Shifted right Serial changes of Anterior infarct Present Confirmed by Kevon Conrad ([id number]) on 06/27/2025 2:50:04 PM Referred By: REFERRED SELF Confirmed By: Kevon Conrad
[2025-06-27] MEDS: MAGNESIUM SULFATE / D5W 1 GM/100 ML BAG IV ONE (17:06)
[2025-06-27] MEDS: METOPROLOL TARTRATE 25 MG TAB PO SCH (18:00)
[2025-06-27 18:01] LABS: Anion Gap 12.0 (3-11); Blood Urea Nitrogen 27.0 mg/dl (6-23); Calcium 8.4 mg/dl (8.6-10.3); Carbon Dioxide 24.0 mmol/L (21-32); Chloride 97.0 mmol/L (98-107); Creatinine Clr Calc Pharmacy 25.1 ml/min; Glucose 92.0 mg/dl (70-99(Fasting)); Potassium 4.0 mmol/L (3.5-5.1); Sodium 133.0 mmol/L (136-145)
[2025-06-27] MEDS ORDERED: METOPROLOL TARTRATE 25 MG TAB PO SCH (21:00)
--- NOTE | 2025-06-27 21:06 | Communication Note ---
Date of Service: June 27, 2025 QTC prolongation s/p cardioversion. Patient feeling much improved, less short of breath. Suspect she will continue to diurese now in NSR as she is intra vascularly deplete. Discussed care with Dr Barbour and given prolonged QT will aim Mg > 2. Avoid all QTC prolonging medications (amiodarone placed on hold). Start metoprolol. Requested patient moved to MICU due to increased risk of arrhythmias.
[2025-06-28 06:26] LABS: Hematocrit (blood only) 27.2 % (37.0-47.0); Hemoglobin 9.5 g/dl (12.0-16.0); Immature Granulocytes # (auto) 0.04 K/uL (0.01-0.20); Immature Granulocytes % (auto) 0.4 %; Mean Corpuscular Hemoglobin 30.2 pg (25.0-34.0); Mean Corpuscular Volume 86.3 fL (80.0-100.0); Platelet Count 224 K/uL (130-400); RDW Standard Deviation 42.5 fL (36.4-46.3); Red Blood Count 3.15 M/uL (4.20-5.40); White Blood Count 9.48 K/ul (4.8-10.8)
[2025-06-28 06:39] LABS: Anion Gap 8.0 (3-11); Blood Urea Nitrogen 29.0 mg/dl (6-23); Calcium 7.9 mg/dl (8.6-10.3); Carbon Dioxide 24.0 mmol/L (21-32); Chloride 99.0 mmol/L (98-107); Creatinine Clr Calc Pharmacy 22.1 ml/min; Glucose 105.0 mg/dl (70-99(Fasting)); Magnesium 2.2 mg/dl (1.7-2.4); Potassium 3.8 mmol/L (3.5-5.1); Sodium 131.0 mmol/L (136-145)
[2025-06-28] MEDS: CALCIUM CHLORIDE 10% 10 ML SYR IV ONE ×2 (07:06→07:09)
[2025-06-28] MEDS: ALBUMIN 25% 25 GM/100 ML VIAL IV ONE (07:07)
--- NOTE | 2025-06-28 08:21 | Hospitalist Progress Note ---
Date of Service June 28, 2025 Assessment & Plan Admission and Anticipated Discharge Date Admission Date: June 26, 2025 Results & Data Results & Data Vital Signs (Past 12 Hours) Vital Signs Temp Pulse Pulse Resp BP Pulse Ox O2 Del Method 06/28/25 07:55 Nasal Cannula 06/28/25 07:48 36.4 C L 120 H 16 134/96 97 Room Air 06/28/25 06:56 36.9 C 130 H 24 134/96 96 Nasal Cannula 06/28/25 03:10 37.5 C 70 22 127/68 98 Nasal Cannula 06/27/25 23:53 75 06/27/25 23:21 36.7 C 79 20 144/77 H 90 Room Air O2 Flow Rate 06/28/25 07:55 4 06/28/25 07:48 06/28/25 06:56 2 06/28/25 03:10 2 06/27/25 23:53 06/27/25 23:21
--- NOTE | 2025-06-28 08:29 | Cardiology Progress Note ---
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 Her CAD is likely high risk, potential surgical and beyong the capabilities of [facility]. I would also like the expertise of EP to weigh in on the treatment of Her Afib given the QTc prolongation. Discussed transfer with patient and she is agreeable. Await work from [facility] to discuss transfer. Total 75 minutes spent with patient and reviewing ECHO discussion with primary hospitalist team. Admission and Anticipated Discharge Date Admission Date: June 26, 2025 Subjective This am she went in to rapid Afib again associated with increased SOB. Her cardioversion yesterday was without difficulty however, the post cardioversion ECG showed severe diffuse T wave changes as marked QTc prolongation. Post cardioversion, she denies CP or SOB. I held both the IV and po amiodarone due to the QTc prolongation > 600msec. ECG recheck yesterday afternoon still with similar changes. K and magnesiume At 645 am today went back in to Afib with RVR. She rec'd metoprolol. Repeat ECHO show severe LV dysfunction with new LV dysfunction EF 15-20% with anteroapical WMA. Only the base of the heart appears to move. There is also MR and TR, PA pressures >60mmhg. Both atria are severely enlarged the LA 5.5cm on parasternal view. She just converted back in to NSR 70 with PACs. Still with similar ST changes and QT prolongation. Review of Systems Review of Systems: All systems reviewed & are unremarkable except as noted in HPI & below Physical Exam Physical Exam: SOB with conversational dyspnea Neck: JVD Respiratory: rales b/l 3/4 Cardiovascular: summation gallop Results & Data Vital Signs (Past 12 Hours) Vital Signs Temp Pulse Pulse Resp BP Pulse Ox O2 Del Method 06/28/25 07:55 Nasal Cannula 06/28/25 07:48 36.4 C L 120 H 16 134/96 97 Room Air 06/28/25 06:56 36.9 C 130 H 24 134/96 96 Nasal Cannula 06/28/25 03:10 37.5 C 70 22 127/68 98 Nasal Cannula 06/27/25 23:53 75 06/27/25 23:21 36.7 C 79 20 144/77 H 90 Room Air O2 Flow Rate 06/28/25 07:55 4 06/28/25 07:48 06/28/25 06:56 2 06/28/25 03:10 2 06/27/25 23:53 06/27/25 23:21 Laboratory Results Abnormal lab results 06/27/25 06/28/25 Range/Units 17:16 05:58 RBC 3.15 L (4.20-5.40) M/uL Hgb 9.5 L (12.0-16.0) g/dl Hct 27.2 L (37.0-47.0) % Neut # (Auto) 7.90 H (1.40-6.50) K/uL Lymph # (Auto) 0.55 L (1.20-3.40) K/uL Gordon # (Auto) 0.95 H (0.11-0.59) K/uL Sodium 133 L 131 L (136-145) mmol/L Chloride 97 L (98-107) mmol/L Anion Gap 12 H (3-11) BUN 27 H 29 H (6-23) mg/dl Creatinine 1.55 H 1.61 H (0.6-1.2) mg/dl Glucose 105 H (70-99(Fasting)) mg/dl Calcium 8.4 L 7.9 L (8.6-10.3) mg/dl Troponin I High Sens 174.6 H* D 233.2 H* D (0-14) pg/ml Medications Administered Current Inpatient Medications Alendronate Sodium (Alendronate Sodium 70 Mg Tab) 70 mg PO Tu@0600 KEKE Stop: 07/27/25 05:59 Last Admin: 06/27/25 05:03 Dose: Not Given Amiodarone HCl (Amiodarone 200 Mg Tab) 200 mg PO BIDM KEKE Stop: 07/26/25 16:59 Last Admin: 06/27/25 09:14 Dose: 200 mg Apixaban (Apixaban 5 Mg Tablet) 5 mg PO BID KEKE Stop: 07/26/25 22:59 Last Admin: 06/27/25 20:28 Dose: 5 mg Atorvastatin Calcium (Atorvastatin 40 Mg Tab) 40 mg PO HS KEKE Stop: 07/26/25 20:59 Last Admin: 06/27/25 20:28 Dose: 40 mg Calcium/Vitamin D (Calcium 600mg + Vit D 400 Iu Tab) 1 tab PO DAILY KEKE Stop: 07/27/25 08:59 Last Admin: 06/27/25 09:14 Dose: 1 tab Famotidine (Famotidine 40 Mg Tablet) 40 mg PO DAILY KEKE Stop: 07/26/25 14:59 Last Admin: 06/27/25 09:15 Dose: 40 mg Gabapentin (Gabapentin 100 Mg Cap) 100 mg PO TID KEKE Stop: 07/26/25 20:59 Last Admin: 06/27/25 20:28 Dose: 100 mg Albumin Human (Albumin 25%) 25 gm in 100 mls @ 50 mls/hr IV ONE ONE Stop: 06/28/25 09:02 Last Infusion: 06/28/25 07:43 Dose: Infused Isosorbide Mononitrate (Isosorbide [place] Extended Rel 30 Mg Tabcr) 30 mg PO DAILY KEKE Stop: 07/26/25 14:59 Last Admin: 06/27/25 09:15 Dose: 30 mg Metoprolol Tartrate (Metoprolol Tartrate 25 Mg Tab) 25 mg PO BID KEKE Stop: 07/27/25 17:09 Last Admin: 06/27/25 18:00 Dose: 25 mg Pantoprazole Sodium (Pantoprazole 40 Mg Tab) 40 mg PO DAILY KEKE Stop: 07/26/25 14:59 Last Admin: 06/27/25 09:15 Dose: 40 mg Polyethylene Glycol (Polyethylene (Miralax) 17 Gm Pack) 17 gm PO DAILY PRN PRN Reason: Constipation Stop: 07/26/25 14:44 Vibegron (Vibegron 75 Mg Tab) 75 mg PO DAILY KEKE Stop: 07/27/25 08:59 Last Admin: 06/27/25 09:14 Dose: 75 mg Vitamin D (Cholecalciferol 10 Mcg (400 Units) Tab) 10 mcg PO DAILY KEKE Stop: 07/27/25 08:59 Last Admin: 06/27/25 09:14 Dose: 10 mcg ECG Additional Comments: see above
[2025-06-28] MEDS: POTASSIUM CHLORIDE 10 MEQ TABCR PO STA (09:43)
--- NOTE | 2025-06-28 09:44 | Electrocardiogram Report ---
Test Reason : Blood Pressure : */* mmHG Vent. Rate : 74 BPM Atrial Rate : 74 BPM P-R Int : 180 ms QRS Dur : 86 ms QT Int : 568 ms P-R-T Axes : 60 73 186 degrees QTcB Int : 630 ms Sinus rhythm with marked sinus arrhythmia Low voltage QRS Prolonged QT Abnormal ECG When compared with ECG of 27-Jun-2025 12:56, QT has lengthened Confirmed by Padmini Barbour (Gino) on 06/28/2025 9:44:31 AM Referred By: REFERRED SELF Confirmed By: Padmini Barbour
--- NOTE | 2025-06-28 09:46 | Electrocardiogram Report ---
Test Reason : Blood Pressure : */* mmHG Vent. Rate : 74 BPM Atrial Rate : 74 BPM P-R Int : 194 ms QRS Dur : 104 ms QT Int : 554 ms P-R-T Axes : 107 -64 176 degrees QTcB Int : 614 ms Sinus rhythm with Premature atrial complexes Left axis deviation Inferior infarct , age undetermined Anterior infarct , age undetermined Prolonged QT Abnormal ECG When compared with ECG of 27-Jun-2025 16:42, (unconfirmed) Premature atrial complexes are now Present QRS duration has increased Anterior infarct is now Present Inferior infarct is now Present Confirmed by Padmini Barbour (Gino) on 06/28/2025 9:45:55 AM Referred By: REFERRED SELF Confirmed By: Padmini Barbour
[2025-06-28] MEDS: FUROSEMIDE 40 MG/4 ML VIAL IV ONE (10:59)
[2025-06-28 11:35] LABS: Anion Gap 9.0 (3-11); Blood Urea Nitrogen 28.0 mg/dl (6-23); Calcium 9.9 mg/dl (8.6-10.3); Carbon Dioxide 23.0 mmol/L (21-32); Chloride 98.0 mmol/L (98-107); Creatinine Clr Calc Pharmacy 23.4 ml/min; Glucose 110.0 mg/dl (70-99(Fasting)); Potassium 4.2 mmol/L (3.5-5.1); Sodium 130.0 mmol/L (136-145)
[2025-06-28 11:44] VITALS: BP 138/92; RESP 20; TEMP 98.4; O2SAT 97
[2025-06-28 16:12] VITALS: PULSE 66
--- NOTE | 2025-06-28 17:28 | Discharge Summary ---
Discharge Summary Date of Service June 28, 2025 Principal Dx & Hospital Course #1 = Principal Diagnosis (1) Atrial flutter with rapid ventricular response: (2) Acute heart failure with normal ejection fraction: Plan early this morning became tachycardic again and quite dyspneic. Managed by overnight team. Echocardiogram then obtained and showed diffuse wall motion abnormalities. This combined with her known left main disease and her new left bundle branch block strongly suggested that she had severe rate related ischemia. The complexity of her refractory A-fib/flutter, as well as her known left main disease definitely put her into a tertiary care level of complexity. Greatly appreciate cardiology calling in facilitating transfer, other paperwork completed by myself. Patient seen [facility] dyspnea, rates under control. Transfer to tertiary this afternoon. Last progress note from previous physician as below 84 year old female with known history of atrial flutter status post cardioversion December 2022 maintained on Multaq presents to the ER in atrial flutter with rapid ventricular rate Atrial flutter with RVR Worsening pulmonary edema last night when rates were higher. Fortunately she remains on 2LPM O2 this morning with rates 110-120 after amiodarone boluses and digoxin given last night Continue anticoagulation with Eliquis (increased to 5mg BID as Cr improved to < 1.5, slightly above this today but that is more because of intravascular depletion with Lasix yesterday) Discussed with Tracey Chaudhry cardiology [employer] and planning for cardioversion today Acute heart failure with preserved ejection fraction / acute hypoxic respiratory failure Secondary to elevated heart rate Currently stable with intravascular depletion, main goal is for HR control therefore will defer further lasix as she should diurese once back in NSR Strict I&Os +ve 916ml recorded Daily standing weights Hypoxia due to pulmonary edema, I do not have a suspicion of pneumonia at this time with normal WBC/procalcitonin and history not suggestive of this. Will d/c antibiotics. Coronary artery disease status post angioplasty and stenting of a 75% mid right coronary artery lesion (02/2015) Continue Eliquis, atorvastatin, ISMN Hypertension Continue ISMN Continue to hold hydralazine to allow for rate/rhythm control and possibly more lasix as clinical course requires Osteoporosis Continue alendronate GERD Continue esomeprazole or hospital formulary equivalent and famotidine VTE Prophylaxis - Eliquis Disposition - continued admission to PCU Notes For Next Care Provider Medication Changes From Visit Per Codie Admission HPI Per Admitting Provider Claudine Saunders is an 84 year old female who presents to the ER from her PCP office due to elevated heart rate. She felt her normal self yesterday. On her way to a routine visit to her primary care office today she reports having palpitations but didn't realize her heart rate was elevated. In the office she was noted to have an elevated rate and thought to be in atrial fibrillation therefore sent to the ER for further evaluation and treatment. She denies any chest pain. She reports shortness of breath on exertion but none at rest and she puts this down to feeling worried. Some leg swelling but no worse than usual. She reports not taking her usual medications today. Last took Multaq yesterday afternoon around 5-6pm. She is has been taking Eliquis without missing doses for at least the last month. No other respiratory, gastrointestinal or urinary symptoms. No fever or chills. Updated Medication List Medication Instructions Recorded Confirmed Type atorvastatin 40 mg tablet 40 mg PO HS 07/29/19 06/26/25 History isosorbide mononitrate 30 mg 30 mg PO DAILY 07/09/20 06/26/25 History tablet,extended release 24 hr alendronate 70 mg tablet (Fosamax) 70 mg PO WK 07/07/23 06/26/25 History apixaban 2.5 mg tablet (Eliquis) 2.5 mg PO BID 05/12/25 06/26/25 History calcium 600 mg (as 1 tab PO DAILY 05/12/25 06/26/25 History carbonate)-vitamin D3 5 mcg (200 unit) tablet cholecalciferol (vitamin D3) 10 10 mcg PO DAILY 05/12/25 06/26/25 History mcg (400 unit) capsule (Vitamin D3) dronedarone 400 mg tablet (Multaq) 400 mg PO BID 05/12/25 06/26/25 History gabapentin 100 mg capsule 100 mg PO TID 05/12/25 06/26/25 History hydralazine 25 mg tablet 25 mg PO TID 05/12/25 06/26/25 History mirabegron 50 mg tablet,extended 50 mg PO DAILY 05/12/25 06/26/25 History release 24 hr nitroglycerin 0.4 mg sublingual 0.4 mg sublingual Q5M PRN chest 05/12/25 06/26/25 History tablet pain polyethylene glycol 3350 17 17 g PO DAILY PRN Constipation 05/30/25 06/26/25 History gram/dose oral powder (Miralax) esomeprazole magnesium 40 mg 40 mg PO DAILY 06/26/25 06/26/25 History capsule,delayed release famotidine 40 mg tablet 40 mg PO DAILY 06/26/25 06/26/25 History Hospital Stay Data Consultations 06/26/25 12:11 ED Decision to Admit Stat 06/26/25 19:38 Consult Cardiology Routine 06/28/25 15:14 Burn CD for patient Stat Procedures Performed Operation Date: 06/27/25 12:15 Actual Procedures p Cardioversion w/Anesthesia Sedation - Padmini Barbour DO Pending Results Patient Have Any Pending Studies at Discharge: No Discharge Instructions Given to Patient (Per Discharging Provider) Total Time Total Time Spent Total Time Spent (In Minutes): <30
--- NOTE | 2025-06-29 06:47 | Coding Query ---
CODING QUERY To promote full compliance with coding requirements relating to patient care, provider participation is requested in all cases of fence installer helper uncertainty. Please assist us with the question(s) below: Coding Question(s): In the cardiology progress note from 06/28 the patient has a diagnosis of Non-STEMI, however in the addendum of the discharge summary there is the following documentation, "also had pulmonary edema that was self pay representative of acute on chronic combined systolic and diastolic CHFthe acuity precipitated by her ischemic event (which appeared to be rate related severe demand ischemia in the setting of her known left main coronary disease.) In your clinical opinion, could you please clarify the patient's condition by placing an 'x' in the parenthesis below? Demand ischemia without NSTEMI ( ) NSTEMI ( x) Other, please specify ( ) Physician's Response(s): Thank you Nuria Ramírez Principal Diagnosis: "that condition established after study, to be chiefly responsible for occasioning the admission of the patient to the hospital for care." Co-Existing Principal Diagnosis: "when two or more diagnoses equally meet the criteria for principal diagnosis as determined by the circumstances of admission, diagnostic work up, and/or therapy provided, and the Alphabetic Index, Tabular List, or another coding guideline does not provide sequencing direction, any one of the diagnoses may be sequenced first." "When the physician has documented what appears to be a current diagnosis in the body of the record, but has not included the diagnosis in the final diagnostic statement, the physician should be asked whether the diagnosis should be added." (Source [facility]oding [facility] 2 QTR90. p3-4) LINDSEY
--- NOTE | 2025-06-29 09:17 | Electrocardiogram Report ---
Test Reason : Blood Pressure : */* mmHG Vent. Rate : 128 BPM Atrial Rate : * BPM P-R Int : * ms QRS Dur : 140 ms QT Int : 386 ms P-R-T Axes : * -56 141 degrees QTcB Int : 563 ms Wide QRS tachycardia Suspected Atrial Flutter Left axis deviation Non-specific intra-ventricular conduction block Minimal voltage criteria for LVH, may be normal variant ( Anirudh product ) Cannot rule out Anterior infarct , age undetermined T wave abnormality, consider lateral ischemia Abnormal ECG When compared with ECG of 28-Jun-2025 00:52, Wide QRS tachycardia has replaced Sinus rhythm Vent. rate has increased by 54 bpm Confirmed by Padmini Barbour ([id number]) on 06/29/2025 9:17:31 AM Referred By: REFERRED SELF Confirmed By: Padmini Barbour
--- NOTE | 2025-06-29 09:18 | Electrocardiogram Report ---
Test Reason : Blood Pressure : */* mmHG Vent. Rate : 71 BPM Atrial Rate : 71 BPM P-R Int : 150 ms QRS Dur : 122 ms QT Int : 484 ms P-R-T Axes : 63 -60 160 degrees QTcB Int : 525 ms Sinus rhythm with marked sinus arrhythmia Left anterior fascicular block Anterolateral infarct , age undetermined Abnormal ECG When compared with ECG of 28-Jun-2025 06:50, (unconfirmed) Sinus rhythm has replaced Wide QRS tachycardia Vent. rate has decreased by 57 bpm Confirmed by Padmini Barbour (Gino) on 06/29/2025 9:17:48 AM Referred By: REFERRED SELF Confirmed By: Padmini Barbour
--- NOTE | 2025-07-04 07:49 | Electrocardiogram Report ---
Test Reason : Blood Pressure : */* mmHG Vent. Rate : 74 BPM Atrial Rate : 74 BPM P-R Int : 148 ms QRS Dur : 84 ms QT Int : 510 ms P-R-T Axes : 32 -51 190 degrees QTcB Int : 566 ms Sinus rhythm with marked sinus arrhythmia Left axis deviation Anterior infarct (cited on or before 28-Jun-2025) T wave abnormality, consider inferolateral ischemia Prolonged QT Abnormal ECG When compared with ECG of 28-Jun-2025 00:52, Premature atrial complexes are no longer Present QRS duration has decreased Serial changes of Anterior infarct Present Confirmed by Padmini Barbour (Gino) on 07/04/2025 7:48:57 AM Referred By: REFERRED SELF Confirmed By: Padmini Barbour
== END 2025-06-28 16:38 | disposition short-term general hospital (02) | DRG 280 ==
LOC: ED 10:21 → 4W 12:46 → SUATTDRO 12:46 → 4W 13:43 → 2E 06-27 17:37

== ENCOUNTER 2025-07-07 13:28 | Inpatient (IN) ==
[2025-07-07 14:23] LABS: Hematocrit (blood only) 32.3 % (37.0-47.0); Hemoglobin 10.6 g/dl (12.0-16.0); Immature Granulocytes # (auto) 0.10 K/uL (0.01-0.20); Immature Granulocytes % (auto) 0.8 %; Mean Corpuscular Hemoglobin 28.3 pg (25.0-34.0); Mean Corpuscular Volume 86.1 fL (80.0-100.0); Platelet Count 387 K/uL (130-400); RDW Standard Deviation 41.1 fL (36.4-46.3); Red Blood Count 3.75 M/uL (4.20-5.40); White Blood Count 12.02 K/ul (4.8-10.8)
--- NOTE | 2025-07-07 14:30 | XRay Report ---
XR chest 1V portable CLINICAL HISTORY: weakness COMPARISON STUDY: 06/26/2025 FINDINGS: Stable cardiomegaly with mild pulmonary vascular congestion. There are small bilateral pleu ral effusions and mild adjacent lung base consolidation. No pneumothorax. IMPRESSION: CHF with small bilateral pleural effusions. ACT 112: Negative or not required by law. Electronically signed by: Alistair Nguyen M.D. 07/07/2025 2:29 PM
[2025-07-07 14:41] LABS: Alanine Aminotransferase 17 U/L (7-52); Albumin Globulin Ratio 1.0 (0.9-2); Albumin Level 3.5 gm/dl (3.4-5.0); Alkaline Phosphatase 86 U/L (34-104); Anion Gap 11 (3-11); Bilirubin,Total 1.2 mg/dl (0.2-1.0); Blood Urea Nitrogen 37 mg/dl (6-23); Calcium 8.7 mg/dl (8.6-10.3); Carbon Dioxide 26 mmol/L (21-32); Chloride 86 mmol/L (98-107); Globulin 3.5 gm/dl (2.5-4.0); Glucose 131 mg/dl (70-99(Fasting)); Magnesium 1.9 mg/dl (1.7-2.4); Potassium 4.1 mmol/L (3.5-5.1); Sodium 123 mmol/L (136-145); Total Protein 7.0 gm/dl (6.0-8.3)
--- NOTE | 2025-07-07 14:43 | Emergency Department Note ---
Impression & Plan Fatigue, Hyponatremia ED Provider Note ED Provider Note NAME: SHAHRZAD CHANG AGE:84 SEX: Female : 1940 ARRIVES VIA: private vehicle INFORMANT: Patient ED PROVIDER(s): Maria Elena Stewart DO CHIEF COMPLAINT: fatigue HPI: This is an 84-year-old female who presents to the emergency department due to concern for increased fatigue. Patient recently admitted at our facility and then transferred to [facility] due to complications related to rapid atrial fibrillation and a new diagnosis of congestive heart failure. There was concern for accompanying coronary artery disease. Patient and family state done at [facility] she underwent a cardiac catheterization however no stents were placed. They state she also underwent a transesophageal echo which showed a right atrial thrombus. They state her Eliquis was increased and she was started on oral amiodarone. She states she also had her metoprolol increased. She states she felt well her first 2 days home and even had physical therapy at home yesterday. Today however she and family notes she has been markedly more fatigued. They states she seems to just want to fall asleep. She seems appropriate when awake just very tired. She denies chest pain, shortness of breath, headaches, abdominal pain, difficulty with her bowel movements, or trouble urinating. No recent leg swelling. No change in her weight as they do monitor her daily weights. She is not on any fluid restriction. PAST MEDICAL HISTORY:See Below PAST SURGICAL HISTORY:See Below FAMILY HISTORY:See Below SOCIAL HISTORY:See Below HOME MEDICATIONS:See Below ALLERGIES:See Below VITALS:See Below PHYSICAL EXAMINATION: GENERAL: alert, well appearing, well nourished, no distress, non-toxic EYE EXAM: normal conjunctiva, PERRL and EOM's grossly intact OROPHARYNX: no exudate, no erythema, lips, buccal mucosa, and tongue normal and mucous membranes are moist NECK: supple, no nuchal rigidity, no adenopathy, non-tender LUNGS: Clear to auscultation. Normal chest wall mechanics, no w/r/r HEART: no murmurs, S1 normal and S2 normal ABDOMEN: abdomen soft, non-tender, normo-active bowel sounds, no masses, no rebound or guarding. SKIN: no rashes, petechiae, orbruising UPPER EXTREMITIES: upper extremities are grossly normal. FROM, nml pulses b/l. LOWER EXTREMITIES: No pitting edema. FROM, nml pulses b/l. NEURO EXAM: Normal sensorium, cranial nerves II-XII grossly intact, normal speech, no facial droop,nogross weakness of arms, no gross weakness of legs. Gross sensation intact. No ataxia. Vital Signs: reviewed and remarkable Differential Diagnosis: dehydration, stroke, anemia, hypoglycemia, hyponatremia, hypernatremia, urinary tract infection, pneumonia, bronchitis, sepsis, gastroenteritis, additional abdominal pathology, metabolic abnormalities, as well as others were considered MEDICAL DECISION MAKING: This is an 84-year-old female who presents to the emergency department with family due to concern for increased fatigue. Patient with recent admission here and transferred to [facility] due to concern for cardiac pathology. Patient afebrile and hemodynamically stable. She had a nonfocal neuroexam and had no other complaints other than fatigue. Labs drawn and sent, IV established, EKG and CXR performed and interpreted at bedside, and patient placed on telemetry. Nasal swab obtained and sent for [employer] additionally. Patient's labs reassuring with exception of sodium level which was noted to be much lower than when she was recently admitted. Patient does have a chronic history of hyponatremia. Given recent change in medications clear if this contributed to her hyponatremia. We also discussed the increase in her metoprolol and addition of other new medications could have contributed to fatigue as well. Given concern for hyponatremia and cardiac history, case discussed with the hospitalist team for additional evaluation and management. Patient hemodynamically stable throughout. Patient with no other new or evolving symptoms while monitored in the emergency department. Anemia noted on the patient however this appears stable compared to prior. Creatinine also noted to be elevated however this also appears stable compared to prior. UA pending at time of discussion with the hospitalist team. Consultation(s): 1646: Discussed with Dr. Burroughs, [place] hospitalist team, for additional evaluation and mgmt. ER Treatment Provided: See below Diagnostics Interpreted By Me: -ECG: Normal sinus at 77, 1st degree AV block, nml axis, prolonged QTc, inverted T waves noted nearly throughout although this was seen on prior EKG tracings -Cardiac Monitoring: An order was placed for continuous cardiac monitoring. The monitor shows a rate of 78 with rhythm. -Laboratory studies: As stated above and show below. -Imaging studies: X-ray Chest: A single view study of the chest was reviewed and was negative for cardiomegaly, focal infiltrate, effusion, pulmonary edema, or wide mediastinum. Improved compared to prior. 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 Non-STEMI (non-ST elevated myocardial infarction) QT prolongation HFrEF (heart failure with reduced ejection fraction) Encounter for pre-operative examination Elevated troponin I level Atrial flutter with rapid ventricular response Heart palpitations (Acute) Zinc deficiency Pupil asymmetry PAF (paroxysmal atrial fibrillation) Other specified abnormal findings of blood chemistry OAB (overactive bladder) Mixed incontinence urge and stress Mitral regurgitation 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) Hypertensive chronic kidney disease with stage 1 through stage 4 chronic kidney disease, or unspecified chronic kidney disease Glossodynia KIAN (generalized anxiety disorder) Dry mouth not due to sicca syndrome Diastolic CHF, chronic Constipation, unspecified Burning sensation of mouth BRBPR (bright red blood per rectum) Arthritis of hip Sleep apnea Anemia 3-vessel CAD Glossodynia exfoliativa Low zinc level Parageusia dysgeusia Multiple rib fractures (Acute) Acute hyponatremia (Acute) Dysphagia Acute blood loss anemia CHERYL (acute kidney injury) Rosacea (Chronic) Coronary artery disease (Chronic) Hyponatremia Closed fracture of pubic ramus (Acute) Tachy-georges syndrome Sinus bradycardia Syncope (Acute) Bradycardia (Acute) Acute dehydration (Acute) New onset atrial flutter (Acute) Elevated troponin (Acute) Atrial flutter Vitiligo (Acute) Medical History (Updated 07/07/25 @ 21:04 by Maria Elena Stewart DO) Chronic kidney disease, stage 3 Pulmonary hypertension Atrial fibrillation with rapid ventricular response Acute heart failure with normal ejection fraction Rectal bleeding Pain and swelling of right wrist Osteoporosis Heel pain Foreign body of foot or toe, superficial, infected Cellulitis of foot Hypertension H/O atrial flutter Hx of hemorrhoids Surgical History H/O cystoscopy History of cataract surgery History of cardiac catheterization S/P appendectomy H/O heart artery stent Family History Aunt Breast cancer Father Coronary heart disease Parkinson disease Heart disease Mother Heart disease Atrial fibrillation Grandmother Hypertension Stroke Other No family history of adverse response to anesthesia No family history of bleeding disorder Denies family history of Crohn's disease Colorectal cancer Ulcerative colitis Social History Smoking Status: Never smoker Second Hand Exposure: No; Do You Dip or Chew Tobacco: No; Hx Alcohol Use: No Hx Substance Use: No Preferred Language: Divehi Communication Ability: Effective Hearing Ability: Normal Cook Short Order Required: No Beliefs That Will Affect Care: None marital status: Current Living Situation: Spouse Current Living Situation Comment: with current occupational status: retired Other Information That Helps Us Care for You: No Feels Safe at Home: Yes Safety Concerns: Feels Safe At This Time Physical Activity Frequency: 1-2 Times per Week Assistive Devices: CPAP and Glasses Assistive Devices Comment: does not wear cpap Allergies Allergies Allergy/AdvReac Type Severity Reaction Status Date / Time Penicillins AdvReac Intermediate HIVES Verified 07/07/25 16:46 Sulfa (Sulfonamide AdvReac Intermediate GI SYMPTOMS Verified 07/07/25 16:46 Antibiotics) amlodipine AdvReac Unknown CAN'T Verified 07/07/25 16:46 REMEMBER Home Meds Home Medications Medication Instructions Recorded Confirmed atorvastatin 40 mg tablet 40 mg PO HS 07/29/19 07/07/25 alendronate 70 mg tablet (Fosamax) 70 mg PO WK 07/07/23 07/07/25 calcium 600 mg (as 1 tab PO DAILY 05/12/25 07/07/25 carbonate)-vitamin D3 5 mcg (200 unit) tablet cholecalciferol (vitamin D3) 10 10 mcg PO DAILY 05/12/25 07/07/25 mcg (400 unit) capsule (Vitamin D3) gabapentin 100 mg capsule 100 mg PO TID 05/12/25 07/07/25 mirabegron 50 mg tablet,extended 50 mg PO DAILY 05/12/25 07/07/25 release 24 hr nitroglycerin 0.4 mg sublingual 0.4 mg sublingual Q5M PRN chest 05/12/25 07/07/25 tablet pain polyethylene glycol 3350 17 17 g PO DAILY PRN Constipation 05/30/25 07/07/25 gram/dose oral powder (Miralax) esomeprazole magnesium 40 mg 40 mg PO DAILY 06/26/25 07/07/25 capsule,delayed release amiodarone 200 mg tablet 400 mg PO BID 07/07/25 07/07/25 apixaban 5 mg tablet (Eliquis) 5 mg PO BID 07/07/25 07/07/25 aspirin 81 mg tablet,delayed 81 mg PO DAILY 07/07/25 07/07/25 release empagliflozin 10 mg tablet 10 mg PO DAILY 07/07/25 07/07/25 (Jardiance) famotidine 20 mg tablet 20 mg PO DAILY 07/07/25 07/07/25 furosemide 40 mg tablet (Lasix) 40 mg PO DAILY 07/07/25 07/07/25 metoprolol succinate 100 mg 100 mg PO BID 07/07/25 07/07/25 tablet,extended release 24 hr zinc sulfate 25 mg zinc (110 mg) 25 mg PO DAILY 07/07/25 07/07/25 tablet Results & Data (ED) Vital Signs Vital Signs - 24 hr 07/07/25 13:32 07/07/25 14:36 07/07/25 15:03 Temperature 36.5 C Temperature Source Temporal Artery Scan Pulse Rate 79 77 74 Pulse Rate from SpO2 Sensor 76 Respiratory Rate 20 18 16 Respiratory Effort / Characteristics Non-Labored Spontaneous Respiratory Depth Normal Blood Pressure 114/75 Blood Pressure Mean 88 Pulse Oximetry 98 98 Oxygen Delivery Method Room Air Sepsis Recent Fever Within 48 Hours No Sepsis New/Unexplained Change in Mental Status No Sepsis Action Taken by Nursing No Action Required 07/07/25 15:30 07/07/25 15:45 07/07/25 16:00 Temperature Temperature Source Pulse Rate 77 74 77 Pulse Rate from SpO2 Sensor 77 75 Respiratory Rate 19 18 Respiratory Effort / Characteristics Respiratory Depth Blood Pressure 112/67 105/67 Blood Pressure Mean 82 72 Pulse Oximetry 99 98 98 Oxygen Delivery Method Sepsis Recent Fever Within 48 Hours Sepsis New/Unexplained Change in Mental Status Sepsis Action Taken by Nursing 07/07/25 16:06 07/07/25 16:30 07/07/25 16:45 Temperature Temperature Source Pulse Rate 77 81 77 Pulse Rate from SpO2 Sensor 77 79 78 Respiratory Rate 18 21 21 Respiratory Effort / Characteristics Respiratory Depth Blood Pressure 105/67 114/72 Blood Pressure Mean 79 96 Pulse Oximetry 99 98 100 Oxygen Delivery Method Sepsis Recent Fever Within 48 Hours Sepsis New/Unexplained Change in Mental Status Sepsis Action Taken by Nursing 07/07/25 17:06 Temperature Temperature Source Pulse Rate 77 Pulse Rate from SpO2 Sensor 77 Respiratory Rate 15 Respiratory Effort / Characteristics Respiratory Depth Blood Pressure Blood Pressure Mean Pulse Oximetry 98 Oxygen Delivery Method Sepsis Recent Fever Within 48 Hours Sepsis New/Unexplained Change in Mental Status Sepsis Action Taken by Nursing Laboratory Data 07/07/25 14:03 07/07/25 14:03 Lab Results 07/07/25 07/07/25 Range/Units 14:03 14:58 WBC 12.02 H (4.8-10.8) K/ul RBC 3.75 L (4.20-5.40) M/uL Hgb 10.6 L (12.0-16.0) g/dl Hct 32.3 L (37.0-47.0) % MCV 86.1 (80.0-100.0) fL MCH 28.3 (25.0-34.0) pg MCHC 32.8 (32.0-36.0) g/dL RDW Std Deviation 41.1 (36.4-46.3) fL RDW Coeff of Erik 13.4 (11.5-14.5) % Plt Count 387 (130-400) K/uL MPV 9.9 (9.4-12.4) fL Immature Gran % (Auto) 0.8 % Neut % (Auto) 81.1 % Lymph % (Auto) 5.5 % [place] % (Auto) 12.1 % Eos % (Auto) 0.2 % Baso % (Auto) 0.3 % Neut # (Auto) 9.75 H (1.40-6.50) K/uL Lymph # (Auto) 0.66 L (1.20-3.40) K/uL [place] # (Auto) 1.45 H (0.11-0.59) K/uL Eos # (Auto) 0.02 (0.00-0.50) K/uL Baso # (Auto) 0.04 (0.00-0.20) K/uL Immature Gran # (Auto) 0.10 (0.01-0.20) K/uL Sodium 123 L (136-145) mmol/L Potassium 4.1 (3.5-5.1) mmol/L Chloride 86 L (98-107) mmol/L Carbon Dioxide 26 (21-32) mmol/L Anion Gap 11 (3-11) BUN 37 H (6-23) mg/dl Creatinine 1.53 H (0.6-1.2) mg/dl Est Cr Clr Drug Dosing Not Reportable eGFR 32.94 BUN/Creatinine Ratio 24.2 H (10-20) Glucose 131 H (70-99(Fasting)) mg/dl Osmolality 267 L (280-300) mOsm/kg Calcium 8.7 (8.6-10.3) mg/dl Magnesium 1.9 (1.7-2.4) mg/dl Total Bilirubin 1.2 H (0.2-1.0) mg/dl AST 21 (13-39) U/L ALT 17 (7-52) U/L Alkaline Phosphatase 86 (34-104) U/L Total Protein 7.0 (6.0-8.3) gm/dl Albumin 3.5 (3.4-5.0) gm/dl Globulin 3.5 (2.5-4.0) gm/dl Albumin/Globulin Ratio 1.0 (0.9-2) TSH 2.583 (0.300-4.500) uIu/ml Free T4 1.92 H (0.61-1.60) ng/dl Free T3 1.89 L (2.3-4.2) pg/ml Adenovirus (PCR) Not Detected (NotDetected) B. pertussis DNA (PCR) Not Detected (NotDetected) B.parapertussis DNA PCR Not Detected (NotDetected) C. pneumoniae DNA (PCR) Not Detected (NotDetected) Coronavirus OC43 (PCR) Not Detected (NotDetected) Coronavirus HKU1 (PCR) Not Detected (NotDetected) Coronavirus 229E (PCR) Not Detected (NotDetected) SARS-CoV-2 (PCR) Not Detected (NotDetected) Coronavirus NL63 (PCR) Not Detected (NotDetected) Human Metapneumovir PCR Not Detected (NotDetected) Influenza Type A (PCR) Not Detected (NotDetected) Influenza Type B (PCR) Not Detected (NotDetected) M. pneumoniae (PCR) Not Detected (NotDetected) Parainfluenza 1 (PCR) Not Detected (NotDetected) Parainfluenza 2 (PCR) Not Detected (NotDetected) Parainfluenza 3 (PCR) Not Detected (NotDetected) Parainfluenza 4 (PCR) Not Detected (NotDetected) RSV (PCR) Not Detected (NotDetected) Entero/Rhino (PCR) Not Detected (NotDetected) Administered Medications Discontinued Medications Gabapentin (Gabapentin 100 Mg Cap) 100 mg PO NOW STA Stop: 07/07/25 16:20 Last Admin: 07/07/25 16:30 Dose: 100 mg Documented By: BILL Sodium Chloride (Nss) 1,000 mls @ 75 mls/hr IV .[id number] KEKE Stop: 07/10/25 14:14 Last Infusion: 07/07/25 19:45 Dose: 0 mls/hr Documented By: Infusion: 07/07/25 19:44 Dose: 0 mls/hr Documented By: Infusion: 07/07/25 16:28 Dose: 75 mls/hr Documented By: Admin: 07/07/25 15:05 Dose: 125 mls/hr Documented By: BILL Imaging Data Radiologist's Impression: Chest X-Ray 07/07/25 14:10 XR chest 1V portable CLINICAL HISTORY: weakness COMPARISON STUDY: 06/26/2025 FINDINGS: Stable cardiomegaly with mild pulmonary vascular congestion. There are small bilateral pleural effusions and mild adjacent lung base consolidation. No pneumothorax. IMPRESSION: CHF with small bilateral pleural effusions. ACT 112: Negative or not required by law. Electronically signed by: Alistair Nguyen M.D. 07/07/2025 2:29 PM Discharge Plan Visit Data Chief Complaint: Lethargic Stated Complaint: LIGHT HEADED, WEAK, LETHARGIC ED Provider: Maria Elena Stewart Discharge Problem: Fatigue, Hyponatremia Patient Disposition: Home - Self-Care Condition: Fair Discharge Instructions Interventions: ED Discharge Assessment Last Done: 07/07/25 19:33
[2025-07-07 14:56] LABS: Thyroid Stimulating Hormone 2.583 uIu/ml (0.300-4.500)
[2025-07-07] MEDS: SODIUM CHLORIDE 0.9% 1,000 ML IV SCH (15:05)
[2025-07-07 15:56] LABS: Chlamydia pneumoniae PCR Not Detected (NotDetected); Coronavirus 229E PCR Not Detected (NotDetected); Coronavirus CoV-2 (COVID19)PCR Not Detected (NotDetected); Coronavirus HKU1 PCR Not Detected (NotDetected); Coronavirus NL63 PCR Not Detected (NotDetected); Coronavirus OC43PCR Not Detected (NotDetected); Human Metapneumovirus PCR Not Detected (NotDetected); Parainfluenza Virus 1 PCR Not Detected (NotDetected); Parainfluenza Virus 2 PCR Not Detected (NotDetected); Parainfluenza Virus 3 PCR Not Detected (NotDetected); Parainfluenza Virus 4 PCR Not Detected (NotDetected); Respiratory Syncytial VirusPCR Not Detected (NotDetected); Rhinovirus/Enterovirus PCR Not Detected (NotDetected)
[2025-07-07] MEDS: GABAPENTIN 100 MG CAP PO STA (16:30)
--- NOTE | 2025-07-07 17:50 | History & Physical Report ---
Date of Service July 07, 2025 Assessment & Plan (1) Fatigue: Plan: Although she is in a junctional rhythm, her heart rate and blood pressure are acceptable. This may be from recent addition of high-dose metoprolol which will be temporarily placed on hold. Supportive care. OT and PT evaluations when appropriate (2) Junctional rhythm: Plan: Recent initiation of amiodarone and metoprolol. Continue amiodarone and place metoprolol on hold for now. Telemetry. Check thyroid profile (3) Hyponatremia: Plan: Await serum osmolarity results. Serial labs. She denies drinking excessive liquids. 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 Underlying mild to left-ventricular hypertrophy with severe left atrial enlargement, moderate mitral regurgitation, severe tricuspid regurgitation, and elevated right ventricular systolic pressures. (5) Paroxysmal atrial fibrillation: Plan: And atrial fibrillation by history. Currently in junctional rhythm. Telemetry. Cardiology consultation requested (6) Right atrial thrombus: Plan: Recently detected at [facility] by cardiac echo. She is now on Eliquis therapy Plan To be determined History of Present Illness Chief Complaint: Fatigue Primary Care Provider: Rabia Patel DO 84-year-old white female with multiple recent hospitalizations pertaining to her heart condition. She was recently hospitalized in [place] due to her history of atrial flutter and atrial fibrillation. She apparently was found to have a right atrial thrombus and was started on Eliquis. She was recently started on amiodarone, aspirin, Jardiance, and metoprolol. She prevents to the ER today with overwhelming fatigue but no syncope. She denies palpitations or chest pain. EKG is most consistent with a junctional rhythm although blood pressure stable and heart rate is 60-70. Sodium is low at 123. Serum osmolarity and thyroid profile pending. She will be admitted for further evaluation and treatment. Metoprolol will be placed on hold. Cardiology consultation requested. She denies feeling palpitations or any chest discomfort Allergies Allergy/AdvReac Type Severity Reaction Status Date / Time Penicillins AdvReac Intermediate HIVES Verified 07/07/25 16:46 Sulfa (Sulfonamide AdvReac Intermediate GI SYMPTOMS Verified 07/07/25 16:46 Antibiotics) amlodipine AdvReac Unknown CAN'T Verified 07/07/25 16:46 REMEMBER Home Medications Medication Instructions Recorded Confirmed Type atorvastatin 40 mg tablet 40 mg PO HS 07/29/19 07/07/25 History alendronate 70 mg tablet (Fosamax) 70 mg PO WK 07/07/23 07/07/25 History calcium 600 mg (as 1 tab PO DAILY 05/12/25 07/07/25 History carbonate)-vitamin D3 5 mcg (200 unit) tablet cholecalciferol (vitamin D3) 10 10 mcg PO DAILY 05/12/25 07/07/25 History mcg (400 unit) capsule (Vitamin D3) gabapentin 100 mg capsule 100 mg PO TID 05/12/25 07/07/25 History mirabegron 50 mg tablet,extended 50 mg PO DAILY 05/12/25 07/07/25 History release 24 hr nitroglycerin 0.4 mg sublingual 0.4 mg sublingual Q5M PRN chest 05/12/25 07/07/25 History tablet pain polyethylene glycol 3350 17 17 g PO DAILY PRN Constipation 05/30/25 07/07/25 History gram/dose oral powder (Miralax) esomeprazole magnesium 40 mg 40 mg PO DAILY 06/26/25 07/07/25 History capsule,delayed release amiodarone 200 mg tablet 400 mg PO BID 07/07/25 07/07/25 History apixaban 5 mg tablet (Eliquis) 5 mg PO BID 07/07/25 07/07/25 History aspirin 81 mg tablet,delayed 81 mg PO DAILY 07/07/25 07/07/25 History release empagliflozin 10 mg tablet 10 mg PO DAILY 07/07/25 07/07/25 History (Jardiance) famotidine 20 mg tablet 20 mg PO DAILY 07/07/25 07/07/25 History furosemide 40 mg tablet (Lasix) 40 mg PO DAILY 07/07/25 07/07/25 History metoprolol succinate 100 mg 100 mg PO BID 07/07/25 07/07/25 History tablet,extended release 24 hr zinc sulfate 25 mg zinc (110 mg) 25 mg PO DAILY 07/07/25 07/07/25 History tablet Past Med/Surg History Problem List (Updated 07/07/25 @ 17:49 by Davin Burroughs MD) Right atrial thrombus Paroxysmal atrial fibrillation Ischemic heart disease Hyponatremia Junctional rhythm Fatigue (Acute) 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 Non-STEMI (non-ST elevated myocardial infarction) QT prolongation HFrEF (heart failure with reduced ejection fraction) Encounter for pre-operative examination Elevated troponin I level Atrial flutter with rapid ventricular response Heart palpitations (Acute) Zinc deficiency Pupil asymmetry PAF (paroxysmal atrial fibrillation) Other specified abnormal findings of blood chemistry OAB (overactive bladder) Mixed incontinence urge and stress Mitral regurgitation 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) Hypertensive chronic kidney disease with stage 1 through stage 4 chronic kidney disease, or unspecified chronic kidney disease Glossodynia KIAN (generalized anxiety disorder) Dry mouth not due to sicca syndrome Diastolic CHF, chronic Constipation, unspecified Burning sensation of mouth BRBPR (bright red blood per rectum) Arthritis of hip Sleep apnea Anemia 3-vessel CAD Glossodynia exfoliativa Low zinc level Parageusia dysgeusia Multiple rib fractures (Acute) Acute hyponatremia (Acute) Dysphagia Acute blood loss anemia CHERYL (acute kidney injury) Rosacea (Chronic) Coronary artery disease (Chronic) Hyponatremia Closed fracture of pubic ramus (Acute) Tachy-georges syndrome Sinus bradycardia Syncope (Acute) Bradycardia (Acute) Acute dehydration (Acute) New onset atrial flutter (Acute) Elevated troponin (Acute) Atrial flutter Vitiligo (Acute) Medical History (Updated 07/07/25 @ 17:49 by Davin Burroughs MD) Chronic kidney disease, stage 3 Pulmonary hypertension Atrial fibrillation with rapid ventricular response Acute heart failure with normal ejection fraction Rectal bleeding Pain and swelling of right wrist Osteoporosis Heel pain Foreign body of foot or toe, superficial, infected Cellulitis of foot Hypertension H/O atrial flutter Hx of hemorrhoids Surgical History H/O cystoscopy History of cataract surgery History of cardiac catheterization S/P appendectomy H/O heart artery stent Family History Aunt Breast cancer Father Coronary heart disease Parkinson disease Heart disease Mother Heart disease Atrial fibrillation Grandmother Hypertension Stroke Other No family history of adverse response to anesthesia No family history of bleeding disorder Denies family history of Crohn's disease Colorectal cancer Ulcerative colitis Social History Smoking Status: Never smoker Second Hand Exposure: No; Do You Dip or Chew Tobacco: No; Hx Alcohol Use: No Hx Substance Use: No Preferred Language: Armenian Communication Ability: Effective Hearing Ability: Normal Community Health Planning Director Required: No Beliefs That Will Affect Care: None marital status: Current Living Situation: Spouse current occupational status: retired Feels Safe at Home: Yes Physical Activity Frequency: 1-2 Times per Week Assistive Devices: Cane and Walker Review of Systems 2 Review of Systems: Constitutionalno fever or chills. Profound fatigue ENTno blurred vision, no double vision, no epistaxis, no sore throat Respiratoryno cough, no wheezing, no shortness of breath Cardiacno palpitations, no chest pain, no syncope Lyndsay nausea, vomiting, diarrhea, melena, hematochezia GUno urinary retention, no urinary incontinence, no dysuria, no hematuria Musculoskeletalno joint pain, no muscle tenderness Skinno bruising, no rashes, no pruritus Neurono isolated weakness, no paresthesia, no weakness Psychno depression, no anxiety Physical Exam 2 Physical Exam: General-alert and oriented x3, no fever, no chills HEENT-head atraumatic and normocephalic, pupils equal and reactive to light, extraocular muscles intact Neck-no lymphadenopathy or thyromegaly, trachea midline Chest-clear to auscultation. No rales, wheezing or rhonchi Cardiac-regular rate and rhythm, normal S1 and S2 Abdomen-normal bowel sounds, no hepatosplenomegaly Extremities-no cyanosis, clubbing, or edema Neuro-cranial nerves II through XII intact, motor and sensory function within normal limits, strength symmetrical with generalized weakness, no focal deficits Psych-normal affect, normal mood Results & Data Results & Data Vital Signs (Past 12 Hours) Vital Signs Temp Pulse Resp BP Pulse Ox O2 Del Method 07/07/25 17:06 77 15 98 07/07/25 16:45 77 21 100 07/07/25 16:30 81 21 114/72 98 07/07/25 16:06 77 18 105/67 99 07/07/25 16:00 77 105/67 98 07/07/25 15:45 74 18 112/67 98 07/07/25 15:30 77 19 99 07/07/25 15:03 74 16 98 07/07/25 14:36 77 18 07/07/25 13:32 36.5 C 79 20 114/75 98 Room Air Laboratory Results 07/07/25 14:03 07/07/25 14:03 Code Status & VTE Plan Code Status Full code PG Care Time/CCT Total # of Minutes Spent Total Time Spent with Patient: Total time spent is greater than 50% in coordination of care (as documented) at patient's floor/unit and/or counseling patient: Coding Level of Care Code 31154 INT INP/OBS CARE 3/75MIN Diagnoses Fatigue R53.83 Junctional rhythm I49.8 Hyponatremia E87.1 Ischemic heart disease I25.9 Paroxysmal atrial fibrillation I48.0 Right atrial thrombus I51.3
[2025-07-07 19:06] LABS: T4 Free Thyroxine 1.92 ng/dl (0.61-1.60)
[2025-07-07] MEDS ORDERED: NITROGLYCERIN SL 0.4 MG/TAB TAB SL PRN (19:33)
[2025-07-07] MEDS ORDERED: ACETAMINOPHEN 325 MG TAB PO PRN (19:33)
[2025-07-07] MEDS ORDERED: ONDANSETRON INJ 2 MG/ML 2 ML VIAL IV PRN (19:33)
[2025-07-07] MEDS: AMIODARONE 200 MG TAB PO SCH (22:15)
[2025-07-07] MEDS: APIXABAN 5 MG TABLET PO SCH (22:16)
[2025-07-07] MEDS: ATORVASTATIN 40 MG TAB PO SCH (22:16)
[2025-07-07] MEDS: GABAPENTIN 100 MG CAP PO SCH (22:16)
--- NOTE | 2025-07-07 22:47 | Electrocardiogram Report ---
Test Reason : Blood Pressure : */* mmHG Vent. Rate : 77 BPM Atrial Rate : 77 BPM P-R Int : 368 ms QRS Dur : 92 ms QT Int : 440 ms P-R-T Axes : 51 84 235 degrees QTcB Int : 497 ms Accelerated Junctional rhythm Septal infarct (cited on or before 28-Jun-2025) Marked ST abnormality, possible inferior subendocardial injury Abnormal ECG When compared with ECG of 28-Jun-2025 09:49, Accelerated Junctional rhythm is now Present Left anterior fascicular block is no longer Present Serial changes of evolving Septal infarct Present Confirmed by Sanford Gimenez ([id number]) on 07/07/2025 10:47:07 PM Referred By: REFERRED SELF Confirmed By: Sanford Gimenez
[2025-07-08] MEDS: ASPIRIN 81 MG ECTAB PO SCH (08:22)
[2025-07-08] MEDS: LIOTHYRONINE SODIUM 5 MCG TAB PO SCH (08:23)
[2025-07-08] MEDS: CALCIUM 600MG + VIT D 400 IU TAB PO SCH (08:23)
[2025-07-08] MEDS: VIBEGRON 75 MG TAB PO SCH (08:23)
[2025-07-08] MEDS: CHOLECALCIFEROL 10 MCG (400 UNITS) TAB PO SCH (08:23)
[2025-07-08] MEDS: FUROSEMIDE 40 MG TAB PO SCH (08:23)
[2025-07-08] MEDS: EMPAGLIFLOZIN 10 MG TAB PO SCH (08:23)
[2025-07-08] MEDS: FAMOTIDINE 20 MG TAB PO SCH (08:23)
[2025-07-08 08:52] LABS: Anion Gap 8.0 (3-11); Blood Urea Nitrogen 37.0 mg/dl (6-23); Calcium 8.1 mg/dl (8.6-10.3); Carbon Dioxide 26.0 mmol/L (21-32); Chloride 88.0 mmol/L (98-107); Creatinine Clr Calc Pharmacy 24.7 ml/min; Glucose 147.0 mg/dl (70-99(Fasting)); Potassium 3.9 mmol/L (3.5-5.1); Sodium 122.0 mmol/L (136-145)
--- NOTE | 2025-07-08 09:25 | Cardiology Consultation ---
Date of Consultation July 08, 2025 Assessment & Plan (1) Paroxysmal atrial fibrillation: (2) Thrombus of left atrial appendage: (3) Ischemic cardiomyopathy: (4) QT prolongation: (5) Non-STEMI (non-ST elevated myocardial infarction): (6) Hyponatremia: Plan Would like to cut back on her amiodarone to 200 mg twice a day for now. Will cut back on her p.o. metoprolol to just 25 mg daily for now. I suspect that the very large dose of beta-gayle and amiodarone contributes to her extreme fatigue and tiredness. Would like to watch her blood pressure overnight and decide about adding possibly an ARB for the LV dysfunction. Depending on her blood pressure response further recommendations will follow. 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 Even though her BNP is markedly elevated she does not appear to be in overt heart failure at this time and I would just fluid restrict her. We need to follow her renal function closely as well. She is scheduled to undergo repeat KELLY possible cardioversion in about 3 weeks and I would continue her on Eliquis at this time. Whether or not she is porsche be a candidate to have treatment of the left main lesion will depend on the [place] interventional list and surgical team and the patient. I will follow her closely while she is here in the hospital. History of Present Illness Reason for Consultation: Afib CHF Attending Physician: Davin Burroughs MD History of Present Illness Areli is a very nice 84-year-old woman who was just here approximately 10 days ago when she presented with atrial fibrillation with rapid ventricular response. She was started on IV amiodarone and underwent DC cardioversion but unfortunately developed QTc prolongation with amiodarone and reversion apical and anteroseptal akinesis. Because of the EKG changes as well as her known history of prior left main coronary disease she was subsequently transferred to [facility] for catheterization and further EP evaluation. She did undergo catheterization and was diagnosed with a 50% left main lesion. Because of her advanced age there was reluctance to pursue treatment of the CAD. EP also saw the patient at the time and she was restarted on amiodarone and they did a KELLY which unfortunately showed left atrial appendage thrombus. The cardioversion was canceled and she was maintained on amiodarone. Repeat echo confirmed LV dysfunction. She was just discharged on Thursday or Thursday and was discharged on 400 mg of amiodarone p.o. twice daily as well as 100 mg of metoprolol succinate twice daily. She presented to the emergency room yesterday with severe debilitating fatigue and was admitted to the hospital. I would men tion that her prior blood pressures tended to run 140/70-80 systolic or higher and now her blood pressures have been mostly running in the low 100s. She was also diagnosed with hyponatremia and a sodium of 122. 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 According to her daughter there was a prior history of SIADH a few years ago as well. Her cardiac enzymes the troponin is slightly abnormal and her BNP is also significantly elevated. Her EKG shows A-fib flutter with perhaps a junctional rhythm is prolonged QT C prolongation as well Allergies Allergy/AdvReac Type Severity Reaction Status Date / Time Penicillins AdvReac Intermediate HIVES Verified 07/07/25 16:46 Sulfa (Sulfonamide AdvReac Intermediate GI SYMPTOMS Verified 07/07/25 16:46 Antibiotics) amlodipine AdvReac Unknown CAN'T Verified 07/07/25 16:46 REMEMBER Home Medications Medication Instructions Recorded Confirmed Type atorvastatin 40 mg tablet 40 mg PO HS 07/29/19 07/07/25 History alendronate 70 mg tablet (Fosamax) 70 mg PO WK 07/07/23 07/07/25 History calcium 600 mg (as 1 tab PO DAILY 05/12/25 07/07/25 History carbonate)-vitamin D3 5 mcg (200 unit) tablet cholecalciferol (vitamin D3) 10 10 mcg PO DAILY 05/12/25 07/07/25 History mcg (400 unit) capsule (Vitamin D3) gabapentin 100 mg capsule 100 mg PO TID 05/12/25 07/07/25 History mirabegron 50 mg tablet,extended 50 mg PO DAILY 05/12/25 07/07/25 History release 24 hr nitroglycerin 0.4 mg sublingual 0.4 mg sublingual Q5M PRN chest 05/12/25 07/07/25 History tablet pain polyethylene glycol 3350 17 17 g PO DAILY PRN Constipation 05/30/25 07/07/25 History gram/dose oral powder (Miralax) esomeprazole magnesium 40 mg 40 mg PO DAILY 06/26/25 07/07/25 History capsule,delayed release amiodarone 200 mg tablet 400 mg PO BID 07/07/25 07/07/25 History apixaban 5 mg tablet (Eliquis) 5 mg PO BID 07/07/25 07/07/25 History aspirin 81 mg tablet,delayed 81 mg PO DAILY 07/07/25 07/07/25 History release empagliflozin 10 mg tablet 10 mg PO DAILY 07/07/25 07/07/25 History (Jardiance) famotidine 20 mg tablet 20 mg PO DAILY 07/07/25 07/07/25 History furosemide 40 mg tablet (Lasix) 40 mg PO DAILY 07/07/25 07/07/25 History metoprolol succinate 100 mg 100 mg PO BID 07/07/25 07/07/25 History tablet,extended release 24 hr zinc sulfate 25 mg zinc (110 mg) 25 mg PO DAILY 07/07/25 07/07/25 History tablet Patient History Medical History Chronic kidney disease, stage 3 Pulmonary hypertension Atrial fibrillation with rapid ventricular response Acute heart failure with normal ejection fraction Rectal bleeding Pain and swelling of right wrist Osteoporosis Heel pain Foreign body of foot or toe, superficial, infected Cellulitis of foot Hypertension H/O atrial flutter Hx of hemorrhoids Surgical History H/O cystoscopy History of cataract surgery History of cardiac catheterization S/P appendectomy H/O heart artery stent Family History Aunt Breast cancer Father Coronary heart disease Parkinson disease Heart disease Mother Heart disease Atrial fibrillation Grandmother Hypertension Stroke Other No family history of adverse response to anesthesia No family history of bleeding disorder Denies family history of Crohn's disease Colorectal cancer Ulcerative colitis Social History Smoking Status: Never smoker Second Hand Exposure: No; Do You Dip or Chew Tobacco: No; Hx Alcohol Use: No Hx Substance Use: No Preferred Language: Setswana Communication Ability: Effective Hearing Ability: Normal Contracts Director Required: No Beliefs That Will Affect Care: None marital status: Current Living Situation: Spouse Current Living Situation Comment: with current occupational status: retired Feels Safe at Home: Yes Physical Activity Frequency: 1-2 Times per Week Assistive Devices: CPAP and Glasses Review of Systems Review of Systems: All systems reviewed & are unremarkable except as noted in HPI & below Physical Exam Physical Exam: She is awake alert oriented sitting in a chair in no distress Respiratory: Lungs are essentially clear to auscultation Cardiovascular: Heart is regular this time. very Results & Data Vital Signs (Past 12 Hours) Vital Signs Temp Pulse Pulse Resp BP Pulse Ox O2 Del Method 07/08/25 08:01 85 07/08/25 07:26 36.4 C L 85 18 120/76 98 Room Air 07/08/25 04:00 36.2 C L 85 12 113/72 99 Room Air 07/07/25 23:00 36.4 C L 81 12 107/68 97 Room Air 07/07/25 22:00 78 07/07/25 21:37 36.7 C 79 17 108/69 Room Air Laboratory Results Abnormal lab results 07/07/25 07/08/25 07/08/25 Range/Units 14:03 08:11 08:14 WBC 12.02 H (4.8-10.8) K/ul RBC 3.75 L (4.20-5.40) M/uL Hgb 10.6 L (12.0-16.0) g/dl Hct 32.3 L (37.0-47.0) % Neut # (Auto) 9.75 H (1.40-6.50) K/uL Lymph # (Auto) 0.66 L (1.20-3.40) K/uL [place] # (Auto) 1.45 H (0.11-0.59) K/uL Sodium 123 L 122 L (136-145) mmol/L Chloride 86 L 88 L (98-107) mmol/L BUN 37 H 37 H (6-23) mg/dl Creatinine 1.53 H 1.47 H (0.6-1.2) mg/dl BUN/Creatinine Ratio 24.2 H 25.2 H (10-20) Glucose 131 H 147 H (70-99(Fasting)) mg/dl Osmolality 267 L (280-300) mOsm/kg Calcium 8.1 L (8.6-10.3) mg/dl Total Bilirubin 1.2 H (0.2-1.0) mg/dl Troponin I High Sens 46.9 H (0-14) pg/ml B-Natriuretic Peptide 1693 H (0-100) pg/ml Free T4 1.92 H (0.61-1.60) ng/dl Free T3 1.89 L (2.3-4.2) pg/ml Medications Administered Current Inpatient Medications Acetaminophen (Acetaminophen 325 Mg Tab) 650 mg PO Q6H PRN PRN Reason: Fever or headache Stop: 08/06/25 19:32 Amiodarone HCl (Amiodarone 200 Mg Tab) 400 mg PO BID KEKE Stop: 08/06/25 20:59 Last Admin: 07/08/25 08:22 Dose: 400 mg Apixaban (Apixaban 5 Mg Tablet) 5 mg PO BID KEKE Stop: 08/06/25 20:59 Last Admin: 07/08/25 08:22 Dose: 5 mg Aspirin (Aspirin 81 Mg Ectab) 81 mg PO DAILY KEKE Stop: 08/07/25 08:59 Last Admin: 07/08/25 08:22 Dose: 81 mg Atorvastatin Calcium (Atorvastatin 40 Mg Tab) 40 mg PO HS KEKE Stop: 08/06/25 20:59 Last Admin: 07/07/25 22:16 Dose: 40 mg Calcium/Vitamin D (Calcium 600mg + Vit D 400 Iu Tab) 1 tab PO DAILY KEKE Stop: 08/07/25 08:59 Last Admin: 07/08/25 08:23 Dose: 1 tab Empagliflozin (Empagliflozin 10 Mg Tab) 10 mg PO DAILY KEKE Stop: 08/07/25 08:59 Last Admin: 07/08/25 08:23 Dose: 10 mg Famotidine (Famotidine 20 Mg Tab) 20 mg PO DAILY KEKE Stop: 08/07/25 08:59 Last Admin: 07/08/25 08:23 Dose: 20 mg Furosemide (Furosemide 40 Mg Tab) 40 mg PO DAILY KEKE Stop: 08/07/25 08:59 Last Admin: 07/08/25 08:23 Dose: 40 mg Gabapentin (Gabapentin 100 Mg Cap) 100 mg PO TID KEKE Stop: 08/06/25 20:59 Last Admin: 07/08/25 08:23 Dose: 100 mg Liothyronine Sodium (Liothyronine Sodium 5 Mcg Tab) 5 mcg PO QAM KEKE Stop: 08/07/25 08:59 Last Admin: 07/08/25 08:23 Dose: 5 mcg Nitroglycerin (Nitroglycerin Sl 0.4 Mg/Tab Tab) 0.4 mg SL Q5M PRN PRN Reason: chest pain Stop: 08/06/25 19:32 Ondansetron HCl (Ondansetron Inj 2 Mg/Ml 2 Ml Vial) 4 mg IV Q6H PRN PRN Reason: Nausea And Vomiting Stop: 08/06/25 19:32 Pantoprazole Sodium (Pantoprazole 40 Mg Tab) 40 mg PO DAILY KEKE Stop: 08/07/25 08:59 Last Admin: 07/08/25 08:23 Dose: 40 mg Vibegron (Vibegron 75 Mg Tab) 75 mg PO DAILY KEKE Stop: 08/07/25 08:59 Last Admin: 07/08/25 08:23 Dose: 75 mg Vitamin D (Cholecalciferol 10 Mcg (400 Units) Tab) 10 mcg PO DAILY KEKE Stop: 08/07/25 08:59 Last Admin: 07/08/25 08:23 Dose: 10 mcg
--- NOTE | 2025-07-08 10:46 | Hospitalist Progress Note ---
Date of Service July 08, 2025 Assessment & Plan (1) Fatigue: Plan: Although she is in a junctional rhythm, her heart rate and blood pressure are acceptable. This may be from recent addition of high-dose metoprolol which will be temporarily placed on hold. When it is restarted, it will be at a much lower dose. Continue supportive care. OT and PT evaluations when appropriate (2) Junctional rhythm: Plan: Recent initiation of amiodarone and metoprolol. She has a prolonged QT interval and I suspect cardiology will decrease the amiodarone dosage. Metoprolol has been temporarily discontinued. When it is restarted, it will be at a much lower dose. This appears to be accelerated junctional rhythm per EKG assessment. Telemetry. (3) Hyponatremia: Plan: Await serum osmolarity results. Serial labs. She denies drinking excessive liquids. 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 Underlying mild to left-ventricular hypertrophy with severe left atrial enlargement, moderate mitral regurgitation, severe tricuspid regurgitation, and elevated right ventricular systolic pressures. (5) Paroxysmal atrial fibrillation: Plan: And atrial fibrillation by history. Currently in accelerated junctional rhythm. Telemetry. Cardiology consultation requested and pending (6) Hypothyroidism determined by thyroid function test: Plan: Free T3 levels are slightly low. Cytomel has been started. (7) Thrombus of left atrial appendage: Plan: Recently detected while at [facility]. She is now on Eliquis. Plan To be determined. Hopeful discharge back to home sometime this coming week Admission and Anticipated Discharge Date Admission Date: July 07, 2025 Subjective Feeling better overall. Repeat EKG continues to show what looks to me to be accelerated junctional rhythm with prolonged QT. Metoprolol has been discontinued. I suspect cardiology will decrease her amiodarone dosage. Case discussed with them. 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 Sodium is quite low at 122. Continue fluid restriction. Cytomel has been started for the low free T3 levels. Review of Systems 2 Review of Systems: Constitutionalno fever or chills. Profound fatigue ENTno blurred vision, no double vision, no epistaxis, no sore throat Respiratoryno cough, no wheezing, no shortness of breath Cardiacno palpitations, no chest pain, no syncope Lyndsay nausea, vomiting, diarrhea, melena, hematochezia GUno urinary retention, no urinary incontinence, no dysuria, no hematuria Musculoskeletalno joint pain, no muscle tenderness Skinno bruising, no rashes, no pruritus Neurono isolated weakness, no paresthesia, no weakness Psychno depression, no anxiety Physical Exam 2 Physical Exam: General-alert and oriented x3, no fever, no chills HEENT-head atraumatic and normocephalic, pupils equal and reactive to light, extraocular muscles intact Neck-no lymphadenopathy or thyromegaly, trachea midline Chest-clear to auscultation. No rales, wheezing or rhonchi Cardiac-regular rate and rhythm, normal S1 and S2 Abdomen-normal bowel sounds, no hepatosplenomegaly Extremities-no cyanosis, clubbing, or edema Neuro-cranial nerves II through XII intact, motor and sensory function within normal limits, strength symmetrical with generalized weakness, no focal deficits Psych-normal affect, normal mood Results & Data Results & Data Vital Signs (Past 12 Hours) Vital Signs Temp Pulse Pulse Resp BP Pulse Ox O2 Del Method 07/08/25 08:01 85 07/08/25 07:26 36.4 C L 85 18 120/76 98 Room Air 07/08/25 04:00 36.2 C L 85 12 113/72 99 Room Air 07/07/25 23:00 36.4 C L 81 12 107/68 97 Room Air Laboratory Results 07/07/25 14:03 07/08/25 08:14 PG Care Time/CCT Total # of Minutes Spent Total Time Spent with Patient: Total time spent is greater than 50% in coordination of care (as documented) at patient's floor/unit and/or counseling patient: Coding Level of Care Code 38265 SUB INP/OBS CARE 3/50MIN Diagnoses Fatigue R53.83 Junctional rhythm I49.8 Hyponatremia E87.1 Ischemic heart disease I25.9 Paroxysmal atrial fibrillation I48.0 Hypothyroidism determined by thyroid function test E03.9; R94.6 Thrombus of left atrial appendage I51.3
--- NOTE | 2025-07-08 11:10 | Electrocardiogram Report ---
Test Reason : Blood Pressure : */* mmHG Vent. Rate : 83 BPM Atrial Rate : 85 BPM P-R Int : * ms QRS Dur : 94 ms QT Int : 450 ms P-R-T Axes : * 68 204 degrees QTcB Int : 528 ms Suspected Atrial flutter with 2:1 block; possible junctional escape Prolonged QT Abnormal ECG When compared with ECG of 07-Jul-2025 13:51, Current undetermined rhythm precludes rhythm comparison, needs review Criteria for Septal infarct are no longer Present Confirmed by Padmini Barbour ([id number]) on 07/08/2025 11:10:25 AM Referred By: REFERRED SELF Confirmed By: Padmini Barbour
[2025-07-08] MEDS ORDERED: prednisoLONE acetate 1% OP SUSP 5 ML BTL OP ONE (12:08)
[2025-07-08] MEDS: prednisoLONE acetate 1% OP SUSP 5 ML BTL OP SCH (13:17)
[2025-07-09] MEDS: POLYETHYLENE (MIRALAX) 17 GM PACK PO ONE (05:40)
[2025-07-09 06:10] LABS: Anion Gap 9.0 (3-11); Blood Urea Nitrogen 35.0 mg/dl (6-23); Calcium 8.1 mg/dl (8.6-10.3); Carbon Dioxide 25.0 mmol/L (21-32); Chloride 90.0 mmol/L (98-107); Creatinine Clr Calc Pharmacy 26.7 ml/min; Glucose 102.0 mg/dl (70-99(Fasting)); Potassium 3.6 mmol/L (3.5-5.1); Sodium 124.0 mmol/L (136-145)
[2025-07-09] MEDS: AMIODARONE 200 MG TAB PO SCH (08:11)
[2025-07-09] MEDS: METOPROLOL SUCC 25MG EXT REL TAB PO SCH (08:12)
--- NOTE | 2025-07-09 09:39 | Cardiology Progress Note ---
Date of Service July 09, 2025 Assessment & Plan (1) Paroxysmal atrial fibrillation: (2) Thrombus of left atrial appendage: (3) Ischemic cardiomyopathy: (4) QT prolongation: (5) Non-STEMI (non-ST elevated myocardial infarction): (6) Hyponatremia: Plan ECHO reviewed and surprisingly shows overal resolution of prior severe LV dysfunction and WMA have resolved.EF low normal. Will cont on low dose BB and low dose amiodarone. Diurese gently. FOllow Na levels-mostly free water limit. Anticipate she will benefit from rehab. Admission and Anticipated Discharge Date Admission Date: July 07, 2025 Subjective Feeling better overall. Repeat EKG continues to show what looks to me to be accelerated junctional rhythm with prolonged QT. Tolerating low dose BB and lower dose amiodarone. Telemetry showing atrial flutter 2:1 with slower atrial rate. HR in the 70s at rest. Overall patient is feeling better, but still feels weak. She is reconsidering going to rehab vs home. Her daughter is to go back to [place] and she does not think her will be able to assist with ADLs alone if she goes home. Review of Systems Review of Systems: All systems reviewed & are unremarkable except as noted in HPI & below Physical Exam Physical Exam: AAO x 3 Respiratory: normal respiratory effort, lungs clear to auscultation Cardiovascular: heart regular in 70-80s no edema Results & Data Vital Signs (Past 12 Hours) Vital Signs Temp Pulse Pulse Resp BP Pulse Ox O2 Del Method 07/09/25 07:24 76 07/09/25 07:12 36.6 C 73 18 103/65 97 Room Air 07/09/25 04:30 36.5 C 72 17 121/77 98 Room Air 07/08/25 22:50 36.5 C 71 17 117/76 97 Room Air 07/08/25 22:00 71 Laboratory Results Abnormal lab results 07/08/25 07/09/25 Range/Units 08:11 05:29 Sodium 124 L (136-145) mmol/L Chloride 90 L (98-107) mmol/L BUN 35 H (6-23) mg/dl Creatinine 1.36 H (0.6-1.2) mg/dl BUN/Creatinine Ratio 25.7 H (10-20) Glucose 102 H (70-99(Fasting)) mg/dl Calcium 8.1 L (8.6-10.3) mg/dl Troponin I High Sens 46.9 H (0-14) pg/ml B-Natriuretic Peptide 1693 H (0-100) pg/ml Medications Administered Current Inpatient Medications Acetaminophen (Acetaminophen 325 Mg Tab) 650 mg PO Q6H PRN PRN Reason: Fever or headache Stop: 08/06/25 19:32 Amiodarone HCl (Amiodarone 200 Mg Tab) 200 mg PO BID KEKE Stop: 08/08/25 08:59 Last Admin: 07/09/25 08:11 Dose: 200 mg Apixaban (Apixaban 5 Mg Tablet) 5 mg PO BID KEKE Stop: 08/06/25 20:59 Last Admin: 07/09/25 08:11 Dose: 5 mg Aspirin (Aspirin 81 Mg Ectab) 81 mg PO DAILY KEKE Stop: 08/07/25 08:59 Last Admin: 07/09/25 08:11 Dose: 81 mg Atorvastatin Calcium (Atorvastatin 40 Mg Tab) 40 mg PO HS KEKE Stop: 08/06/25 20:59 Last Admin: 07/08/25 20:38 Dose: 40 mg Calcium/Vitamin D (Calcium 600mg + Vit D 400 Iu Tab) 1 tab PO DAILY KEKE Stop: 08/07/25 08:59 Last Admin: 07/09/25 08:11 Dose: 1 tab Empagliflozin (Empagliflozin 10 Mg Tab) 10 mg PO DAILY KEKE Stop: 08/07/25 08:59 Last Admin: 07/09/25 08:11 Dose: 10 mg Famotidine (Famotidine 20 Mg Tab) 20 mg PO DAILY KEKE Stop: 08/07/25 08:59 Last Admin: 07/09/25 08:19 Dose: 20 mg Furosemide (Furosemide 40 Mg Tab) 40 mg PO DAILY KEKE Stop: 08/07/25 08:59 Last Admin: 07/09/25 08:12 Dose: 40 mg Gabapentin (Gabapentin 100 Mg Cap) 100 mg PO TID KEKE Stop: 08/06/25 20:59 Last Admin: 07/09/25 08:12 Dose: 100 mg Liothyronine Sodium (Liothyronine Sodium 5 Mcg Tab) 5 mcg PO QAM KEKE Stop: 08/07/25 08:59 Last Admin: 07/09/25 08:12 Dose: 5 mcg Metoprolol Succinate (Metoprolol Succ 25mg Ext Rel Tab) 25 mg PO QAM KEKE Stop: 08/08/25 08:59 Last Admin: 07/09/25 08:12 Dose: 25 mg Nitroglycerin (Nitroglycerin Sl 0.4 Mg/Tab Tab) 0.4 mg SL Q5M PRN PRN Reason: chest pain Stop: 08/06/25 19:32 Ondansetron HCl (Ondansetron Inj 2 Mg/Ml 2 Ml Vial) 4 mg IV Q6H PRN PRN Reason: Nausea And Vomiting Stop: 08/06/25 19:32 Pantoprazole Sodium (Pantoprazole 40 Mg Tab) 40 mg PO DAILY KEKE Stop: 08/07/25 08:59 Last Admin: 07/09/25 08:12 Dose: 40 mg Prednisolone Acetate (Prednisolone Acetate 1% Op Susp 5 Ml Btl) 1 drops OP DAILY KEKE Stop: 08/07/25 12:14 Last Admin: 07/09/25 08:12 Dose: 1 drops Vibegron (Vibegron 75 Mg Tab) 75 mg PO DAILY KEKE Stop: 08/07/25 08:59 Last Admin: 07/09/25 08:12 Dose: 75 mg Vitamin D (Cholecalciferol 10 Mcg (400 Units) Tab) 10 mcg PO DAILY KEKE Stop: 08/07/25 08:59 Last Admin: 07/09/25 08:11 Dose: 10 mcg
--- NOTE | 2025-07-09 12:28 | Hospitalist Progress Note ---
Date of Service July 09, 2025 Assessment & Plan (1) Fatigue: Plan: Metoprolol has been restarted at a lower dose and she again does not feel as well as she did yesterday but still feels better than on admission. She may simply be intolerant of metoprolol and may need to be switched to carvedilol. Continue supportive care. OT and PT evaluations ordered. Family members would prefer that she go to SNF for rehab before she comes home (2) Junctional rhythm: Plan: Recent initiation of amiodarone and metoprolol and high doses may have caused the rhythm disturbance. She also had a very prolonged QT interval during her last hospital stay. Amiodarone dosage has been decreased and metoprolol has been restarted at a much lower dose. Repeat EKG done today, July 09, looks about the same. Telemetry. (3) Hyponatremia: Plan: Serum osmolarity is low. Suspect SIADH as etiology of hyponatremia and hypoosmolarity. Fluid restriction continues. Sodium has improved to 124. Serial labs. She denies drinking excessive liquids. (4) Ischemic heart disease: Plan: Known ischemic heart disease with left main trunk lesion and estimated ejection fraction 15% with anterior and apical akinesis. Underlying mild to left- ventricular hypertrophy with severe left atrial enlargement, moderate mitral regurgitation, severe tricuspid regurgitation, and elevated right ventricular systolic pressures. Appreciate cardiology consultation and recommendations. ARB or AMRIK inhibitor may possibly be added this admission (5) Paroxysmal atrial fibrillation: Plan: atrial fibrillation by history. Currently in accelerated junctional rhythm versus atrial flutter with block. Telemetry. Cardiology consultation and recommendations appreciated. (6) Hypothyroidism determined by thyroid function test: Plan: Free T3 levels are slightly low. Cytomel has been started. (7) Thrombus of left atrial appendage: Plan: Recently detected while at [facility]. She is now on Eliquis. Plan OT and PT assessments requested. Family would like her to go to SNF before she returns home. Admission and Anticipated Discharge Date Admission Date: July 07, 2025 Subjective Alert and oriented. Family present at the bedside. She is stable overall but does not feel as well as she did yesterday, July 08. Metoprolol has been restarted at a very low dose but she may simply be intolerant of this medication and need to be changed to carvedilol. Sodium improved to 124. Continue fluid restriction. Creatinine improved to 1.3. She is now on Cytomel for T3 replacement. Cardiology entry noted. Review of Systems 2 Review of Systems: Constitutionalno fever or chills. Profound fatigue ENTno blurred vision, no double vision, no epistaxis, no sore throat Respiratoryno cough, no wheezing, no shortness of breath Cardiacno palpitations, no chest pain, no syncope Lyndsay nausea, vomiting, diarrhea, melena, hematochezia GUno urinary retention, no urinary incontinence, no dysuria, no hematuria Musculoskeletalno joint pain, no muscle tenderness Skinno bruising, no rashes, no pruritus Neurono isolated weakness, no paresthesia, no weakness Psychno depression, no anxiety Physical Exam 2 Physical Exam: General-alert and oriented x3, no fever, no chills HEENT-head atraumatic and normocephalic, pupils equal and reactive to light, extraocular muscles intact Neck-no lymphadenopathy or thyromegaly, trachea midline Chest-clear to auscultation. No rales, wheezing or rhonchi Cardiac-regular rate and rhythm, normal S1 and S2 Abdomen-normal bowel sounds, no hepatosplenomegaly Extremities-no cyanosis, clubbing, or edema Neuro-cranial nerves II through XII intact, motor and sensory function within normal limits, strength symmetrical with generalized weakness, no focal deficits Psych-normal affect, normal mood Results & Data Results & Data Vital Signs (Past 12 Hours) Vital Signs Temp Pulse Pulse Resp BP Pulse Ox O2 Del Method 07/09/25 11:04 36.7 C 71 19 100/62 98 Room Air 07/09/25 10:12 Room Air 07/09/25 07:24 76 07/09/25 07:12 36.6 C 73 18 103/65 97 Room Air 07/09/25 04:30 36.5 C 72 17 121/77 98 Room Air Laboratory Results 07/07/25 14:03 07/09/25 05:29 PG Care Time/CCT Total # of Minutes Spent Total Time Spent with Patient: Total time spent is greater than 50% in coordination of care (as documented) at patient's floor/unit and/or counseling patient: Coding Level of Care Code 23429 SUB INP/OBS CARE 3/50MIN Diagnoses Fatigue R53.83 Junctional rhythm I49.8 Hyponatremia E87.1 Ischemic heart disease I25.9 Paroxysmal atrial fibrillation I48.0 Hypothyroidism determined by thyroid function test E03.9; R94.6 Thrombus of left atrial appendage I51.3
[2025-07-09 14:00] LABS: Appearance Urine Turbid (Clear); Bacteria Urine Automated 4+ (None Seen); Glucose Urine UA 3+ (Negative); WBC Urine Automated >50 /hpf (0-5)
[2025-07-10 07:17] LABS: Anion Gap 5.0 (3-11); Blood Urea Nitrogen 29.0 mg/dl (6-23); Calcium 8.1 mg/dl (8.6-10.3); Carbon Dioxide 30.0 mmol/L (21-32); Chloride 93.0 mmol/L (98-107); Creatinine Clr Calc Pharmacy 28.0 ml/min; Glucose 95.0 mg/dl (70-99(Fasting)); Potassium 3.6 mmol/L (3.5-5.1); Sodium 128.0 mmol/L (136-145)
--- NOTE | 2025-07-10 08:15 | Electrocardiogram Report ---
Test Reason : Blood Pressure : */* mmHG Vent. Rate : 71 BPM Atrial Rate : 65 BPM P-R Int : * ms QRS Dur : 96 ms QT Int : 486 ms P-R-T Axes : * 55 181 degrees QTcB Int : 528 ms Atrial tachycardia vs atrial Flutter 2:1 block Prolonged QT Abnormal ECG When compared with ECG of 08-Jul-2025 08:13, in comparison with previous ekg, no change Confirmed by Padmini Barbour ([id number]) on 07/10/2025 8:15:14 AM Referred By: REFERRED SELF Confirmed By: Padmini Barbour
[2025-07-10] MEDS: POTASSIUM CHLORIDE CRTAB 20 MEQ TABCR PO STA (08:28)
--- NOTE | 2025-07-10 08:54 | Cardiology Progress Note ---
Date of Service July 10, 2025 Assessment & Plan (1) Atrial flutter: (2) QT prolongation: (3) Thrombus of left atrial appendage: (4) Hyponatremia: Plan Benita is feeling somewhat better although he may take some time with physical therapy and improvement further in her sodium for her to really feel back on her feet. It sounds like the plan is for her to go to a long-term facility for some physical therapy. I reviewed with her that her echocardiogram fortunately looks a lot better with an ejection fraction of 50 to 55% which is low normal, wall motion abnormalities have resolved. She continues to have grade 2 diastolic dysfunction and moderate mitral regurgitation. She has a small pericardial effusion which is new. When she had her cardiac catheterization at [place], it showed a left main stenosis of 50%. This was not intervened upon as it was considered high risk and given that her ejection fraction has resolved pursuing treatment can be set aside for the moment. Her QT remained slightly prolonged yesterday. We will repeat an EKG this mornin g. Depending on QT length we may want to dial back the amiodarone to once daily. Her sodium was 128 today which is an improvement on her admission sodium which was 122. Her kidney function is stable. Her and daughter were updated over the phone at bedside. Admission and Anticipated Discharge Date Admission Date: July 07, 2025 Subjective Benita thinks she feels less weak this morning although she has not been out of bed much thus far. She did work with physical therapy yesterday. She denies any shortness of breath or chest pain. Her heart rate on the monitor has been 80s to 90s and atrial flutter. Review of Systems Review of Systems: All systems reviewed & are unremarkable except as noted in HPI & below Physical Exam Constitutional: WD/WN, vitals as above Respiratory: normal respiratory effort, lungs clear to auscultation Cardiovascular: Rate/Rhythm: + abnormal rate and + abnormal rhythm Heart Sounds: normal S1 and normal S2 Extremities: no edema Skin: no rashes, warm and dry Neurologic: moves all extremities and awake Psychiatric: A+Ox3, euthymic affect Results & Data Vital Signs (Past 12 Hours) Vital Signs Temp Pulse Pulse Resp BP Pulse Ox O2 Del Method 07/10/25 07:46 36.5 C 99 H 16 120/72 98 Room Air 07/10/25 02:48 36.4 C L 78 18 108/68 97 Room Air 07/09/25 23:58 36.5 C 92 H 18 103/65 96 Room Air 07/09/25 22:00 95 H
[2025-07-10 08:55] LABS: Magnesium 2.1 mg/dl (1.7-2.4)
--- NOTE | 2025-07-10 13:14 | Hospitalist Progress Note ---
Date of Service July 10, 2025 Assessment & Plan (1) Fatigue: (2) Junctional rhythm: (3) Hyponatremia: (4) Atrial flutter: Plan This patient is an 84-year-old female with a history of atrial flutter and fibrillation on Eliquis, HFrEF, CAD s/p RCA stent and left main 50% stenosis, HTN, CKD stage III, severe TR, moderate MR, GERD, HLD, SUMIT, rate related LBBB, and osteoporosis who was admitted for profound fatigue, found to have hyponatremia and a junctional rhythm. #Atrial flutter/Prolonged QT/Junctional rhythm-had cardioversion last admission and has had prolonged QT. Came in with a junctional rhythm and fatigue after starting on high doses of amiodarone 400 mg p.o. twice daily and metoprolol succinate 100 mg p.o. twice daily at [facility] 1 week prior to admission. Amiodarone reduced to 200 mg p.o. twice daily and Toprol-XL held and then restarted at 25 mg p.o. once daily and remains in atrial flutter with normal rates. Still with some fatigue. Appreciate cardiology consultation - Continue telemetry monitoring - Check ECG for QT-reduced further to 498 - Cardiology recommends further reduce amiodarone to 200 mg p.o. once daily - Continue Toprol XL 25 mg daily - Follow BMP and keep electrolytes replete-give KCl 40 mEq p.o. x 1 #HFrEF/moderate MR/severe TR/rate related LBBB-EF last admission 15% and likely rate related to rapid atrial fibrillation/flutter. EF is now improved to 50-55% and with moderate MR. She was started on Toprol-XL, Jardiance, and scheduled Lasix last admission. Now with sodium of 122 on admission which could be from Jardiance, Lasix, or amiodarone. She appears euvolemic - Decreased Toprol-XL to 25 mg daily - Continue Jardiance - Discontinue Lasix for now and make as needed -Consider adding on AMRIK inhibitor, ARB, or Entresto - Daily weights, strict I's and O's, low-sodium diet #Fatigue: Possibly secondary to junctional rhythm, metoprolol and amiodarone side effect, as well as hyponatremia. Improving as doses of these medications have been lowered and hyponatremia is improving - PT/OT recommends rehab-referral placed through case management #Hyponatremia: Sodium low at 122 on admission. Serum osmolarity is low. 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 She is not drinking excessive free water. Sodium now improved to 128 with free water restriction and reduction in dose of amiodarone - DC Lasix - Further reduce amiodarone to 200 mg p.o. once daily - Follow BMP in the a.m. - Continue fluid restriction of 1200 mL/day #CAD/HLD/HTN-with stent to the RCA previously and with recent catheterization showing left main 50% stenosis and recent echo with EF 15% with anterior and apical akinesis. Appreciate cardiology consultation and recommendations. Left main stenosis not intervened upon as considered high risk - Continue aspirin, Eliquis, atorvastatin, Toprol-XL #Subclinical hypothyroidism-TSH checked on admission given arrhythmia and was normal but free T3 levels are slightly low, free T4 level slightly high. Cytomel has been started by previous hospitalist but this is not likely necessary at this time. She is recently started on amiodarone so this will need to be monitored in the future - Stop Cytomel - Follow TSH in 4 to 6 weeks #CKD stage III/IV-creatinine baseline around 1.4 and remains stable - Avoid nephrotoxins, renally dose medications - Follow BMP #Asymptomatic bacteriuria-UA abnormal but patient has no symptoms - Urine culture pending but no need to treat #Anemia-likely anemia of chronic disease. Hgb low but stable at 9-10, normocytic - Check B12, folate, iron studies in the morning and follow CBC #Gerd-no acute issues - Continue PPI, famotidine #Osteoporosis-continue home calcium plus D, Fosamax #SUMIT--unclear if on CPAP-Will discuss DVT prophylaxis-Eliquis Disposition-continued stay in PCU, possible discharge to SNF in the next 1-2 days if sodium continues to improve Admission and Anticipated Discharge Date Admission Date: July 07, 2025 Subjective Pt reports feeling tired, maybe overall a little better since admission. No BM since admission. Denies chest pain or shortness of breath but does feel little lightheaded. I discussed her care with cardiology. Telemetry with atrial flutter with rates in the 70s to 90s Physical Exam Constitutional: WD/WN, vitals as above Eyes: + anicteric sclerae Respiratory: normal respiratory effort, lungs clear to auscultation Cardiovascular: Rate/Rhythm: regular rate and + irregularly irregular Heart Sounds: no murmur Extremities: no edema Gastrointestinal (Abdomen): normal bowel sounds, soft, nontender, no hepatosplenomegaly Psychiatric: A+Ox3, euthymic affect Results & Data Results & Data Vital Signs (Past 12 Hours) Vital Signs Temp Pulse Resp BP Pulse Ox O2 Del Method 07/10/25 11:25 36.6 C 93 H 16 101/66 97 Room Air 07/10/25 07:46 36.5 C 99 H 16 120/72 98 Room Air 07/10/25 02:48 36.4 C L 78 18 108/68 97 Room Air Laboratory Results BMP, magnesium, BNP, troponin reviewed PG Care Time/CCT Total # of Minutes Spent Total Time Spent with Patient: Total time spent is greater than 50% in coordination of care (as documented) at patient's floor/unit and/or counseling patient: Coding Level of Care Code 39276 SUB INP/OBS CARE 3/50MIN Diagnoses Fatigue R53.83 Junctional rhythm I49.8 Hyponatremia E87.1 Atrial flutter I48.92
[2025-07-10] MEDS: SENNA 8.6 MG TAB PO SCH (15:14)
--- NOTE | 2025-07-10 15:48 | Electrocardiogram Report ---
Test Reason : Blood Pressure : */* mmHG Vent. Rate : 87 BPM Atrial Rate : 94 BPM P-R Int : * ms QRS Dur : 100 ms QT Int : 414 ms P-R-T Axes : * 41 194 degrees QTcB Int : 498 ms Possible Junctional rhythm QTcB >= 480 msec Abnormal ECG When compared with ECG of 09-Jul-2025 10:55, Non-specific change in ST segment in Anterior leads Confirmed by Kevon Conrad ([id number]) on 07/10/2025 3:47:53 PM Referred By: REFERRED SELF Confirmed By: Kevon Conrad
[2025-07-11 06:12] LABS: Hematocrit (blood only) 29.0 % (37.0-47.0); Hemoglobin 9.9 g/dl (12.0-16.0); Immature Granulocytes # (auto) 0.05 K/uL (0.01-0.20); Immature Granulocytes % (auto) 0.6 %; Mean Corpuscular Hemoglobin 29.3 pg (25.0-34.0); Mean Corpuscular Volume 85.8 fL (80.0-100.0); Platelet Count 423 K/uL (130-400); RDW Standard Deviation 41.9 fL (36.4-46.3); Red Blood Count 3.38 M/uL (4.20-5.40); White Blood Count 8.53 K/ul (4.8-10.8)
[2025-07-11 06:29] LABS: Anion Gap 7 (3-11); Blood Urea Nitrogen 29 mg/dl (6-23); Calcium 8.3 mg/dl (8.6-10.3); Carbon Dioxide 29 mmol/L (21-32); Chloride 96 mmol/L (98-107); Creatinine Clr Calc Pharmacy 26.0 ml/min; Glucose 95 mg/dl (70-99(Fasting)); Potassium 4.0 mmol/L (3.5-5.1); Sodium 132 mmol/L (136-145)
[2025-07-11 06:49] LABS: Ferritin 412.4 ng/ml (8-388)
[2025-07-11 06:55] LABS: Folate (Folic Acid),Ser orPlas 19.85 ng/ml (>5.38)
[2025-07-11 06:56] LABS: Vitamin B12 352.0 pg/ml (180-914)
[2025-07-11 07:12] LABS: Iron < 10 mcg/dl (35-150); Magnesium 2.1 mg/dl (1.7-2.4); Total Iron Binding Cap Calc 204 mcg/dl (250-450); Transferrin 146 mg/dl (200-360)
--- NOTE | 2025-07-11 08:53 | Cardiology Progress Note ---
Date of Service July 11, 2025 Assessment & Plan (1) Atrial flutter: (2) QT prolongation: (3) Thrombus of left atrial appendage: (4) Hyponatremia: Plan Benita's sodium continues to improve. Her iron this morning is very low however which is probably contributing to her fatigue. She would benefit from IV iron. I reviewed with her yesterday that her echocardiogram fortunately looks a lot better with an ejection fraction of 50 to 55% which is low normal, wall motion abnormalities have resolved. She continues to have grade 2 diastolic dysfunction and moderate mitral regurgitation. She has a small pericardial effusion which is new. When she had her cardiac catheterization at [place], it showed a left main stenosis of 50%. This was not intervened upon as it was considered high risk but if necessary we could reconsider. Her ischemic changes looked worse on yes terday's EKG. She is not having any anginal symptoms. Repeat EKG ordered. Her QTc has improved to below 500. Her amiodarone was dialed back to once daily and her metoprolol is now 25 mg daily given her extreme fatigue and junctional rhythm on admission. She continues in atrial flutter on the monitor. She notes worsening dysgeusia which started after COVID a few years ago but seems much worse over the last week or two. This may possibly be due to amiodarone and hopefully will improve with the lower dose. Admission and Anticipated Discharge Date Admission Date: July 07, 2025 Subjective Benita denies sob or chest pain although she notes she has not really been out of bed much. Atrial flutter on the monitor rates 70s - 100 bpm. Review of Systems Review of Systems: All systems reviewed & are unremarkable except as noted in HPI & below Physical Exam Constitutional: WD/WN, vitals as above Respiratory: normal respiratory effort, lungs clear to auscultation Cardiovascular: Rate/Rhythm: + abnormal rate and + abnormal rhythm Heart Sounds: normal S1 and normal S2 Extremities: no edema Skin: no rashes, warm and dry Neurologic: moves all extremities and awake Psychiatric: A+Ox3, euthymic affect Results & Data Vital Signs (Past 12 Hours) Vital Signs Temp Pulse Pulse Resp BP Pulse Ox O2 Del Method 07/11/25 07:12 36.5 C 96 H 18 109/71 97 Room Air 07/11/25 03:09 36.5 C 93 H 17 116/75 98 Room Air 07/10/25 23:49 88 07/10/25 23:30 36.3 C L 90 18 114/72 98 Room Air
[2025-07-11] MEDS: AMIODARONE 200 MG TAB PO SCH (10:01)
--- NOTE | 2025-07-11 12:05 | Hospitalist Progress Note ---
Date of Service July 11, 2025 Assessment & Plan (1) Fatigue: (2) Junctional rhythm: (3) Hyponatremia: (4) Atrial flutter: Plan This patient is an 84-year-old female with a history of atrial flutter and fibrillation on Eliquis, HFrEF, CAD s/p RCA stent and left main 50% stenosis, HTN, CKD stage III, severe TR, moderate MR, GERD, HLD, SUMIT, rate related LBBB, and osteoporosis who was admitted for profound fatigue, found to have hyponatremia and a junctional rhythm. #Atrial flutter/Prolonged QT/Junctional rhythm-had cardioversion last admission and has had prolonged QT. Came in with a junctional rhythm and fatigue after starting on high doses of amiodarone 400 mg p.o. twice daily and metoprolol succinate 100 mg p.o. twice daily at [facility] 1 week prior to admission. Amiodarone has now been further reduced to 200 mg p.o. once daily and Toprol-XL down to 25 mg p.o. once daily and remains in atrial flutter with normal rates. Still with some fatigue but overall improved. Appreciate cardiology consultation ECG with chronic downsloping ST depressions and T wave inversions in inferior and anterolateral leads not much change from previous. QTc improved at 500 - Continue telemetry monitoring - Continue reduced dose of amiodarone 200 mg p.o. once daily - Continue reduced dose of Toprol XL 25 mg daily - Follow BMP and keep electrolytes replete-none needed today - Cardiology at [facility] is planning for a cardioversion 3 weeks from the time she started the Eliquis-in approximately 2 more weeks - Continue Eliquis 5 mg p.o. twice daily - Plan is also for possible atrial flutter ablation in the future after cardio version #HFrEF/moderate MR/severe TR/rate related LBBB-EF during recent previous admission 15% and was likely rate related to rapid atrial fibrillation/flutter. EF is now improved to 50-55% and with moderate MR. She was started on Toprol- XL, Jardiance, and scheduled Lasix last admission. Now with sodium of 122 on admission which could be from Jardiance, Lasix, or amiodarone. She appears euvolemic - Decreased Toprol-XL to 25 mg daily - Continue Jardiance 10 g daily - Changed Lasix to 40 mg p.o. daily as needed for weight gain or leg swelling - Consider adding on AMRIK inhibitor, ARB, or Entresto as an outpatient-defer to cardiology - Daily weights, strict I's and O's, low-sodium diet #Fatigue/generalized weakness: Possibly secondary to junctional rhythm, metoprolol and amiodarone side effect, as well as hyponatremia. Fatigue and generalized weakness are now improving after doses of these medications have been lowered and hyponatremia is improving - PT/OT recommends rehab-insurance authorization for senior care facility denied even after peer to peer review by hospitalist on 07/11 - Family is now going to appeal the decision #Hyponatremia: Sodium low at 122 on admission. Serum osmolarity is low. 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 She is not drinking excessive free water. Sodium now improved to 132 with free water restriction and reduction in dose of amiodarone - Discontinued scheduled Lasix - Reduced amiodarone to 200 mg p.o. once daily - Follow BMP in the a.m. - Continue fluid restriction of 1200 mL/day #CAD/HLD/HTN-with stent to the RCA previously and with recent catheterization showing left main 50% stenosis and recent echo with EF 15% with anterior and apical akinesis. Appreciate cardiology consultation and recommendations. Left main stenosis not intervened upon as considered high risk - Continue aspirin, Eliquis, atorvastatin, Toprol-XL #Subclinical hypothyroidism-TSH checked on admission given arrhythmia and was normal but free T3 levels are slightly low, free T4 level slightly high. Cytomel has been started by previous hospitalist but this is not likely necessary at this time. She is recently started on amiodarone so this will need to be monitored in the future - Stopped Cytomel - Follow TSH in 4 to 6 weeks #Constipation-ongoing, last BM noted to be 07/07 - Continue Senokot 8.6 mg p.o. once daily and add bisacodyl 10 mg NC x 1 now #CKD stage III/IV-creatinine baseline around 1.4 and remains stable - Avoid nephrotoxins, renally dose medications - Follow BMP #Asymptomatic bacteriuria-UA abnormal but patient has no symptoms - Urine culture with mixed organisms - No need for antibiotics #Anemia-likely anemia of chronic kidney disease and mixed with some iron deficiency. Serum iron undetectable, transferrin saturation unable to be calculated, transferrin low, and ferritin elevated at 412. Hgb low but stable at 9-10, normocytic. B12 and folate are normal, TSH normal - Give Venofer 300 mg IV x 1 - Follow CBC - Recommend GI workup if not done previously #Gerd-no acute issues - Continue PPI, famotidine #Osteoporosis-continue home calcium plus D, Fosamax #SUMIT--unclear if on CPAP-Will discuss DVT prophylaxis-Eliquis Disposition-continued stay in PCU, awaiting [facility] approval by insurance Admission and Anticipated Discharge Date Admission Date: July 07, 2025 Subjective Patient reports ongoing fatigue but she did work with physical therapy this morning and ambulated 75 feet with a rolling walker. Denies chest pains with exertion, denies dyspnea on exertion, and denies any chest pains at rest. She still has not moved her bowels since at least the . I discussed her care with cardiology nurse practitioner, Tracey Chaudhry. Telemetry with atrial flutter with rates in the 70s to 90s I discussed her care also with her at the bedside who is concerned about her safety at home given her generalized weakness and instability with walking. Physical Exam Constitutional: WD/WN, vitals as above Eyes: + anicteric sclerae Respiratory: normal respiratory effort, lungs clear to auscultation Cardiovascular: Rate/Rhythm: regular rate and + irregularly irregular Heart Sounds: no murmur Extremities: no edema Gastrointestinal (Abdomen): normal bowel sounds, soft, nontender, no hepatosplenomegaly Psychiatric: A+Ox3, euthymic affect Results & Data Results & Data Vital Signs (Past 12 Hours) Vital Signs Temp Pulse Pulse Resp BP Pulse Ox O2 Del Method 07/11/25 11:07 36.8 C 89 18 153/82 H 97 Room Air 07/11/25 08:00 96 H 07/11/25 07:12 36.5 C 96 H 18 109/71 97 Room Air 07/11/25 03:09 36.5 C 93 H 17 116/75 98 Room Air Laboratory Results CBC, BMP, magnesium, iron studies, B12, folate reviewed PG Care Time/CCT Total # of Minutes Spent Total Time Spent with Patient: Total time spent is greater than 50% in coordination of care (as documented) at patient's floor/unit and/or counseling patient: Coding Level of Care Code 41524 SUB INP/OBS CARE 235MIN Diagnoses Fatigue R53.83 Junctional rhythm I49.8 Hyponatremia E87.1 Atrial flutter I48.92
[2025-07-11] MEDS: IRON SUCROSE 300 MG in SODIUM CHLORIDE 0.9% 250 ML IV ONE (12:27)
--- NOTE | 2025-07-11 12:33 | Electrocardiogram Report ---
Test Reason : Blood Pressure : */* mmHG Vent. Rate : 102 BPM Atrial Rate : * BPM P-R Int : * ms QRS Dur : 90 ms QT Int : 384 ms P-R-T Axes : * 32 204 degrees QTcB Int : 500 ms Possible Atrial flutter with 2 to 1 block Prolonged QT Abnormal ECG When compared with ECG of 10-Jul-2025 13:09, Significant changes have occurred Confirmed by Kevon Conrad ([id number]) on 07/11/2025 12:33:29 PM Referred By: REFERRED SELF Confirmed By: Kevon Conrad
[2025-07-12 06:16] LABS: Hematocrit (blood only) 30.1 % (37.0-47.0); Hemoglobin 10.2 g/dl (12.0-16.0); Immature Granulocytes # (auto) 0.05 K/uL (0.01-0.20); Immature Granulocytes % (auto) 0.5 %; Mean Corpuscular Hemoglobin 29.5 pg (25.0-34.0); Mean Corpuscular Volume 87.0 fL (80.0-100.0); Platelet Count 419 K/uL (130-400); RDW Standard Deviation 42.0 fL (36.4-46.3); Red Blood Count 3.46 M/uL (4.20-5.40); White Blood Count 9.54 K/ul (4.8-10.8)
[2025-07-12 06:35] LABS: Anion Gap 6.0 (3-11); Blood Urea Nitrogen 24.0 mg/dl (6-23); Calcium 8.2 mg/dl (8.6-10.3); Carbon Dioxide 29.0 mmol/L (21-32); Chloride 99.0 mmol/L (98-107); Creatinine Clr Calc Pharmacy 30.8 ml/min; Glucose 88.0 mg/dl (70-99(Fasting)); Magnesium 2.2 mg/dl (1.7-2.4); Potassium 4.2 mmol/L (3.5-5.1); Sodium 134.0 mmol/L (136-145)
[2025-07-12 07:31] VITALS: RESP 18
[2025-07-12 11:28] VITALS: PULSE 98; TEMP 98.1; O2SAT 95
[2025-07-12] MEDS: FUROSEMIDE 40 MG TAB PO ONE (12:26)
--- NOTE | 2025-07-12 12:45 | Discharge Summary ---
Discharge Summary Date of Service July 12, 2025 Principal Dx & Hospital Course #1 = Principal Diagnosis (1) Fatigue: (2) Junctional rhythm: (3) Hyponatremia: (4) Atrial flutter: Plan This patient is an 84-year-old female with a history of atrial flutter and fibrillation on Eliquis, HFrEF, CAD s/p RCA stent and left main 50% stenosis, HTN, CKD stage III, severe TR, moderate MR, GERD, HLD, SUMIT, rate related LBBB, and osteoporosis who was admitted for profound fatigue, found to have hyponatremia and a junctional rhythm. #Atrial flutter/Prolonged QT/Junctional rhythm-had cardioversion last admission and has had prolonged QT. Came in with a junctional rhythm and fatigue after starting on high doses of amiodarone 400 mg p.o. twice daily and metoprolol succinate 100 mg p.o. twice daily at [facility] 1 week prior to admission. Amiodarone has now been further reduced to 200 mg p.o. once daily and Toprol-XL down to 25 mg p.o. once daily and remains in atrial flutter with normal rates. Still with some fatigue but overall much improved. Appreciate cardiology consultation ECG with chronic downsloping ST depressions and T wave inversions in inferior and anterolateral leads not much change from previous. QTc improved at 500 - Continue reduced dose of amiodarone 200 mg p.o. once daily - Continue reduced dose of Toprol XL 25 mg daily - Follow BMP as an outpatient and keep electrolytes replete - Cardiology at [facility] is planning for a cardioversion 3 weeks from the time she started the Eliquis-in approximately 2 more weeks-they will arrange this - Continue Eliquis 5 mg p.o. twice daily - Plan is also for possible atrial flutter ablation in the future after cardioversion #HFrEF/moderate MR/severe TR/rate related LBBB-EF during recent previous admission 15% and was likely rate related to rapid atrial fibrillation/flutter. EF is now improved to 50-55% and with moderate MR. She was started on Toprol- XL, Jardiance, and scheduled Lasix last admission. Now with sodium of 122 on admission which could be from Jardiance, Lasix, or amiodarone. She appears euvolemic but thought maybe she had a little edema on the day of discharge and was given Lasix 40 mg p.o. x 1 - Decreased Toprol-XL to 25 mg daily - Continue Jardiance 10 g daily - Changed Lasix to 40 mg p.o. daily as needed for weight gain or leg swelling rather than scheduled - Consider adding on AMRIK inhibitor, ARB, or Entresto as an outpatient-defer to cardiology - Daily weights, fluid restriction 1800 mL daily, and continue low-sodium diet after discharge #Fatigue/generalized weakness: Possibly secondary to junctional rhythm, metoprolol and amiodarone side effect, as well as hyponatremia. Fatigue and generalized weakness are now improving after doses of these medications have been lowered and hyponatremia is much improved - PT/OT recommends rehab-insurance authorization for halfway facility denied even after peer to peer review by hospitalist on 07/11-patient will return home with home health - Family is now going to appeal the decision #Hyponatremia: Sodium low at 122 on admission. Serum osmolarity is low. 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 She is not drinking excessive free water. Sodium now improved to 134 with free water restriction and reduction in dose of amiodarone and Lasix - Continue Lasix as needed only on discharge - Reduced amiodarone to 200 mg p.o. once daily - Follow BMP in 1 week with PCP and/or cardiology - Continue fluid restriction of 1800 mL/day #CAD/HLD/HTN-with stent to the RCA previously and with recent catheterization showing left main 50% stenosis and recent echo with EF 15% with anterior and apical akinesis. Appreciate cardiology consultation and recommendations. Left main stenosis not intervened upon as considered high risk - Continue aspirin, Eliquis, atorvastatin, Toprol-XL #Subclinical hypothyroidism-TSH checked on admission given arrhythmia and was normal but free T3 levels are slightly low, free T4 level slightly high. Cytomel has been started by previous hospitalist but this is not likely necessary at this time. She is recently started on amiodarone so this will need to be monitored in the future - Stopped Cytomel - Follow TSH in 4 to 6 weeks #Constipation-improved with giving bisacodyl suppository and Senokot - Continue Senokot 8.6 mg p.o. once daily and MiraLAX as needed #CKD stage III/IV-creatinine baseline around 1.4 and is improved to below baseline on the day of discharge at 1.18 - Avoid nephrotoxins, renally dose medications - Follow BMP as an outpatient #Asymptomatic bacteriuria-UA abnormal but patient has no symptoms - Urine culture with mixed organisms - No need for antibiotics #Anemia-likely anemia of chronic kidney disease and mixed with some iron deficiency. Serum iron undetectable, transferrin saturation unable to be calculated, transferrin low, and ferritin elevated at 412. Hgb low but stable at 9-10, normocytic. B12 and folate are normal, TSH normal - Gave Venofer 300 mg IV x 1 - Follow CBC as an outpatient - Recommend GI workup if not done [id number] with PCP #Gerd-no acute issues - Continue PPI, famotidine #Osteoporosis-continue home calcium plus D, Fosamax #SUMIT--unclear if on [id number] with PCP DVT prophylaxis-Eliquis Disposition-stable for discharge to home with home health Notes For Next Care Provider Check BMP in 1 week Check TSH in 4 to 6 weeks Follow CBC and consider GI outpatient workup for occult blood loss due to iron deficiency Medication Changes From Visit See medication list Admission HPI Per Admitting Provider 84-year-old white female with multiple recent hospitalizations pertaining to her heart condition. She was recently hospitalized in [place] due to her history of atrial flutter and atrial fibrillation. She apparently was found to have a right atrial thrombus and was started on Eliquis. She was recently started on amiodarone, aspirin, Jardiance, and metoprolol. She prevents to the ER today with overwhelming fatigue but no syncope. She denies palpitations or chest pain. EKG is most consistent with a junctional rhythm although blood pressure stable and heart rate is 60-70. Sodium is low at 123. Serum osmolarity and thyroid profile pending. She will be admitted for further evaluation and treatment. Metoprolol will be placed on hold. Cardiology consultation requested. She denies feeling palpitations or any chest discomfort Discharge Exam Constitutional WD/WN, vitals as above Eyes + anicteric sclerae Respiratory normal respiratory effort, lungs clear to auscultation Cardiovascular Rate/Rhythm: regular rate and + irregularly irregular Heart Sounds: no murmur Extremities: no edema Gastrointestinal (Abdomen) normal bowel sounds, soft, nontender, no hepatosplenomegaly Psychiatric A+Ox3, euthymic affect Discharge Plan Discharge Items Patient Disposition: Home - Home Health Services Reason For Visit: FATIGUE, JUNCTIONAL RHYTHM Discharge Diagnosis: Fatigue secondary to junctional rhythm and hyponatremia Condition on Discharge: Fair Activity: As commented below Lifting: Gradually increase as tolerated Bathing: No limitations Exercise/Sports: Gradually increase as tolerated Exercise Comment: With home PT/OT Non-emergency contact: Primary Care Provider and Shortage Worker Call non-emergency contact if: you have any medication questions and your symptoms worsen Follow-up/Referrals: Padmini Barbour DO [Physician] - (Follow-up with RUFINO Georges at cardiology office within 2 weeks) Rabia Patel DO [Primary Care Provider] - (Follow-up within 1-2 weeks) Diet: Low Sodium (2gm) Fluids: 1800ml (7 cups) Addtl Attending Provider Instructions: You were admitted with fatigue secondary to low sodium levels and a slow heart rhythm. This improved with decreasing the doses of your amiodarone and your metoprolol. You can still take your Lasix as needed for weight gain of 2 to 3 pounds from 1 day to the next, or for increased leg swelling. Fortunately, the function of your heart is much improved since previous. Your cardiology provider should be contacting you with information about scheduling a cardioversion for your atrial flutter. Pending Studies at Discharge: No Stand-Alone Forms: My [facility] Medications and DC Order Prescriptions: New metoprolol succinate 25 mg Tablet Extended Release 24 Hr 25 mg PO QAM Qty: 30 0RF sennosides [Senna Lax] 8.6 mg Tablet 8.6 mg PO QAM Qty: 30 0RF Continued atorvastatin 40 mg tablet 40 mg PO HS nitroglycerin 0.4 mg tablet, sublingual 0.4 mg SL Q5M PRN (Reason: chest pain) gabapentin 100 mg capsule 100 mg PO TID mirabegron 50 mg tablet extended release 24 hr 50 mg PO DAILY cholecalciferol (vitamin D3) [Vitamin D3] 10 mcg (400 unit) capsule 10 mcg PO DAILY polyethylene glycol 3350 [Miralax] 17 gram/dose powder 17 g PO DAILY PRN (Reason: Constipation) calcium carbonate-vitamin D3 600 mg-5 mcg (200 unit) tablet 1 tab PO DAILY alendronate [Fosamax] 70 mg Tablet 70 mg PO WK Rx Instructions: Thursday esomeprazole magnesium 40 mg Capsule,Delayed Release(Dr/Ec) 40 mg PO DAILY zinc sulfate 25 mg zinc (110 mg) Tablet 25 mg PO DAILY aspirin 81 mg Tablet,Delayed Release (Dr/Ec) 81 mg PO DAILY famotidine 20 mg Tablet 20 mg PO DAILY Eliquis 5 mg Tablet 5 mg PO BID Jardiance 10 mg Tablet 10 mg PO DAILY Changed amiodarone 200 mg Tablet 200 mg PO QAM Qty: 30 0RF furosemide [Lasix] 40 mg Tablet 40 mg PO DAILY PRN (Reason: Leg swelling or 2 pound weight gain) Qty: 0 0RF Discontinued metoprolol succinate 100 mg Tablet Extended Release 24 Hr 100 mg PO BID Discharge Orders: Discharge Order (Routine); Ordered 07/12/25 Ordered By: Linda Hobson Admission Data Admit Date/Time: 07/07/25 17:37 Attending Provider: Linda Hobson Admit Provider: Davin Burroughs Primary Care Provider: Rabia Patel Other Providers: Davin Burroughs; Padmini Barbour; Niko Sorto [facility]; [facility] Hospital Stay Data Consultations 07/07/25 16:49 ED Decision to Admit Stat 07/07/25 19:33 Consult Cardiology Routine Diagnostic Imagining Performed Echocardiogram Pending Results Patient Have Any Pending Studies at Discharge: No Discharge Instructions Given to Patient (Per Discharging Provider) You were admitted with fatigue secondary to low sodium levels and a slow heart rhythm. This improved with decreasing the doses of your amiodarone and your metoprolol. You can still take your Lasix as needed for weight gain of 2 to 3 pounds from 1 day to the next, or for increased leg swelling. Fortunately, the function of your heart is much improved since previous. Your cardiology provider should be contacting you with information about scheduling a cardioversion for your atrial flutter. Total Time Total Time Spent Total Time Spent (In Minutes): 35 minutes Total Time Includes: Examination of the Patient, Discharge Planning and Medication Reconciliation Coding Level of Care Code 56319 INP/OBS DISCH >30 MIN Diagnoses Fatigue R53.83 Junctional rhythm I49.8 Hyponatremia E87.1 Atrial flutter I48.92
[2025-07-12 13:30] VITALS: BP 115/66
== END 2025-07-12 14:16 | disposition home health service (06) | DRG 309 ==
LOC: SUATTDRO → ED 13:28 → EDINP 17:37 → SUATTDRO 17:37 → 2S 19:33

== ENCOUNTER 2025-07-13 09:05 | Inpatient (IN) ==
--- NOTE | 2025-07-13 09:53 | Emergency Department Note ---
Impression & Plan Left-sided chest pain, Elevated troponin, BRBPR (bright red blood per rectum), Bilateral pleural effusion ED Provider Note HISTORY OF PRESENT ILLNESS: Patient is an 84-year-old female presenting with rectal bleeding. Patient reports that she was just discharged from the hospital. She is on Eliquis. States that last night while having a bowel movement she noted some bright red blood in the stool and in the toilet bowl. States that she had another bright red bloody bowel movement throughout the night and then also had another grossly bloody bowel movement this morning. She reports feeling lightheaded and dizzy. Denies any abdominal pain, nausea or vomiting. She denies any pain with bowel movements. She does report a history of hemorrhoids but has not had any recently that she is aware of. Patient also reports that she woke up and was having left-sided chest pain. She states that pain is sharp in etiology. Denies any shortness of breath. She does report that it hurts when she moves. Locates the pain to just underneath her left breast. ROS: as above PHYSICAL EXAM: Constitutional: Patient appears in no acute distress. HENT: Head: Normocephalic and atraumatic. Eyes: EOMI, PERRL Mouth/Throat: Mucous membranes moist. Neck: Trachea midline. Neck supple. Cardiovascular: RRR, No murmurs, rubs or gallops. Intact distal pulses. Pulmonary/Chest: No respiratory distress. Breath sounds clear and equal bilaterally. No wheezes or rales. Abdominal: Abdomen soft, no tenderness, rebound or guarding. Rectal: Chaperoned by nursing staff. No palpable hemorrhoids or masses. No gross blood on glove. Hemoccult positive. Musculoskeletal: No edema, tenderness or deformity noted. Skin: Warm and dry. No rash, erythema, pallor or cyanosis Psychiatric: Appropriate mood and affect for situation. Neurological: Alert and keenly responsive. CN II-XII grossly intact, moving all extremities equally and fully. MDM: - Vitals signs showed tachycardia - History obtained via patient. History as above. - Chronic conditions affecting care: ischemic cardiomyopathy; hypothyroidism; right atrial thrombus; paroxysmal Afib; CAD - Differential diagnoses include, but are not limited to: Hemorrhoid; diverticular bleed; ACS; PE; electrolyte abnormality - Order placed for continuous cardiac monitoring. At this time, monitor showed rate of 104 bpm with normal sinus rhythm, per my interpretation. - External medical records reviewed. Discharge summary dated 07/12/2025 was reviewed. Patient was admitted at that time for atrial flutter/prolonged QT. Noted to have heart failure with reduced ejection fraction. EF at 15%. - EKG image interpreted by myself showed normal sinus rhythm. Rate tachycardic at 106 bpm. QT 366. Noted have some T wave inversions in V4 through V6 with inversions in leads II and III. When compared to previous EKG, patient has T wave inversions noted on EKG as recent as 07/11/2025. - Laboratory workup interpreted by myself showed leukocytosis (WBC 10.92); elevated INR (1.2 - likely Eliquis); stable electrolytes; CKD (Cr 1.36); normal AST/ALT; normal lipase; elevated troponin (54.5) - Type and screen obtained - CT abdomen/pelvis with IV contrast showed no bowel obstruction or bowel wall thickening. Noted to have moderate pleural effusions and a small pericardial effusion and pericardial enhancement suggestive of pericarditis. Noted to have a 2.3 cm calcified mass in the inferior bladder concerning for potential urothelial malignancy. - Given patient's chest pain, active GI bleed and elevated troponin, will admit to hospitalist service. - Discussion was had with vocational case manager about patient's case and need for admission - Hospitalist consulted for admission - Patient admitted to [facility] hospitalist service for further evaluation and management. ASSESSMENT AND PLAN: Diagnosis: Left-sided chest pain; bright red blood per rectum; bilateral pleural effusions; elevated troponin Plan: Admit Past Med/Surg History Problem List (Updated 07/13/25 @ 13:49 by Milagros Mooney MD) Bilateral pleural effusion (Acute) BRBPR (bright red blood per rectum) (Acute) Elevated troponin (Acute) Left-sided chest pain (Acute) Ischemic cardiomyopathy Thrombus of left atrial appendage Hypothyroidism determined by thyroid function test Hyponatremia (Acute) Right atrial thrombus Paroxysmal atrial fibrillation Ischemic heart disease Hyponatremia Junctional rhythm Fatigue (Acute) 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 Non-STEMI (non-ST elevated myocardial infarction) QT prolongation HFrEF (heart failure with reduced ejection fraction) Encounter for pre-operative examination Elevated troponin I level Atrial flutter with rapid ventricular response Heart palpitations (Acute) Zinc deficiency Pupil asymmetry PAF (paroxysmal atrial fibrillation) Other specified abnormal findings of blood chemistry OAB (overactive bladder) Mixed incontinence urge and stress Mitral regurgitation 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) Hypertensive chronic kidney disease with stage 1 through stage 4 chronic kidney disease, or unspecified chronic kidney disease Glossodynia KIAN (generalized anxiety disorder) Dry mouth not due to sicca syndrome Diastolic CHF, chronic Constipation, unspecified Burning sensation of mouth BRBPR (bright red blood per rectum) Arthritis of hip Sleep apnea Anemia 3-vessel CAD Glossodynia exfoliativa Low zinc level Parageusia dysgeusia Multiple rib fractures (Acute) Acute hyponatremia (Acute) Dysphagia Acute blood loss anemia CHERYL (acute kidney injury) Rosacea (Chronic) Coronary artery disease (Chronic) Hyponatremia Closed fracture of pubic ramus (Acute) Tachy-georges syndrome Sinus bradycardia Syncope (Acute) Bradycardia (Acute) Acute dehydration (Acute) New onset atrial flutter (Acute) Elevated troponin (Acute) Atrial flutter Vitiligo (Acute) Medical History Chronic kidney disease, stage 3 Pulmonary hypertension Atrial fibrillation with rapid ventricular response Acute heart failure with normal ejection fraction Rectal bleeding Pain and swelling of right wrist Osteoporosis Heel pain Foreign body of foot or toe, superficial, infected Cellulitis of foot Hypertension H/O atrial flutter Hx of hemorrhoids Surgical History H/O cystoscopy History of cataract surgery History of cardiac catheterization S/P appendectomy H/O heart artery stent Family History Aunt Breast cancer Father Coronary heart disease Parkinson disease Heart disease Mother Heart disease Atrial fibrillation Grandmother Hypertension Stroke Other No family history of adverse response to anesthesia No family history of bleeding disorder Denies family history of Crohn's disease Colorectal cancer Ulcerative colitis Social History Smoking Status: Never smoker Second Hand Exposure: No; Do You Dip or Chew Tobacco: No; Hx Alcohol Use: No Hx Substance Use: No Preferred Language: Citizen [place] Communication Ability: Effective Hearing Ability: Normal Costume Draper Required: No Beliefs That Will Affect Care: None marital status: Current Living Situation: Spouse Current Living Situation Comment: with current occupational status: retired Feels Safe at Home: Yes Physical Activity Frequency: 1-2 Times per Week Assistive Devices: Cane and Walker Allergies Allergies Allergy/AdvReac Type Severity Reaction Status Date / Time Penicillins AdvReac Intermediate HIVES Verified 07/07/25 16:46 Sulfa (Sulfonamide AdvReac Intermediate GI SYMPTOMS Verified 07/07/25 16:46 Antibiotics) amlodipine AdvReac Unknown CAN'T Verified 07/07/25 16:46 REMEMBER Home Meds Home Medications Medication Instructions Recorded Confirmed atorvastatin 40 mg tablet 40 mg PO HS 07/29/19 07/13/25 alendronate 70 mg tablet (Fosamax) 70 mg PO WK 07/07/23 07/13/25 calcium 600 mg (as 1 tab PO DAILY 05/12/25 07/13/25 carbonate)-vitamin D3 5 mcg (200 unit) tablet cholecalciferol (vitamin D3) 10 10 mcg PO DAILY 05/12/25 07/13/25 mcg (400 unit) capsule (Vitamin D3) gabapentin 100 mg capsule 100 mg PO TID 05/12/25 07/13/25 mirabegron 50 mg tablet,extended 50 mg PO DAILY 05/12/25 07/13/25 release 24 hr nitroglycerin 0.4 mg sublingual 0.4 mg sublingual Q5M PRN chest 05/12/25 07/13/25 tablet pain polyethylene glycol 3350 17 17 g PO DAILY PRN Constipation 05/30/25 07/13/25 gram/dose oral powder (Miralax) esomeprazole magnesium 40 mg 40 mg PO DAILY 06/26/25 07/13/25 capsule,delayed release apixaban 5 mg tablet (Eliquis) 5 mg PO BID 07/07/25 07/13/25 aspirin 81 mg tablet,delayed 81 mg PO DAILY 07/07/25 07/13/25 release empagliflozin 10 mg tablet 10 mg PO DAILY 07/07/25 07/13/25 (Jardiance) famotidine 20 mg tablet 20 mg PO DAILY 07/07/25 07/13/25 zinc sulfate 25 mg zinc (110 mg) 25 mg PO DAILY 07/07/25 07/13/25 tablet Previous Rx's Medication Instructions Recorded amiodarone 200 mg tablet 200 mg PO QAM #30 tabs 07/12/25 furosemide 40 mg tablet (Lasix) 40 mg PO DAILY PRN Leg swelling or 07/12/25 2 pound weight gain #0 tabs metoprolol succinate 25 mg 25 mg PO QAM #30 tabs 07/12/25 tablet,extended release 24 hr sennosides 8.6 mg tablet (Senna 8.6 mg PO QAM #30 tabs 07/12/25 Lax) Results & Data (ED) Vital Signs Vital Signs - 24 hr 07/13/25 09:23 07/13/25 09:51 07/13/25 10:12 Temperature 36.7 C Temperature Source Oral Pulse Rate 105 H 114 H Pulse Rate from SpO2 Sensor 104 H Respiratory Rate 20 20 Respiratory Effort / Characteristics Non-Labored Spontaneous Respiratory Depth Normal Respiratory Pattern Regular Blood Pressure 116/80 135/82 Blood Pressure Mean 92 99 Pulse Oximetry 96 97 Oxygen Delivery Method Room Air Room Air Sepsis Recent Fever Within 48 Hours No Sepsis New/Unexplained Change in Mental Status N/A Sepsis Action Taken by Nursing No Action Required 07/13/25 11:00 Temperature Temperature Source Pulse Rate 104 H Pulse Rate from SpO2 Sensor 104 H Respiratory Rate 15 Respiratory Effort / Characteristics Respiratory Depth Respiratory Pattern Blood Pressure 128/79 Blood Pressure Mean 95 Pulse Oximetry 98 Oxygen Delivery Method Sepsis Recent Fever Within 48 Hours Sepsis New/Unexplained Change in Mental Status Sepsis Action Taken by Nursing Laboratory Data 07/13/25 09:50 07/13/25 09:50 Lab Results 07/13/25 07/13/25 Range/Units 09:50 09:59 WBC 10.92 H (4.8-10.8) K/ul RBC 3.91 L (4.20-5.40) M/uL Hgb 11.0 L (12.0-16.0) g/dl Hct 34.4 L (37.0-47.0) % MCV 88.0 (80.0-100.0) fL MCH 28.1 (25.0-34.0) pg MCHC 32.0 (32.0-36.0) g/dL RDW Std Deviation 44.3 (36.4-46.3) fL RDW Coeff of Erik 14.0 (11.5-14.5) % Plt Count 503 H (130-400) K/uL MPV 9.0 L (9.4-12.4) fL Immature Gran % (Auto) 0.8 % Neut % (Auto) 82.2 % Lymph % (Auto) 6.7 % Larue % (Auto) 7.9 % Eos % (Auto) 1.7 % Baso % (Auto) 0.7 % Neut # (Auto) 8.97 H (1.40-6.50) K/uL Lymph # (Auto) 0.73 L (1.20-3.40) K/uL Larue # (Auto) 0.86 H (0.11-0.59) K/uL Eos # (Auto) 0.19 (0.00-0.50) K/uL Baso # (Auto) 0.08 (0.00-0.20) K/uL Immature Gran # (Auto) 0.09 (0.01-0.20) K/uL PT 12.4 H (9.0-12.0) Seconds INR 1.2 H (0.9-1.1) Sodium 135 L (136-145) mmol/L Potassium 4.6 (3.5-5.1) mmol/L Chloride 97 L (98-107) mmol/L Carbon Dioxide 31 (21-32) mmol/L Anion Gap 7 (3-11) BUN 24 H (6-23) mg/dl Creatinine 1.36 H (0.6-1.2) mg/dl Est Cr Clr Drug Dosing Not Reportable eGFR 37.94 BUN/Creatinine Ratio 17.6 (10-20) Glucose 105 H (70-99(Fasting)) mg/dl Calcium 8.7 (8.6-10.3) mg/dl Total Bilirubin 1.0 (0.2-1.0) mg/dl AST 23 (13-39) U/L ALT 22 (7-52) U/L Alkaline Phosphatase 81 (34-104) U/L Troponin I High Sens 54.5 H* (0-14) pg/ml Total Protein 6.5 (6.0-8.3) gm/dl Albumin 3.4 (3.4-5.0) gm/dl Globulin 3.1 (2.5-4.0) gm/dl Albumin/Globulin Ratio 1.1 (0.9-2) Lipase 51 (11-82) U/L Blood Type B Positive Antibody Screen NEGATIVE Administered Medications Discontinued Medications Acetaminophen (Ofirmev) 1,000 mg in 100 mls @ 400 mls/hr IV NOW STA Stop: 07/13/25 10:40 Last Admin: 07/13/25 10:50 Dose: 400 mls/hr Documented By: OXANA Ioversol (Optiray 320 100ml) 94 ml IV ONCE ONE Stop: 07/13/25 12:04 Last Admin: 07/13/25 12:03 Dose: 94 ml Documented By: RADHA Imaging Data Radiologist's Impression: Abdomen/Pelvis CT 07/13/25 11:[address] WITH IV CONTRAST CT DOSE: 659.75 mGy.cm HISTORY: Acute left-sided abdominal pain with rectal bleeding left sided pain; rectal bleeding TECHNIQUE: Multiaxial CT images of the abdomen and pelvis were performed following the IV administration of 94 cc of Optiray, A dose lowering technique was utilized adhering to the principles of ALARA. COMPARISON STUDY: CT abdomen and pelvis 07/07/2023 FINDINGS: Small pericardial effusion with pericardial enhancement. Cardiomegaly and coronary artery calcifications are present. Moderate sized pleural effusions with dependent bibasilar consolidation and left lower lobe volume loss. No pneumatosis or pneumoperitoneum. Punctate calcified granulomata of the liver and spleen. Moderately atrophic pancreas. Unremarkable right adrenal gland with unchanged mild likely benign left adrenal gland nodular thickening. Unremarkable liver. Mildly distended gallbladder. Subcentimeter hypodense foci suggestive of small cysts are noted within the kidneys. No hydronephrosis. Irregular urinary bladder wall thickening with mucosal hyperemia and perivesicular stranding. Air is also noted within the urinary bladder wall. Layering hyperdense material versus mucosal enhancement within the region of the urinary bladder trigone. Heterogeneous calcified mass is noted inferior to the urinary bladder within the expected location of the urethra measuring 1.9 x 1.9 x 2.3 cm on image 278 series 3. Small amount of air is noted within the vaginal and cervical canals. Atherosclerosis of the aorta and branch vessels. Nonspecific borderline enlarged inguinal chain lymph nodes measuring up to 9 mm. No iliac chain lymphadenopathy. Small hiatal hernia with mild distal esophageal wall thickening. No bowel obstruction or bowel wall thickening. Unremarkable soft tissues. No acute fracture or destructive bone lesion. No chronic pelvic ring fracture deformities. IMPRESSION: 1. 2.3 cm calcified mass is noted inferior to the urinary bladder within the expected location of the urethra. Primary urothelial malignancy is the differential exclusion. Urology consult is needed. 2. Findings suggestive of cystitis. Air within the urinary bladder wall may represent associated emphysematous cystitis or air introduced into the wall through ulcerative urothelial lesion as above. 3. No bowel obstruction or bowel wall thickening. 4. Nonspecific borderline enlarged inguinal chain lymph nodes. 5. Moderate pleural effusions with bibasilar consolidation/atelectasis. 6. Small pericardial effusion with pericardial enhancement suggestive of pericarditis. ACT 112: Positive. There are findings on this exam that require communication between the performing entity and the patient following Patient Test Result Information Act ([place] Act 112) guidelines. The above report was generated using voice recognition software. It may contain grammatical, syntax or spelling errors. Electronically signed by: Carlos Hernandes M.D. 07/13/2025 12:37 PM Discharge Plan Visit Data Chief Complaint: Rectal Bleed Stated Complaint: VAGINAL BLEEDING ED Provider: Milagros Mooney Discharge Problem: Left-sided chest pain, Elevated troponin, BRBPR (bright red blood per rectum), Bilateral pleural effusion Condition: Fair Forms Stand Alone Forms: [facility] ADTZ Prescriptions Prescriptions: No Action atorvastatin 40 mg tablet 40 mg PO HS nitroglycerin 0.4 mg tablet, sublingual 0.4 mg SL Q5M PRN (Reason: chest pain) gabapentin 100 mg capsule 100 mg PO TID mirabegron 50 mg tablet extended release 24 hr 50 mg PO DAILY cholecalciferol (vitamin D3) [Vitamin D3] 10 mcg (400 unit) capsule 10 mcg PO DAILY polyethylene glycol 3350 [Miralax] 17 gram/dose powder 17 g PO DAILY PRN (Reason: Constipation) calcium carbonate-vitamin D3 600 mg-5 mcg (200 unit) tablet 1 tab PO DAILY alendronate [Fosamax] 70 mg Tablet 70 mg PO WK Rx Instructions: Thursday esomeprazole magnesium 40 mg Capsule,Delayed Release(Dr/Ec) 40 mg PO DAILY zinc sulfate 25 mg zinc (110 mg) Tablet 25 mg PO DAILY aspirin 81 mg Tablet,Delayed Release (Dr/Ec) 81 mg PO DAILY famotidine 20 mg Tablet 20 mg PO DAILY Eliquis 5 mg Tablet 5 mg PO BID Jardiance 10 mg Tablet 10 mg PO DAILY metoprolol succinate 25 mg Tablet Extended Release 24 Hr 25 mg PO QAM Qty: 30 0RF sennosides [Senna Lax] 8.6 mg Tablet 8.6 mg PO QAM Qty: 30 0RF furosemide [Lasix] 40 mg Tablet 40 mg PO DAILY PRN (Reason: Leg swelling or 2 pound weight gain) Qty: 0 0RF amiodarone 200 mg Tablet 200 mg PO QAM Qty: 30 0RF Referrals Referrals: Rabia Patel, [Primary Care Provider] -
[2025-07-13 10:15] LABS: Hematocrit (blood only) 34.4 % (37.0-47.0); Hemoglobin 11.0 g/dl (12.0-16.0); Immature Granulocytes # (auto) 0.09 K/uL (0.01-0.20); Immature Granulocytes % (auto) 0.8 %; Mean Corpuscular Hemoglobin 28.1 pg (25.0-34.0); Mean Corpuscular Volume 88.0 fL (80.0-100.0); Platelet Count 503 K/uL (130-400); RDW Standard Deviation 44.3 fL (36.4-46.3); Red Blood Count 3.91 M/uL (4.20-5.40); White Blood Count 10.92 K/ul (4.8-10.8)
[2025-07-13 10:32] LABS: Alanine Aminotransferase 22 U/L (7-52); Albumin Globulin Ratio 1.1 (0.9-2); Albumin Level 3.4 gm/dl (3.4-5.0); Alkaline Phosphatase 81 U/L (34-104); Anion Gap 7 (3-11); Bilirubin,Total 1.0 mg/dl (0.2-1.0); Blood Urea Nitrogen 24 mg/dl (6-23); Calcium 8.7 mg/dl (8.6-10.3); Carbon Dioxide 31 mmol/L (21-32); Chloride 97 mmol/L (98-107); Globulin 3.1 gm/dl (2.5-4.0); Glucose 105 mg/dl (70-99(Fasting)); Lipase 51 U/L (11-82); Potassium 4.6 mmol/L (3.5-5.1); Sodium 135 mmol/L (136-145); Total Protein 6.5 gm/dl (6.0-8.3)
[2025-07-13 10:46] LABS: INR 1.2 (0.9-1.1); Prothrombin Time 12.4 Seconds (9.0-12.0)
[2025-07-13] MEDS: ACETAMINOPHEN 1,000 MG/100 ML VIAL IV STA (10:50)
[2025-07-13] MEDS: OPTIRAY 320 100ml IV ONE (12:03)
--- NOTE | 2025-07-13 12:38 | CT Scan Report ---
ABDOMEN AND PELVIS CT WITH IV CONTRAST CT DOSE: 659.75 mGy.cm HISTORY: Acute left-sided abdominal pain with rectal bleeding left sided pain; rectal bleeding TECHNIQUE: Multiaxial CT images of the abdomen and pelvis were performed following the IV administrat ion of 94 cc of Optiray, A dose lowering technique was utilized adhering to the principles of ALARA. COMPARISON STUDY: CT abdomen and pelvis 07/07/2023 FINDINGS: Small pericardial effusion with pericardial enhancement. Cardiomegaly and coronary artery c alcifications are present. Moderate sized pleural effusions with dependent bibasilar consolidation an d left lower lobe volume loss. No pneumatosis or pneumoperitoneum. Punctate calcified granulomata of the liver and spleen. Moderately atrophic pancreas. Unremarkable ri ght adrenal gland with unchanged mild likely benign left adrenal gland nodular thickening. Unremarkab le liver. Mildly distended gallbladder. Subcentimeter hypodense foci suggestive of small cysts are no dee within the kidneys. No hydronephrosis. Irregular urinary bladder wall thickening with mucosal hyp eremia and perivesicular stranding. Air is also noted within the urinary bladder wall. Layering hyper dense material versus mucosal enhancement within the region of the urinary bladder trigone. Heterogen eous calcified mass is noted inferior to the urinary bladder within the expected location of the uret hra measuring 1.9 x 1.9 x 2.3 cm on image 278 series 3. Small amount of air is noted within the vagin al and cervical canals. Atherosclerosis of the aorta and branch vessels. Nonspecific borderline enlarged inguinal chain lymph nodes measuring up to 9 mm. No iliac chain lymphadenopathy. Small hiatal hernia with mild distal eso phageal wall thickening. No bowel obstruction or bowel wall thickening. Unremarkable soft tissues. No acute fracture or destructive bone lesion. No chronic pelvic ring fracture deformities. IMPRESSION: 1. 2.3 cm calcified mass is noted inferior to the urinary bladder within the expected location of the urethra. Primary urothelial malignancy is the differential exclusion. Urology consult is needed. 2. Findings suggestive of cystitis. Air within the urinary bladder wall may represent associated emph ysematous cystitis or air introduced into the wall through ulcerative urothelial lesion as above. 3. No bowel obstruction or bowel wall thickening. 4. Nonspecific borderline enlarged inguinal chain lymph nodes. 5. Moderate pleural effusions with bibasilar consolidation/atelectasis. 6. Small pericardial effusion with pericardial enhancement suggestive of pericarditis. ACT 112: Positive. There are findings on this exam that require communication between the performing entity and the patient following Patient Test Result Information Act ([place] Act 112) guidelines. The above report was generated using voice recognition software. It may contain grammatical, syntax o r spelling errors. Electronically signed by: Carlos Hernandes M.D. 07/13/2025 12:37 PM
--- NOTE | 2025-07-13 14:07 | History & Physical Report ---
Date of Service July 13, 2025 Assessment & Plan (1) Hematochezia due to medication: (2) Type 2 myocardial infarction due to anemia: (3) Iron deficiency anemia: (4) Emphysematous cystitis: (5) Acute hemorrhagic cystitis: (6) Mass of neck of urinary bladder: (7) Chronic heart failure with reduced ejection fraction (HFrEF, <= 40%): (8) CKD stage 3b, GFR 30-44 ml/min: Plan In summary this is an 84-year-old female presenting with hematochezia with recent initiation of anticoagulation and antiplatelet agents in addition to an incidental finding of a bladder neck mass with emphysematous cystitis. #Hematochezia // Atrial fibrillation with DOAC therapy // HFrEF secondary to ischemic cardiomyopathy, with Aspirin therapy Patient's initial hemoglobin is actually improved from the previous day, measuring 11.0; their MCV, MCHC, RDW are consistent with a more acute blood loss anemia rather than primarily from a chronic iron deficiency though the patient likely does suffer from this as well Trend hematocrit and hemoglobin every 6 hours for the next 24 hours Hold Eliquis and aspirin as of 07/13; last dose for both these medications was on 07/12 Type and screen obtained; no indication for transfusion at this time Gastroenterology consulted for recommendations regarding further evaluation during hospitalization #Emphysematous cystitis // Santiago-sensitive E. coli, recently asymptomatic // Bladder neck mass Clinically without malia evidence of a urinary tract infection however imaging does suggest an emphysematous cystitis; was discussed with urology who recommended broad-spectrum antibiotics and Hernandez catheter placement with pending urinalysis at this time; no evidence of sepsis, nor severe infectious process, most recent urine culture was obtained within the past week yielding pansensitive E. coli Continue Rocephin 1 g IV daily Follow urine culture and pending urinalysis Urology consulted The remainder of the patient's chronic medical conditions are stable, and are without adjustment of their usual medication management during this hospitalization unless otherwise documented History of Present Illness Chief Complaint: Hematochezia Primary Care Provider: Rabia Patel DO Ms. Saunders is an 84-year-old female whose active medical conditions include transient atrial fibrillation, heart failure with reduced ejection fraction secondary to ischemic cardiomyopathy, mixed urinary incontinence among other chronic medical conditions who presented to the [facility] on 07/13 after an episode of hematochezia in the evening of 07/12. The patient has had multiple recent hospitalizations, most recently discharged on 07/12 from this medical facility due to symptomatic hyponatremia. The patient was hospitalized at this facility early in 06/2025 due to atrial fibrillation with rapid ventricular response requiring transfer to a tertiary care facility for continued management. Since that time the patient has been maintained on aspirin and Eliquis. Up until the evening of 07/12 the patient had no hematochezia, hematemesis, melanotic stool, or other notable complications or adverse effects related to these medications. The patient did have some slow transit constipation during their most recent hospitalization, requiring a suppository to be placed on 07/11, which did facilitate stool passage which was not noted to be melanotic, nor with significant discomfort. The patient endorses nonspecific, left inframammary chest achiness, without specific triggers or alleviating factors. It does not radiate, nor does it worsen with physical activity. It is not reproducible with palpation. Allergies Allergy/AdvReac Type Severity Reaction Status Date / Time Penicillins AdvReac Intermediate HIVES Verified 07/07/25 16:46 Sulfa (Sulfonamide AdvReac Intermediate GI SYMPTOMS Verified 07/07/25 16:46 Antibiotics) amlodipine AdvReac Unknown CAN'T Verified 07/07/25 16:46 REMEMBER Home Medications Medication Instructions Recorded Confirmed Type atorvastatin 40 mg tablet 40 mg PO HS 07/29/19 07/13/25 History alendronate 70 mg tablet (Fosamax) 70 mg PO WK 07/07/23 07/13/25 History calcium 600 mg (as 1 tab PO DAILY 05/12/25 07/13/25 History carbonate)-vitamin D3 5 mcg (200 unit) tablet cholecalciferol (vitamin D3) 10 10 mcg PO DAILY 05/12/25 07/13/25 History mcg (400 unit) capsule (Vitamin D3) gabapentin 100 mg capsule 100 mg PO TID 05/12/25 07/13/25 History mirabegron 50 mg tablet,extended 50 mg PO DAILY 05/12/25 07/13/25 History release 24 hr nitroglycerin 0.4 mg sublingual 0.4 mg sublingual Q5M PRN chest 05/12/25 07/13/25 History tablet pain polyethylene glycol 3350 17 17 g PO DAILY PRN Constipation 05/30/25 07/13/25 History gram/dose oral powder (Miralax) esomeprazole magnesium 40 mg 40 mg PO DAILY 06/26/25 07/13/25 History capsule,delayed release apixaban 5 mg tablet (Eliquis) 5 mg PO BID 07/07/25 07/13/25 History aspirin 81 mg tablet,delayed 81 mg PO DAILY 07/07/25 07/13/25 History release empagliflozin 10 mg tablet 10 mg PO DAILY 07/07/25 07/13/25 History (Jardiance) famotidine 20 mg tablet 20 mg PO DAILY 07/07/25 07/13/25 History zinc sulfate 25 mg zinc (110 mg) 25 mg PO DAILY 07/07/25 07/13/25 History tablet amiodarone 200 mg tablet 200 mg PO QAM #30 tabs 07/12/25 07/13/25 Rx furosemide 40 mg tablet (Lasix) 40 mg PO DAILY PRN Leg swelling or 07/12/25 07/13/25 Rx 2 pound weight gain #0 tabs metoprolol succinate 25 mg 25 mg PO QAM #30 tabs 07/12/25 07/13/25 Rx tablet,extended release 24 hr sennosides 8.6 mg tablet (Senna 8.6 mg PO QAM #30 tabs 07/12/25 07/13/25 Rx Lax) Past Med/Surg History Problem List (Updated 07/13/25 @ 15:38 by Bola Chance DO) Emphysematous cystitis (Acute) Iron deficiency anemia (Chronic) Type 2 myocardial infarction due to anemia (Acute) Acute hemorrhagic cystitis Mass of neck of urinary bladder (Acute) Hematochezia due to medication (Acute) Coronary atherosclerosis (Chronic) CKD stage 3b, GFR 30-44 ml/min (Chronic) Anisocoria Osteoporosis Chronic heart failure with reduced ejection fraction (HFrEF, <= 40%) Hypothyroidism (Chronic) Bilateral pleural effusion (Acute) Ischemic cardiomyopathy (Chronic) 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) Paroxysmal atrial fibrillation (Chronic) Junctional rhythm (Chronic) 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) QT prolongation (Chronic) Zinc deficiency (Chronic) Mixed incontinence urge and stress (Chronic) 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) KIAN (generalized anxiety disorder) (Chronic) 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) Arthritis of hip (Chronic) Sleep apnea (Chronic) Rosacea (Chronic) Medical History Closed fracture of pubic ramus CHERYL (acute kidney injury) Multiple rib fractures Multiple drug resistant organism (MDRO) culture positive Atrial flutter with rapid ventricular response Pulmonary hypertension Acute heart failure with normal ejection fraction Rectal bleeding Pain and swelling of right wrist Foreign body of foot or toe, superficial, infected Cellulitis of foot Hx of hemorrhoids Surgical History H/O cystoscopy History of cataract surgery History of cardiac catheterization S/P appendectomy H/O heart artery stent Family History Aunt Breast cancer Father Coronary heart disease Parkinson disease Heart disease Mother Heart disease Atrial fibrillation Grandmother Hypertension Stroke Other No family history of adverse response to anesthesia No family history of bleeding disorder Denies family history of Crohn's disease Colorectal cancer Ulcerative colitis Social History Smoking Status: Never smoker Second Hand Exposure: No; Do You Dip or Chew Tobacco: No; Hx Alcohol Use: No Hx Substance Use: No Preferred Language: Azeri Communication Ability: Effective Hearing Ability: Normal Business Development Engineer Required: No Beliefs That Will Affect Care: None marital status: Current Living Situation: Spouse Current Living Situation Comment: with current occupational status: retired Feels Safe at Home: Yes Physical Activity Frequency: 1-2 Times per Week Assistive Devices: Cane and Walker Review of Systems Review of Systems: Review of constitutional, cardiovascular, pulmonary, gastrointestinal, genitourinary systems was unremarkable other than as documented in the HPI above Physical Exam Physical Exam: General: Elderly female in no acute distress Vital Signs: Tachycardic with a rate in the range of 105 to 110 bpm HEENT: Tacky mucous membranes; at rest, left pupil is approximately 4 mm diameter and right pupil is approximately 7 mm in diameter; consensual light reflex is intact; extraocular motion intact Pulmonary: Symmetric chest wall excursion, unrestricted; clear to auscultation bilaterally Cardiovascular: Tachycardic rate with regular rhythm without murmurs, rubs, or gallops; S1 and S2 normal; hyperdynamic PMI in the left fifth intercostal space slightly lateral of midclavicular line; trace bilateral lower extremity edema distal to mid leg; bilateral radial and posterior tibial pulse 2+; slightly delayed capillary refill of approximately 3 to 4 seconds in the upper and lower extremity nailbeds Gastrointestinal: Soft, nonprotuberant; bowel sounds present throughout with normal pitch and frequency; soft, nontender throughout the abdomen Neurologic: Cranial nerves II through XII grossly intact; no discernible focal weakness nor paresthesias Results & Data Results & Data Vital Signs (Past 12 Hours) Vital Signs Temp Pulse Resp BP Pulse Ox O2 Del Method 07/13/25 11:00 104 H 15 128/79 98 07/13/25 10:12 114 H 20 135/82 97 07/13/25 09:51 Room Air 07/13/25 09:23 36.7 C 105 H 20 116/80 96 Room Air Laboratory Results Leukocytosis of 10.96 increased from 9; hemoglobin 11.0, increased from 10.2 with MCV 88, MCHC 32, RDW 44.3; platelets 503,000 INR 1.2 Troponin trended 54.5, 56.6 Urinalysis obtained on 07/12 with glucose 3+, leukocyte esterase, white blood cells greater than 50, red blood cells 3-5, highly 3-5, bacteria 4+ with polymicrobial growth; of note this urinalysis did have an epithelial count of 11-20 per high-power field Diagnostic Findings CT abdomen pelvis with intravenous contrast was obtained in the emergency department which revealed a 2.3 calcified mass at the bladder neck with cystitis associated with emphysematous changes; there is also noted a pericardial effusion with questionable pericarditis as well as pleural effusions bilaterally ECG Additional Comments: Tachycardic with regular RR intervals; normal axis; appropriate R wave progression; T wave inversion present primarily in the inferior leads but also present in the lateral precordial's; there is less than [address] segment depression in lead II, V6; there is a mild ST elevation in aVR less than 1 mm Code Status & VTE Plan Code Status Full code VTE Prophylaxis Plan VTE Prophylaxis will be ordered: Yes PG Care Time/CCT Total # of Minutes Spent Total Time Spent with Patient: Total time spent is greater than 50% in coordination of care (as documented) at patient's floor/unit and/or counseling patient: Coding Level of Care Code 71208 INT INP/OBS CARE Diagnoses Hematochezia due to medication K92.1; T50.905A Type 2 myocardial infarction due to anemia D64.9; I21.A1 Iron deficiency anemia, unspecified iron deficiency anemia type D50.9 Iron deficiency anemia type: unspecified iron deficiency Emphysematous cystitis N30.80 Acute hemorrhagic cystitis N30.01 Mass of neck of urinary bladder N32.89 Chronic heart failure with reduced ejection fraction (HFrEF, <= 40%) I50.22 CKD stage 3b, GFR 30-44 ml/min N18.32 (3) Iron deficiency anemia Iron deficiency anemia type: unspecified iron deficiency Qualified Code(s): D50.9 - Iron deficiency anemia, unspecified
--- NOTE | 2025-07-13 15:25 | Urology Consultation ---
Date of Consultation July 13, 2025 Assessment & Plan (1) Emphysematous cystitis: 84-year-old female presented to the ED 07/13/25 for evaluation of rectal bleeding and is being admitted for bilateral pleural effusions, BRBPR, and emphysematous cystitis. Urology is consulted for calcified urethral lesion, emphysematous cystitis She is afebrile, hemodynamically stable Labs reviewedcreatinine 1.36, WBC 10.92, hemoglobin 11.0 CTAP reviewed and consistent with emphysematous cystitis; calcification noted inferior to the urinary bladder at the location of the urethra Recommend insertion of Hernandez catheter nguyễn - discussed with nursing Obtain UA and urine culture from catheter specimen Initiate broad-spectrum antibiotics and narrow per sensitivity data when available Plan to maintain Hernandez catheter for approximately 2 weeks Will plan to repeat imaging prior to catheter removal in clinic Regarding concern of calcified urethral lesion, findings appear consistent with her past history of a urethral bulking agent for stress incontinence Continue supportive care, antibiotics and medical management per hospital medicine service will follow, please contact service with any additional questions or concerns History of Present Illness Reason for Consultation: Calcified urethral lesion, emphysematous cystitis Attending Physician: Dr. Bola Chance History of Present Illness This is an 84-year-old female with past medical history of CKD, HFrEF, and mixed incontinence who presented to the emergency department today for evaluation of rectal bleeding. She was recently hospitalized 07/07-07/12/2025 for fatigue, atrial flutter, and found to have hyponatremia and junctional rhythm. UA during hospitalization was suspicious for infection, urine culture did not grow any specific bacteria. She was asymptomatic and did not receive antibiotics. On arrival to ED today, she was afebrile, mildly tachycardic, normotensive. Lab work showed WBC 10.92, hemoglobin 11.0, platelets 503, sodium 135, creatinine 1.36, troponin 54.5. Workup in the ED included CT abdomen pelvis with IV contrast. CT independently reviewed. There are subcentimeter hypodense foci suggestive of small cysts within the kidneys. No hydronephrosis. There is irregular urinary bladder wall thickening with mucosal hyperemia and perivesicular stranding. Air noted within the urinary bladder and bladder wall. Calcification noted inferior to the urinary bladder at the location of the urethra. She has been admitted to the hospital medicine service for chest pain, bilateral pleural effusions, and hematochezia. Urology is consulted for calcified urethral lesion, emphysematous cystitis. Patient seen and examined in the emergency department. at bedside. She is awake and resting comfortably in litter. She has been voiding spontaneously. Has not provided urine sample yet. Denies dysuria or hematuria. Denies fever or chills. No suprapubic or flank discomfort. No nausea or vomiting. Denies history of frequent UTIs. She reports history of urethral bulking agent with Dr. Espinosa in the past. Allergies Allergy/AdvReac Type Severity Reaction Status Date / Time Penicillins AdvReac Intermediate HIVES Verified 07/07/25 16:46 Sulfa (Sulfonamide AdvReac Intermediate GI SYMPTOMS Verified 07/07/25 16:46 Antibiotics) amlodipine AdvReac Unknown CAN'T Verified 07/07/25 16:46 REMEMBER Home Medications Medication Instructions Recorded Confirmed Type atorvastatin 40 mg tablet 40 mg PO HS 07/29/19 07/13/25 History alendronate 70 mg tablet (Fosamax) 70 mg PO WK 07/07/23 07/13/25 History calcium 600 mg (as 1 tab PO DAILY 05/12/25 07/13/25 History carbonate)-vitamin D3 5 mcg (200 unit) tablet cholecalciferol (vitamin D3) 10 10 mcg PO DAILY 05/12/25 07/13/25 History mcg (400 unit) capsule (Vitamin D3) gabapentin 100 mg capsule 100 mg PO TID 05/12/25 07/13/25 History mirabegron 50 mg tablet,extended 50 mg PO DAILY 05/12/25 07/13/25 History release 24 hr nitroglycerin 0.4 mg sublingual 0.4 mg sublingual Q5M PRN chest 05/12/25 07/13/25 History tablet pain polyethylene glycol 3350 17 17 g PO DAILY PRN Constipation 05/30/25 07/13/25 History gram/dose oral powder (Miralax) esomeprazole magnesium 40 mg 40 mg PO DAILY 06/26/25 07/13/25 History capsule,delayed release apixaban 5 mg tablet (Eliquis) 5 mg PO BID 07/07/25 07/13/25 History aspirin 81 mg tablet,delayed 81 mg PO DAILY 07/07/25 07/13/25 History release empagliflozin 10 mg tablet 10 mg PO DAILY 07/07/25 07/13/25 History (Jardiance) famotidine 20 mg tablet 20 mg PO DAILY 07/07/25 07/13/25 History zinc sulfate 25 mg zinc (110 mg) 25 mg PO DAILY 07/07/25 07/13/25 History tablet amiodarone 200 mg tablet 200 mg PO QAM #30 tabs 07/12/25 07/13/25 Rx furosemide 40 mg tablet (Lasix) 40 mg PO DAILY PRN Leg swelling or 07/12/25 07/13/25 Rx 2 pound weight gain #0 tabs metoprolol succinate 25 mg 25 mg PO QAM #30 tabs 07/12/25 07/13/25 Rx tablet,extended release 24 hr sennosides 8.6 mg tablet (Senna 8.6 mg PO QAM #30 tabs 07/12/25 07/13/25 Rx Lax) Patient History Medical History Closed fracture of pubic ramus CHERYL (acute kidney injury) Multiple rib fractures Multiple drug resistant organism (MDRO) culture positive Atrial flutter with rapid ventricular response Pulmonary hypertension Acute heart failure with normal ejection fraction Rectal bleeding Pain and swelling of right wrist Foreign body of foot or toe, superficial, infected Cellulitis of foot Hx of hemorrhoids Surgical History H/O cystoscopy History of cataract surgery History of cardiac catheterization S/P appendectomy H/O heart artery stent Family History Aunt Breast cancer Father Coronary heart disease Parkinson disease Heart disease Mother Heart disease Atrial fibrillation Grandmother Hypertension Stroke Other No family history of adverse response to anesthesia No family history of bleeding disorder Denies family history of Crohn's disease Colorectal cancer Ulcerative colitis Social History Smoking Status: Never smoker Second Hand Exposure: No; Do You Dip or Chew Tobacco: No; Hx Alcohol Use: No Hx Substance Use: No Preferred Language: French Communication Ability: Effective Hearing Ability: Normal Belt Machine Operator Required: No Beliefs That Will Affect Care: None marital status: Current Living Situation: Spouse Current Living Situation Comment: with current occupational status: retired Feels Safe at Home: Yes Physical Activity Frequency: 1-2 Times per Week Assistive Devices: Cane and Walker Review of Systems Review of Systems: All systems reviewed & are unremarkable except as noted in HPI & below Physical Exam Constitutional: well developed and well nourished; no acute distress Respiratory: normal respiratory effort; no respiratory distress and no labored breathing Gastrointestinal (Abdomen): Inspection/Auscultation: abdomen normal to inspection Musculoskeletal: Head/Neck/Chest: normocephalic Neurologic: moves all extremities and awake Psychiatric: Orientation: alert and oriented x 3 Results & Data Vital Signs (Past 12 Hours) Vital Signs Temp Pulse Resp BP Pulse Ox O2 Del Method 07/13/25 11:00 104 H 15 128/79 98 07/13/25 10:12 114 H 20 135/82 97 07/13/25 09:51 Room Air 07/13/25 09:23 36.7 C 105 H 20 116/80 96 Room Air PG Care Time/CCT Total # of Minutes Spent Total Time Spent with Patient: Total time spent is greater than 50% in coordination of care (as documented) at patient's floor/unit and/or counseling patient: Coding Level of Care Code 97297 INT INP/OBS CARE 3/75MIN Diagnoses Emphysematous cystitis N30.80
[2025-07-13 16:50] LABS: Appearance Urine Turbid (Clear); Bacteria Urine Automated 4+ (None Seen); Epithelial Cell Urine Auto 0-2 /hpf (0-2); Glucose Urine UA 3+ (Negative); RBC Urine Automated >20 /hpf (0-2); WBC Urine Automated >50 /hpf (0-5)
--- NOTE | 2025-07-13 17:34 | Communication Note ---
Date of Service: July 13, 2025 The author of this note was contacted by Tracey Chaudhry, of [facility], who independently reviewed the patient's current presentation. Based on risk and benefit assessment, they recommend resuming the patient's Eliquis at this time with discontinuation only recommended if there is significant decrease in the patient's hemoglobin. They agree with continuing to hold ASA.
[2025-07-13] MEDS ORDERED: NITROGLYCERIN SL 0.4 MG/TAB TAB SL PRN (18:07)
[2025-07-13] MEDS ORDERED: NO NSAIDS SCH (18:07)
[2025-07-13 19:54] LABS: Hematocrit (blood only) 33.6 % (37.0-47.0); Hemoglobin 11.5 g/dl (12.0-16.0)
[2025-07-13] MEDS: Patient's HEIGHT &/or WEIGHT Needed SCH (20:04)
[2025-07-13] MEDS: Nursing to Pharmacy Communication SCH (20:05)
[2025-07-13] MEDS: cefTRIAXone SODIUM 1,000 MG/50 ML BAG IV SCH (20:18)
[2025-07-13] MEDS: GABAPENTIN 100 MG CAP PO SCH (20:19)
[2025-07-13] MEDS: ATORVASTATIN 40 MG TAB PO SCH (20:19)
[2025-07-13] MEDS: APIXABAN 5 MG TABLET PO SCH (20:19)
[2025-07-14 00:59] LABS: Hematocrit (blood only) 31.8 % (37.0-47.0); Hemoglobin 10.3 g/dl (12.0-16.0)
[2025-07-14 07:23] LABS: Hematocrit (blood only) 35.5 % (37.0-47.0); Hemoglobin 11.5 g/dl (12.0-16.0)
--- NOTE | 2025-07-14 07:47 | Hospitalist Progress Note ---
Date of Service July 14, 2025 Assessment & Plan (1) Hematochezia due to medication: (2) Type 2 myocardial infarction due to anemia: (3) Iron deficiency anemia: (4) Emphysematous cystitis: (5) Acute hemorrhagic cystitis: (6) Mass of neck of urinary bladder: Plan In summary this is an 84-year-old female presenting with hematochezia with recent initiation of anticoagulation and antiplatelet agents in addition to an incidental finding of a bladder neck mass with emphysematous cystitis. #Hematochezia // Atrial fibrillation with DOAC therapy // HFrEF secondary to ischemic cardiomyopathy, with Aspirin therapy Hemoglobin trend stable Follow daily H&H Continue Eliquis at recommendation from cardiology; hold aspirin as of 07/13 Type and screen obtained; no indication for transfusion at this time Gastroenterology consulted; patient case discussed at bedside, anticipate trending H&H over the weekend with possible FS vs colonoscopy on 07/17 #Emphysematous cystitis // Santiago-sensitive E. coli, recently asymptomatic // Bladder neck mass Clinically without malia evidence of a urinary tract infection however imaging does suggest an emphysematous cystitis; urine culture yielding K. pneumoniae, sensitivities still pending Continue Rocephin 1 g IV daily Follow urine culture and pending urinalysis Urology consulted; maintain Hernandez The remainder of the patient's chronic medical conditions are stable, and are w ithout adjustment of their usual medication management during this hospitalization unless otherwise documented Admission and Anticipated Discharge Date Admission Date: July 13, 2025 Anticipated date of discharge: 07/17/25 Subjective Ms. Saunders is an 84-year-old female whose active medical conditions include transient atrial fibrillation, heart failure with reduced ejection fraction secondary to ischemic cardiomyopathy, mixed urinary incontinence among other chronic medical conditions who presented to the [facility] on 07/13 after an episode of hematochezia in the evening of 07/12. The patient has had multiple recent hospitalizations, most recently discharged on 07/12 from this medical facility due to symptomatic hyponatremia. Now, the patient is readmitted due to an acute episode of hematochezia on 07/12 as well as newly found emphysematous cystitis. Review of Systems Review of Systems: Review of constitutional, cardiovascular, pulmonary, gastrointestinal, genitourinary systems was unremarkable Physical Exam Physical Exam: General: Elderly female in no acute distress Vital Signs: Tachycardic with a rate in the range of 105 to 110 bpm HEENT: Tacky mucous membranes; at rest, left pupil is approximately 4 mm diameter and right pupil is approximately 7 mm in diameter; consensual light reflex is intact; extraocular motion intact Pulmonary: Symmetric chest wall excursion, unrestricted; clear to auscultation bilaterally Cardiovascular: Tachycardic rate with regular rhythm without murmurs, rubs, or gallops; S1 and S2 normal; hyperdynamic PMI in the left fifth intercostal space slightly lateral of midclavicular line; trace bilateral lower extremity edema distal to mid leg; bilateral radial and posterior tibial pulse 2+; slightly delayed capillary refill of approximately 3 to 4 seconds in the upper and lower extremity nailbeds Gastrointestinal: Soft, nonprotuberant; bowel sounds present throughout with normal pitch and frequency; soft, nontender throughout the abdomen Genitourinary: Hernandez catheter in place with yoni urine, without hematuria or sediment Neurologic: Cranial nerves II through XII grossly intact; no discernible focal weakness nor paresthesias Results & Data Results & Data Vital Signs (Past 12 Hours) Vital Signs Temp Pulse Pulse Resp BP Pulse Ox O2 Del Method 07/14/25 07:16 107 H 07/14/25 04:17 36.5 C 111 H 14 134/83 96 Room Air 07/14/25 01:27 Room Air 07/13/25 23:37 36.3 C L 110 H 16 117/71 95 Room Air 07/13/25 22:17 106 H 07/13/25 19:56 36.7 C 111 H 16 142/90 H 96 Room Air PG Care Time/CCT Total # of Minutes Spent Total Time Spent with Patient: Total time spent is greater than 50% in coordination of care (as documented) at patient's floor/unit and/or counseling patient: Coding Level of Care Code 53121 SUB INP/OBS CARE 235MIN Diagnoses Hematochezia due to medication K92.1; T50.905A Type 2 myocardial infarction due to anemia D64.9; I21.A1 Iron deficiency anemia D50.9 Emphysematous cystitis N30.80 Acute hemorrhagic cystitis N30.01 Mass of neck of urinary bladder N32.89
[2025-07-14] MEDS: AMIODARONE 200 MG TAB PO SCH (08:40)
[2025-07-14] MEDS: CALCIUM 600MG + VIT D 400 IU TAB PO SCH (08:41)
[2025-07-14] MEDS: CHOLECALCIFEROL 10 MCG (400 UNITS) TAB PO SCH (08:41)
[2025-07-14] MEDS: METOPROLOL SUCC 25MG EXT REL TAB PO SCH (08:41)
[2025-07-14] MEDS: VIBEGRON 75 MG TAB PO SCH (08:42)
--- NOTE | 2025-07-14 08:57 | Gastrointestinal Consultation ---
Date of Consultation July 14, 2025 Assessment & Plan (1) Rectal bleeding: (2) Hx of hemorrhoids: Plan 84-year-old female with a history of atrial flutter and fibrillation on Eliquis, HFrEF, CAD s/p RCA stent and left main 50% stenosis, HTN, CKD stage III, severe TR, moderate MR, GERD, HLD, SUMIT, rate related LBBB, and osteoporosis who was recently admitted for profound fatigue, found to have hyponatremia and a junctional rhythm 07/07/25 to 07/12/25 returns to ER with bloody bowel movements and gross hematuria. Since arrival she had ASA held. Remains on Eliquis per Cardiology recommendations. CT abd/pelvis negative for s/s GI pathology but did reveal findings of cystitis with UA+. Rectal exam in ER unremarkable. Hemoccult was positive. Since arrival patient has not had any bowel movements. Blood counts stable with Hgb rising from 11.0g/dl to 11.5g/dl. Of note, she did have constipation prior to episode of rectal bleeding and was given a rectal suppository resulting in bowel movement. Last Colonoscopy 2005 - internal hemorrhoids, otherwise unremarkable. Family history non-contributory. DDX - Hemorrhoids, AVMs, diverticular bleed, stercoral proctitis, ischemic colitis. No pain to suggest fissure. No diarrhea to suggest infectious colitis. Acute nature is inconsistent with IBD. PLAN - Self limited nature and rising blood counts favors a self limited process such as an internal hemorrhoid. Discussed options for further evaluation with endoscopy, flexible sigmoidoscopy vs ongoing monitoring. The patient prefers a conservative approach. If she was to proceed with further evaluation she would prefer a flexible sigmoidoscopy as she has burning mouth syndrome and feels she would be unable to tolerate the prep. Case reviewed with Dr. Craven. Given rising blood counts and no recurrence of symptoms we'll recommend monitoring for now. Discussed with family and patient and they are agreeable to this approach. Recommend ongoing monitoring for overt bleeding. Continue to monitor CBC as ordered by primary care team. If bleeding is persistent and/or counts start to drop may add on for possible flexible sigmoidoscopy for Thursday. Thank you for allowing us to participate in the care of this patient. Please call with any acute changes, questions or concerns. Please see addendum below with additional recommendation from my supervising physician. Supervising Physician Co-Signing Physician Notes Patient is a very pleasant 84-year-old female seen with her at bedside. We are asked to see her regarding bright red blood per rectum. She and her both state that she was noted to have some bleeding on her incontinence pad. This was not actually associated with a bowel movement. She denies any pain. She states today she did have a small bowel movement without any bleeding. She was having issues with hematuria. CT was unremarkable for any GI issues. Her abdominal exam is completely benign. Hopefully her bleeding will be self-limited may be secondary to hemorrhoids. We will see how she does throughout the weekend. Should she show signs of any bleeding I would favor a colonoscopy on Thursday since she will need to be maintained on Eliquis long-term. History of Present Illness Reason for Consultation: LGIB recently started on DOAC Requesting Physician: Dr. Chance Attending Physician: Bola Chance DO History of Present Illness 84-year-old female with a history of atrial flutter and fibrillation on Eliquis, HFrEF, CAD s/p RCA stent and left main 50% stenosis, HTN, CKD stage III, severe TR, moderate MR, GERD, HLD, SUMIT, rate related LBBB, and osteoporosis who was recently admitted for profound fatigue, found to have hyponatremia and a junctional rhythm 07/07/25 to 07/12/25 returns to ER with bloody bowel movements and gross hematuria. She was recently started on Eliquis and discharged 07/12/25. Then on 07/13/25 she went to have a bowel movement and noted that there was blood in her incontinence pad and toilet bowl on Thursday x 2. She's also continued to have ongoing gross hematuria. She returned to ER 07/13/25. Hgb 11.0g/dl. CT revealed ? urethral lesion and findings of cystitis. UA also consistent with UTI. She was started on antibiotics. Rectal exam in ER revealed no palpable hemorrhoids or masses. No gross blood on glove. Hemoccult positive. Urology, Cardiology and GI consulted. Reviewed urology notes. They feel that urethral lesion is stable compared to previous imaging studies and consistent with bulking procedure that she had done for stress incontinence. Continue with antibiotics for hemorrhagic cystitis. Cardiology recommended holding ASA, continue with Eliquis for stroke prevention. Blood counts remained stable into today rising to a Hgb 11.5g/dl. Of note she was having constipation during previous hospitalization and she was given a rectal suppository with bowel movement prior to episode or rectal bleeding. She denies any dysphagia, N/V, abdominal pain, rectal pain or melena. Clinically she denies any further bloody stools/bowel movements since arriving. Family history - No GI cancers, IBD or Celiac disease. Social history - No tobacco, alcohol or drug use. Surgical history - No bowel resection. H/O Appendectomy. No other GI surgeries. Pertinent Diagnostics. CBC 07/14/25 - Hgb 11.5, Hct 35.5% CBC 07/13/25- Hgb 11.0g/dl, Hct 34.4%, Plt 503, WBC 10.9. PAUL 07/13/25 -24, Cr 1.36 Troponin 07/13/25 54.5 => 56.6. (previously 219 on 06/28/25 and 45 on 07/08/25). CT abd/pelvis with IV contrast 07/13/25 FINDINGS: Small pericardial effusion with pericardial enhancement. Cardiomegaly and coronary artery calcifications are present. Moderate sized pleural effusions with dependent bibasilar consolidation and left lower lobe volume loss. No pneumatosis or pneumoperitoneum. Punctate calcified granulomata of the liver and spleen. Moderately atrophic pancreas. Unremarkable right adrenal gland with unchanged mild likely benign left adrenal gland nodular thickening. Unremarkable liver. Mildly distended gallbladder. Subcentimeter hypodense foci suggestive of small cysts are noted within the kidneys. No hydronephrosis. Irregular urinary bladder wall thickening with mucosal hyperemia and perivesicular stranding. Air is also noted within the urinary bladder wall. Layering hyperdense material versus mucosal enhancement within the region of the urinary bladder trigone. Heterogeneous calcified mass is noted inferior to the urinary bladder within the expected location of the urethra measuring 1.9 x 1.9 x 2.3 cm on image 278 series 3. Small amount of air is noted within the vaginal and cervical canals. Atherosclerosis of the aorta and branch vessels. Nonspecific borderline enlarged inguinal chain lymph nodes measuring up to 9 mm. No iliac chain lymphadenopathy. Small hiatal hernia with mild distal esophageal wall thickening. No bowel obstruction or bowel wall thickening. Unremarkable soft tissues. No acute fr acture or destructive bone lesion. No chronic pelvic ring fracture deformities. IMPRESSION: 1. 2.3 cm calcified mass is noted inferior to the urinary bladder within the expected location of the urethra. Primary urothelial malignancy is the differential exclusion. Urology consult is needed. 2. Findings suggestive of cystitis. Air within the urinary bladder wall may represent associated emphysematous cystitis or air introduced into the wall through ulcerative urothelial lesion as above. 3. No bowel obstruction or bowel wall thickening. 4. Nonspecific borderline enlarged inguinal chain lymph nodes. 5. Moderate pleural effusions with bibasilar consolidation/atelectasis. 6. Small pericardial effusion with pericardial enhancement suggestive of pericarditis. ACT 112: Positive. There are findings on this exam that require communication between the performing entity and the patient following Patient Test Result Information Act ([place] Act 112) guidelines. Colonoscopy 2005 - Findings - Non-bleeding hemorrhoids. Otherwise normal. F/U in 5-10 years. Allergies Allergy/AdvReac Type Severity Reaction Status Date / Time Penicillins AdvReac Intermediate HIVES Verified 07/07/25 16:46 Sulfa (Sulfonamide AdvReac Intermediate GI SYMPTOMS Verified 07/07/25 16:46 Antibiotics) amlodipine AdvReac Unknown CAN'T Verified 07/07/25 16:46 REMEMBER Home Medications Medication Instructions Recorded Confirmed Type atorvastatin 40 mg tablet 40 mg PO HS 07/29/19 07/13/25 History alendronate 70 mg tablet (Fosamax) 70 mg PO WK 07/07/23 07/13/25 History calcium 600 mg (as 1 tab PO DAILY 05/12/25 07/13/25 History carbonate)-vitamin D3 5 mcg (200 unit) tablet cholecalciferol (vitamin D3) 10 10 mcg PO DAILY 05/12/25 07/13/25 History mcg (400 unit) capsule (Vitamin D3) gabapentin 100 mg capsule 100 mg PO TID 05/12/25 07/13/25 History mirabegron 50 mg tablet,extended 50 mg PO DAILY 05/12/25 07/13/25 History release 24 hr nitroglycerin 0.4 mg sublingual 0.4 mg sublingual Q5M PRN chest 05/12/25 07/13/25 History tablet pain polyethylene glycol 3350 17 17 g PO DAILY PRN Constipation 05/30/25 07/13/25 History gram/dose oral powder (Miralax) esomeprazole magnesium 40 mg 40 mg PO DAILY 06/26/25 07/13/25 History capsule,delayed release apixaban 5 mg tablet (Eliquis) 5 mg PO BID 07/07/25 07/13/25 History aspirin 81 mg tablet,delayed 81 mg PO DAILY 07/07/25 07/13/25 History release empagliflozin 10 mg tablet 10 mg PO DAILY 07/07/25 07/13/25 History (Jardiance) famotidine 20 mg tablet 20 mg PO DAILY 07/07/25 07/13/25 History zinc sulfate 25 mg zinc (110 mg) 25 mg PO DAILY 07/07/25 07/13/25 History tablet amiodarone 200 mg tablet 200 mg PO QAM #30 tabs 07/12/25 07/13/25 Rx furosemide 40 mg tablet (Lasix) 40 mg PO DAILY PRN Leg swelling or 07/12/25 07/13/25 Rx 2 pound weight gain #0 tabs metoprolol succinate 25 mg 25 mg PO QAM #30 tabs 07/12/25 07/13/25 Rx tablet,extended release 24 hr sennosides 8.6 mg tablet (Senna 8.6 mg PO QAM #30 tabs 07/12/25 07/13/25 Rx Lax) Patient History Medical History Closed fracture of pubic ramus CHERYL (acute kidney injury) Multiple rib fractures Multiple drug resistant organism (MDRO) culture positive Atrial flutter with rapid ventricular response Pulmonary hypertension Acute heart failure with normal ejection fraction Rectal bleeding Pain and swelling of right wrist Foreign body of foot or toe, superficial, infected Cellulitis of foot Hx of hemorrhoids Surgical History H/O cystoscopy History of cataract surgery History of cardiac catheterization S/P appendectomy H/O heart artery stent Family History Aunt Breast cancer Father Coronary heart disease Parkinson disease Heart disease Mother Heart disease Atrial fibrillation Grandmother Hypertension Stroke Other No family history of adverse response to anesthesia No family history of bleeding disorder Denies family history of Crohn's disease Colorectal cancer Ulcerative colitis Social History Smoking Status: Never smoker Second Hand Exposure: No; Do You Dip or Chew Tobacco: No; Hx Alcohol Use: No Hx Substance Use: No Preferred Language: Libyan Communication Ability: Effective Hearing Ability: Normal Bailer Operators Supervisor Required: No Beliefs That Will Affect Care: None marital status: Current Living Situation: Spouse Current Living Situation Comment: with current occupational status: retired Feels Safe at Home: Yes Physical Activity Frequency: 1-2 Times per Week Assistive Devices: Glasses Review of Systems Review of Systems: See HPI Physical Exam Physical Exam: Constitutional: NAD. Alert. Answering questions appropriately. Respiratory: Breathing is even, non-labored. Lungs radford are clear to auscultation anteriorly. Cardiovascular: Mildly tachycardic (105BPM), regular rhythm. No murmurs, rubs or gallops appreciated. Gastrointestinal (Abdomen): Normoactive bowel sounds x4, soft, non-distended, non-tender. Musculoskeletal: Lying in bed comfortably. No peripheral edema. Results & Data Vital Signs (Past 12 Hours) Vital Signs Temp Pulse Pulse Resp BP Pulse Ox O2 Del Method 07/14/25 07:49 97.5 F L 105 H 18 128/85 96 Room Air 07/14/25 07:16 107 H 07/14/25 04:17 97.7 F 111 H 14 134/83 96 Room Air 07/14/25 01:27 Room Air 07/13/25 23:37 97.3 F L 110 H 16 117/71 95 Room Air 07/13/25 22:17 106 H PG Care Time/CCT Total # of Minutes Spent Total Time Spent with Patient: Total time spent is greater than 50% in coordination of care (as documented) at patient's floor/unit and/or counseling patient: Coding Level of Care Code 20819 IN/OBS CONSULT LVL 4,60M Diagnoses Rectal bleeding K62.5 Hx of hemorrhoids Z87.19
--- NOTE | 2025-07-14 11:19 | Urology Progress Note ---
Date of Service July 14, 2025 Assessment & Plan (1) Emphysematous cystitis: Plan: Follow-up of emphysematous cystitis Patient afebrile, hemodynamically stable Labs reviewedcreatinine 1.36, WBC 10.92, hemoglobin 11.5 Urine culture pending Continue broad-spectrum antibiotics and tailor per sensitivity data when available Maintain Hernandez catheter for approximately 2 weeks Will arrange outpatient imaging and follow-up with urology Continue supportive care and medical management per hospital medicine service GI will sign off, please contact her service with any additional questions or concerns Admission and Anticipated Discharge Date Admission Date: July 13, 2025 Subjective Patient seen and examined at bedside this morning. present. She is awake and resting in bed. No discomfort at present. No fever or chills. Hernandez intact. Review of Systems Constitutional: as per Subjective / HPI Genitourinary: as per Subjective / HPI Physical Exam Constitutional: well developed and well nourished; no acute distress Respiratory: normal respiratory effort; no respiratory distress and no labored breathing Gastrointestinal (Abdomen): Inspection/Auscultation: abdomen normal to inspection Musculoskeletal: Head/Neck/Chest: normocephalic Neurologic: moves all extremities and awake Psychiatric: Orientation: alert and oriented x 3 Genitourinary: Hernandez patent and draining yellow urine with some sediment noted Results & Data Vital Signs (Past 12 Hours) Vital Signs Temp Pulse Pulse Resp BP Pulse Ox O2 Del Method 07/14/25 10:39 Room Air 07/14/25 07:49 36.4 C L 105 H 18 128/85 96 Room Air 07/14/25 07:16 107 H 07/14/25 04:17 36.5 C 111 H 14 134/83 96 Room Air 07/14/25 01:27 Room Air 07/13/25 23:37 36.3 C L 110 H 16 117/71 95 Room Air PG Care Time/CCT Total # of Minutes Spent Total Time Spent with Patient: Total time spent is greater than 50% in coordination of care (as documented) at patient's floor/unit and/or counseling patient: Coding Level of Care Code 13067 SUB INP/OBS CARE 11/12MIN Diagnoses Emphysematous cystitis N30.80
[2025-07-14 12:35] LABS: Hematocrit (blood only) 33.8 % (37.0-47.0); Hemoglobin 11.1 g/dl (12.0-16.0)
[2025-07-14] MEDS: OPTIRAY 320 125ml IV ONE (13:34)
--- NOTE | 2025-07-14 14:43 | CT Scan Report ---
CT angio abd pelvis wo/w con CLINICAL HISTORY: Lower gastrointestinal bleed COMPARISON STUDY: 07/13/2025 FINDINGS: There is motion artifact. There are stable bilateral pleural effusions and adjacent lower lobe consolidation. ABDOMEN: Liver, gallbladder, spleen, pancreas, and adrenal glands are unremarkable. There is no hydro nephrosis. There are scattered atherosclerotic calcifications. No abdominal aortic aneurysm. There is moderate narrowing of the origin of the celiac artery. There is mild narrowing at the origin of the superior mesenteric artery. There is mild narrowing at the origin of the right renal artery. Inferior mesenteric artery is diminutive. Mesenteric and renal arteries are patent. Visualized arterial outfl ow shows no significant narrowing. Pelvis: Hernandez catheter is present and the urinary bladder is decompressed. 2 cm calcified mass in the region of the proximal urethra is stable. Uterus and adnexa are grossly unremarkable. There is moder ate retained stool. There is sigmoid diverticulosis. No acute diverticulitis. No contrast extravasati on seen within the bowel to suggest significant acute arterial hemorrhage. No bowel inflammation or o bstruction seen. No free fluid, free air, or abscess. No enlarged adenopathy. Osseous structures: There is diffuse lumbar degenerative disc disease. Stable old left pubic rami fra ctures. No acute osseous finding. IMPRESSION: 1. No acute findings seen at the abdomen or pelvis. No evidence of significant arterial GI hemorrhage seen by CTA. 2. Otherwise as described ACT 112: Negative or not required by law. Electronically signed by: Alistair Nguyen M.D. 07/14/2025 2:41 PM
[2025-07-14] MEDS: ONDANSETRON 4 MG OD TAB PO STA (21:37)
--- NOTE | 2025-07-15 07:46 | Hospitalist Progress Note ---
Date of Service July 15, 2025 Assessment & Plan (1) Hematochezia due to medication: (2) Type 2 myocardial infarction due to anemia: (3) Iron deficiency anemia: (4) Emphysematous cystitis: (5) Acute hemorrhagic cystitis: (6) Mass of neck of urinary bladder: Plan In summary this is an 84-year-old female presenting with hematochezia with recent initiation of anticoagulation and antiplatelet agents in addition to an incidental finding of a bladder neck mass with emphysematous cystitis. #Hematochezia // Atrial fibrillation with DOAC therapy // HFrEF secondary to ischemic cardiomyopathy, with Aspirin therapy Hemoglobin trend remains stable Follow daily H&H Continue Eliquis at recommendation from cardiology; hold aspirin as of 07/13 Type and screen obtained; no indication for transfusion at this time Gastroenterology consulted; anticipate trending H&H over the weekend with possible FS vs colonoscopy on 07/17 #Emphysematous cystitis // Rivers-sensitive E. coli, recently asymptomatic // Bladder neck mass Clinically without malia evidence of a urinary tract infection however imaging does suggest an emphysematous cystitis; urine culture yielding K. pneumoniae, rivers-sensitive Discontinue Rocephin, given allergies will transition to cefuroxime 250 mg p.o. twice daily Urology consulted; maintain Hernandez The remainder of the patient's chronic medical conditions are stable, and are without adjustment of their usual medication management during this hospitalization unless otherwise documented Admission and Anticipated Discharge Date Admission Date: July 13, 2025 Anticipated date of discharge: 07/17/25 Subjective Ms. Saunders is an 84-year-old female whose active medical conditions include transient atrial fibrillation, heart failure with reduced ejection fraction secondary to ischemic cardiomyopathy, mixed urinary incontinence among other chronic medical conditions who presented to the [facility] on 07/13 after an episode of hematochezia in the evening of 07/12. The patient has had multiple recent hospitalizations, most recently discharged on 07/12 from this medical facility due to symptomatic hyponatremia. Now, the patient is readmitted due to an acute episode of hematochezia on 07/12 as well as newly found emphysematous cystitis. No acute overnight events Review of Systems Review of Systems: Review of constitutional, cardiovascular, pulmonary, gastrointestinal, genitourinary systems was unremarkable Physical Exam Physical Exam: General: Elderly female in no acute distress Vital Signs: Tachycardic with a rate in the range of 105 to 110 bpm HEENT: Tacky mucous membranes; at rest, left pupil is approximately 4 mm diameter and right pupil is approximately 7 mm in diameter; consensual light reflex is intact; extraocular motion intact Pulmonary: Symmetric chest wall excursion, unrestricted; clear to auscultation bilaterally Cardiovascular: Tachycardic rate with regular rhythm without murmurs, rubs, or gallops; S1 and S2 normal; hyperdynamic PMI in the left fifth intercostal space slightly lateral of midclavicular line; trace bilateral lower extremity edema distal to mid leg; bilateral radial and posterior tibial pulse 2+; slightly delayed capillary refill of approximately 3 to 4 seconds in the upper and lower extremity nailbeds Gastrointestinal: Soft, nonprotuberant; bowel sounds present throughout with normal pitch and frequency; soft, nontender throughout the abdomen Genitourinary: Hernandez catheter in place with yoni urine, without hematuria or sediment Neurologic: Cranial nerves II through XII grossly intact; no discernible focal weakness nor paresthesias Results & Data Results & Data Vital Signs (Past 12 Hours) Vital Signs Temp Pulse Pulse Resp BP Pulse Ox O2 Del Method 07/15/25 07:41 36.4 C L 94 H 20 119/78 95 Room Air 07/15/25 07:41 98 H 07/15/25 03:23 36.7 C 87 16 111/63 94 Room Air 07/14/25 22:39 37 C 107 H 16 115/61 93 Room Air Laboratory Results Hemoglobin 11.1 from 11.5 PG Care Time/CCT Total # of Minutes Spent Total Time Spent with Patient: Total time spent is greater than 50% in coordination of care (as documented) at patient's floor/unit and/or counseling patient: Coding Level of Care Code 49711 SUB INP/OBS CARE 235MIN Diagnoses Hematochezia due to medication K92.1; T50.905A Type 2 myocardial infarction due to anemia D64.9; I21.A1 Other iron deficiency anemia D50.8 Iron deficiency anemia type: other iron deficiency Emphysematous cystitis N30.80 Acute hemorrhagic cystitis N30.01 Mass of neck of urinary bladder N32.89 (3) Iron deficiency anemia Iron deficiency anemia type: other iron deficiency Qualified Code(s): D50.8 - Other iron deficiency anemias
--- NOTE | 2025-07-15 10:52 | Gastroenterology Progress Note ---
Date of Service July 15, 2025 Assessment & Plan (1) Hematochezia due to medication: (2) Type 2 myocardial infarction due to anemia: (3) Iron deficiency anemia: (4) Emphysematous cystitis: (5) Acute hemorrhagic cystitis: (6) Mass of neck of urinary bladder: Plan Patient overall doing very well. She has not had any further bleeding. I suspect her issues were most likely from hemorrhoids. She has remained on Eliquis and aspirin without a problem. No plans for an endoscopic workup at this time. Admission and Anticipated Discharge Date Admission Date: July 13, 2025 Anticipated date of discharge: 07/17/25 Subjective Patient overall doing well. She is hungry and tolerating her diet. She has not had any further rectal bleeding. She did have what she describes as a normal brown bowel movement yesterday. Results & Data Results & Data Vital Signs (Past 12 Hours) Vital Signs Temp Pulse Pulse Resp BP Pulse Ox O2 Del Method 07/15/25 09:50 Room Air 07/15/25 07:41 36.4 C L 94 H 20 119/78 95 Room Air 07/15/25 07:41 98 H 07/15/25 03:23 36.7 C 87 16 111/63 94 Room Air PG Care Time/CCT Total # of Minutes Spent Total Time Spent with Patient: Total time spent is greater than 50% in coordination of care (as documented) at patient's floor/unit and/or counseling patient: Coding [place] [address] SUB INP/OBS CARE 11/12MIN Patient Type Established Medical Decision Making Low Complexity Diagnoses Hematochezia due to medication K92.1; T50.905A Type 2 myocardial infarction due to anemia D64.9; I21.A1 Other iron deficiency anemia D50.8 Iron deficiency anemia type: other iron deficiency Emphysematous cystitis N30.80 Acute hemorrhagic cystitis N30.01 Mass of neck of urinary bladder N32.89 (3) Iron deficiency anemia Iron deficiency anemia type: other iron deficiency Qualified Code(s): D50.8 - Other iron deficiency anemias
[2025-07-16 06:07] LABS: Hematocrit (blood only) 33.3 % (37.0-47.0); Hemoglobin 10.3 g/dl (12.0-16.0)
[2025-07-16 06:20] LABS: Creatinine Clr Calc Pharmacy 27.3 ml/min
--- NOTE | 2025-07-16 07:28 | Hospitalist Progress Note ---
Date of Service July 16, 2025 Assessment & Plan (1) Hematochezia due to medication: (2) Type 2 myocardial infarction due to anemia: (3) Iron deficiency anemia: (4) Emphysematous cystitis: (5) Acute hemorrhagic cystitis: (6) Mass of neck of urinary bladder: Plan In summary this is an 84-year-old female presenting with hematochezia with recent initiation of anticoagulation and antiplatelet agents in addition to an incidental finding of a bladder neck mass with emphysematous cystitis. #Hematochezia // Atrial fibrillation with DOAC therapy // HFrEF secondary to ischemic cardiomyopathy, with Aspirin therapy Hemoglobin trend remains stable, slight decrease is likely due to phlebotomy Discontinue trend given stability Continue Eliquis at recommendation from cardiology; hold aspirin as of 07/13 Type and screen obtained; no indication for transfusion at this time Gastroenterology consulted; given the patient's stability without recurrent episodes of bleeding with bowel movements during hospitalization, suspect this is most likely consequential suppository resulting in irritation of internal hemorrhoids with larger than typical bleeding volume given the patient's combination of anticoagulation and and antiplatelet medications in the outpatient setting; there is no plan for inpatient endoscopic procedure #Emphysematous cystitis // Rivers-sensitive E. coli, recently asymptomatic // Bladder neck mass Clinically without malia evidence of a urinary tract infection however imaging does suggest an emphysematous cystitis; urine culture yielding K. pneumoniae, rivers-sensitive Discontinue Rocephin 07/15 and transition to cefuroxime 250 mg p.o. twice daily given allergies Urology consulted; maintain Hernandez The remainder of the patient's chronic medical conditions are stable, and are without adjustment of their usual medication management during this hospitalization unless otherwise documented Pending [facility] authorization for discharge Admission and Anticipated Discharge Date Admission Date: July 13, 2025 Anticipated date of discharge: 07/17/25 Subjective Ms. Saunders is an 84-year-old female whose active medical conditions include transient atrial fibrillation, heart failure with reduced ejection fraction secondary to ischemic cardiomyopathy, mixed urinary incontinence among other chronic medical conditions who presented to the [facility] on 07/13 after an episode of hematochezia in the evening of 07/12. The patient has had multiple recent hospitalizations, most recently discharged on 07/12 from this medical facility due to symptomatic hyponatremia. Now, the patient is readmitted due to an acute episode of hematochezia on 07/12 as well as newly found emphysematous cystitis. No acute overnight events Review of Systems Review of Systems: Review of constitutional, cardiovascular, pulmonary, gastrointestinal, genitourinary systems was unremarkable Physical Exam Physical Exam: General: Elderly female in no acute distress Vital Signs: Reviewed HEENT: Moist mucous membranes; at rest, left pupil is approximately 4 mm diamete r and right pupil is approximately 7 mm in diameter with irregular border; consensual light reflex is intact; extraocular motion intact Pulmonary: Symmetric chest wall excursion, unrestricted Cardiovascular: Regular rate with irregular rhythm without murmurs, rubs, or gallops; S1 and S2 normal; right radial pulse 2+ with brisk capillary refill Gastrointestinal: Soft, nonprotuberant Genitourinary: Hernandez catheter in place with yoni urine, without hematuria or sediment Neurologic: Cranial nerves II through XII grossly intact Results & Data Results & Data Vital Signs (Past 12 Hours) Vital Signs Temp Pulse Resp BP Pulse Ox O2 Del Method 07/15/25 23:05 36.3 C L 99 H 16 117/77 95 Room Air 07/15/25 20:00 Room Air Laboratory Results Stable hemoglobin trend PG Care Time/CCT Total # of Minutes Spent Total Time Spent with Patient: Total time spent is greater than 50% in coordination of care (as documented) at patient's floor/unit and/or counseling patient: Coding Level of Care Code 96152 SUB INP/OBS CARE 2/35MIN Diagnoses Hematochezia due to medication K92.1; T50.905A Type 2 myocardial infarction due to anemia D64.9; I21.A1 Other iron deficiency anemia D50.8 Iron deficiency anemia type: other iron deficiency Emphysematous cystitis N30.80 Acute hemorrhagic cystitis N30.01 Mass of neck of urinary bladder N32.89 (3) Iron deficiency anemia Iron deficiency anemia type: other iron deficiency Qualified Code(s): D50.8 - Other iron deficiency anemias
--- NOTE | 2025-07-16 11:11 | Gastroenterology Progress Note ---
Date of Service July 16, 2025 Assessment & Plan (1) Emphysematous cystitis: (2) Iron deficiency anemia: (3) Acute hemorrhagic cystitis: (4) Mass of neck of urinary bladder: (5) Hematochezia due to medication: Plan: Patient has not had any further bleeding since admission. Will plan on holding off on any endoscopic workup at this time. Okay to continue her anticoagulation. Okay to advance her diet as tolerated. Stable for discharge from GI standpoint. Admission and Anticipated Discharge Date Admission Date: July 13, 2025 Subjective Patient continues to do well. She would like her diet advanced. She has not had any gross GI bleeding. Her counts did drop somewhat overnight. Physical Exam Constitutional: WD/WN, vitals as above Gastrointestinal (Abdomen): normal bowel sounds, soft, nontender, no hepatosplenomegaly Results & Data Results & Data Vital Signs (Past 12 Hours) Vital Signs Temp Pulse Resp BP Pulse Ox O2 Del Method 07/16/25 08:00 Room Air 07/16/25 07:45 36.4 C L 98 H 16 126/76 94 Room Air Laboratory Results 07/13/25 16:33 Urine Culture - Final Urine,Clean Catch Klebsiella pneumoniae 07/16/25 05:39 Hgb 10.3 L Hct 33.3 L Creatinine 1.41 H Est Cr Clr Drug Dosing 27.3 eGFR 36.33 Medications Administered Home Medications Medication Instructions Recorded Confirmed Last Taken atorvastatin 40 mg tablet 40 mg PO HS 07/29/19 07/13/25 07/12/25 alendronate 70 mg tablet (Fosamax) 70 mg PO WK 07/07/23 07/13/25 07/03/25 calcium 600 mg (as 1 tab PO DAILY 05/12/25 07/13/25 07/07/25 carbonate)-vitamin D3 5 mcg (200 unit) tablet cholecalciferol (vitamin D3) 10 10 mcg PO DAILY 05/12/25 07/13/25 07/07/25 mcg (400 unit) capsule (Vitamin D3) gabapentin 100 mg capsule 100 mg PO TID 05/12/25 07/13/25 07/12/25 mirabegron 50 mg tablet,extended 50 mg PO DAILY 05/12/25 07/13/25 07/12/25 release 24 hr nitroglycerin 0.4 mg sublingual 0.4 mg sublingual Q5M PRN chest 05/12/25 07/13/25 Unknown tablet pain polyethylene glycol 3350 17 17 g PO DAILY PRN Constipation 05/30/25 07/13/25 Unknown gram/dose oral powder (Miralax) esomeprazole magnesium 40 mg 40 mg PO DAILY 06/26/25 07/13/25 07/12/25 capsule,delayed release apixaban 5 mg tablet (Eliquis) 5 mg PO BID 07/07/25 07/13/25 07/12/25 aspirin 81 mg tablet,delayed 81 mg PO DAILY 07/07/25 07/13/25 07/12/25 release empagliflozin 10 mg tablet 10 mg PO DAILY 07/07/25 07/13/25 07/12/25 (Jardiance) famotidine 20 mg tablet 20 mg PO DAILY 07/07/25 07/13/25 07/12/25 zinc sulfate 25 mg zinc (110 mg) 25 mg PO DAILY 07/07/25 07/13/25 07/12/25 tablet amiodarone 200 mg tablet 200 mg PO QAM #30 tabs 07/12/25 07/13/25 07/12/25 furosemide 40 mg tablet (Lasix) 40 mg PO DAILY PRN Leg swelling or 07/12/25 07/13/25 07/07/25 2 pound weight gain #0 tabs metoprolol succinate 25 mg 25 mg PO QAM #30 tabs 07/12/25 07/13/25 07/12/25 tablet,extended release 24 hr sennosides 8.6 mg tablet (Senna 8.6 mg PO QAM #30 tabs 07/12/25 07/13/25 Unknown Lax) Active Medications Generic Name Dose Route Start Last Admin Trade Name Freq PRN Reason Stop Dose Admin Amiodarone HCl 200 mg 07/14/25 09:00 07/16/25 08:02 Amiodarone 200 Mg Tab PO 08/13/25 08:59 200 mg QAM KEKE Administration Apixaban 5 mg 07/13/25 21:00 07/16/25 08:02 Apixaban 5 Mg Tablet PO 08/12/25 20:59 5 mg BID KEKE Administration Atorvastatin Calcium 40 mg 07/13/25 21:00 07/15/25 19:57 Atorvastatin 40 Mg Tab PO 08/12/25 20:59 40 mg HS KEKE Administration Calcium/Vitamin D 1 tab 07/14/25 09:00 07/16/25 08:01 Calcium 600mg + Vit D 400 Iu Tab PO 08/13/25 08:59 1 tab DAILY KEKE Administration Cefuroxime Axetil 250 mg 07/15/25 09:00 07/16/25 08:01 Cefuroxime Axetil 250 Mg Tablet PO 07/23/25 08:59 250 mg BID KEKE Administration Gabapentin 100 mg 07/13/25 18:07 07/16/25 08:01 Gabapentin 100 Mg Cap PO 08/12/25 18:06 100 mg TID KEKE Administration Metoprolol Succinate 25 mg 07/14/25 09:00 07/16/25 08:01 Metoprolol Succ 25mg Ext Rel Tab PO 08/13/25 08:59 25 mg QAM KEKE Administration Vibegron 75 mg 07/14/25 09:00 07/16/25 08:01 Vibegron 75 Mg Tab PO 08/13/25 08:59 75 mg DAILY KEKE Administration Vitamin D 10 mcg 07/14/25 09:00 07/16/25 08:01 Cholecalciferol 10 Mcg (400 Units) Tab PO 08/13/25 08:59 10 mcg DAILY KEKE Administration PG Care Time/CCT Total # of Minutes Spent Total Time Spent with Patient: Total time spent is greater than 50% in coordination of care (as documented) at patient's floor/unit and/or counseling patient: Coding Level of Care Code 75760 SUB INP/OBS CARE 11/12MIN Diagnoses Emphysematous cystitis N30.80 Other iron deficiency anemia D50.8 Iron deficiency anemia type: other iron deficiency Acute hemorrhagic cystitis N30.01 Mass of neck of urinary bladder N32.89 Hematochezia due to medication K92.1; T50.905A (2) Iron deficiency anemia Iron deficiency anemia type: other iron deficiency Qualified Code(s): D50.8 - Other iron deficiency anemias
[2025-07-16 23:05] VITALS: RESP 18
--- NOTE | 2025-07-17 06:11 | Electrocardiogram Report ---
Test Reason : Blood Pressure : */* mmHG Vent. Rate : 106 BPM Atrial Rate : * BPM P-R Int : * ms QRS Dur : 90 ms QT Int : 366 ms P-R-T Axes : * 75 238 degrees QTcB Int : 486 ms Possible Atrial flutter Prolonged QT Abnormal ECG When compared with ECG of 11-Jul-2025 09:45, T wave inversion more evident in Inferior leads Confirmed by Gabriele Rebolledo ([id number] on 07/17/2025 6:11:18 AM Referred By: REFERRED SELF Confirmed By: Gabriele Rebolledo
[2025-07-17 07:12] VITALS: BP 131/80; PULSE 97; TEMP 97.3; O2SAT 93
--- NOTE | 2025-07-17 08:55 | Electrocardiogram Report ---
Test Reason : Blood Pressure : */* mmHG Vent. Rate : 110 BPM Atrial Rate : * BPM P-R Int : * ms QRS Dur : 90 ms QT Int : 370 ms P-R-T Axes : * 56 221 degrees QTcB Int : 500 ms Supraventricular tachycardia Prolonged QT Abnormal ECG When compared with ECG of 13-Jul-2025 10:20, (unconfirmed) T wave inversion more evident in Anterior leads Confirmed by Giorgi Becerra ([id number] on 07/17/2025 8:55:46 AM Referred By: REFERRED SELF Confirmed By: Giorgi Becerra
--- NOTE | 2025-07-17 12:23 | Discharge Summary ---
Discharge Summary Date of Service July 17, 2025 Principal Dx & Hospital Course #1 = Principal Diagnosis (1) Hematochezia due to medication: (2) Type 2 myocardial infarction due to anemia: (3) Iron deficiency anemia: (4) Emphysematous cystitis: (5) Acute hemorrhagic cystitis: (6) Mass of neck of urinary bladder: Plan In summary this is an 84-year-old female presenting with hematochezia with recent initiation of anticoagulation and antiplatelet agents in addition to an incidental finding of a bladder neck mass with emphysematous cystitis. #Hematochezia // Atrial fibrillation with DOAC therapy // HFrEF secondary to ischemic cardiomyopathy, with Aspirin therapy Hemoglobin trend remains stable, slight decrease during hospitalization is likely due to phlebotomy Continue Eliquis at recommendation from cardiology; hold aspirin as of 07/13 Gastroenterology consulted; given the patient's stability without recurrent episodes of bleeding with bowel movements during hospitalization, suspect this is most likely consequential suppository resulting in irritation of internal hemorrhoids with larger than typical bleeding volume given the patient's combination of anticoagulation and and antiplatelet medications in the outpatient setting; there is no plan for inpatient endoscopic procedure #Emphysematous cystitis // Rivers-sensitive E. coli, recently asymptomatic // Bladder neck mass Clinically without malia evidence of a urinary tract infection however imaging does suggest an emphysematous cystitis; urine culture yielding K. pneumoniae, rivers-sensitive Discontinue Rocephin 07/15 and transition to cefuroxime 250 mg p.o. twice daily given allergies Urology consulted; maintain Hernandez The remainder of the patient's chronic medical conditions are stable, and are without adjustment of their usual medication management during this hospitalization unless otherwise documented Admission HPI Per Admitting Provider Ms. Saunders is an 84-year-old female whose active medical conditions include transient atrial fibrillation, heart failure with reduced ejection fraction secondary to ischemic cardiomyopathy, mixed urinary incontinence among other chronic medical conditions who presented to the [facility] on 07/13 after an episode of hematochezia in the evening of 07/12. The patient has had multiple recent hospitalizations, most recently discharged on 07/12 from this medical facility due to symptomatic hyponatremia. The patient was hospitalized at this facility early in 06/2025 due to atrial fibrillation with rapid ventricular response requiring transfer to a tertiary care facility for continued management. Since that time the patient has been maintained on aspirin and Eliquis. Up until the evening of 07/12 the patient had no hematochezia, hematemesis, melanotic stool, or other notable complications or adverse effects related to these medications. The patient did have some slow transit constipation during their most recent hospitalization, requiring a suppository to be placed on 07/11, which did facilitate stool passage which was not noted to be melanotic, nor with significant discomfort. The patient endorses nonspecific, left inframammary chest achiness, without specific triggers or alleviating factors. It does not radiate, nor does it worsen with physical activity. It is not reproducible with palpation. Discharge Exam General: Elderly female in no acute distress Vital Signs: Reviewed HEENT: Moist mucous membranes; at rest, left pupil is approximately 4 mm diameter and right pupil is approximately 7 mm in diameter with irregular border; consensual light reflex is intact; extraocular motion intact Pulmonary: Symmetric chest wall excursion, unrestricted Cardiovascular: Regular rate with irregular rhythm without murmurs, rubs, or gallops; S1 and S2 normal; right radial pulse 2+ with brisk capillary refill Gastrointestinal: Soft, nonprotuberant Genitourinary: Hernandez catheter in place with yoni urine, without hematuria or sediment Neurologic: Cranial nerves II through XII grossly intact Discharge Plan Discharge Items Patient Disposition: Home - Home Health Services Reason For Visit: SYMPTOMATIC ANEMAI, LOWER GI BLEED Discharge Diagnosis: Symptomatic anemia i/s/o internal hemorrhoids // Emphysematous cystitis Condition on Discharge: Fair Activity: Per Instructions section Non-emergency contact: Primary Care Provider, Film Printer and Urologist Call non-emergency contact if: you have any medication questions, your symptoms worsen and you have a fever Follow-up/Referrals: Giorgi Gr MD [Physician] - (Hospital f/u with Emphysematous Cystitis. The office will call you with a hospital follow up visit.) Rabia Patel DO [Primary Care Provider] - 07/21/25 8:45 am Diet: Low Fat Fluids: 1800ml (7 cups) Addtl Attending Provider Instructions: You were admitted to [facility] due to blood in your stool associated with symptomatic anemia in the setting of active anticoagulation with atrial fibrillation. Furthermore, you are found to have emphysematous cystitis secondary to pansensitive E. coli. With regard to your bloody stools, this is most likely consequential of internal hemorrhoids given your relative lack of discomfort, the timeline and appearance of blood in your stool, and rapid resolution without persistent bleeding. After discussion with cardiology, it was determined that the risk versus benefit favored continuation of your Eliquis with with holding your aspirin moving forward until reevaluating with your global security architect in the outpatient setting. To prevent future episodes of internal hemorrhoid irritation, we recommend regular use of MiraLAX to keep your stools soft: Recommend using one half capful in 8 ounces of noncarbonated, nondairy fluid daily with adjustment by one half capful increase or decrease every 3 to 4 days to maintain to easily passed bowel movements daily. Furthermore, you were found to have emphysematous cystitis of which you had minor symptomatology however your laboratory assessment and imaging is consistent with this diagnosis. Your urine culture yielded E. coli with relative sensitivity excluding nitrofurantoin; you were treated for 3 days with intravenous antibiotics then transition to oral antibiotics which will be continued through 07/23. You been provided a referral to the urology group with whom you been given care during your hospitalization, they recommend maintaining your Hernandez catheter for a minimum of 2 weeks with reassessment of your radiology findings with a repeat CT pelvis without contrast. This has been ordered in your discharge by your Urology team. Pending Studies at Discharge: No Stand-Alone Forms: My [facility] [address] Medications and DC Order Prescriptions: New cefuroxime axetil 250 mg Tablet 250 mg PO BID 11 Days Qty: 22 0RF Continued atorvastatin 40 mg tablet 40 mg PO HS nitroglycerin 0.4 mg tablet, sublingual 0.4 mg SL Q5M PRN (Reason: chest pain) gabapentin 100 mg capsule 100 mg PO TID mirabegron 50 mg tablet extended release 24 hr 50 mg PO DAILY cholecalciferol (vitamin D3) [Vitamin D3] 10 mcg (400 unit) capsule 10 mcg PO DAILY calcium carbonate-vitamin D3 600 mg-5 mcg (200 unit) tablet 1 tab PO DAILY alendronate [Fosamax] 70 mg Tablet 70 mg PO WK Rx Instructions: Thursday esomeprazole magnesium 40 mg Capsule,Delayed Release(Dr/Ec) 40 mg PO DAILY zinc sulfate 25 mg zinc (110 mg) Tablet 25 mg PO DAILY famotidine 20 mg Tablet 20 mg PO DAILY Eliquis 5 mg Tablet 5 mg PO BID Jardiance 10 mg Tablet 10 mg PO DAILY metoprolol succinate 25 mg Tablet Extended Release 24 Hr 25 mg PO QAM Qty: 30 0RF sennosides [Senna Lax] 8.6 mg Tablet 8.6 mg PO QAM Qty: 30 0RF furosemide [Lasix] 40 mg Tablet 40 mg PO DAILY PRN (Reason: Leg swelling or 2 pound weight gain) Qty: 0 0RF amiodarone 200 mg Tablet 200 mg PO QAM Qty: 30 0RF Changed polyethylene glycol 3350 [Miralax] 17 gram/dose powder 17 g PO DAILY 30 Days Qty: 510 0RF Held aspirin 81 mg Tablet,Delayed Release (Dr/Ec) 81 mg PO DAILY Hold Instructions: Resume on 08/04/25. Discuss risks versus benefits of resuming with your Film Printer Discharge Orders: Discharge Order (Routine); Ordered 07/17/25 Ordered By: Bola Quan/Other Patient Handouts: UTIs, Urinary Catheter Bag Empty Clean, Hernandez Catheter Female Ch Admission Data Admit Date/Time: 07/13/25 13:48 Attending Provider: Bola Chance Admit Provider: Bola Chance Primary Care Provider: Rabia Patel Other Providers: Giorgi Gr; Nuria Medel; Rolo Segovia; Rabia Chaudhry; Jessica Connell; Antoni Mitchell; Roxanna Jenkins; Junior Keller; Dariana Rodriguez; Orestes Bell; Waylon Marlow; Scout Chacon; Namita Hutchins; [employer]; Shanon Andrew; Deann Prajapati; Sujatha Bonilla; Deborah Kohli; Pavel Talavera; Darvin Cohen; Aide Delatorre; Nery Germain; Maritza Jim; Gayle Doyle; Irina Arechiga; Hawa Howard; Kate Perez; George Bronson; Gerardo Kim; Capri Spencer; Ángela Mcdonnell Jr; Lawrence Ruvalcaba; Segun Ayala; Dk Pereira; Marck Redd; Terra Rubi; Byron Buckley I; Renay Echevarria; Timur Wright; Jay Miller; Ismael Newton; Fuentes Dhillon; Colette Craven; [facility] Other Interventions: Discharge Summary Assessment (RN) Last Done: 07/17/25 09:22 Hospital Stay Data Consultations 07/13/25 12:41 ED Decision to Admit Stat 07/13/25 14:06 Consult Urology Routine 07/13/25 18:07 Consult Gastroenterology Routine Diagnostic Imagining Performed 07/13/25 11:27 CT Abd and Pelvis [CT abd pelvis IV con only] Stat 07/13/25 18:07 CT angio abd pelvis wo/w con Routine Pending Results Patient Have Any Pending Studies at Discharge: No Discharge Instructions Given to Patient (Per Discharging Provider) You were admitted to [facility] due to blood in your stool associated with symptomatic anemia in the setting of active anticoagulation with atrial fibrillation. Furthermore, you are found to have emphysematous cystitis secondary to pansensitive E. coli. With regard to your bloody stools, this is most likely consequential of internal hemorrhoids given your relative lack of discomfort, the timeline and appearance of blood in your stool, and rapid resolution without persistent bleeding. After discussion with cardiology, it was determined that the risk versus benefit favored continuation of your Eliquis with with holding your aspirin moving forward until reevaluating with your global security architect in the outpatient setting. To prevent future episodes of internal hemorrhoid irritation, we recommend regular use of MiraLAX to keep your stools soft: Recommend using one half capful in 8 ounces of noncarbonated, nondairy fluid daily with adjustment by one half capful increase or decrease every 3 to 4 days to maintain to easily passed bowel moveme nts daily. Furthermore, you were found to have emphysematous cystitis of which you had minor symptomatology however your laboratory assessment and imaging is consistent with this diagnosis. Your urine culture yielded E. coli with relative sensitivity excluding nitrofurantoin; you were treated for 3 days with intravenous antibiotics then transition to oral antibiotics which will be continued through 07/23. You been provided a referral to the urology group with whom you been given care during your hospitalization, they recommend maintaining your Hernandez catheter for a minimum of 2 weeks with reassessment of your radiology findings with a repeat CT pelvis without contrast. This has been ordered in your discharge by your Urology team. Total Time Total Time Spent Total Time Spent (In Minutes): I personally spent 40 minutes in the coordination of patient's discharge including consultation at bedside with the patient and their spouse, physical exam, medication reconciliation, laboratory and imaging interpretation, coordination of care with multiple subspecialties and case management Coding Level of Care Code 27306 INP/OBS DISCH >30 MIN Diagnoses Hematochezia due to medication K92.1; T50.905A Type 2 myocardial infarction due to anemia D64.9; I21.A1 Other iron deficiency anemia D50.8 Iron deficiency anemia type: other iron deficiency Emphysematous cystitis N30.80 Acute hemorrhagic cystitis N30.01 Mass of neck of urinary bladder N32.89
== END 2025-07-17 11:45 | disposition home health service (06) | DRG 377 ==
LOC: ED 09:05 → 2W 13:48 → 3N 07-15 13:48